=== PATIENT | female | born 1960 | race Caucasian/White ===

== ENCOUNTER 2020-03-25 08:13 | Outpatient (CLI) | payer SELFPAY ==
--- NOTE | 2020-03-25 08:21 | US_ITS ---
WS: [id number] BILATERAL DIGITAL DIAGNOSTIC MAMMOGRAM MAMMOGRAPHY WITH CAD CLINICAL INFORMATION: breast mass-- suspicious for malignancy COMPARISON: None. TECHNIQUE: Bilateral CC, MLO, and ML views. FINDINGS: Scattered fibroglandular densities bilaterally. Palpable marker upper inner left breast. This corresponds to an underlying dense mammographic mass me asuring 3.1 x 2.8 cm. This is well circumscribed with adjacent interstitial parenchymal changes exten ding towards the left nipple. Ultrasound is pending. Additional focal asymmetric density upper outer left breast measuring 7 mm. Ultrasound is pending. Right breast is unremarkable. ULTRASOUND BREAST LEFT TECHNIQUE: Ultrasound left breast focused area of concern. CLINICAL INFORMATION: breast mass-- suspicious for malignancy COMPARISON: None. FINDINGS: Ultrasound left breast 11-2 o'clock. Large cystic and solid complex lesion corresponding to the palpa ble abnormality 11:00 left breast. Internal and peripheral nodularity involving this lesion with incr eased vascularity. This lesion measures approximately 3.1 x 2.3 x 2.7 cm and recommend further evalua tion with biopsy and aspiration. Hypoechoic lobulated lesion at the 2:00 position likely corresponds to the mammographic abnormality l aterally. This measures 7.6 and 4.5 x 7.0 mm. Recommend further evaluation with ultrasound-guided bio psy. 2 additional hypoechoic lesions at the 1:00 and 2:00 position 5 cm from the nipple. These appear to r epresent intramammary lymph nodes. Left axilla evaluated. Several slightly prominent lymph nodes with preserved fatty hilum. No signific ant cortical thickening. The largest measures 1.4 x 0.5 x 1.3 cm and 1.3 x 0.5 x 0.7 cm. These are no nspecific but may be reactive. Ultrasound guided biopsy recommended of the complex cystic and solid upper inner quadrant LEFT breast lesion as well as the 3:00 small indeterminate hypoechoic lesion. US/US breast LT limited* [id number] IMPRESSION: BI-RADS: 4C-Suspicious: Moderate FOLLOW UP: US Guided Biopsy Recommended
--- NOTE | 2020-03-25 08:30 | MM_ITS ---
WS: [id number] BILATERAL DIGITAL DIAGNOSTIC MAMMOGRAM MAMMOGRAPHY WITH CAD CLINICAL INFORMATION: breast mass-- suspicious for malignancy COMPARISON: None. TECHNIQUE: Bilateral CC, MLO, and ML views. FINDINGS: Scattered fibroglandular densities bilaterally. Palpable marker upper inner left breast. This corresponds to an underlying dense mammographic mass me asuring 3.1 x 2.8 cm. This is well circumscribed with adjacent interstitial parenchymal changes exten ding towards the left nipple. Ultrasound is pending. Additional focal asymmetric density upper outer left breast measuring 7 mm. Ultrasound is pending. Right breast is unremarkable. ULTRASOUND BREAST LEFT TECHNIQUE: Ultrasound left breast focused area of concern. CLINICAL INFORMATION: breast mass-- suspicious for malignancy COMPARISON: None. FINDINGS: Ultrasound left breast 11-2 o'clock. Large cystic and solid complex lesion corresponding to the palpa ble abnormality 11:00 left breast. Internal and peripheral nodularity involving this lesion with incr eased vascularity. This lesion measures approximately 3.1 x 2.3 x 2.7 cm and recommend further evalua tion with biopsy and aspiration. Hypoechoic lobulated lesion at the 2:00 position likely corresponds to the mammographic abnormality l aterally. This measures 7.6 and 4.5 x 7.0 mm. Recommend further evaluation with ultrasound-guided bio psy. 2 additional hypoechoic lesions at the 1:00 and 2:00 position 5 cm from the nipple. These appear to r epresent intramammary lymph nodes. Left axilla evaluated. Several slightly prominent lymph nodes with preserved fatty hilum. No signific ant cortical thickening. The largest measures 1.4 x 0.5 x 1.3 cm and 1.3 x 0.5 x 0.7 cm. These are no nspecific but may be reactive. Ultrasound guided biopsy recommended of the complex cystic and solid upper inner quadrant LEFT breast lesion as well as the 3:00 small indeterminate hypoechoic lesion. MM/[place] [id number] IMPRESSION: BI-RADS: 4C-Suspicious: Moderate FOLLOW UP: US Guided Biopsy Recommended
== END 2020-03-25 08:14 | disposition home or self-care (01) ==
LOC: RADSHAW 08:15
PROVIDERS: Visit Provider Nurse Practitioner Women's Health
DX: N63.22 Unspecified lump in the left breast, upper inner quadrant (principal)
CPT/HCPCS: 76642; 77066

== ENCOUNTER 2020-04-02 11:56 | Outpatient (CLI) | payer SELFPAY ==
--- NOTE | 2020-04-02 13:00 | US_ITS ---
WS: [id number] ULTRASOUND-GUIDED LEFT BREAST BIOPSY CLINICAL INFORMATION: breast mass and abnormal mammogram COMPARISON: None. FINDINGS: The procedure including risks, benefits, and complications were discussed with the patient who agreed to proceed. Using sterile technique patient was prepped and draped in the usual sterile fashion. Aft er 1% lidocaine utilizing real-time ultrasound guidance a 16-gauge needle was advanced into the cysti c portion of the lesion at the 11:00 position. Approximately 10 cc of bloody fluid was aspirated and sent for diagnostic tests. Next, 5 14-gauge cores were obtained of the solid portion left breast lesi on at the 11 o'clock position. Subsequently a titanium clip was placed in the biopsy cavity. No immed iate complications. Next, 5 14-gauge samples were obtained of the left breast lesion at the 2:00 position. Titanium clip was placed in the biopsy cavity. PATHOLOGY DEMONSTRATES: A. Breast, left, 11 O' Clock 3 cm, ultrasound-guided biopsy: - METAPLASTIC CARCINOMA with giant cells, spindle cells, chondroid and osteoid differentiation. - See comment. B. Breast, left, 2 O' Clock 4 cm, ultrasound-guided biopsy: - INVASIVE DUCTAL CARCINOMA, poorly differentiated, [place] grade III. - Ductal carcinoma in situ with comedonecrosis. 2. The pathology demonstrates : a. Left breast 11:00 position, metaplastic carcinoma with giant cells, spindle cell, chondroid and os teoid differentiation. b. Left breast 2:00 position, invasive ductal carcinoma poorly differentiated. Also DCIS with comedon ecrosis. 3. Breast cancer prognostic profile pending US/[place] [id number] IMPRESSION: 1. Uncomplicated ultrasound-guided left breast biopsy. BI-RADS: 6-Known Biopsy-Proven Malignancy FOLLOW UP: Surgical Biopsy Recommended RECOMMEND BREAST SURGERY CONSULTATION.
[2020-04-11 14:44] LABS: Miscellaneous Test See Scanned Lab Rpt
== END 2020-04-02 11:57 | disposition home or self-care (01) ==
LOC: RAD 11:58
PROVIDERS: PCP Nurse Practitioner Women's Health; Visit Provider Nurse Practitioner Women's Health
DX: C50.212 Malignant neoplasm of upper-inner quadrant of left female breast (principal); C50.412 Malignant neoplasm of upper-outer quadrant of left female breast
CPT/HCPCS: 19083; 19084; 88112; 88173; 88184; 88185; 88188; 88305

== ENCOUNTER 2020-04-11 10:16 | Outpatient (CLI) | payer SELFPAY ==
[2020-04-11 11:40] LABS: Basophils # 0.1 10^3/uL (0.0-0.1); Basophils % 0.8 %; Eosinophils # 0.2 10^3/uL (0.0-0.8); Eosinophils % 2.2 %; Hematocrit 49.3 % (37.0-47.0); Hemoglobin 15.6 g/dL (11.5-15.3); Lymphocytes # 2.6 10^3/uL (0.8-4.8); Lymphocytes % 28.4 %; Mean Corpuscular HGB Conc 31.6 g/dL (30.0-36.0); Mean Corpuscular Hemoglobin 29.8 pg (28.0-34.0); Mean Corpuscular Volume 94.3 fL (81-99); Mean Platelet Volume 10.8 fL (7.4-10.4); Monocytes # 0.6 10^3/uL (0.2-0.9); Monocytes % 6.1 %; Neutrophils # 5.79 10^3/uL (1.8-7.7); Neutrophils % 62.3 %; Nucleated Red Blood Cells % 0 %; Platelet Count 269 10^3/cmm (130-400); Red Blood Count 5.23 10^6/uL (4.1-5.3); Red Cell Distribution Width 12.6 % (12.1-15.1); White Blood Count 9.3 10^3/uL (4.0-10.0)
[2020-04-11 12:07] LABS: Alanine Aminotransferase 35 U/L (0-33); Albumin Level 4.3 g/dL (3.5-5.2); Alkaline Phosphatase 150 IU/L (35-105); Aspartate Amino Transferase 29 U/L (0-32); Blood Urea Nitrogen 12 mg/dL (6-20); Calcium 9.4 mg/dL (8.5-10.5); Carbon Dioxide 26 mmol/L (22-29); Chloride 103 mmol/L (98-107); Globulin 3.4 g/dL (1.3-4.6); Glomerular Filtration Rate 85.9 mL/min (90-130); Glucose 98 mg/dL (65-115); Osmolality Calculated 282 mOsm/kg (285-295); Sodium 138 mmol/L (136-145); Total Bilirubin 0.3 mg/dL (0.15-1.2); Total Protein 7.7 g/dL (6.6-8.7)
[2020-04-11 12:10] LABS: Anion Gap 13.2 (5-19); Potassium 4.2 mmol/L (3.5-5.1)
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
== END 2020-04-11 10:17 | disposition home or self-care (01) ==
PROVIDERS: Visit Provider Internal Medicine Medical Oncology
DX: C50.812 Malignant neoplasm of overlapping sites of left female breast (principal); Z17.1 Estrogen receptor negative status [ER-]; F17.210 Nicotine dependence, cigarettes, uncomplicated
CPT/HCPCS: 36415; 80053; 85025; 99205

== ENCOUNTER 2020-04-23 12:33 | Outpatient (CLI) | payer MEDICAID, SELFPAY ==
--- NOTE | 2020-04-23 13:01 | MR_ITS ---
WS: [id number] MRI BRAIN WITH AND WITHOUT CONTRAST HISTORY: BREAST CANCER COMPARISON: CT head 04/06/2018 TECHNIQUE: Multiplanar imaging performed through the brain with Prohance 17 ml's IV. No acute infarcts are seen. Mancia-white matter differentiation is well preserved. Multifocal areas of increased T2 and FLAIR signal hyperintensities and periventricular white matter and subcortical distr ibution. No prior infarct. No susceptibility artifacts or prior lacunar infarcts. Ventricles and extra-axial spaces are normal. Clivus and pituitary gland are normal. Visualized posterior fossa and brainstem are also normal. Postcontrast images are negative for masses or vascular malformations. Dural venous sinuses are normal. Paranasal sinuses: Well aerated with no significant disease. Mastoid air cells: Normal. Calvarium and scalp: Normal. MR/MR head wo/w con [id number] IMPRESSION: 1. No acute infarct or metastatic disease. 2. Mild to moderate chronic microvascular ischemic changes. No acute abnormali ty.
== END 2020-04-23 12:34 | disposition home or self-care (01) ==
LOC: ONCMED 12:34
PROVIDERS: Visit Provider Internal Medicine Medical Oncology
DX: C50.812 Malignant neoplasm of overlapping sites of left female breast (principal); Z17.1 Estrogen receptor negative status [ER-]
CPT/HCPCS: 70553; A9579

== ENCOUNTER → 2020-04-25 15:45 | Outpatient (BNVA) | payer MEDICAID, SELFPAY | PROVIDERS: Family Provider Orthopaedic Surgery; Visit Provider Nurse Practitioner Women's Health | DX: C50.912 Malignant neoplasm of unspecified site of left female breast (principal) | CPT/HCPCS: 88175 ==

== ENCOUNTER 2020-05-05 07:55 | Outpatient (CLI) | payer MEDICAID, SELFPAY ==
--- NOTE | 2020-05-05 08:20 | NM_ITS ---
WS: [id number] NUCLEAR MEDICINE WHOLE BODY BONE SCAN HISTORY: BREAST CANCER COMPARISON: 05/05/2020 CT. TECHNIQUE: The patient was injected with 26.8 mCi of Technetium 99m HDP and serial whole-body scintig lori have been performed with anterior and posterior images. There is no significant evidence for metastatic disease to the osseous structures. There is a very mi nimal area of increased uptake involving the anterior most end of the seventh LEFT rib. Mild degenera tive changes at the ankle joints and knee joints. Normal uptake in the bones of the pelvis. Normal sk ull. NM/NM bone scan whole body* [id number] IMPRESSION: No definite evidence for metastatic bone disease.
--- NOTE | 2020-05-05 08:20 | CT_ITS ---
WS: [id number] CT CHEST, ABDOMEN AND PELVIS WITH CONTRAST. HISTORY: BREAST CANCER TECHNIQUE: Contiguous 5 mm axial imaging performed through the chest, abdomen and pelvis with IV cont rast, oral contrast has been provided. Coronal and sagittal reformats chest. Coronal and sagittal ref ormats through the abdomen and pelvis. All CT scans at [facility] use at least one of the se dose optimization techniques: automated exposure control; mA and/or kV adjustment per patient size (includes targeted exams where dose is matched to clinical indication); or iterative reconstruction. CONTRAST: Omnipaque 300; 95 mL IV. DLP: 1019.17 mGy.cm COMPARISON: 04/06/[address]: There are several new areas of groundglass attenuation and spiculated nodules in the lungs. Central RIGHT upper lobe groundglass attenuation measures 7 mm maximum diameter, image 14 of series 4 . Additional 9 mm groundglass attenuation RIGHT upper lobe, image 21 of series 4. 3 mm nodule along the superior minor fissure extending towards the RIGHT lower lobe, image 34 of series 4. 8mm spiculated nodule at the RIGHT lung base, image 40 of series 4. LEFT lower lobe groundglass attenuation measures 7 mm, image 30 of series 4. None of the above nodules were present on the prior examination from 2018. Small mediastinal and tamir r lymph nodes are stable since 2018. Largest lymph node measures 8 mm at the RIGHT hilum. Additional stable lymph nodes in the pericardiac fat. Mild atherosclerosis aorta. Normal size pulmonary artery. Subcentimeter RIGHT thyroid nodule is unchanged. Recently biopsied large heterogeneous LEFT breast mass measures 3.4 x 2.7 cm. No enlarged LEFT axilla ry lymph nodes are internal mammary chain lymph nodes. Abdomen CT: Moderate hepatomegaly and hepatic steatosis. No bile duct dilatation no metastatic diseas e. Normally distended gallbladder with cholelithiasis. Normal pancreas and spleen. Minimal hyperplasi a LEFT adrenal gland is stable. Normal RIGHT adrenal gland. Mild atherosclerosis aorta. Kidneys are e nhancing normally and normal size. No ascites or adenopathy. No GI tract obstruction. Sigmoid diverticulosis without acute diverticulitis. Small ventral abdominal wall hernia contains fat. Pelvic CT: Normally distended urinary bladder. No free fluid or adenopathy in the pelvis. Uterus and ovaries are atrophic as expected. Increase in lumbar lordosis. No osteoblastic or osteolytic bone disease. CT/CT chest abd pel w con* IMPRESSION: 1. Multi lobar spiculated nodules and groundglass attenuation as described abo ve. New since 2018. Early metastatic disease is not excluded. Consider follow-u p PET/CT imaging and [address] follow-up due to their small size. 2. Hepatic steatosis. No metastatic disease to the liver or adrenal glands. 3. Sigmoid diverticulosis without acute diverticulitis. 4. Cholelithiasis without acute cholecystitis.
[2020-05-05] MEDS: iohexol 300 mg/mL 50 mL Btl PO (08:27)
[2020-05-05] MEDS: iohexol 300 mg/mL 100 mL Btl IV (09:35)
--- NOTE | 2020-05-06 12:23 | ONC FU_ITS ---
Dr. Michelle Patient Follow-Up Note Patient: Tiara Gonzalez Unit #: [id number]: 1960 Dicatated By: Phillip Michelle M.D.Date of Visit:May 05, 2020 Onc Med Follow-up/Prog Note Chief Complaint: Breast cancer. History of Present Illness: This is a 59 year-old woman with multifocal left breast cancer, ER negative, KY negative, and HER-2 kika negative. She had presented to [facility] on 03/21/2020 with a lump in her left breast. Diagnostic mammogram on 03/25/2020 showed a dense well-circumscribed mass measuring 3.1 x 2.8 cm. Ultrasound showed a large cystic and solid complex lesion at the 11 to 2 o'clock position of the left breast measuring 3.1 x 2.3 x 2.7 cm. A hypoechoic lobulated lesion at 2:00 measured 7.6 x 4.5 x 7.0 mm. 2 additional hypoechoic lesions at the 1:00 and 2 o'clock position located 5 cm from the nipple appeared to represent intramammary lymph nodes. Several slightly prominent lymph nodes were noted in the left axilla measuring up to 1.4 cm in maximum diameter were noted to have preserved fatty hilum without significant cortical thickening, felt to most likely be reactive. She had underwent ultrasound directed core needle biopsy of the 11:00 mass and the 2:00 mass on 04/02/2020. 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 The breast prognostic profile on that lesion showed ER and KY both negative at <1%. The tumor was negative for overexpression of HER-2/kika, 1+ by IHC and amplification ratio by FISH at 1.0 with 1.9 HER-2 copies/cell. The Ki-67 was unfavorable at 18%. The lesion at 2:00 showed invasive ductal carcinoma, poorly differentiated, grade 3. 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 I had seen her initially on 04/11/2020. At that time she had multiple complains, significant enough that I was concerned about the possibility of metatstatic disease. Her baseline laboratory studies were unremarkable except for slightly elevated liver enzymes. Her brain MRI showed no evidence of metastatic disease. Staging CT scans of the chest, abdomen, and pelvis on 05/05/2020 showed hepatic steatosis but no metastatic disease in the abdomen or pelvis. The chest showed multilobar subcentimeter pulmonary nodules which were indeterminate but new compared to a prior study from 2018. Bone scan showed mild degenerative changes at the ankle joints and knee joints. There was no significant evidence for metastatic disease. She is seen for a follow-up visit. She has been feeling somewhat better to the extent that her headaches are not as bad and her nausea/appetite have improved with dexamethasone. She still complains that she wears out quickly. ECOG score is 1. She does not have fever, night sweats, or hot flashes. She has some shortness of breath with activity and she has nonproductive cough. She hurts a lot in her chest, that is mainly in the breast area. She does have pain in her knees and ankles. She has anxiety/depression, and she is not sleeping well. Medications: dimenhyDRINATE 1 Tablet (of 25 mg) Tablet, chewable Oral daily, diphenhydrAMINE HCl (Sleep) 1 Tablet (of 25 mg) Oral at bedtime Allergies: No Known Allergies. Review of Systems: Constitutional - She wears out quickly. Appetite is OK. Weight is up a few pounds. No fever, night sweats, or hot flashes. ECOG score is 1., ENMT - No sinus congestion/drainage. No mouth sores. No sore throat or difficulty swallowing, Hematologic/Lymphatic - She has some bruising, Respiratory - She has some shortness of breath with activity. She has nonproductive cough. No pleuritic pain or hemoptysis, Cardiovascular - No angina pain. No palpitations, Gastrointestinal - She still has some nausea. No heartburn or acid reflux. No diarrhea or constipation. No blood in the stool or black stools, Genitourinary (F) - No dysuria or hematuria. No urinary frequency. No urgency or incontinence, Musculoskeletal - Her chest hurts a lot. She also has pain in her knees and ankles and in her back, Integumentary - No skin rash, Neurologic - Her headaches are not as bad. She sometimes has dizziness. She sometimes has numbness/tingling. No other focal neurologic symptoms, Psychiatric - She has anxiety and depression. She does not sleep well. Vital Signs: Performed on May 05, 2020 15:04 Height - 62.00 in Weight - 137 lbs (HIGH) BSA - 1.63 sq.m BMI - 25.06 Temperature - 97.8 F (LOW) Pulse - 89 /min Respiration - 17 /min BP - 132/74 mm(hg) O2 Sat - 98 % Pain - 9 Physical Examination: Constitutional - She appears somewhat weak generally, Eyes - Sclerae nonicteric. Conjunctivae clear, ENMT - No lesions noted in the oral cavity, Hematologic/Lymphatic - No cervical, clavicular, or axillary adenopathy, Respiratory - Lungs sound clear, Cardiovascular - Heart rhythm is regular. There is no murmur, gallop, or rub noted, Abdomen - Moderately distended. Liver and spleen are not enlarged. There is no abdominal mass or ascites noted and there is no inguinal adenopathy, Extremities - No edema, Neurologic - No focal neurologic deficits noted. Lab/Imaging: Test performed on Apr 11, 2020 11:20 Sodium 138 mmol/L Potassium 4.2 mmol/L Chloride 103 mmol/L CO2 26 mmol/L Anion Gap 13.2 BUN 12 mg/dL Creatinine 0.7 mg/dL Cr Clearance (Est) 83.8100 mL/min eGFR 85.9 mL/min Glucose 98 mg/dL Calcium 9.4 mg/dL Protein, Total 7.7 g/dL Albumin 4.3 g/dL Globulin 3.4 g/dL Bilirubin, Total 0.3 mg/dL ALT (SGPT) 35 U/L AST (SGOT) 29 U/L Alkaline Phosphatase 150 IU/L WBC 9.3 10 3/uL RBC 5.23 10 6/uL HGB 15.6 g/dL HCT 49.3 % MCV 94.3 fL MCH 29.8 pg MCHC 31.6 g/dL RDW 12.6 % Platelet Count 269 10 3/cmm MPV 10.8 fL Neutrophils 5.79 10 3/uL Lymphocytes 2.6 10 3/uL Monocytes 0.6 10 3/uL Eosinophils 0.2 10 3/uL Basophils 0.1 10 3/uL Neutrophil % 62.3 % Lymphocyte % 28.4 % Monocyte % 6.1 % Eosinophil % 2.2 % Basophils % 0.8 % NRBC % 0 % Impression: 1. Patient with multifocal cancer of the left breast, including a metaplastic carcinoma with giant cells, spindle cells, chondroid and osteoid differentiation at the 11 o'clock position and a grade 3 invasive ductal carcinoma at the 2 o'clock position. The 11 o'clock lesion was ER and KY negative (<1%) and negative for overexpression of HER-2/kika (1+ by IHC and amplification ratio by FISH of 1.0 with 1.9 HER-2 copies/cell). The Ki-67 was unfavorable at 18%. 2. She underwent ultrasound directed core needle biopsy of the left breast on 04/02/2020. 3. She has nicotine dependence (cigarettes). At her initial visit on 04/11/2020 she had numerous complaints, significant enough that I was concerned about the possibility of metastatic disease. Her staging evaluation does show subcentimeter pulmonary nodules which are indeterminate, but new compared to previous study from 2018. There are no other findings which are suspicious for metastatic disease. She has had some symptomatic improvement with dexamethasone, though she continues to have some nausea and she is having significant pain. Plan: She will now be scheduled to see Dr. Tejada for mastectomy. I will see her again to discuss adjuvant therapy when final the pathology results are available. In the meantime, she is to stop the dexamethasone now. She will be given a prescription for Protonix 40 mg daily and she will be given a prescription for hydrocodone 5/APAP 325 to take as needed. She also will start trazodone 50 mg at bedtime. Signed By: Phillip Michelle M.D. <<Signature on File>>
== END 2020-05-05 07:56 | disposition home or self-care (01) ==
LOC: US 07:56 → RAD 08:10
PROVIDERS: PCP Nurse Practitioner Women's Health; Visit Provider Internal Medicine Medical Oncology
DX: C50.812 Malignant neoplasm of overlapping sites of left female breast (principal); Z17.1 Estrogen receptor negative status [ER-]; R91.8 Other nonspecific abnormal finding of lung field; M89.8X0 Other specified disorders of bone, multiple sites; N64.4 Mastodynia; R07.9 Chest pain, unspecified; K76.0 Fatty (change of) liver, not elsewhere classified; K57.30 Diverticulosis of large intestine without perforation or abscess without bleeding; K80.20 Calculus of gallbladder without cholecystitis without obstruction; F17.210 Nicotine dependence, cigarettes, uncomplicated; R11.0 Nausea; Z79.52 Long term (current) use of systemic steroids
CPT/HCPCS: 71260; 74177; 78306; 99214; A9561

== ENCOUNTER → 2020-05-16 15:19 | Outpatient (BNVA) | payer OTHER, SELFPAY | PROVIDERS: PCP Nurse Practitioner Women's Health; Visit Provider Surgery | DX: C50.912 Malignant neoplasm of unspecified site of left female breast (principal); Z20.828 Contact with and (suspected) exposure to other viral communicable diseases | CPT/HCPCS: 87635 ==

== ENCOUNTER 2020-05-20 14:59 | Observation (INO) | payer MEDICAID, SELFPAY ==
[2020-05-19 12:59] VITALS: BMI 25.2
[2020-05-20] VITALS (21 sets, daily range): BP systolic 127–186; BP diastolic 78–94; PULSE 72–101; RESP 13–24; TEMP 36–37.2; O2SAT 92–100
[2020-05-20] MEDS: sodium chloride 0.9% 1,000 ML 30 ML IV (07:35)
[2020-05-20] MEDS: heparin 5,000 unit/mL INJ 1 mL 2000 UNIT SUBCUT (07:46)
--- NOTE | 2020-05-20 08:38 | NM_ITS ---
WS: [id number] NUCLEAR MEDICINE SENTINEL LYMPH NODE IMAGING HISTORY: sentinel node biopsy, LEFT breast. COMPARISON: None available. TECHNIQUE: The patient was injected with 1.03 mCi of Technetium 99 ultra filtered sulfur colloid. Inj ection is intradermal in a periareolar location. Four aliquots are used. Uncomplicated injection LEFT breast. NM/NM sentinel node inject [id number] IMPRESSION: Uncomplicated LEFT breast sentinel node injection.
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
--- NOTE | 2020-05-20 13:10 | W.PM.OPSUD ---
Surgery/Procedure H&P Update DATE OF PROCEDURE: May 20, 2020 DATE H&P PERFORMED: 05/08/20 H&P UPDATE INFORMATION: I have reviewed H&P completed within last 30 days, I have examined patient prior to procedure and No changes to prior documentation PREOP DIAGNOSIS: Left breast cancer PRIMARY INDICATION FOR PROCEDURE: The same PLANNED PROCEDURE: Operation Date: 05/20/20 10:00 Proposed Procedures p Sentinal Lymph Node Biopsy [id number] C50.912(Left) - Colby Tejada MD s Total Mastectomy Radical(Left) - Colby Tejada MD
[2020-05-20] MEDS: isosulfan blue 10 mg/mL SDV 5mL SUBCUT (13:32)
--- NOTE | 2020-05-20 14:33 | SUR.OPER ---
Pt's family Santos updated on surgery progress and pt status via her cell phone.
[2020-05-20] MEDS: lidocaine 2% INJ 20 mL INJECTION (14:50)
--- NOTE | 2020-05-20 14:51 | P.OP_ITS ---
Operative Report Date of procedure: May 20, 2020 Pre-op Diagnosis: Left breast cancer Post-op diagnosis: other (Left breast cancer and sentinel lymph node biopsy x1) Procedure Done: Left total mastectomy and left axillary sentinel lymph node biopsy. Implants: 19 round Michael drain Specimens removed/disposition: Specimen #A sentinel lymph node biopsy #1 in vivo 983 and ex vivo 674. 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 Michelle medical oncologist. Decision was obtained to perform a total mastectomy and left axillary sentinel lymph node. Patient agreed to proceed accordingly. Procedure: In the nuclear medicine suite,Procedure was explained to the patient. Informed consent obtained. Time out was performed. The correct breast was marked. The skin at the adrenal skin interface was marked at the 12:00, 3:00, 6:00, 9:00 positions and prepped in a sterile manner. At the skin markings, the subcutaneous soft tissues were anesthetized with buffered 1% lidocaine. At each site, single aliquots of technetium 99m filtered sulfur colloid were administered into the subcutaneous soft tissues (total activity of 1.1 mCi). No apparent post procedure complication. Few hours later, the patient was taken to the operating room after marking the left breast and axilla by myself in the holding area, and general anesthesia was induced,Time-out was done verifying the patient's name/date of /planned procedure and destination after the procedure, all were in agreement.SCDs confirmed to be functioning, preoperative antibiotics administered per protocol, and beta katrina protocol was confirmed, appropriate positioning of the patient was done by me. patient was placed in supine position, with her left side being towards the edge of the table. Lymphazurin blue dye was injected at the periareolar region by myself, this was massaged gently for 5 minutes. Prep and drape was done for the chest including left breast and left arm and axilla, time-out was done verifying the patient's name medical record number and destination after the procedure, all were in agreement, IV antibiotics were given with induction. Started by far lateral and superior skin incision included in the mastectomy incision to reach for the sentinel lymph node biopsy of the axilla.And hand-held gamma probe was used to identify the location of the hottest spot in the axilla the probe was placed in contact with the node/stained blue,thelymph node was excised in its entirety. Ayaka counts as follows [place] lymph node #1 in vivo 983,ex vivo 674 then the lymph node at this point was passed to the circulating nurse for permanent pathology Irrigation and hemostasis using vascular clips were applied during the lymph node dissection Following that skin incision was extended made that encompassed the nipple area complex and the previous biopsy scar passed in a generally transverse/oblique direction across the breast Flaps were raised in the avascular plane between the subcutaneous tissue and breast tissue from the clavicle superiorly, the sternum medially, the anterior rectus sheath inferiorly, and anterior border of the latissimus dorsi muscle laterally. Hemostasis was achieved of the flaps. Next the breast tissue underlying pectoralis fascia were excised from the pectoralis major muscle, progressing from medially to laterally in the avascular plane. At the lateral border of the pectoralis major muscle, the breast tissue was swung laterally. Neurovascular structures were preserved. At this point mastectomy was achieved of the left breast sparing further axillary dissection. The mastectomy specimen was oriented short sutures superior and long sutures lateral and then passed to the circulating nurse for permanent pathology The wound was copiously irrigated and hemostasis was achieved. A rounded Michael drains 19 Sinhala were placed and brought out through the inferior flap,drain was stitched to the skin, wound was then closed using deep subdermal 2-0 Vicryl , followed by skin yousif, dry dressing, drain dressings, Telfa, fluffs on top and sports bra was applied. Counts of sponges, needles and instruments,needles were completed at the end of the procedure I was present for the whole entire procedure. Patient was then extubated and taken to the recovery room in stable condition
--- NOTE | 2020-05-20 15:19 | SUR.PHASEI ---
PT SLEEPS QUIETLY WITH ORAL AIRWAY IN PLACE, VSS LT BREAST DRESSING D/I WITH SUPPORT BRA IN PLACE LT ARM PINK WARM WITH STRONG REGULAR PULSE NOTED, PILLOW UNDER LT ARM FOR SUPPORT AND ELEVATION.
[2020-05-20] MEDS: fentaNYL 50 mcg/mL INJ 2mL IVP (15:32)
[2020-05-20] MEDS: morphine 4 mg/mL SDV 1 mL 2 MG IVP ×3 (15:38→20:59)
--- NOTE | 2020-05-20 15:44 | SUR.PHASEI ---
PT PAIN SLOWLY DECREASING PT DOZING OFF AND ON , SEE PAIN MEDS GIVEN, , LT BREAST DRESSING D/I PT TAKING OCC ICE CHIPS VSS. SATS 97% ON RA.
--- NOTE | 2020-05-20 15:54 | PM.PACU ---
PACU note Post-Anesthesia Exam: awake and vital signs stable Disposition: admitted
[2020-05-20] MEDS: HYDROcodone-acetaminophen 5-325 mg Tablet 1 TAB PO (16:21)
[2020-05-20] MEDS: famotidine 20 mg/2 mL INJ IVP (16:30)
[2020-05-20 16:33] LABS: Glucose Point of Care 148 mg/dL (70-110)
[2020-05-20] MEDS: sodium chloride 0.9% 1,000 ML 50 ML IV (23:41)
[2020-05-21] MEDS: ketorolac 30 mg/mL INJ 15 MG IVP (01:48)
[2020-05-21 02:00] VITALS: BP 151/81; PULSE 75; RESP 18; TEMP 36.7; O2SAT 96
[2020-05-21] MEDS: famotidine 20 mg/2 mL INJ IVP (03:46)
[2020-05-21 05:40] LABS: Hemoglobin 13.8 g/dL (11.5-15.3)
[2020-05-21 06:05] LABS: Anion Gap 14.6 (5-19); Blood Urea Nitrogen 9 mg/dL (6-20); Calcium 9.7 mg/dL (8.5-10.5); Carbon Dioxide 23 mmol/L (22-29); Chloride 98 mmol/L (98-107); Glomerular Filtration Rate 85.9 mL/min (90-130); Glucose 163 mg/dL (65-115); Osmolality Calculated 274 mOsm/kg (285-295); Potassium 4.6 mmol/L (3.5-5.1); Sodium 131 mmol/L (136-145)
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
[2020-05-21] MEDS: HYDROcodone-acetaminophen 5-325 mg Tablet 1 TAB PO (06:23)
[2020-05-21] MEDS: morphine 4 mg/mL SDV 1 mL 2 MG IVP (06:29)
[2020-05-21 07:46] VITALS: BP 145/79; PULSE 70; RESP 18; TEMP 36.9; O2SAT 95
[2020-05-21] MEDS: nicotine 14 mg Patch 1 PATCH TRANSDERMA (08:14)
[2020-05-21 11:17] VITALS: BP 155/79; PULSE 83; RESP 18; TEMP 36.7; O2SAT 94
--- NOTE | 2020-05-21 11:29 | ANE.PACU2 ---
Inpatient post-anesthesia follow up: Airway intact: Yes Vital signs: Temperature 98.1 F Pulse Rate 83 Respiratory Rate 18 Blood Pressure 155/79 Pulse Oximetry 94 Oxygen Delivery Me thod Room Air Oxygen Flow Rate 8 Fraction of Inspir ed Oxygen Hydration adequate: Yes Nausea and vomiting: No Pain level: 1 Mental status: Baseline Additional Comments: patient states she lost her earring perioperatively - will ask space and storage clerk involved in case
[2020-05-21 11:47] VITALS: BP 155/79; PULSE 83; RESP 18; TEMP 36.7; O2SAT 94
--- NOTE | 2020-05-21 12:11 | PC.RESP ---
SMOKING CESSATION INFORMATION SENT TO PATIENT.
== END 2020-05-21 11:48 | disposition home or self-care (01) ==
LOC: MEDSURG 15:00
PROVIDERS: Admitting Provider Surgery; Visit Provider Surgery
PROC: (CPT 19303; principal; 2020-05-20 10:45)
PROC: (CPT 19303; 2020-05-20 10:45)
DX: C50.912 Malignant neoplasm of unspecified site of left female breast (principal); Z80.3 Family history of malignant neoplasm of breast; F17.210 Nicotine dependence, cigarettes, uncomplicated
CPT/HCPCS: 19303; 38525; 12345; 36416; 38792; 80048; 82962; 85014; 85018; 88305; 88309; 96360; 96361; 96365; 96372; 96375; A9541; G0378; J0131; J1100; J1644; J1885; J2270; J2405; J2704; J2710; J3010; J3490; J7030; Q9968

== ENCOUNTER 2020-06-17 06:01 | Outpatient (CLI) | payer MEDICAID, SELFPAY ==
--- NOTE | 2020-06-18 07:17 | ONC FU_ITS ---
Dr. Michelle Patient Follow-Up Note Patient: Tiara Gonzalez Unit #: [id number]: 1960 Dicatated By: Phillip Michelle M.D.Date of Visit:Jun 17, 2020 Onc Med Follow-up/Prog Note Chief Complaint: Breast cancer. History of Present Illness: This is a 59 year-old woman with multifocal left breast cancer, stage IIIA (T2, pN1a, M0), ER negative, TN negative, and HER-2 kika negative. She had presented to [facility] on 03/21/2020 with a lump in her left breast. Diagnostic mammogram on 03/25/2020 showed a dense well-circumscribed mass measuring 3.1 x 2.8 cm. Ultrasound showed a large cystic and solid complex lesion at the 11 to 2 o'clock position of the left breast measuring 3.1 x 2.3 x 2.7 cm. A hypoechoic lobulated lesion at 2:00 measured 7.6 x 4.5 x 7.0 mm. 2 additional hypoechoic lesions at the 1:00 and 2 o'clock position located 5 cm from the nipple appeared to represent intramammary lymph nodes. Several slightly prominent lymph nodes were noted in the left axilla measuring up to 1.4 cm in maximum diameter were noted to have preserved fatty hilum without significant cortical thickening, felt to most likely be reactive. She had underwent ultrasound directed core needle biopsy of the 11:00 mass and the 2:00 mass on 04/02/2020. 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 The breast prognostic profile on that lesion showed ER and TN both negative at <1%. The tumor was negative for overexpression of HER-2/kika, 1+ by IHC and amplification ratio by FISH at 1.0 with 1.9 HER-2 copies/cell. The Ki-67 was unfavorable at 18%. The lesion at 2:00 showed invasive ductal carcinoma, poorly differentiated, grade 3. 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 I had seen her initially on 04/11/2020. At that time she had multiple complains, significant enough that I was concerned about the possibility of metatstatic disease. Her baseline laboratory studies were unremarkable except for slightly elevated liver enzymes. Her brain MRI showed no evidence of metastatic disease. Staging CT scans of the chest, abdomen, and pelvis on 05/05/2020 showed hepatic steatosis but no metastatic disease in the abdomen or pelvis. The chest showed multilobar subcentimeter pulmonary nodules which were indeterminate but new compared to a prior study from 2018. Bone scan showed mild degenerative changes at the ankle joints and knee joints. There was no significant evidence for metastatic disease. In the setting of multifocal disease with no evidence of metastatic involvement, she was advised to proceed with mastectomy. On 05/20/2020 she underwent left total mastectomy and left axillary sentinel lymph node biopsy. Pathology confirmed multifocal metaplastic carcinoma, grade 3, with giant cells, spindle cells, chondroid and osteoid differentiation. The largest focus of involvement measured 3.8 cm. The margins were free, with the closest being the deep margin at 9 mm. There was a component of ductal carcinoma in situ, solid and cribriform type with comedonecrosis, grade 3. The closest margin to DCIS was 7 mm. 2 intramammary lymph nodes were positive for metastatic involvement, 1 of which showed extracapsular extension. There was no involvement in 4 axillary sentinel lymph nodes. Pathologic staging was pT2, pN1a. She is seen for a follow-up visit. She is feeling much better generally, though she is still on limited activity following her surgery. ECOG score is 2. Her appetite is good and her weight is up 4 pounds. She has not had fever. She sometimes has hot flashes/sweating. She still sometimes has shortness of breath, but overall her breathing is better, as she has quit smoking. She still has some cough. She does not complain of chest pain. Her nausea is better. She currently has no GI or complaints. She does have pain in her knees and back. She does not complain of headache. She sometimes has dizziness. She occasionally has numbness or tingling. She is sleeping better with trazodone. Medications: dimenhyDRINATE 1 Tablet (of 25 mg) Tablet, chewable Oral daily, diphenhydrAMINE HCl (Sleep) 1 Tablet (of 25 mg) Oral at bedtime, HYDROcodone-Acetaminophen 1 Tablet (of 5-325 mg) Oral q 6 hours, Pantoprazole Sodium 1 Tablet (of 40 mg) Tablet, enteric coated Oral daily, traZODone HCl 1 Tablet (of 50 mg) Oral at bedtime Allergies: No Known Allergies. Review of Systems: Constitutional - She has felt pretty good following surgery. Her energy is good. She is still on some lifting restrictions. Her appetite is good and her weight is up a few pounds. No fevers. She has occasional hot flashes with sweating. ECOG score is 2, ENMT - No sinus congestion/drainage. No mouth sores. No sore throat or difficulty swallowing, Hematologic/Lymphatic - No abnormal bruising or bleeding, Respiratory - She has some shortness of breath, but her breathing is better. She has a mild cough. No pleuritic pain or hemoptysis. She quit smoking 2 months ago, Cardiovascular - No angina pain. No palpitations, Gastrointestinal - Her nausea and vomiting is improved. Her heartburn is adequately managed with pantoprazole. No diarrhea or constipation. No blood in the stool or black stools, Genitourinary (F) - No dysuria or hematuria. No urinary frequency. No urgency or incontinence, Musculoskeletal - She has some arthritis pain in her knees, Integumentary - Her mastectomy incision appears to be healing without complications, Neurologic - No headache or dizziness. No numbness or tingling. No other focal neurologic symptoms, Psychiatric - No anxiety or depression. She is sleeping better with trazodone. Vital Signs: Performed on Jun 17, 2020 08:10 Height - 62.00 in Weight - 135.6 lbs (LOW) BSA - 1.62 sq.m BMI - 24.80 Temperature - 97 F (LOW) Pulse - 66 /min Respiration - 17 /min BP - 147/73 mm(hg) (HIGH) O2 Sat - 96 % Pain - 6 Physical Examination: Constitutional - She looks pretty good generally, Eyes - Sclerae nonicteric. Conjunctivae clear, ENMT - No lesions noted in the oral cavity, Hematologic/Lymphatic - No cervical or clavicular adenopathy, Respiratory - Lungs sound clear with diminished air movement bilaterally, Cardiovascular - Heart rhythm is regular. There is no murmur, gallop, or rub noted, Breasts - The left mastectomy incision appears well-healed. There are no chest wall lesions noted. There is no axillary adenopathy, Abdomen - Soft. Liver and spleen are not enlarged. There is no abdominal mass or ascites noted and there is no inguinal adenopathy, Extremities - No edema, Neurologic - No focal neurologic deficits noted. Impression: 1. Patient with multifocal left breast cancer, stage IIIA (T2, pN1a, M0), ER negative, TN negative, and HER-2 kika negative. 2. She underwent ultrasound directed core needle biopsy of the left breast on 04/02/2020 and she underwent left mastectomy with axillary sentinel lymph node biopsy on 05/20/2020. There has been significant improvement in her overall clinical status since her initial visit. At this point she does appear to be showing good recovery from her mastectomy procedure. Plan: In the setting of locally advanced triple negative breast cancer, she is advised now to proceed with adjuvant chemotherapy with 4 cycles of Adriamycin/cyclophosphamide followed by weekly Taxol for 12 weeks. She will need to undergo placement of Port-A-Cath venous access device and she will need baseline echocardiogram. I did review anticipated side effects with the chemotherapy including the potential for nausea/vomiting, alopecia, weakness/fatigue, low blood counts, and peripheral neuropathy, among others. She will return to begin her first cycle treatment as soon as the Port-A-Cath is in place. Signed By: Phillip Michelle M.D. <<Signature on File>>
== END 2020-06-17 06:02 | disposition home or self-care (01) ==
LOC: ONCMED 06:03
PROVIDERS: Visit Provider Internal Medicine Medical Oncology
DX: C50.812 Malignant neoplasm of overlapping sites of left female breast (principal); Z17.1 Estrogen receptor negative status [ER-]; Z90.12 Acquired absence of left breast and nipple
CPT/HCPCS: 99214

== ENCOUNTER 2020-06-23 10:48 | Outpatient (CLI) | payer MEDICAID, SELFPAY ==
--- NOTE | 2020-06-23 11:00 | USCV_ITS ---
Tiara Gonzalez Age: 59 Gender: F : 1960 Exam Date: 06/23/2020 11:12 Ordering Phys: Phillip Michelle MD Technologist: Kelley Mina [place]am [place] [facility] [place]: PRE CHEMO BREAST CANCER BP: / HR: 80 Rhythm: Sinus Technical Quality: Fair MEASUREMENTS (Male / Female) Normal Values 2D ECHO LV Diastolic Diameter PLAX 3.9 cm 4.2 - 5.9 / 3.9 - 5.3 cm LV Systolic Diameter PLAX 2.0 cm IVS Diastolic Thickness 1.4 cm 0.6 - 1.0 / 0.6 - 0.9 cm IVS Systolic Thickness 1.7 cm LVPW Diastolic Thickness 0.8 cm 0.6 - 1.0 / 0.6 - 0.9 cm LVPW Systolic Thickness 1.8 cm LVOT Diameter 2.0 cm LV Ejection Fraction 2D Teich 80.3 % LV Ejection Fraction MOD 2C 74.0 % LV Ejection Fraction 2C AL 75.1 % LA Diameter 4.0 cm LA Width 2.0 cm LA Height 3.9 cm RA Width 2.8 cm RA Height 3.1 cm M-MODE LV Diastolic Diameter MM 5.4 cm 4.2 - 5.9 / 3.9 - 5.3 cm LV Systolic Diameter MM 3.2 cm LV Ejection Fraction MM Teich 70.4 % IVS Diastolic Thickness MM 0.7 cm 0.6 - 1.0 / 0.6 - 0.9 cm IVS Systolic Thickness MM 1.2 cm LVPW Diastolic Thickness MM 1.1 cm 0.6 - 1.0 / 0.6 - 0.9 cm LVPW Systolic Thickness MM 2.1 cm Aortic Annulus Diameter 2.7 cm LA Ao Ratio MM 1.5 MV E Point Septal Separation 1.3 cm DOPPLER AV Peak Velocity 120.0 cm/s LVOT Peak Velocity 117.0 cm/s AV Area Cont Eq vti 2.7 cm squared AV Area Cont Eq pk 3.2 cm squared MV Peak Velocity 147.0 cm/s MV Area PHT 2.9 cm squared Mitral E to A Ratio 0.8 MV E' Velocity 89.0 cm/s TR Peak Velocity 84.5 cm/s TR Peak Gradient 2.9 mmHg Right Atrial Pressure 3.0 mmHg Pulmonary Artery Systolic Pressu 5.9 mmHg PV Peak Velocity 100.3 cm/s RV Acceleration Time 0.1 s FINDINGS Left Ventricle Normal left ventricular size and systolic function, EF 67 %. No regional wall motion abnormalities. Grade I/IV diastolic dysfunction (abnormal relaxation filling pattern), normal to mildly elevated filling pressures. Right Ventricle Normal right ventricular size and systolic function. Right Atrium The right atrium is normal in size. Left Atrium The left atrium is normal in size. Mitral Valve No gross abnormalities noted Aortic Valve No gross abnormalities noted Tricuspid Valve No gross abnormalities noted Pulmonic Valve Pulmonic valve not well visualized. Pericardium Normal pericardium without effusion. Aorta Normal ascending aorta dimension. CONCLUSIONS Normal left ventricular size and systolic function, EF 67 %. No regional wall motion abnormalities. Grade I/IV diastolic dysfunction (abnormal relaxation filling pattern), normal to mildly elevated filling pressures. No significant valvular abnormalities noted Normal chamber sizes No significant pericardial effusion Technically difficult study because of the poor ultrasonic window. Dr Beckie Ventura MD FACC (Electronically Signed) Final Date: 23 June 2020 21:02 S
== END 2020-06-23 10:49 | disposition home or self-care (01) ==
LOC: RAD 10:52
PROVIDERS: Visit Provider Internal Medicine Medical Oncology
DX: C50.812 Malignant neoplasm of overlapping sites of left female breast (principal); Z79.899 Other long term (current) drug therapy
CPT/HCPCS: 93306

== ENCOUNTER → 2020-06-26 08:32 | Outpatient (BNVA) | payer OTHER, SELFPAY | PROVIDERS: Visit Provider Surgery | DX: Z11.59 Encounter for screening for other viral diseases (principal); C50.912 Malignant neoplasm of unspecified site of left female breast | CPT/HCPCS: 87635 ==

== ENCOUNTER 2020-07-01 06:03 | Day surgery (SDC) | payer MEDICAID, SELFPAY ==
[2020-06-30 16:48] VITALS: BMI 25.2
--- NOTE | 2020-07-01 | SCC_ITS ---
Procedure Done: Right internal jugular vein PowerPort placement under ultrasound and fluoroscopic guidance. All entire procedure was done by me under imaging guidance 13.3 seconds of fluoroscopic guidance, for a cumulative dose of 1.71 mGy, was provided to Dr. Tejada by the radiology department. C-arm images of the chest were saved for the patient's permanent record. [facility]
--- NOTE | 2020-07-01 06:07 | SC_ITS ---
WS: [id number] INTRAOPERATIVE TECHNIQUE: 2 Spot fluoroscopic images for intraoperative purposes. FLUOROSCOPY TIME: 13.3 seconds CLINICAL INFORMATION: Port-A-Cath placement COMPARISON: None. FINDINGS: Right Port-A-Cath with tip in the mid SVC. No pneumothorax. SC/C-arm FL for CVA [id number] IMPRESSION: Images obtained for intraoperative purposes.
[2020-07-01 06:11] VITALS: BP 158/81; PULSE 84; RESP 18; TEMP 36.8; O2SAT 94
--- NOTE | 2020-07-01 06:15 | W.PM.OPSUD ---
Surgery/Procedure H&P Update DATE OF PROCEDURE: July 01, 2020 DATE H&P PERFORMED: 05/08/20 H&P UPDATE INFORMATION: I have reviewed H&P completed within last 30 days, I have examined patient prior to procedure and No changes to prior documentation PREOP DIAGNOSIS: Breast cancer requiring Port-A-Cath PRIMARY INDICATION FOR PROCEDURE: The same PLANNED PROCEDURE: Operation Date: 07/01/20 07:00 Proposed Procedures p Portacath Placement [id number] C50.919(Not Applicable) - Colby Tejada MD
[2020-07-01] MEDS: sodium chloride 0.9% 1,000 ML 30 ML IV (06:42)
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
[2020-07-01] MEDS: lidocaine 2% INJ 20 mL (07:13)
[2020-07-01] MEDS: heparin, porcine 1,000 unit/mL INJ 10 mL 10000 UNIT (07:26)
--- NOTE | 2020-07-01 07:44 | P.OP_ITS ---
Operative Report Date of procedure: July 01, 2020 Pre-op Diagnosis: Breast cancer requiring Port-A-Cath Post-op diagnosis: same Procedure Done: Right internal jugular vein PowerPort placement under ultrasound and fluoroscopic guidance. Interpretation of imaging studies including ultrasound and fluoroscopy was done by me through the whole entire procedure Implants: PowerPort placement via right internal jugular vein Surgeon: Colby Tejada Disintegrator Operator: Surgical techiesha Mccarthy and surgical resident talisha Lew Anesthesia: MAC (Dr. Wing) Estimated blood loss (mL): 10 Condition: stable Disposition: same day Brief History: This is a pleasant 59 years old female patient diagnosed with breast cancer undergone uneventful left mastectomy and she comes today for Port-A-Cath placement to start her chemotherapy. Plan of care; After thorough history physical examination and reviewing the chart, I counseled the patient for Port-A-Cath placement, indications, risks including pneumothorax and injury of major vascular structures, benefits,indications and alternatives were all discussed with the patient, patient understands and is interested to proceed. Rationale was carefully and clearly discussed with the patient.Appropriate informed consent have been reviewed and signed. Procedure: U/S Guided IJ access Patient was identified in the holding area and taken to the operative room and placed in supine position IV propofol was given by the anesthesia provider ,both arms were tucked,Time-out was done verifying the patient's name/date of /planned procedure and destination after the procedure, all were in agreement. SCDs confirmed to be functioning, preoperative antibiotics administered per protocol, and beta katrina protocol was confirmed, appropriate positioning of the patient was done by me. Medications were reviewed to assess for anticoagulant usage. Risks and benefits and prevention of central line associated blood stream infection (CLABSI) were discussed with the patient/CPOA, and a consent was obtained. Monitors were in place and monitored throughout the procedure. All necessary supplies were abdirahman ilable prior to start. Hand hygiene was completed prior to starting. Maximum barrier technique was utilized including a sterile gown, sterile gloves with a hat and mask. Site was was prepped with [chlorhexidine] and a full body drape was placed. 5 mL of 2% lidocaine was injected into the skin with a 25 gauge needle. Prep& drape was done under the usual sterile technique, lidocaine 2% was injec jose g at the site of the stick, started right subclavian vein first without success for retrieving blood so I decided at this point to deviate my attention to the right internal jugular vein. . Resumed the procedure by sticking right Internal Juglar vein stick that retrieved venous blood was obtained from the first stick under ultrasound guidance and there was no evidence of intraluminal thrombosis, interpretation was done by me through the whole entire procedure, a guidewire was then threaded and under the guidance of fluoroscopy position was confirmed to be in the IVC and my interpretation, there was no PVC changes, at that point the guidewire was secured to the drapes with a hemostat and the needle was taken out. Attention was then deviated towards creation of a pocket for the port were lidocaine 2% was injected using an 15 blade knife skin incision was created at the right upper Chest ,dissection using the Bovie to create a pocket for the Port-A-Cath to be accommodated, hemostasis was secured, after the port being appropriately flushed it was inserted into the pocket and a tunneler was used to accommodate the catheter of the port cath to be delivered through the incision first created at the site of the stick, then I was able to retrieve the catheter at the index site of the stick. At that point under fluoroscopy an estimated length was measured for the catheter and was cut at the designed level, followed by that a dilator with the sheath introduced onto the guidewire the dilator and the wire were retrieved and the catheter of the port was introduced via the sheath where it was peeled off and the catheter maintained to be in the SVC that was confirmed with fluoroscopy, and the fluoroscopy interpretation was done by me throughout the entire procedure. Multiple flushes of the port was done by diluted heparin and I was able to retrieve without difficulty venous blood as well as appropriate flushing was achieved. The port was kept in its pocket, 3-0 Vicryl deep subdermal interrupted sutures, skin was then closed by 4-0 Monocryl as subcuticular closure. The stick site was closed by 3-0 Vicryl and surgical glue was used followed by dressing. Patient tolerated the procedure well was taken to the recovery area Count was correct at the end of the procedure I was present for the whole entire procedure
--- NOTE | 2020-07-01 07:51 | XR_ITS ---
WS: [id number] XR chest 1V portable [id number] REASON FOR EXAM: Status post right internal jugular vein PowerPort placement FINDINGS: Status post left mastectomy and axillary dissection. Chemotherapy infusion port over the right chest with right internal jugular vein catheter. Minimal areas of platelike atelectasis in the lower lungs no pneumothorax. Heart and mediastinum are within normal limits. XR/XR chest 1V portable [id number] IMPRESSION: Properly positioned chemotherapy infusion port and catheter as above.
[2020-07-01 08:00] VITALS: BP 179/91; PULSE 85; RESP 18; TEMP 36.5; O2SAT 98
--- NOTE | 2020-07-01 08:47 | ANE.PACU2 ---
Inpatient post-anesthesia follow up: Airway intact: Yes Vital signs: Temperature 97.7 F Pulse Rate 85 Respiratory Rate 18 Blood Pressure 179/91 Pulse Oximetry 98 Oxygen Delivery Me thod Room Air Oxygen Flow Rate Fraction of Inspir ed Oxygen Hydration adequate: Yes Nausea and vomiting: No Pain level: 1 Mental status: Baseline
== END 2020-07-01 08:40 | disposition home or self-care (01) ==
PROVIDERS: Visit Provider Surgery
PROC: (CPT 36561; principal; 2020-07-01 07:00)
DX: C50.919 Malignant neoplasm of unspecified site of unspecified female breast (principal); F17.210 Nicotine dependence, cigarettes, uncomplicated; Z80.3 Family history of malignant neoplasm of breast
CPT/HCPCS: 36561; 12345; 71045; 76000; 77001; C1788; J0690; J1644; J2250; J2704; J7030

== ENCOUNTER 2020-07-21 12:50 | Outpatient (RCR) | payer MEDICAID, SELFPAY ==
[2020-07-08 12:03] LABS: Basophils % 0.4 %; Eosinophils # 0.1 10^3/uL (0.0-0.8); Eosinophils % 1.3 %; Hematocrit 39.8 % (37.0-47.0); Hemoglobin 13.3 g/dL (11.5-15.3); Lymphocytes # 2.1 10^3/uL (0.8-4.8); Lymphocytes % 25.2 %; Mean Corpuscular HGB Conc 33.4 g/dL (30.0-36.0); Mean Corpuscular Hemoglobin 30.5 pg (28.0-34.0); Mean Corpuscular Volume 91.3 fL (81-99); Mean Platelet Volume 10.3 fL (7.4-10.4); Monocytes # 0.6 10^3/uL (0.2-0.9); Neutrophils % 65.7 %; Nucleated Red Blood Cells % 0 %; Platelet Count 259 10^3/cmm (130-400); Red Blood Count 4.36 10^6/uL (4.1-5.3); Red Cell Distribution Width 13.4 % (12.1-15.1); White Blood Count 8.4 10^3/uL (4.0-10.0)
[2020-07-08 12:22] LABS: Alanine Aminotransferase 32 U/L (0-33); Alkaline Phosphatase 158 IU/L (35-105); Anion Gap 14.6 (5-19); Aspartate Amino Transferase 28 U/L (0-32); Blood Urea Nitrogen 8 mg/dL (6-20); Calcium 9.5 mg/dL (8.5-10.5); Carbon Dioxide 26 mmol/L (22-29); Chloride 99 mmol/L (98-107); Globulin 2.9 g/dL (1.3-4.6); Glomerular Filtration Rate 126.7 mL/min (90-130); Glucose 270 mg/dL (65-115); Osmolality Calculated 290 mOsm/kg (285-295); Potassium 3.6 mmol/L (3.5-5.1); Sodium 136 mmol/L (136-145); Total Bilirubin 0.2 mg/dL (0.15-1.2); Total Protein 6.9 g/dL (6.6-8.7)
[2020-07-08] MEDS: sodium chloride 0.9% 250 ML 999 ML IV (14:25)
[2020-07-08] MEDS: pegfilgrastim 6 mg/0.6 mL Kit (onpro) SUBCUT (16:05)
[2020-07-14 13:46] LABS: Basophils % 1.6 %; Eosinophils # 0.1 10^3/uL (0.0-0.8); Eosinophils % 5.4 %; Hematocrit 36.7 % (37.0-47.0); Lymphocytes # 0.8 10^3/uL (0.8-4.8); Lymphocytes % 59.7 %; Mean Corpuscular HGB Conc 32.7 g/dL (30.0-36.0); Mean Corpuscular Hemoglobin 30.7 pg (28.0-34.0); Mean Corpuscular Volume 93.9 fL (81-99); Mean Platelet Volume 11.4 fL (7.4-10.4); Monocytes % 3.1 %; Neutrophils % 29.4 %; Nucleated Red Blood Cells % 0 %; Platelet Count 150 10^3/cmm (130-400); Red Blood Count 3.91 10^6/uL (4.1-5.3); Red Cell Distribution Width 13.2 % (12.1-15.1); White Blood Count 1.3 10^3/uL (4.0-10.0)
[2020-07-14 14:05] LABS: Alanine Aminotransferase 36 U/L (0-33); Albumin Level 3.9 g/dL (3.5-5.2); Alkaline Phosphatase 190 IU/L (35-105); Anion Gap 14.9 (5-19); Aspartate Amino Transferase 31 U/L (0-32); Blood Urea Nitrogen 8 mg/dL (6-20); Calcium 9.4 mg/dL (8.5-10.5); Carbon Dioxide 27 mmol/L (22-29); Chloride 97 mmol/L (98-107); Globulin 2.5 g/dL (1.3-4.6); Glomerular Filtration Rate 163.9 mL/min (90-130); Glucose 199 mg/dL (65-115); Osmolality Calculated 284 mOsm/kg (285-295); Potassium 3.9 mmol/L (3.5-5.1); Sodium 135 mmol/L (136-145); Total Bilirubin 0.4 mg/dL (0.15-1.2); Total Protein 6.4 g/dL (6.6-8.7)
[2020-07-14 14:06] LABS: Neutrophils # 0.38 10^3/uL (1.8-7.7)
--- NOTE | 2020-07-14 21:30 | ONC FU_ITS ---
[facility] Patient Note Patient: Tiara Gonzalez Unit #: [id number]: [id number] Dictated By: Emerson HarrisDate of Visit: Jul 08, 2020 Onc MED Follow-Up/Prog Note Chief Complaint: Breast cancer. History of Present Illness: Ms Gonzalez is a 59 year-old woman with multifocal left breast cancer, stage IIIA (T2, pN1a, M0), ER negative, WV negative, and HER-2 kika negative. She had presented to [facility] on 03/21/2020 with a lump in her left breast. Diagnostic mammogram on 03/25/2020 showed a dense well-circumscribed mass measuring 3.1 x 2.8 cm. Ultrasound showed a large cystic and solid complex lesion at the 11 to 2 o'clock position of the left breast measuring 3.1 x 2.3 x 2.7 cm. A hypoechoic lobulated lesion at 2:00 measured 7.6 x 4.5 x 7.0 mm. 2 additional hypoechoic lesions at the 1:00 and 2 o'clock position located 5 cm from the nipple appeared to represent intramammary lymph nodes. Several slightly prominent lymph nodes were noted in the left axilla measuring up to 1.4 cm in maximum diameter were noted to have preserved fatty hilum without significant cortical thickening, felt to most likely be reactive. She had underwent ultrasound directed core needle biopsy of the 11:00 mass and the 2:00 mass on 04/02/2020. 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 The breast prognostic profile on that lesion showed ER and WV both negative at <1%. The tumor was negative for overexpression of HER-2/kika, 1+ by IHC and amplification ratio by FISH at 1.0 with 1.9 HER-2 copies/cell. The Ki-67 was unfavorable at 18%. The lesion at 2:00 showed invasive ductal carcinoma, poorly differentiated, grade 3. 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 Dr Michelle had seen her initially on 04/11/2020. At that time she had multiple complains, significant enough that he was concerned about the possibility of metatstatic disease. Her baseline laboratory studies were unremarkable except for slightly elevated liver enzymes. Her brain MRI showed no evidence of metastatic disease. Staging CT scans of the chest, abdomen, and pelvis on 05/05/2020 showed hepatic steatosis but no metastatic disease in the abdomen or pelvis. The chest showed multilobar subcentimeter pulmonary nodules which were indeterminate but new compared to a prior study from 2018. Bone scan showed mild degenerative changes at the ankle joints and knee joints. There was no significant evidence for metastatic disease. In the setting of multifocal disease with no evidence of metastatic involvement, she was advised to proceed with mastectomy. On 05/20/2020 she underwent left total mastectomy and left axillary sentinel lymph node biopsy. Pathology confirmed multifocal metaplastic carcinoma, grade 3, with giant cells, spindle cells, chondroid and osteoid differentiation. The largest focus of involvement measured 3.8 cm. The margins were free, with the closest being the deep margin at 9 mm. There was a component of ductal carcinoma in situ, solid and cribriform type with comedonecrosis, grade 3. The closest margin to DCIS was 7 mm. 2 intramammary lymph nodes were positive for metastatic involvement, 1 of which showed extracapsular extension. There was no involvement in 4 axillary sentinel lymph nodes. Pathologic staging was pT2, pN1a. As she has locally advanced triple negative breast cancer she was advised to proceed with adjuvant chemotherapy with 4 cycles of Adriamycin Cytoxan followed by weekly Taxol for 12 weeks. She had baseline echocardiogram on 06/23/2020 which reported normal left ventricular size and systolic function with an EF of 67%. There were no regional wall motion abnormalities. There was grade I/IV diastolic dysfunction normal to mildly elevated filling pressures. She also had PowerPort placement by Dr. Tejada on July 01, 2020. Ms. Gonzalez is here today for her first cycle of Adriamycin Cytoxan. She states overall she feels that she is doing okay. She has had some pain with her Port-A-Cath insertion. She states that she is unable to take Tylenol 3 because it makes her sick at her stomach and Motrin also makes her sick in her stomach. She has had some good response to hydrocodone in the past. She denies any fever or chills. She denies any nausea or vomiting. She is had no headache or vision changes. She states her appetite comes and goes. She states she has not been doing much activity because her daughter that she is staying with does not want her to do much she wants her to rest mostly. She states her bowels and bladder are normal for her. She has no peripheral neuropathy. She states she is really nervous for the chemotherapy today as her blood pressure was 163/90. She has no new concerns today. Her ECOG is 2 mostly because my family will not let me do anything . Past Medical History: Ms. Cody medical history is unremarkable. Past Surgical History: Caesarean section Right ankle repair Right knee repair Right internal juglar PowerPort per Dr Tejada in 2019 Allergies: No Known Allergies. Medications: dimenhyDRINATE 1 Tablet (of 25 mg) Tablet, chewable Oral daily diphenhydrAMINE HCl (Sleep) 1 Tablet (of 25 mg) Oral at bedtime HYDROcodone-Acetaminophen 1 Tablet (of 5-325 mg) Oral q 6 hours Pantoprazole Sodium 1 Tablet (of 40 mg) Tablet, enteric coated Oral daily Prochlorperazine Maleate Tablet Oral PRN traZODone HCl 1 Tablet (of 50 mg) Oral at bedtime Family History: Ms. Gonzalez's mother is alive. Ms. Gonzalez's father at age 75: heart disease. Ms. Gonzalez has 1 sister who is alive: breast cancer. She has 1 maternal aunt who is : colon cancer. Father of heart disease at age 75. Mother is living at age 82. A 64-year-old sister has been treated for breast cancer. A maternal aunt of colon cancer. Social History: Ms. Gonzalez is and she is retired. She is a daily smoker who smokes 2.0 packs/day. She has no history of drinking. She has indicated exposure to the following products: cigarettes and recreational drug use. Ms. Gonzalez reports the following support systems: lives alone, lives in own house, supportive family/friends willing to assist with needs, and adequate transportation available for expected visits. Her diet consists of regular meals. She indicates her activity level as: regular exercise. She has a history of smoking 2 packs of cigarettes daily for 38 years. She currently does not drink alcohol. She has had occasional alcohol use in the past. She uses marijuana daily to help with her pain. Review Of Symptoms: Constitutional Denies fevers, chills, night sweats, excessive fatigue or weight loss. Allergic/Immunologic No reactions. Eyes Denies significant visual changes. No diplopia. No amaurosis. ENMT Denies changes in hearing, sore throat, mouth sores, difficulty or changes in swallowing ability, and/or sinus drainage. Hematologic/Lymphatic Denies easy bruising or bleeding. The patient denies any tender or palpable lymph nodes. Breasts no concerns. Respiratory Denies dyspnea on exertion, chest pain, cough or hemoptysis. Denies orthopnea. Cardiovascular Denies anginal chest pain, palpitations or orthopnea. Gastrointestinal Denies nausea, vomiting, diarrhea, GI bleeding, or constipation. Denies change in bowel habits and/or stool color, no heartburn or early satiety. Genitourinary (F) No hematuria, hesitancy, incontinence, vaginal bleeding, discharge or other problems with urination. Musculoskeletal Denies joint pain, swelling or redness. No decreased range of motion. Pain at port site. Integumentary Denies chronic rashes, inflammation, ulcerations or skin changes. Neurologic Denies headache, blurred vision, and no areas of focal weakness or numbness. Normal gait. No sensory problems. Psychiatric Denies insomnia, depression, karley or mood swings. Vital Signs: Performed on Jul 08, 2020 13:26 Height - 62.00 in Weight - 136.8 lbs (HIGH) BSA - 1.63 sq.m BMI - 25.02 Temperature - 97.8 F (LOW) Pulse - 84 /min Respiration - 18 /min BP - 163/90 mm(hg) (HIGH) O2 Sat - 98 % Pain - 7,2 - Ambulatory/capable of all self-care, unable to perform any work activities. Up and about more than 50% of waking hours. (ECOG) Physical Examination: Constitutional Alert, oriented, no acute distress. Skin pink, warm and dry. Head Normocephalic; atraumatic. Eyes Conjunctivae and sclerae are clear and without icterus. Pupils are reactive and equal. ENMT No oral exudates, ulcers, masses, thrush or mucositis. Oropharynx clear. Tongue normal. Neck Supple without masses or thyromegaly. No jugular venous distension. Hematologic/Lymphatic No petechiae or purpura. No tender or palpable lymph nodes in the cervical or supraclavicular areas. Respiratory Lungs are clear to auscultation without rhonchi or wheezing. Cardiovascular Regular rate and rhythm of heart without murmurs,clicks, gallops or rubs. Chest Chest is symmetric without chest wall deformities. Right chest wall port insertion site is healing well. Breasts Mastectomy site has healed well. Abdomen Non-tender, non-distended, no masses or ascites. Good bowel sounds noted in all quads. No guarding or rebound tenderness. No pulsatile masses. Back/Spine Non-tender to palpation. Extremities No visible deformities, no cyanosis, clubbing or edema. Musculoskeletal No tenderness or swelling, normal range of motion without obvious weakness. Integumentary No rashes or lesions. Neurologic No sensory or motor deficits, normal cerebellar function, normal gait. Psychiatric Alert and oriented times three. Coherent speech. Verbalizes understanding of our discussions today. Laboratory:Test performed on Jul 08, 2020 11:42 Sodium 136 mmol/L Potassium 3.6 mmol/L Chloride 99 mmol/L CO2 26 mmol/L Anion Gap 14.6 BUN 8 mg/dL Creatinine 0.5 mg/dL Cr Clearance (Est) 119.0900 mL/min eGFR 126.7 mL/min Glucose 270 mg/dL Osmolality - Calculated 290 mOsm/kg Calcium 9.5 mg/dL Protein, Total 6.9 g/dL Albumin 4.0 g/dL Globulin 2.9 g/dL Bilirubin, Total 0.2 mg/dL ALT (SGPT) 32 U/L AST (SGOT) 28 U/L Alkaline Phosphatase 158 IU/L WBC 8.4 10 3/uL RBC 4.36 10 6/uL HGB 13.3 g/dL HCT 39.8 % MCV 91.3 fL MCH 30.5 pg MCHC 33.4 g/dL RDW 13.4 % Platelet Count 259 10 3/cmm MPV 10.3 fL Neutrophils 5.50 10 3/uL Lymphocytes 2.1 10 3/uL Monocytes 0.6 10 3/uL Eosinophils 0.1 10 3/uL Basophils 0.0 10 3/uL Neutrophil % 65.7 % Lymphocyte % 25.2 % Monocyte % 7.0 % Eosinophil % 1.3 % Basophils % 0.4 % NRBC % 0 % Impression: 1. Patient with multifocal left breast cancer, stage IIIA (T2, pN1a, M0), ER negative, WV negative, and HER-2 kika negative. 2. She underwent ultrasound directed core needle biopsy of the left breast on 04/02/2020 and she underwent left mastectomy with axillary sentinel lymph node biopsy on 05/20/2020. There has been significant improvement in her overall clinical status since her initial visit. She has had good recovery from her mastectomy procedure. As she has locally advanced triple negative breast cancer she was advised to proceed with adjuvant chemotherapy with 4 cycles of Adriamycin Cytoxan followed by weekly Taxol for 12 weeks. She has had baseline cardiogram which was normal and has had PowerPort placement by Dr. Tejada on July 01, 2020. She is here today to begin her first cycle Adriamycin Cytoxan. Plan: 1. Proceed with cycle 1 day 1 Adriamycin Cytoxan at normal dosing. She will have growth factor support as well. Aggressive antiemetics due to high risk regimen. 3. Today's labs were reviewed in detail and discussed with Kai Carlos and a copy was given to her. WBC 8.4, hemoglobin 13.3, platelets 259,000 ANC is 5500 creatinine 0.5 random glucose was 270 she states that is not fasting and she had a good breakfast (indicating that she had had donuts/sweets).. LFTs are normal alk phos was 158. 4. We will send her in some EMLA cream to [facility] pharmacy for use of port access. 5. She was given a prescription for hydrocodone 12/22/2024 1 or 2 every 4-6 hours as needed pain. 6. She will have weekly CBC, CMP's and we will plan to see her back in 2 weeks for cycle 2-day 1 Adriamycin Cytoxan. 7. The patient was informed of chemotherapy plan and specific drugs were discussed. We also discussed how chemotherapy works and identified common side effects including alopecia; myelosuppression-including neutropenia, anemia, thrombocytopenia; peripheral neuropathy; fatigue; nausea; diarrhea; constipation; bleeding or bruising; skin changes; mouth sores; drug hypersensitivity/allergic reactions or anaphylaxis and extravasation. They have also been informed how to contact the clinic with side effects or symptoms, including but not limited to fever greater than 100.4???, chills, sore throat, bleeding or bruising that is not explained or mouth sores, cough, nasal discharge, diarrhea, constipation, nausea and/or vomiting not relieved with medications on hand at home, as well as any other concern or question they may have. Our hours are 8:00 a.m. to 4:30 p.m. on Tuesday through and 8-12:00 on Tuesday. However, someone is public relations director 24 hours per day and they have been advised to contact the [facility] at if it is after hours. We have also discussed potential long-term side effects of chemotherapy including secondary cancers, infertility, pulmonary complications, cardiac complications, and again peripheral neuropathy. We have discussed that they certainly need to let us know before taking any antioxidants or herbal or further dietary supplements, as we are unsure of how these agents react with chemotherapy and we request that they avoid these products for now. They were informed that it is okay to take multivitamins at normal doses. They verbally state that they understand to take all medications as directed by their healthcare provider unless otherwise indicated. They also verbalized understanding to leave the pressure dressing on the intravenous administration site for at least two hours after treatment. Instructions for oral care with baking soda and salt water rinses as well as a guide for use of [id number] medication were provided with the treatment plan. They have been given a written patient treatment plan, of which a copy is in the chart, as well as specific drug information. They have no questions and verbalized understanding and are willing to proceed with chemotherapy at this time. The majority of this visit was spent in face to face communication with this patient in regards to the plan of care, side effect identification and management. 8. I did speak with Ms. Gonzalez daughter Laura and encouraged her to allow her mother to do her normal activities. I answered questions regarding her treatment and her daughter verbalized understanding at this time. Addendum: Total [id number] time spent in review of plan of care, side effect indication and management and answering questions from Ms. Gonzalez and her daughter was greater than 45 minutes. Signed By: Emerson Harris-, [facility] Phillip Michelle MD <<Signature on File>>
--- NOTE | 2020-07-19 20:56 | ONC FU_ITS ---
[facility] Patient Note Patient: Tiara Gonzalez Unit #: [id number]: 1960 Dictated By: Emerson HarirsDate of Visit: Jul 15, 2020 Onc MED Follow-Up/Prog Note Chief Complaint: Breast cancer. History of Present Illness: Ms Gonzalez is a 59 year-old woman with multifocal left breast cancer, stage IIIA (T2, pN1a, M0), ER negative, WA negative, and HER-2 kika negative. She had presented to [facility] on 03/21/2020 with a lump in her left breast. Diagnostic mammogram on 03/25/2020 showed a dense well-circumscribed mass measuring 3.1 x 2.8 cm. Ultrasound showed a large cystic and solid complex lesion at the 11 to 2 o'clock position of the left breast measuring 3.1 x 2.3 x 2.7 cm. A hypoechoic lobulated lesion at 2:00 measured 7.6 x 4.5 x 7.0 mm. 2 additional hypoechoic lesions at the 1:00 and 2 o'clock position located 5 cm from the nipple appeared to represent intramammary lymph nodes. Several slightly prominent lymph nodes were noted in the left axilla measuring up to 1.4 cm in maximum diameter were noted to have preserved fatty hilum without significant cortical thickening, felt to most likely be reactive. She had underwent ultrasound directed core needle biopsy of the 11:00 mass and the 2:00 mass on 04/02/2020. 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 The breast prognostic profile on that lesion showed ER and WA both negative at <1%. The tumor was negative for overexpression of HER-2/kika, 1+ by IHC and amplification ratio by FISH at 1.0 with 1.9 HER-2 copies/cell. The Ki-67 was unfavorable at 18%. The lesion at 2:00 showed invasive ductal carcinoma, poorly differentiated, grade 3. 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 Dr Michelle had seen her initially on 04/11/2020. At that time she had multiple complains, significant enough that he was concerned about the possibility of metatstatic disease. Her baseline laboratory studies were unremarkable except for slightly elevated liver enzymes. Her brain MRI showed no evidence of metastatic disease. Staging CT scans of the chest, abdomen, and pelvis on 05/05/2020 showed hepatic steatosis but no metastatic disease in the abdomen or pelvis. The chest showed multilobar subcentimeter pulmonary nodules which were indeterminate but new compared to a prior study from 2018. Bone scan showed mild degenerative changes at the ankle joints and knee joints. There was no significant evidence for metastatic disease. In the setting of multifocal disease with no evidence of metastatic involvement, she was advised to proceed with mastectomy. On 05/20/2020 she underwent left total mastectomy and left axillary sentinel lymph node biopsy. Pathology confirmed multifocal metaplastic carcinoma, grade 3, with giant cells, spindle cells, chondroid and osteoid differentiation. The largest focus of involvement measured 3.8 cm. The margins were free, with the closest being the deep margin at 9 mm. There was a component of ductal carcinoma in situ, solid and cribriform type with comedonecrosis, grade 3. The closest margin to DCIS was 7 mm. 2 intramammary lymph nodes were positive for metastatic involvement, 1 of which showed extracapsular extension. There was no involvement in 4 axillary sentinel lymph nodes. Pathologic staging was pT2, pN1a. As she has locally advanced triple negative breast cancer she was advised to proceed with adjuvant chemotherapy with 4 cycles of Adriamycin Cytoxan followed by weekly Taxol for 12 weeks. She had baseline echocardiogram on 06/23/2020 which reported normal left ventricular size and systolic function with an EF of 67%. There were no regional wall motion abnormalities. There was grade I/IV diastolic dysfunction normal to mildly elevated filling pressures. She also had PowerPort placement by Dr. Tejada on July 01, 2020. Ms. Carlos azulgan her first cycle of Adriamycin Cytoxan on 07/08/2020. She is here today for day 8 follow-up. She is accompanied by her sister. WBC is noted to be 1.3 with an ANC of 380. We the nurses had called to talk to her family last night and did call in antibiotics for her. She was given the option to not come in because she is so neutropenic but apparently did not understand that. She states overall she thinks she is done okay she did have some nausea but did not take any nausea medicine because it was not that bad . She states she did have diarrhea 3 times and did take Imodium and then stopped it and she is had no recurrence. She is requesting a refill on her nausea meds she states that she has taken them occasionally to try to avoid the nausea. She did receive Neulasta on pro. She has had some back pain. She has been concerned with that I suspect that is related to the Neulasta. She also is having some Port-A-Cath insertion site discomfort. She denies any redness or swelling around the site. She denies any fever or chills. She has had no cough, no UTI symptoms. She is had no signs of infection. She has not yet picked up the antibiotic that was called in last night. But she states she will do so on her way home. She states she is eating good. Her energy is fair. Her ECOG is 1. Past Medical History: Ms. Gonzalez's medical history is unremarkable. Past Surgical History: Caesarean section Right ankle repair Right knee repair Right internal juglar PowerPort per Dr Tejada in 2019 Allergies: No Known Allergies. Medications: HYDROcodone-Acetaminophen 1 Tablet (of 5-325 mg) Oral q 6 hours Pantoprazole Sodium 1 Tablet (of 40 mg) Tablet, enteric coated Oral daily Prochlorperazine Maleate Tablet Oral PRN traZODone HCl 1 Tablet (of 50 mg) Oral at bedtime Family History: Ms. Gonzalez's mother is alive. Ms. Gonzalez's father at age 75: heart disease. Ms. Gonzalez has 1 sister who is alive: breast cancer. She has 1 maternal aunt who is : colon cancer. Father of heart disease at age 75. Mother is living at age 82. A 64-year-old sister has been treated for breast cancer. A maternal aunt of colon cancer. Social History: Ms. Gonzalez is and she is retired. She is a daily smoker who smokes 2.0 packs/day. She has no history of drinking. She has indicated exposure to the following products: cigarettes and recreational drug use. Ms. Gonzalez reports the following support systems: lives alone, lives in own house, supportive family/friends willing to assist with needs, and adequate transportation available for expected visits. Her diet consists of regular meals. She indicates her activity level as: regular exercise. She has a history of smoking 2 packs of cigarettes daily for 38 years. She currently does not drink alcohol. She has had occasional alcohol use in the past. She uses marijuana daily to help with her pain. Review Of Symptoms: Constitutional Denies fevers, chills, night sweats, excessive fatigue or weight loss. Allergic/Immunologic No reactions. Eyes Denies significant visual changes. No diplopia. No amaurosis. ENMT Denies changes in hearing, sore throat, mouth sores, difficulty or changes in swallowing ability, and/or sinus drainage. Hematologic/Lymphatic Denies easy bruising or bleeding. The patient denies any tender or palpable lymph nodes. Breasts no concerns. Respiratory Denies dyspnea on exertion, chest pain, cough or hemoptysis. Denies orthopnea. Cardiovascular Denies anginal chest pain, palpitations or orthopnea. Gastrointestinal Denies current nausea, vomiting, diarrhea, GI bleeding, or constipation. Denies change in bowel habits and/or stool color, no heartburn or early satiety. See above. Genitourinary (F) No hematuria, hesitancy, incontinence, vaginal bleeding, discharge or other problems with urination. Musculoskeletal Denies joint pain, swelling or redness. No decreased range of motion. Pain at port site. Back pain for the last 3-4 days. Integumentary Denies chronic rashes, inflammation, ulcerations or skin changes. Neurologic Denies headache, blurred vision, and no areas of focal weakness or numbness. Normal gait. No sensory problems. Psychiatric Denies insomnia, depression, karley or mood swings. Vital Signs: Performed on Jul 15, 2020 12:58 Height - 62.00 in Weight - 136.2 lbs (LOW) BSA - 1.62 sq.m BMI - 24.91 Temperature - 97.2 F (LOW) Pulse - 74 /min Respiration - 18 /min BP - 137/68 mm(hg) O2 Sat - 97 % Pain - 8,2 - Ambulatory/capable of all self-care, unable to perform any work activities. Up and about more than 50% of waking hours. (ECOG) Physical Examination: Constitutional Alert, oriented, no acute distress. Skin pink, warm and dry. Head Normocephalic; atraumatic. Eyes Conjunctivae and sclerae are clear and without icterus. Pupils are reactive and equal. ENMT No oral exudates, ulcers, masses, thrush or mucositis. Oropharynx clear. Tongue normal. Neck Supple without masses or thyromegaly. No jugular venous distension. Hematologic/Lymphatic No petechiae or purpura. No tender or palpable lymph nodes in the cervical or supraclavicular areas. Respiratory Lungs are clear to auscultation without rhonchi or wheezing. Cardiovascular Regular rate and rhythm of heart without murmurs,clicks, gallops or rubs. Chest Chest is symmetric without chest wall deformities. Right chest wall port insertion site is healing well. Abdomen Non-tender, non-distended, no masses or ascites. Good bowel sounds noted in all quads. No guarding or rebound tenderness. No pulsatile masses. Back/Spine Non-tender to palpation. Extremities No visible deformities, no cyanosis, clubbing or edema. Musculoskeletal No tenderness or swelling, normal range of motion without obvious weakness. Integumentary No rashes or lesions. Neurologic No sensory or motor deficits, normal cerebellar function, normal gait. Psychiatric Alert and oriented times three. Coherent speech. Verbalizes understanding of our discussions today. Laboratory:Test performed on Jul 08, 2020 11:42 Sodium 136 mmol/L Potassium 3.6 mmol/L Chloride 99 mmol/L CO2 26 mmol/L Anion Gap 14.6 BUN 8 mg/dL Creatinine 0.5 mg/dL Cr Clearance (Est) 119.0900 mL/min eGFR 126.7 mL/min Glucose 270 mg/dL Osmolality - Calculated 290 mOsm/kg Calcium 9.5 mg/dL Protein, Total 6.9 g/dL Albumin 4.0 g/dL Globulin 2.9 g/dL Bilirubin, Total 0.2 mg/dL ALT (SGPT) 32 U/L AST (SGOT) 28 U/L Alkaline Phosphatase 158 IU/L WBC 8.4 10 3/uL RBC 4.36 10 6/uL HGB 13.3 g/dL HCT 39.8 % MCV 91.3 fL MCH 30.5 pg MCHC 33.4 g/dL RDW 13.4 % Platelet Count 259 10 3/cmm MPV 10.3 fL Neutrophils 5.50 10 3/uL Lymphocytes 2.1 10 3/uL Monocytes 0.6 10 3/uL Eosinophils 0.1 10 3/uL Basophils 0.0 10 3/uL Neutrophil % 65.7 % Lymphocyte % 25.2 % Monocyte % 7.0 % Eosinophil % 1.3 % Basophils % 0.4 % NRBC % 0 % Impression: 1. Patient with multifocal left breast cancer, stage IIIA (T2, pN1a, M0), ER negative, WA negative, and HER-2 kika negative. 2. She underwent ultrasound directed core needle biopsy of the left breast on 04/02/2020 and she underwent left mastectomy with axillary sentinel lymph node biopsy on 05/20/2020. There has been significant improvement in her overall clinical status since her initial visit. She has had good recovery from her mastectomy procedure. As she has locally advanced triple negative breast cancer she was advised to proceed with adjuvant chemotherapy with 4 cycles of Adriamycin Cytoxan followed by weekly Taxol for 12 weeks. She has had baseline cardiogram which was normal and has had PowerPort placement by Dr. Tejada on July 01, 2020. She began her first cycle Adriamycin Cytoxan on 07/08/2020. Mrs. Gonzalez is here today for cycle 1 day 8 follow-up. She is neutropenic at 380 ANC. She is asymptomatic currently. She will be started on prophylactic antibiotic with Levaquin. She has had growth factor support with Neulasta. Plan: 1. Proceed with current plan of care. This is day 8 of cycle 1. 2. She is neutropenic as to be expected with Adriamycin Cytoxan regimen. Her ANC day 8 is 380, on day 1 it was 5500. She has had support with Neulasta on pro. 3. Levaquin 500 mg 1 daily for neutropenia was called to [facility] she will pick that up today. 4. She is requesting a refill on her hydrocodone 12/22/2024 due to bone and port pain. This was obtained per Dr Michelle's written script (covering for Dr Montague). We also discussed her using Claritin 10 mg a day to see if this would help with her bone pain as I suspect it is related to the Neulasta. 5. The labs from 07/14/2020 were reviewed in detail with Ms. Gonzalez and a copy was given to her. WBC 1.3, hemoglobin 12.0 platelets 150,000 ANC is 380 potassium 3.9 random glucose was 199 creatinine 0.4 alk phos is 190 suspected to be from the Neulasta. Her L of the her LFTs are normal. 6. We will also refill her nausea meds which include Compazine and Zofran. 7. We will plan to see her back in 1 week with CBC CMP the day before. She will be due for cycle 2 Adriamycin Cytoxan with Neulasta support. 8. Mrs. Gonzalez was instructed to contact us in the interim should questions or problems arise. Signed By: Emerson Harris-, AOCNP Jayna Montague MD <<Signature on File>>
[2020-07-21 15:41] LABS: Basophils # 0.1 10^3/uL (0.0-0.1); Basophils % 0.7 %; Eosinophils % 0.3 %; Hematocrit 37.9 % (37.0-47.0); Hemoglobin 12.3 g/dL (11.5-15.3); Lymphocytes # 1.5 10^3/uL (0.8-4.8); Lymphocytes % 14.8 %; Mean Corpuscular HGB Conc 32.5 g/dL (30.0-36.0); Mean Corpuscular Hemoglobin 30.4 pg (28.0-34.0); Mean Corpuscular Volume 93.8 fL (81-99); Mean Platelet Volume 9.9 fL (7.4-10.4); Monocytes # 0.7 10^3/uL (0.2-0.9); Monocytes % 6.7 %; Neutrophils # 7.12 10^3/uL (1.8-7.7); Nucleated Red Blood Cells % 0 %; Platelet Count 158 10^3/cmm (130-400); Red Blood Count 4.04 10^6/uL (4.1-5.3); Red Cell Distribution Width 13.2 % (12.1-15.1); White Blood Count 10.4 10^3/uL (4.0-10.0)
[2020-07-21 16:21] LABS: Alanine Aminotransferase 25 U/L (0-33); Albumin Level 3.9 g/dL (3.5-5.2); Alkaline Phosphatase 266 IU/L (35-105); Anion Gap 15.5 (5-19); Aspartate Amino Transferase 20 U/L (0-32); Blood Urea Nitrogen 7 mg/dL (6-20); Calcium 9.6 mg/dL (8.5-10.5); Carbon Dioxide 28 mmol/L (22-29); Chloride 98 mmol/L (98-107); Globulin 2.6 g/dL (1.3-4.6); Glomerular Filtration Rate 102.7 mL/min (90-130); Glucose 172 mg/dL (65-115); Osmolality Calculated 288 mOsm/kg (285-295); Potassium 3.5 mmol/L (3.5-5.1); Sodium 138 mmol/L (136-145); Total Bilirubin 0.2 mg/dL (0.15-1.2); Total Protein 6.5 g/dL (6.6-8.7)
[2020-07-21 16:39] LABS: Neutrophils % 77.5 %; Slide Review Slide Review Perform
== END 2020-07-21 23:59 | disposition home or self-care (01) ==
LOC: ONCMED 12:50
PROVIDERS: Visit Provider Nurse Practitioner
DX: Z51.12 Encounter for antineoplastic immunotherapy (principal); Z51.11 Encounter for antineoplastic chemotherapy; C50.812 Malignant neoplasm of overlapping sites of left female breast; Z17.1 Estrogen receptor negative status [ER-]; D70.1 Agranulocytosis secondary to cancer chemotherapy; T45.1X5A Adverse effect of antineoplastic and immunosuppressive drugs, initial encounter; Z79.899 Other long term (current) drug therapy
CPT/HCPCS: 80053; 85025; 96367; 96372; 96411; 96413; 99214; 99215; J1100; J1200; J1453; J2469; J2505; J7040; J7050; J9000; J9070

== ENCOUNTER 2020-07-29 13:30 | Outpatient (RCR) | payer MEDICAID, SELFPAY ==
[2020-07-22] MEDS: sodium chloride 0.9% 250 ML 999 ML IV (12:40)
[2020-07-22] MEDS: diphenhydrAMINE 50 mg/mL SDV 1mL 25 MG IV (12:48)
[2020-07-22] MEDS: palonosetron 0.25 mg/5 mL SDV IV (13:01)
[2020-07-22 13:03] LABS: Add Urine Microscopic? YES; Bilirubin Urine 1+ (Negative); Blood Urine Neg (Negative); Glucose Urine UA 1+ (Normal); Ketones Urine 1+ (Negative); Leukocyte Esterase Urine Negative (Negative); Nitrate Urine Negative (Negative); Protein Urine Trace (Negative); Urine Appearance Clear (CLEAR); Urine Color Yellow (Yellow); Urobilinogen Urine Norm (Negative); pH Urine 6.5 (5-7)
[2020-07-22 13:04] LABS: Bacteria Urine TRACE /hpf; Mucus Urine 2+ /hpf; RBC Urine 0-4 /hpf (0-2); Squamous Epithelial Cell Urine 0-4 /hpf (0-5); WBC Urine 0-4 /hpf (0-5)
[2020-07-22 13:05] LABS: Add Urine Culture? No
[2020-07-22] MEDS: pegfilgrastim 6 mg/0.6 mL Kit (onpro) SUBCUT (15:00)
[2020-07-29 14:58] LABS: Basophils % 4.7 %; Eosinophils % 2.3 %; Hematocrit 34.7 % (37.0-47.0); Hemoglobin 11.3 g/dL (11.5-15.3); Lymphocytes # 0.3 10^3/uL (0.8-4.8); Lymphocytes % 76.7 %; Mean Corpuscular HGB Conc 32.6 g/dL (30.0-36.0); Mean Corpuscular Hemoglobin 30.5 pg (28.0-34.0); Mean Corpuscular Volume 93.5 fL (81-99); Mean Platelet Volume 10.9 fL (7.4-10.4); Monocytes # 0.1 10^3/uL (0.2-0.9); Monocytes % 11.6 %; Neutrophils % 2.4 %; Nucleated Red Blood Cells % 0 %; Platelet Count 124 10^3/cmm (130-400); Red Blood Count 3.71 10^6/uL (4.1-5.3); Red Cell Distribution Width 13.3 % (12.1-15.1)
[2020-07-29 15:04] LABS: Neutrophils # 0.01 10^3/uL (1.8-7.7); White Blood Count 0.4 10^3/uL (4.0-10.0)
--- NOTE | 2020-07-29 15:45 | ONC FU_ITS ---
[facility] Patient Note Patient: Tiara Gonzalez Unit #: [id number]: 1960 Dictated By: Emerson HarrisDate of Visit: Jul 22, 2020 Onc MED Follow-Up/Prog Note Chief Complaint: Breast cancer. History of Present Illness: Ms Gonzalez is a 59 year-old woman with multifocal left breast cancer, stage IIIA (T2, pN1a, M0), ER negative, AL negative, and HER-2 kika negative. She had presented to [facility] on 03/21/2020 with a lump in her left breast. Diagnostic mammogram on 03/25/2020 showed a dense well-circumscribed mass measuring 3.1 x 2.8 cm. Ultrasound showed a large cystic and solid complex lesion at the 11 to 2 o'clock position of the left breast measuring 3.1 x 2.3 x 2.7 cm. A hypoechoic lobulated lesion at 2:00 measured 7.6 x 4.5 x 7.0 mm. 2 additional hypoechoic lesions at the 1:00 and 2 o'clock position located 5 cm from the nipple appeared to represent intramammary lymph nodes. Several slightly prominent lymph nodes were noted in the left axilla measuring up to 1.4 cm in maximum diameter were noted to have preserved fatty hilum without significant cortical thickening, felt to most likely be reactive. She had underwent ultrasound directed core needle biopsy of the 11:00 mass and the 2:00 mass on 04/02/2020. 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 The breast prognostic profile on that lesion showed ER and AL both negative at <1%. The tumor was negative for overexpression of HER-2/kika, 1+ by IHC and amplification ratio by FISH at 1.0 with 1.9 HER-2 copies/cell. The Ki-67 was unfavorable at 18%. The lesion at 2:00 showed invasive ductal carcinoma, poorly differentiated, grade 3. 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 Dr Michelle had seen her initially on 04/11/2020. At that time she had multiple complains, significant enough that he was concerned about the possibility of metatstatic disease. Her baseline laboratory studies were unremarkable except for slightly elevated liver enzymes. Her brain MRI showed no evidence of metastatic disease. Staging CT scans of the chest, abdomen, and pelvis on 05/05/2020 showed hepatic steatosis but no metastatic disease in the abdomen or pelvis. The chest showed multilobar subcentimeter pulmonary nodules which were indeterminate but new compared to a prior study from 2018. Bone scan showed mild degenerative changes at the ankle joints and knee joints. There was no significant evidence for metastatic disease. In the setting of multifocal disease with no evidence of metastatic involvement, she was advised to proceed with mastectomy. On 05/20/2020 she underwent left total mastectomy and left axillary sentinel lymph node biopsy. Pathology confirmed multifocal metaplastic carcinoma, grade 3, with giant cells, spindle cells, chondroid and osteoid differentiation. The largest focus of involvement measured 3.8 cm. The margins were free, with the closest being the deep margin at 9 mm. There was a component of ductal carcinoma in situ, solid and cribriform type with comedonecrosis, grade 3. The closest margin to DCIS was 7 mm. 2 intramammary lymph nodes were positive for metastatic involvement, 1 of which showed extracapsular extension. There was no involvement in 4 axillary sentinel lymph nodes. Pathologic staging was pT2, pN1a. As she has locally advanced triple negative breast cancer she was advised to proceed with adjuvant chemotherapy with 4 cycles of Adriamycin Cytoxan followed by weekly Taxol for 12 weeks. She had baseline echocardiogram on 06/23/2020 which reported normal left ventricular size and systolic function with an EF of 67%. There were no regional wall motion abnormalities. There was grade I/IV diastolic dysfunction normal to mildly elevated filling pressures. She also had PowerPort placement by Dr. Tejada on July 01, 2020. Ms. Carlos azulgan her first cycle of Adriamycin Cytoxan on 07/08/2020. She is here today for day 1 of cycle 1 follow-up. She is accompanied by her daughter. She did have chemotherapy-induced neutropenia with an ANC of 380 on day 8 of cycle 1. She had had Neulasta on pro prior to that and her counts have recovered now to an ANC of 7120. She states she is eating good. Her energy is fair. Denies any nausea or vomiting. She states that her diarrhea has subsided. She denies any peripheral neuropathy. She is starting to have some hair loss but does not have complete alopecia yet. She states her bowels now are normal for her. Denies any cough, shortness of breath orthopnea. She denies any chest pain or palpitations. She denies any lower extremity edema. She states overall she feels that she is doing pretty good. She does tire easily but recovers well with rest. Her ECOG is 1. Past Medical History: Ms. Cody medical history is unremarkable. Past Surgical History: Caesarean section Right ankle repair Right knee repair Right internal juglar PowerPort per Dr Tejada in 2019 Allergies: No Known Allergies. Medications: HYDROcodone-Acetaminophen 1 Tablet (of 5-325 mg) Oral q 6 hours Pantoprazole Sodium 1 Tablet (of 40 mg) Tablet, enteric coated Oral daily Prochlorperazine Maleate Tablet Oral PRN traZODone HCl 1 Tablet (of 50 mg) Oral at bedtime Family History: Ms. Gonzalez's mother is alive. Ms. Gonzalez's father at age 75: heart disease. Ms. Gonzalez has 1 sister who is alive: breast cancer. She has 1 maternal aunt who is : colon cancer. Father of heart disease at age 75. Mother is living at age 82. A 64-year-old sister has been treated for breast cancer. A maternal aunt of colon cancer. Social History: Ms. Gonzalez is and she is retired. She is a daily smoker who smokes 2.0 packs/day. She has no history of drinking. She has indicated exposure to the following products: cigarettes and recreational drug use. Ms. Gonzalez reports the following support systems: lives alone, lives in own house, supportive family/friends willing to assist with needs, and adequate transportation available for expected visits. Her diet consists of regular meals. She indicates her activity level as: regular exercise. She has a history of smoking 2 packs of cigarettes daily for 38 years. She currently does not drink alcohol. She has had occasional alcohol use in the past. She uses marijuana daily to help with her pain. Review Of Symptoms: Constitutional Denies fevers, chills, night sweats, excessive fatigue or weight loss. Mild fatigue but states she recovers well with rest. Allergic/Immunologic No reactions. Eyes Denies significant visual changes. No diplopia. No amaurosis. ENMT Denies changes in hearing, sore throat, mouth sores, difficulty or changes in swallowing ability, and/or sinus drainage. Hematologic/Lymphatic Denies easy bruising or bleeding. The patient denies any tender or palpable lymph nodes. Breasts no concerns. Respiratory Denies dyspnea on exertion, chest pain, cough or hemoptysis. Denies orthopnea. Cardiovascular Denies anginal chest pain, palpitations or orthopnea. Gastrointestinal Denies current nausea, vomiting, diarrhea, GI bleeding, or constipation. Denies change in bowel habits and/or stool color, no heartburn or early satiety. Genitourinary (F) No hematuria, hesitancy, incontinence, vaginal bleeding, discharge or other problems with urination. Musculoskeletal Denies joint pain, swelling or redness. No decreased range of motion. Integumentary Denies chronic rashes, inflammation, ulcerations or skin changes. Neurologic Denies headache, blurred vision, and no areas of focal weakness or numbness. Normal gait. No sensory problems. Psychiatric Denies insomnia, depression, karley or mood swings. Vital Signs: Performed on Jul 22, 2020 11:37 Height - 62.00 in Weight - 138.6 lbs (HIGH) BSA - 1.64 sq.m BMI - 25.35 Temperature - 98.8 F Pulse - 75 /min Respiration - 20 /min BP - 164/86 mm(hg) (HIGH) O2 Sat - 98 % Pain - 6,1 - No physically strenuous activity, but ambulatory and able to carry out light or sedentary work (e.g. office work, light house work). (ECOG) Physical Examination: Constitutional Alert, oriented, no acute distress. Skin pink, warm and dry. Head Normocephalic; atraumatic. Eyes Conjunctivae and sclerae are clear and without icterus. Pupils are reactive and equal. ENMT No oral exudates, ulcers, masses, thrush or mucositis. Oropharynx clear. Tongue normal. Neck Supple without masses or thyromegaly. No jugular venous distension. Hematologic/Lymphatic No petechiae or purpura. No tender or palpable lymph nodes in the cervical or supraclavicular areas. Respiratory Lungs are clear to auscultation without rhonchi or wheezing. Cardiovascular Regular rate and rhythm of heart without murmurs,clicks, gallops or rubs. Chest Chest is symmetric without chest wall deformities. Right chest wall port insertion site is healing well. Abdomen Non-tender, non-distended, no masses or ascites. Good bowel sounds noted in all quads. No guarding or rebound tenderness. No pulsatile masses. Back/Spine Non-tender to palpation. Extremities No visible deformities, no cyanosis, clubbing or edema. Musculoskeletal No tenderness or swelling, normal range of motion without obvious weakness. Integumentary No rashes or lesions. Neurologic No sensory or motor deficits, normal cerebellar function, normal gait. Psychiatric Alert and oriented times three. Coherent speech. Verbalizes understanding of our discussions today. Laboratory:Test performed on Jul 22, 2020 12:15 Ua Color Yellow Ua Appearance Clear Ua Glucose 1+ Ua Bilirubin 1+ Ua Ketones 1+ Ua Specific [place] 1.020 Ua Blood Neg Ua pH 6.5 Ua Protein Trace Ua Nitrites Negative Ua Leukocyte Esterase Negative Ua Micro: WBC 0-4 /hpf Ua Micro: RBC 0-4 /hpf Ua Micro: Squam Epith Cells 0-4 /hpf Ua Micro: Bacteria TRACE /hpf Ua Micro: Mucous 2+ /hpf Test performed on Jul 21, 2020 12:50 Sodium 138 mmol/L Potassium 3.5 mmol/L Chloride 98 mmol/L CO2 28 mmol/L Anion Gap 15.5 BUN 7 mg/dL Creatinine 0.6 mg/dL Cr Clearance (Est) 99.2400 mL/min eGFR 102.7 mL/min Glucose 172 mg/dL Osmolality - Calculated 288 mOsm/kg Calcium 9.6 mg/dL Protein, Total 6.5 g/dL Albumin 3.9 g/dL Globulin 2.6 g/dL Bilirubin, Total 0.2 mg/dL ALT (SGPT) 25 U/L AST (SGOT) 20 U/L Alkaline Phosphatase 266 IU/L WBC 10.4 10 3/uL RBC 4.04 10 6/uL HGB 12.3 g/dL HCT 37.9 % MCV 93.8 fL MCH 30.4 pg MCHC 32.5 g/dL RDW 13.2 % Platelet Count 158 10 3/cmm MPV 9.9 fL Neutrophils 7.12 10 3/uL Lymphocytes 1.5 10 3/uL Monocytes 0.7 10 3/uL Eosinophils 0.0 10 3/uL Basophils 0.1 10 3/uL Neutrophil % 77.5 % Lymphocyte % 14.8 % Monocyte % 6.7 % Eosinophil % 0.3 % Basophils % 0.7 % NRBC % 0 % CBC Slide Review Slide Review Perform REVASHLEIGHA AGREES WITH AUTOMATED Impression: 1. Patient with multifocal left breast cancer, stage IIIA (T2, pN1a, M0), ER negative, AL negative, and HER-2 kika negative. 2. She underwent ultrasound directed core needle biopsy of the left breast on 04/02/2020 and she underwent left mastectomy with axillary sentinel lymph node biopsy on 05/20/2020. There has been significant improvement in her overall clinical status since her initial visit. She has had good recovery from her mastectomy procedure. As she has locally advanced triple negative breast cancer she was advised to proceed with adjuvant chemotherapy with 4 cycles of Adriamycin Cytoxan followed by weekly Taxol for 12 weeks. She has had baseline cardiogram which was normal and has had PowerPort placement by Dr. Tejada on July 01, 2020. She began her first cycle Adriamycin Cytoxan on 07/08/2020. Mrs. Gonzalez is here today for cycle 2 day 1 follow-up. She was neutropenic at day 8 of cycle 1 with an 380 ANC. She was asymptomatic but was started on prophylactic antibiotic with Levaquin. She has had growth factor support with Neulasta. Mrs Gonzalez is here today for follow-up and due for cycle 2-day 1 Adriamycin Cytoxan. Her blood counts have recovered her white count today is 10.4 with an ANC of 7120. Plan: 1. Breast Cancer: Proceed with cycle 2 Adriamycin/Cytoxan @ same doses. A. Continue with growth factor Neulasta as she has had chemotherapy-induced neutropenia. She was reminded/encouraged to use Claritin as needed for bone pain if she has that related to the Neulasta. B. We will refill her Levaquin and Diflucan to have on hand in the event that she should become neutropenic with the cycle as well. C. The labs from 07/21/2020 were reviewed in detail with Ms. Gonzalez and a copy was given to her. WBC 10.4, hemoglobin 12.3, platelets 158,000, ANC is 7120. Potassium 3.5 creatinine 0.6 LFTs are normal alk phos is 266 presumably due to Neulasta weight is good at 138.6 was 136.2 last visit. 2. Followup plan: . We will plan to see her back in 2 weekx with CBC CMP the day before. She will be due for cycle 3 Adriamycin Cytoxan with Neulasta support. She will have interim CBC next week for chemotherapy monitoring. 3. UA does show trace bacteria and since she was so neutropenic after her her firsts treatment, she was instructed to start the Levaquin if she has any UTI infections. She will need to take the Diflucan also due top rodri to yeast infection. 4. Mrs. Gonzalez was instructed to contact us in the interim should questions or problems arise. Signed By: Emerson Harris-, [facility] Phillip Michelle MD <<Signature on File>>
[2020-07-29 16:01] LABS: Alanine Aminotransferase 24 U/L (0-33); Albumin Level 3.6 g/dL (3.5-5.2); Alkaline Phosphatase 255 IU/L (35-105); Aspartate Amino Transferase 27 U/L (0-32); Blood Urea Nitrogen 9 mg/dL (6-20); Calcium 9.9 mg/dL (8.5-10.5); Carbon Dioxide 24 mmol/L (22-29); Chloride 98 mmol/L (98-107); Globulin 3.2 g/dL (1.3-4.6); Glomerular Filtration Rate 163.9 mL/min (90-130); Glucose 174 mg/dL (65-115); Osmolality Calculated 283 mOsm/kg (285-295); Sodium 135 mmol/L (136-145); Total Bilirubin 0.6 mg/dL (0.15-1.2); Total Protein 6.8 g/dL (6.6-8.7)
[2020-07-29 16:03] LABS: Anion Gap 17.4 (5-19); Potassium 4.4 mmol/L (3.5-5.1)
== END 2020-07-30 19:00 | disposition home or self-care (01) ==
LOC: ONCMED 13:30
PROVIDERS: Visit Provider Nurse Practitioner
DX: C50.812 Malignant neoplasm of overlapping sites of left female breast (principal); D70.1 Agranulocytosis secondary to cancer chemotherapy; T45.1X5A Adverse effect of antineoplastic and immunosuppressive drugs, initial encounter; R82.71 Bacteriuria; R35.0 Frequency of micturition; R30.9 Painful micturition, unspecified; F17.210 Nicotine dependence, cigarettes, uncomplicated; Z17.1 Estrogen receptor negative status [ER-]; Z51.81 Encounter for therapeutic drug level monitoring; Z79.899 Other long term (current) drug therapy; Z90.12 Acquired absence of left breast and nipple
CPT/HCPCS: 80053; 81001; 85025; 96367; 96372; 96375; 96413; 96417; 99214; J1100; J1200; J1453; J2469; J2505; J7040; J7050; J9000; J9070

== ENCOUNTER 2020-07-30 19:50 | Inpatient (IN) | payer MEDICAID, SELFPAY ==
[2020-07-30 19:53] VITALS: BP 127/73; PULSE 120; RESP 16; TEMP 36.9; O2SAT 98; BMI 24.8
--- NOTE | 2020-07-30 19:56 | ECG_ITS ---
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 Measurements Intervals [place] Heart Rate: 114 P: 52 CT: 130 QRS: 45 QRSD: 86 T: 34 QT: 314 QTc: 434 Interpretive Statements SINUS TACHYCARDIA NONSPECIFIC T-WAVE ABNORMALITY ABNORMAL RHYTHM ECG No previous ECG available for comparison Electronically Signed On 07-31-2020 21:24:24 [employer] MACHINE OPERATOR by Katrina Juárez M.D. [id number]
--- NOTE | 2020-07-30 19:57 | XR_ITS ---
WS: [id number] XR chest 1V portable [id number] REASON FOR EXAM: Fever FINDINGS: The chest is relatively unchanged compared to 07/01/2020. There is been left mastectomy with left axillary node dissection. Chemotherapy infusion port over the right chest which appears accessed. The port catheter is through the right internal jugular vein wit h the tip is just below junction of the right internal jugular vein and right subclavian vein. The ti p of the catheter was 3 cm more inferiorly on the previous chest x-ray. No active pulmonary parenchymal or pleural disease is noted. Bony thorax is intact. XR/XR chest 1V portable [id number] IMPRESSION: No acute chest abnormality. Port catheter retraction as above.
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
--- NOTE | 2020-07-30 20:41 | CTR_ITS ---
PROCEDURE INFORMATION: Exam: CT Abdomen And Pelvis With Contrast Exam date and time: 07/30/2020 9:11 PM Age: 59 years old Clinical indication: Fever and nausea and vomiting; Prior surgery; Surgery type: , appy; Additional info: Abdominal pain TECHNIQUE: Imaging protocol: Computed tomography of the abdomen and pelvis with intravenous contrast. Radiation optimization: All CT scans at this facility use at least one of these dose optimization techniques: automated exposure control; mA and/or kV adjustment per patient size (includes targeted exams where dose is matched to clinical indication); or iterative reconstruction. Contrast material: OMNI 300; Contrast volume: 95 ml; Contrast route: INTRAVENOUS (IV); COMPARISON: CT chest abd pel w con* 05/05/2020 9:22 AM RADIATION DOSE METRICS: Total DLP (mGy-cm): 463.38 FINDINGS: Lungs: Limited assessment of the lung bases fails to reveal evidence for active cardiopulmonary process. Liver: Unremarkable. No mass. Gallbladder and bile ducts: Cholelithiasis. Dominant stone 13 mm gallstone. Second smaller stone measuring approximately 1 cm. No gallbladder wall thickening or pericholecystic fluid. No intra or extrahepatic biliary ectasia. Pancreas: Normal. No ductal dilation. Spleen: Normal. No splenomegaly. Adrenal glands: Normal. No mass. Kidneys and ureters: Normal. No hydronephrosis. Stomach and bowel: Examination reveals uncomplicated acute mid sigmoid diverticulitis. No visible diverticular abscess or extraluminal gas. Mild pericolonic fat inflammatory phlegmonous response. Nonobstructive bowel pattern. No visible significant adynamic or reactive ileus. Appendix: Status post appendectomy. Intraperitoneal space: No visible evidence of mesenteric lymphadenitis or active mesenteritis/panniculitis. No visible pneumoperitoneum. No visible ascites. Vasculature: The abdominal aorta is nonaneurysmal. Mild arterial sclerotic disease. Lymph nodes: No current visible evidence of active mesenteric or retroperitoneal lymphadenopathy. Urinary bladder: Unremarkable as visualized. Reproductive: Unremarkable as visualized. Bones/joints: No visible active or acute osseous pathology. Soft tissues: Unremarkable. Other findings: Obesity. CT/CT abdomen pelvis w con* [id number] IMPRESSION: 1. Examination reveals uncomplicated acute mid sigmoid diverticulitis. No visible diverticular abscess or extraluminal gas. Mild pericolonic fat inflammatory phlegmonous response. 2. Cholelithiasis. Radiation Dose CTDIVOL = (mGy): DLP = 463.38 (mGy-cm)
[2020-07-30 20:46] LABS: Basophils % 4.9 %; Hematocrit 29.6 % (37.0-47.0); Hemoglobin 9.8 g/dL (11.5-15.3); Lymphocytes # 0.3 10^3/uL (0.8-4.8); Lymphocytes % 50.8 %; Mean Corpuscular HGB Conc 33.1 g/dL (30.0-36.0); Mean Corpuscular Hemoglobin 30.9 pg (28.0-34.0); Mean Corpuscular Volume 93.4 fL (81-99); Mean Platelet Volume 10.6 fL (7.4-10.4); Monocytes # 0.2 10^3/uL (0.2-0.9); Monocytes % 26.2 %; Neutrophils % 18.1 %; Nucleated Red Blood Cells % 0 %; Platelet Count 128 10^3/cmm (130-400); Red Blood Count 3.17 10^6/uL (4.1-5.3); Red Cell Distribution Width 13.1 % (12.1-15.1)
[2020-07-30] MEDS: piperacillin-tazobactam 3.375 GM in sodium chloride 0.9% (plus) 50 ML IV (20:50)
[2020-07-30] MEDS: sodium chloride 0.9% 1,000 ML 999 ML IV (20:50)
[2020-07-30 20:51] VITALS: RESP 20
[2020-07-30] MEDS: morphine 4 mg/mL SDV 1 mL IVP (20:51)
[2020-07-30] MEDS: ondansetron 2 mg/ML SDV 2 mL 4 MG IVP (20:51)
[2020-07-30 21:13] VITALS: BP 109/62; PULSE 115; O2SAT 95
[2020-07-30 21:13] LABS: INR 0.93 (0.8-1.2)
[2020-07-30 21:19] LABS: Alanine Aminotransferase 21 U/L (0-33); Albumin Level 3.5 g/dL (3.5-5.2); Alkaline Phosphatase 244 IU/L (35-105); Anion Gap 13.8 (5-19); Aspartate Amino Transferase 21 U/L (0-32); Blood Urea Nitrogen 6 mg/dL (6-20); Calcium 9.2 mg/dL (8.5-10.5); Carbon Dioxide 26 mmol/L (22-29); Chloride 96 mmol/L (98-107); Globulin 2.8 g/dL (1.3-4.6); Glomerular Filtration Rate 126.7 mL/min (90-130); Glucose 215 mg/dL (65-115); Lipase 13 U/L (13-60); Magnesium 1.7 mg/dL (1.7-2.3); Osmolality Calculated 278 mOsm/kg (285-295); Potassium 3.8 mmol/L (3.5-5.1); Sodium 132 mmol/L (136-145); Total Bilirubin 0.2 mg/dL (0.15-1.2); Total Protein 6.3 g/dL (6.6-8.7)
[2020-07-30 21:22] LABS: Lactic Sepsis W/Reflex 2.7 mmol/L (0.5-2.2)
[2020-07-30 21:25] LABS: Neutrophils # 0.11 10^3/uL (1.8-7.7); White Blood Count 0.6 10^3/uL (4.0-10.0)
[2020-07-30 21:26] LABS: Slide Review Slide Review Perform
[2020-07-30] MEDS: iohexol 300 mg/mL 100 mL Btl IV (21:30)
[2020-07-30] MEDS: vancomycin 1,250 MG/250 ML PIGGYBACK 250 MG IV (21:44)
[2020-07-30 21:55] LABS: Bilirubin Urine Neg (Negative); Blood Urine Neg (Negative); Glucose Urine UA Trace (Normal); Ketones Urine Negative (Negative); Nitrate Urine Negative (Negative); Protein Urine Trace (Negative); Urine Appearance Hazy (CLEAR); Urine Color Yellow (Yellow); Urobilinogen Urine 4 mg/dL (Negative); pH Urine 5 (5-7)
[2020-07-30 21:56] LABS: Add Urine Culture? No; Bacteria Urine 1+ /hpf; Leukocyte Esterase Urine Negative (Negative); Mucus Urine 3+ /hpf; Squamous Epithelial Cell Urine 15-25 /hpf (0-5)
[2020-07-30 22:08] LABS: SARS Covid-2 Antigen Negative (Negative)
[2020-07-30 22:09] VITALS: BP 115/66; PULSE 100; O2SAT 96
[2020-07-30 22:11] LABS: Influenza A by IFA Negative (Negative); Influenza B by IFA Negative (Negative)
[2020-07-30 22:21] LABS: Reflex Lactate Order REFLEX LACTIC ORDERD
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
[2020-07-30 22:57] VITALS: BP 126/71; PULSE 89; O2SAT 97
[2020-07-31] VITALS (11 sets, daily range): BP systolic 113–146; BP diastolic 58–71; PULSE 76–108; RESP 16–20; TEMP 36.7–37.4; O2SAT 91–98
[2020-07-31] LABS: Lactic Acid level (Lactate) 1.9 mmol/L (0.5-2.2)
[2020-07-31] MEDS: sodium chloride 0.9% 1,000 ML 999 ML IV (00:03)
[2020-07-31] MEDS: enoxaparin 40 mg/0.4 mL Syringe SUBCUT (01:24)
[2020-07-31] MEDS: dextrose 5%-ns 0.2% + KCL 20 20 MEQ/1,000 ML BAG 75 MEQ IV ×2 (01:24→13:09)
[2020-07-31] MEDS: fluconazole premix 200 MG/100 ML PREMIX 50 MG IV (01:24)
[2020-07-31] MEDS: HYDROmorphone 1 mg/mL INJ 1 mL IVP ×4 (03:47→20:37)
[2020-07-31] MEDS: piperacillin-tazobactam 3.375 GM in sodium chloride 0.9% (plus) 50 ML IV ×3 (03:48→20:57)
[2020-07-31 05:28] LABS: Basophils % 2.1 %; Hematocrit 28.3 % (37.0-47.0); Hemoglobin 9.1 g/dL (11.5-15.3); Lymphocytes # 0.4 10^3/uL (0.8-4.8); Lymphocytes % 44.8 %; Mean Corpuscular HGB Conc 32.2 g/dL (30.0-36.0); Mean Corpuscular Hemoglobin 30.7 pg (28.0-34.0); Mean Corpuscular Volume 95.6 fL (81-99); Mean Platelet Volume 10.8 fL (7.4-10.4); Monocytes # 0.3 10^3/uL (0.2-0.9); Monocytes % 27.1 %; Neutrophils % 22.9 %; Nucleated Red Blood Cells % 0 %; Platelet Count 118 10^3/cmm (130-400); Red Blood Count 2.96 10^6/uL (4.1-5.3); Red Cell Distribution Width 13.4 % (12.1-15.1)
[2020-07-31 05:57] LABS: Blood Urea Nitrogen 4 mg/dL (6-20); Calcium 8.8 mg/dL (8.5-10.5); Carbon Dioxide 23 mmol/L (22-29); Chloride 102 mmol/L (98-107); Creatinine Clr Calc Pharmacy 132.4678; Glomerular Filtration Rate 163.9 mL/min (90-130); Glucose 153 mg/dL (65-115); Osmolality Calculated 280 mOsm/kg (285-295); Sodium 135 mmol/L (136-145)
[2020-07-31 06:18] LABS: Neutrophils # 0.22 10^3/uL (1.8-7.7); Slide Review Slide Review Perform
--- NOTE | 2020-07-31 13:31 | P.PN_ITS ---
Subjective Subjective: Interval history: 59 year old female who has multifocal left breast cancer stage IIIa currently on chemotherapy status post mastectomy Port-A-Cath placement, her last chemotherapy session was 8 days ago, she was sent to our ER by Dr. Michelle for chief complaint of fever. Patient was neutropenic and was put on Levaquin prophylactically, she also received Neulasta and was advised to take Diflucan in case she becomes symptomatic. Patient stating that her symptoms started 3 days ago with lower quadrant pain, associated with diarrhea and today she spiked temperature 100.[address] Michelle was notified who recommended her to go to the ER. Patient is also endorsing some difficulty with swallowing she has not started taking Diflucan. She is denying vomiting but endorsing nausea. She is denying dysuria excruciating abdominal pain, mouth sores. Laboratory workup on arrival showed a WBC of 0.6, hemoglobin 9.8, hematocrit 29.6 and a platelet count of 128. ANS of 110. sodium 132, potassium 3.8, chloride 96, bicarb 26, BUN 6 and creatinine 0.5. Lactic acid of 2.7. In fluenza a and B were negative. Rapid COVID antigen was negative as well. Imaging studies included a CT abdomen pelvis with contrast which revealed uncomplicated acute mid sigmoid diverticulitis. No visible abscess or extraluminal gas was noted. Mild felipe-colonic fat inflammatory phlegmonous resp onse. In addition was also noted to have cholelithiasis. Patient was started on IV Zosyn 3.375 g q.8 hours. In addition to this patient was also started on Diflucan 100 mg IV Q 24 hour. Since admission patient remained afebrile however noted night sweats. No nausea or vomiting. No diarrhea or constipation. Medications: Reviewed: Yes Vitals/I&O/Wt Last Vital Signs Temp 98.1 F 07/31/20 11:15 Pulse 87 07/31/20 11:15 Resp 18 07/31/20 11:15 BP 113/71 07/31/20 11:15 Pulse Ox 95 07/31/20 11:15 07/30/20 07/31/20 07/31/20 22:59 06:59 14:59 Intake Total 1050 / 1050 250 / 1300 931.25 / 931.25 Output Total 200 / 200 Balance 1050 / 1050 50 / 1100 931.25 / 931.25 Weight last 48 hrs Weight 61.689 kg Physical Exam Narrative: EXAM NARRATIVE: General : Alert, awake, No distres HEENT : Grossly unremarkable CVS : NSR CHEST : Non-labored respiration ABD : Non-distended Ext : no edema or rash Data : 07/31/20 04:23 07/31/20 04:23 Micro: Microbiology 07/30/20 20:20 Blood Culture - Preliminary Blood SPECIMEN COLLECTED 07/30/20 20:20 Blood Culture - Preliminary Blood SPECIMEN COLLECTED A&P Assessment and plan (1) Febrile neutropenia: Status: Acute (2) Odynophagia: Status: Acute (3) Diverticulitis: Status: Acute (4) Invasive ductal carcinoma of breast, stage 3: Status: Resolved Qualifiers: Laterality: left Qualified Code(s): C50.912 - Malignant neoplasm of unspecified site of left female breast Febrile Neutropenia / Acute sigmoid diverticulitis - Afebrile since admission - Was given neulasta prior to admit - ANC improving - 220 - Continue precautions - Repeat CBC in Am - CT abd/pelvis -> Diverticulitis/Cholelitiasis - Continue IV zosyn 3.375 g Q8hr - 07/30 - Blcx - NGTD - Pain improved - will try CLD today for dinner Odynophagia - Started on Diflucan 100 mg IV daily - Will perform bedside swallow - Continue PPI Metastatic L. Breast cancer - Stage IIIa - Last chemo 9 days prior - Following oncology outpatient DVT ppx - Lovenox 40 mg SQ daily Attestations Medical Necessity Statement*: Patient require further hospitalization for neutropenia, diverticulitis requiring IV antibiotics Time Spent in Patient Care: Greater than 35 minutes (>than 50% of time spent in counselling and/or direct pt care on unit) . Coding Level of Care Code Acute Sk[employer] for [facility] Fwd Diagnoses Febrile neutropenia D70.9; R50.81 Odynophagia R13.10 Diverticulitis K57.92 Invasive ductal carcinoma of breast, stage 3 C50.912 Laterality: left
[2020-07-31] MEDS: famotidine 20 mg/2 mL INJ IVP (16:02)
[2020-08-01] VITALS (8 sets, daily range): BP systolic 119–147; BP diastolic 62–83; PULSE 68–85; RESP 15–20; TEMP 36.4–37; O2SAT 93–96
[2020-08-01] MEDS: enoxaparin 40 mg/0.4 mL Syringe SUBCUT (01:13)
[2020-08-01] MEDS: fluconazole premix 100 MG in empty flexible container 1 EACH 50 MG IV (01:13)
[2020-08-01] MEDS: famotidine 20 mg/2 mL INJ IVP ×2 (04:19→14:00)
[2020-08-01] MEDS: HYDROmorphone 1 mg/mL INJ 1 mL IVP ×2 (04:29→10:16)
[2020-08-01] MEDS: piperacillin-tazobactam 3.375 GM in sodium chloride 0.9% (plus) 50 ML IV ×3 (04:57→19:25)
[2020-08-01 05:06] LABS: Basophils # 0.1 10^3/uL (0.0-0.1); Basophils % 2.1 %; Eosinophils % 0.4 %; Hematocrit 29.2 % (37.0-47.0); Hemoglobin 9.6 g/dL (11.5-15.3); Lymphocytes # 0.5 10^3/uL (0.8-4.8); Lymphocytes % 22.1 %; Mean Corpuscular HGB Conc 32.9 g/dL (30.0-36.0); Mean Corpuscular Hemoglobin 30.9 pg (28.0-34.0); Mean Corpuscular Volume 93.9 fL (81-99); Mean Platelet Volume 10.5 fL (7.4-10.4); Monocytes # 0.5 10^3/uL (0.2-0.9); Monocytes % 19.6 %; Neutrophils # 1.16 10^3/uL (1.8-7.7); Neutrophils % 48.3 %; Nucleated Red Blood Cells % 0 %; Platelet Count 151 10^3/cmm (130-400); Red Blood Count 3.11 10^6/uL (4.1-5.3); Red Cell Distribution Width 13.2 % (12.1-15.1); White Blood Count 2.4 10^3/uL (4.0-10.0)
[2020-08-01 05:32] LABS: Anion Gap 12.1 (5-19); Blood Urea Nitrogen 3 mg/dL (6-20); Calcium 9.5 mg/dL (8.5-10.5); Carbon Dioxide 27 mmol/L (22-29); Chloride 100 mmol/L (98-107); Glomerular Filtration Rate 126.7 mL/min (90-130); Glucose 130 mg/dL (65-115); Osmolality Calculated 278 mOsm/kg (285-295); Potassium 4.1 mmol/L (3.5-5.1); Sodium 135 mmol/L (136-145)
[2020-08-01 06:25] LABS: Slide Review Slide Review Perform
[2020-08-01] MEDS: HYDROcodone-acetaminophen 5-325 mg Tablet 1 TAB PO ×3 (14:41→23:26)
--- NOTE | 2020-08-01 16:45 | P.PN_ITS ---
Subjective Subjective: Interval history: 59 year old female who has multifocal left breast cancer stage IIIa currently on chemotherapy status post mastectomy Port-A-Cath placement, her last chemotherapy session was 8 days ago, she was sent to our ER by Dr. Michelle for chief complaint of fever. Patient was neutropenic and was put on Levaquin prophylactically, she also received Neulasta and was advised to take Diflucan in case she becomes symptomatic. Patient stating that her symptoms started 3 days ago with lower quadrant pain, associated with diarrhea and today she spiked temperature 100.[address] Michelle was notified who recommended her to go to the ER. Patient is also endorsing some difficulty with swallowing she has not started taking Diflucan. She is denying vomiting but endorsing nausea. She is denying dysuria excruciating abdominal pain, mouth sores. Laboratory workup on arrival showed a WBC of 0.6, hemoglobin 9.8, hematocrit 29.6 and a platelet count of 128. ANS of 110. sodium 132, potassium 3.8, chloride 96, bicarb 26, BUN 6 and creatinine 0.5. Lactic acid of 2.7. In fluenza a and B were negative. Rapid COVID antigen was negative as well. Imaging studies included a CT abdomen pelvis with contrast which revealed uncomplicated acute mid sigmoid diverticulitis. No visible abscess or extraluminal gas was noted. Mild felipe-colonic fat inflammatory phlegmonous resp onse. In addition was also noted to have cholelithiasis. Patient was started on IV Zosyn 3.375 g q.8 hours. In addition to this patient was also started on Diflucan 100 mg IV Q 24 hour. Since admission patient remained afebrile however noted night sweats. No nausea or vomiting. No diarrhea or constipation. Subjective: 08/01 Patient continued to improved, tolerated oral intake. no longer complaining of pain full swallowing. No fever or chills. No nausea or vomting. Medications: Reviewed: Yes Vitals/I&O/Wt Last Vital Signs Temp 97.8 F 08/01/20 15:10 Pulse 71 08/01/20 15:10 Resp 16 08/01/20 15:10 BP 147/62 08/01/20 15:10 Pulse Ox 96 08/01/20 15:10 08/01/20 08/01/20 08/01/20 06:59 14:59 22:59 Intake Total 50 / 1391.25 530 / 530 410 / 940 Balance 50 / 1291.25 530 / 530 410 / 940 Weight last 48 hrs Weight 61.689 kg Physical Exam Narrative: EXAM NARRATIVE: General : Alert, awake, No distres HEENT : Grossly unremarkable CVS : NSR CHEST : Non-labored respiration ABD : Non-distended Ext : no edema or rash Data : 08/01/20 04:47 08/01/20 04:47 Micro: Microbiology 07/30/20 21:07 Urine Culture - Preliminary Urine,Clean Catch 07/30/20 20:20 Blood Culture - Preliminary Blood NEGATIVE TO DATE 07/30/20 20:20 Blood Culture - Preliminary Blood NEGATIVE TO DATE A&P Assessment and plan (1) Febrile neutropenia: Status: Acute (2) Odynophagia: Status: Acute (3) Diverticulitis: Status: Acute (4) Invasive ductal carcinoma of breast, stage 3: Status: Resolved Qualifiers: Laterality: left Qualified Code(s): C50.912 - Malignant neoplasm of unspecified site of left female breast Febrile Neutropenia / Acute sigmoid diverticulitis - Afebrile since admission - Was given neulasta prior to admit - ANC improving - 220 - resolved. - Continue precautions - Repeat CBC in Am - CT abd/pelvis -> Diverticulitis/Cholelitiasis - Continue IV zosyn 3.375 g Q8hr - Will transition to augmentin at discharge. - 07/30 - Blcx - NGTD - Advance diet to Full liquid - D/C dilaudid - PO pain control Odynophagia -Resolved - D/c diflucan Metastatic L. Breast cancer - Stage IIIa - Last chemo 9 days prior - Following oncology outpatient DVT ppx - Lovenox 40 mg SQ daily Additional A&P Information Anticipate d/c in Am if remains afebrile and continues to improve. Attestations Medical Necessity Statement*: Will require further hospitaliztion for IV abx, pain control and advancing diet. Time Spent in Patient Care: Greater than 35 minutes (>than 50% of time spent in counselling and/or direct pt care on unit) . 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
[2020-08-02] VITALS: BP 124/73; PULSE 71; RESP 16; TEMP 36.9; O2SAT 95
[2020-08-02] MEDS: enoxaparin 40 mg/0.4 mL Syringe SUBCUT (00:20)
[2020-08-02] MEDS: dextrose 5%-ns 0.2% + KCL 20 20 MEQ/1,000 ML BAG 75 MEQ IV (00:26)
[2020-08-02 03:40] VITALS: BP 126/75; PULSE 70; RESP 18; TEMP 36.6; O2SAT 96
[2020-08-02 03:50] LABS: Basophils # 0.1 10^3/uL (0.0-0.1); Basophils % 1.3 %; Eosinophils % 0.3 %; Hematocrit 27.8 % (37.0-47.0); Hemoglobin 8.9 g/dL (11.5-15.3); Lymphocytes # 0.5 10^3/uL (0.8-4.8); Lymphocytes % 13.7 %; Mean Corpuscular Hemoglobin 30.7 pg (28.0-34.0); Mean Corpuscular Volume 95.9 fL (81-99); Mean Platelet Volume 10.2 fL (7.4-10.4); Monocytes # 0.7 10^3/uL (0.2-0.9); Monocytes % 17.3 %; Neutrophils # 2.34 10^3/uL (1.8-7.7); Neutrophils % 59.3 %; Nucleated Red Blood Cells % 0 %; Platelet Count 147 10^3/cmm (130-400); Red Cell Distribution Width 13.2 % (12.1-15.1); White Blood Count 3.9 10^3/uL (4.0-10.0)
[2020-08-02] MEDS: HYDROcodone-acetaminophen 5-325 mg Tablet 1 TAB PO ×3 (03:56→12:26)
[2020-08-02] MEDS: piperacillin-tazobactam 3.375 GM in sodium chloride 0.9% (plus) 50 ML IV ×2 (03:57→12:26)
[2020-08-02 04:09] LABS: Anion Gap 14.8 (5-19); Blood Urea Nitrogen 3 mg/dL (6-20); Calcium 9.2 mg/dL (8.5-10.5); Carbon Dioxide 27 mmol/L (22-29); Chloride 100 mmol/L (98-107); Glomerular Filtration Rate 126.7 mL/min (90-130); Glucose 196 mg/dL (65-115); Osmolality Calculated 288 mOsm/kg (285-295); Potassium 3.8 mmol/L (3.5-5.1); Sodium 138 mmol/L (136-145)
[2020-08-02 07:29] VITALS: BP 143/73; PULSE 73; RESP 16; TEMP 36.5; O2SAT 97
[2020-08-02] MEDS: pantoprazole DR 40 mg Tablet PO (08:16)
[2020-08-02 11:04] VITALS: BP 160/80; PULSE 71; RESP 16; TEMP 36.4; O2SAT 97
--- NOTE | 2020-08-02 14:23 | PM.DCS ---
Discharge Providers Date of Admission: 07/30/20 22:46 Date of Discharge: August 02, 2020 Attending Provider at Admission: Anthony Ryan MD Attending Provider at Discharge: Agustina Dietz Diagnoses at Discharge Discharge Diagnosis (1) Febrile neutropenia: Status: Acute (2) Odynophagia: Status: Acute (3) Diverticulitis: Status: Acute (4) Invasive ductal carcinoma of breast, stage 3: Status: Resolved Qualifiers: Laterality: left Qualified Code(s): C50.912 - Malignant neoplasm of unspecified site of left female breast Reason for Visit Reason for Visit: sent over/fever Hospital Course Hospital Course 59 year old female who has multifocal left breast cancer stage IIIa currently on chemotherapy status post mastectomy Port-A-Cath placement, her last chemotherapy session was 8 days ago, she was sent to our ER by Dr. Michelle for chief complaint of fever. Patient was neutropenic and was put on Levaquin prophylactically, she also received Neulasta and was advised to take Diflucan in case she becomes symptomatic. Patient stating that her symptoms started 3 days ago with lower quadrant pain, associated with diarrhea and today she spiked temperature 100.[address] Michelle was notified who recommended her to go to the ER. Patient is also endorsing some difficulty with swallowing she has not started taking Diflucan. She is denying vomiting but endorsing nausea. She is denying dysuria excruciating abdominal pain, mouth sores. Laboratory workup on arrival showed a WBC of 0.6, hemoglobin 9.8, hematocrit 29.6 and a platelet count of 128. ANS of 110. sodium 132, potassium 3.8, chloride 96, bicarb 26, BUN 6 and creatinine 0.5. Lactic acid of 2.7. Influenza a and B were negative. Rapid COVID antigen was negative as well. Imaging studies included a CT abdomen pelvis with contrast which revealed uncomplicated acute mid sigmoid diverticulitis. No visible abscess or extraluminal gas was noted. Mild felipe-colonic fat inflammatory phlegmonous response. In addition was also noted to have cholelithiasis. Patient was started on IV Zosyn 3.375 g q.8 hours. In addition to this patient was also started on Diflucan 100 mg IV Q 24 hour. Patient was started on Diflucan due to painful swallowing. This had resolved. No evidence of oral thrush. Diflucan was discontinued. Since admission patient remained afebrile however noted night sweats. No nausea or vomiting. No diarrhea or constipation. Neutropenia had resolved. Her diet was advanced to full liquid diet. Patient was very concerned with advancing further to solids. Discussed with her regarding the need for increasing diet prior to discharge however was adamant on going home. Stated she would remain on clear liquid diet /full liquid diet and advance low-fiber diet the next few days. Her antibiotics were changed to oral Augmentin to complete a total 14 day course. Discussed case with patient's daughter and consult her on the need to return to hospital if any worsening abdominal pain, nausea, vomiting or recurrence of fever. Both family and patient verbalized understanding. Physical Exam Narrative: EXAM NARRATIVE: General : Alert, awake, No distres HEENT : Grossly unremarkable CVS : NSR CHEST : Non-labored respiration ABD : Non-distended Ext : no edema or rash Discharge Data Data Completed and Pending: Completed Studies During Hospitalization Category Date Time Status CT abdomen pelvis w con* [id number] Stat Cat Scan 07/30/20 20:41 Completed XR chest 1V essie ble [id number] Stat Exams 07/30/20 19:57 Completed Pending at discharge Category Date Time Status Basic Metabolic P abel AM LABS Lab 08/03/20 04:00 Ordered Blood Culture Sta t Lab 07/30/20 20:20 Results Complete Blood Co unt w/Auto AM LABS Lab 08/03/20 04:00 Ordered Labs from last 24 hours 08/02/20 08/02/20 03:34 03:34 WBC 3.9 L RBC 2.90 L Hgb 8.9 L Hct 27.8 L MCV 95.9 MCH 30.7 MCHC 32.0 RDW 13.2 Plt Count 147 MPV 10.2 Neut % (Auto) 59.3 Lymph % (Auto) 13.7 [place] % (Auto) 17.3 Eos % (Auto) 0.3 Baso % (Auto) 1.3 Neut # (Auto) 2.34 Lymph # (Auto) 0.5 L [place] # (Auto) 0.7 Eos # (Auto) 0.0 Baso # (Auto) 0.1 Nucleated RBC % (a uto) 0 Nucleated RBCs # 0.0 Sodium 138 Potassium 3.8 Chloride 100 Carbon Dioxide 27 Anion Gap 14.8 BUN 3 L Creatinine 0.5 GFR Calculation 126.7 Glucose 196 H Calculated Osmolal ity 288 Calcium 9.2 Vitals: Last Vital Signs Temp 97.5 F L 08/02/20 11:04 Pulse 71 08/02/20 11:04 Resp 16 08/02/20 11:04 BP 160/80 08/02/20 11:04 Pulse Ox 97 08/02/20 11:04 Discharge Plan Discharge Patient Disposition: Home Condition: Stable Prescriptions: New pantoprazole 40 mg Tablet,Delayed Release (Dr/Ec) 40 mg PO DAILY Qty: 30 RF: 0 Augmentin 875-125 mg tablet 1 tab PO BID Qty: 20 RF: 0 Continued hydrocodone-acetaminophen 10-325 mg tablet 1 tab PO Q6H PRN (Reason: Pain) RF: 0 trazodone 100 mg tablet 50 mg PO PRN PRN (Reason: Sleep) RF: 0 loratadine 10 mg tablet 10 mg PO DAILY RF: 0 Discharge Orders: Discharge Order (Routine); Ordered 08/02/20 Ordered By: Agustina Dietz Referrals: Phillip Michelle MD [Hospitalist] - 1-3 days (Please call on Tuesday to confirm follow up appointment ) Discharge Diet: Advance as tolerated and Full LIquid Discharge Activity: Resume usual activity Patient Instructions: Amoxicillin/Clavulanate Potassium (By mouth), Pantoprazole (By mouth), Neutropenia (GEN) Activity Restrictions/Additional Instructions: Increase diet to low-fiber over next two days. If increasing abdominal pain or recurrence of fever please return to Hospital. 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
[2020-08-02 14:54] VITALS: BP 159/74; PULSE 72; RESP 17; TEMP 36.3; O2SAT 96
--- NOTE | 2020-08-02 15:50 | PC.NURSE ---
DC instructions given to patient.Voiced full understanding. Port deaccessed by Saul Zuniga RN. Patient to main entrance via wheelchair with zero difficulty.
[2020-08-02 17:59] VITALS: BP 159/74; PULSE 72; RESP 17; TEMP 36.3; O2SAT 96
== END 2020-08-02 15:50 | disposition home or self-care (01) | DRG 872 ==
LOC: ER 22:54 → MEDSURG 23:33
PROVIDERS: Admitting Provider Internal Medicine; Emergency Provider Emergency Medicine; Visit Provider Hospitalist
DX: A41.9 Sepsis, unspecified organism (principal); K57.92 Diverticulitis of intestine, part unspecified, without perforation or abscess without bleeding; C78.00 Secondary malignant neoplasm of unspecified lung; D70.1 Agranulocytosis secondary to cancer chemotherapy; C50.912 Malignant neoplasm of unspecified site of left female breast; R50.81 Fever presenting with conditions classified elsewhere; Z90.13 Acquired absence of bilateral breasts and nipples; Z79.899 Other long term (current) drug therapy; R13.10 Dysphagia, unspecified; F17.210 Nicotine dependence, cigarettes, uncomplicated; F12.20 Cannabis dependence, uncomplicated; T45.1X5A Adverse effect of antineoplastic and immunosuppressive drugs, initial encounter; Y92.531 Health care provider office as the place of occurrence of the external cause
CPT/HCPCS: 12345; 36415; 71045; 74177; 80048; 80053; 81001; 83605; 83690; 83735; 85025; 85610; 87040; 87086; 87426; 87804; 93005; 96372; 96375; 99283; 99291; J1170; J1450; J1650; J2270; J2405; J2543; J3370; J3490; J7030; Q9967

== ENCOUNTER 2020-08-20 05:31 | Outpatient (RCR) | payer MEDICAID, SELFPAY ==
[2020-08-04 15:33] LABS: Hematocrit 35.5 % (37.0-47.0); Hemoglobin 11.1 g/dL (11.5-15.3); Mean Corpuscular HGB Conc 31.3 g/dL (30.0-36.0); Mean Corpuscular Hemoglobin 30.5 pg (28.0-34.0); Mean Corpuscular Volume 97.5 fL (81-99); Mean Platelet Volume 9.9 fL (7.4-10.4); Platelet Count 235 10^3/cmm (130-400); Red Blood Count 3.64 10^6/uL (4.1-5.3); Red Cell Distribution Width 13.9 % (12.1-15.1); White Blood Count 9.8 10^3/uL (4.0-10.0)
[2020-08-04 16:20] LABS: Alanine Aminotransferase 21 U/L (0-33); Alkaline Phosphatase 245 IU/L (35-105); Anion Gap 16.3 (5-19); Aspartate Amino Transferase 23 U/L (0-32); Blood Urea Nitrogen 4 mg/dL (6-20); Calcium 9.4 mg/dL (8.5-10.5); Carbon Dioxide 26 mmol/L (22-29); Chloride 98 mmol/L (98-107); Glomerular Filtration Rate 126.7 mL/min (90-130); Glucose 169 mg/dL (65-115); Osmolality Calculated 285 mOsm/kg (285-295); Potassium 3.3 mmol/L (3.5-5.1); Sodium 137 mmol/L (136-145); Total Bilirubin 0.2 mg/dL (0.15-1.2)
[2020-08-04 16:43] LABS: Slide Review Slide Review Perform; Total Cells Counted 100 (0-100)
[2020-08-04 16:46] LABS: Absolute Segmented Neutrophil 7.4 10/cmm (1.6-7.1); Eosinophils 0 %; Lymphocytes 14 %; Monocytes Absolute 0.3 10^3/cmm (0.1-0.6); Segmented Neutrophils 76 %
[2020-08-04 16:47] LABS: Absolute Neutrophil 7.4 10^3/cmm (1.4-6.5); Anisocytosis Trace; Platelet Estimate Normal (Normal); Polychromasia Trace
[2020-08-05] MEDS: alteplase 1 mg/mL SDV 2 mL 2 MG INTRACATH (10:19)
[2020-08-05 10:25] LABS: Magnesium 2.1 mg/dL (1.7-2.3)
[2020-08-05] MEDS: sodium chloride 0.9% 250 ML 999 ML IV (10:47)
[2020-08-05] MEDS: diphenhydrAMINE 50 mg/mL SDV 1mL 25 MG IV (10:47)
[2020-08-05] MEDS: palonosetron 0.25 mg/5 mL SDV IV (11:15)
[2020-08-05] MEDS: pegfilgrastim 6 mg/0.6 mL Kit (onpro) SUBCUT (13:00)
--- NOTE | 2020-08-10 15:21 | ONC FU_ITS ---
[facility] Patient Note Patient: Tiara Gonzalez Unit #: [id number]: 1960 Dictated By: Emerson HarrisDate of Visit: Aug 05, 2020 Onc MED Follow-Up/Prog Note Chief Complaint: Breast cancer. History of Present Illness: Ms Gonzalez is a 59 year-old woman with multifocal left breast cancer, stage IIIA (T2, pN1a, M0), ER negative, IN negative, and HER-2 kika negative. She had presented to [facility] on 03/21/2020 with a lump in her left breast. Diagnostic mammogram on 03/25/2020 showed a dense well-circumscribed mass measuring 3.1 x 2.8 cm. Ultrasound showed a large cystic and solid complex lesion at the 11 to 2 o'clock position of the left breast measuring 3.1 x 2.3 x 2.7 cm. A hypoechoic lobulated lesion at 2:00 measured 7.6 x 4.5 x 7.0 mm. 2 additional hypoechoic lesions at the 1:00 and 2 o'clock position located 5 cm from the nipple appeared to represent intramammary lymph nodes. Several slightly prominent lymph nodes were noted in the left axilla measuring up to 1.4 cm in maximum diameter were noted to have preserved fatty hilum without significant cortical thickening, felt to most likely be reactive. She had underwent ultrasound directed core needle biopsy of the 11:00 mass and the 2:00 mass on 04/02/2020. 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 The breast prognostic profile on that lesion showed ER and IN both negative at <1%. The tumor was negative for overexpression of HER-2/kika, 1+ by IHC and amplification ratio by FISH at 1.0 with 1.9 HER-2 copies/cell. The Ki-67 was unfavorable at 18%. The lesion at 2:00 showed invasive ductal carcinoma, poorly differentiated, grade 3. 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 Dr Michelle had seen her initially on 04/11/2020. At that time she had multiple complains, significant enough that he was concerned about the possibility of metatstatic disease. Her baseline laboratory studies were unremarkable except for slightly elevated liver enzymes. Her brain MRI showed no evidence of metastatic disease. Staging CT scans of the chest, abdomen, and pelvis on 05/05/2020 showed hepatic steatosis but no metastatic disease in the abdomen or pelvis. The chest showed multilobar subcentimeter pulmonary nodules which were indeterminate but new compared to a prior study from 2018. Bone scan showed mild degenerative changes at the ankle joints and knee joints. There was no significant evidence for metastatic disease. In the setting of multifocal disease with no evidence of metastatic involvement, she was advised to proceed with mastectomy. On 05/20/2020 she underwent left total mastectomy and left axillary sentinel lymph node biopsy. Pathology confirmed multifocal metaplastic carcinoma, grade 3, with giant cells, spindle cells, chondroid and osteoid differentiation. The largest focus of involvement measured 3.8 cm. The margins were free, with the closest being the deep margin at 9 mm. There was a component of ductal carcinoma in situ, solid and cribriform type with comedonecrosis, grade 3. The closest margin to DCIS was 7 mm. 2 intramammary lymph nodes were positive for metastatic involvement, 1 of which showed extracapsular extension. There was no involvement in 4 axillary sentinel lymph nodes. Pathologic staging was pT2, pN1a. As she has locally advanced triple negative breast cancer she was advised to proceed with adjuvant chemotherapy with 4 cycles of Adriamycin Cytoxan followed by weekly Taxol for 12 weeks. She had baseline echocardiogram on 06/23/2020 which reported normal left ventricular size and systolic function with an EF of 67%. There were no regional wall motion abnormalities. There was grade I/IV diastolic dysfunction normal to mildly elevated filling pressures. She also had PowerPort placement by Dr. Tejada on July 01, 2020. Ms. Carlos azulgan her first cycle of Adriamycin Cytoxan on 07/08/2020. She is here today for day 1 of cycle 3. She was admitted to [facility] on 07/30/2020 with complaints of febrile neutropenia, odynophagia and diverticulitis. She was discharged on 08/02/2020. She presented to the emergency room for complaints of fever she had previously been on Levaquin prophylactically and it had received Neulasta but her fever did spike to 100.4 and she was advised to go to the emergency room. She also has some difficulty swallowing at that time but had not started Diflucan as she had been encouraged to do so if she had any problems swallowing or with yeast. Her ANC upon arrival was 110. Rapid Covid antigen was negative. She had uncomplicated acute mild sigmoid diverticulitis by CT of the abdomen pelvis with contrast. She was given IV Zosyn and started on Diflucan 100 mg IV for painful swallowing. She was discharged with antibiotics on Augmentin for a total of 14-day course. She and her daughter states that she feels much better overall. She states she was advised by the hospitalist that she needs colonoscopy and has been referred to Dr. Ocasio to have this done after the first of the year. She denies any recurrent fever. She states overall she is feeling better. She did develop some mouth irritation/sores after her last treatment but those have resolved currently. She did have some diarrhea after her last treatment and did take some Imodium but was not sure it helped a whole lot. [facility] She denies any new concerns today. She denies any pain. She states she is eating better. Her energy is some better although it still limited. She denies any nausea or vomiting. She has had no neuropathy, hearing changes or any further difficulty swallowing. Her ECOG is 2. Past Medical History: Ms. Gonzalez's medical history is unremarkable. Past Surgical History: Caesarean section Right ankle repair Right knee repair Right internal juglar PowerPort per Dr Tejada in 2019 Allergies: No Known Allergies. Medications: Amoxicillin-Pot Clavulanate 1 Tablet (of 875-125 mg) Oral b.i.d. HYDROcodone-Acetaminophen 1 Tablet (of 5-325 mg) Oral q 6 hours Pantoprazole Sodium 1 Tablet (of 40 mg) Tablet, enteric coated Oral daily Pantoprazole Sodium 1 Tablet (of 40 mg) Tablet, enteric coated Oral daily Prochlorperazine Maleate Tablet Oral PRN traZODone HCl 1 Tablet (of 50 mg) Oral at bedtime Family History: Ms. Gonzalez's mother is alive. Ms. Gonzalez's father at age 75: heart disease. Ms. Gonzalez has 1 sister who is alive: breast cancer. She has 1 maternal aunt who is : colon cancer. Father of heart disease at age 75. Mother is living at age 82. A 64-year-old sister has been treated for breast cancer. A maternal aunt of colon cancer. Social History: Ms. Gonzalez is and she is retired. She is a daily smoker who smokes 2.0 packs/day. She has no history of drinking. She has indicated exposure to the following products: cigarettes and recreational drug use. Ms. Gonzalez reports the following support systems: lives alone, lives in own house, supportive family/friends willing to assist with needs, and adequate transportation available for expected visits. Her diet consists of regular meals. She indicates her activity level as: regular exercise. She has a history of smoking 2 packs of cigarettes daily for 38 years. She currently does not drink alcohol. She has had occasional alcohol use in the past. She uses marijuana daily to help with her pain. Review Of Symptoms: Constitutional Denies fevers, chills, night sweats, excessive fatigue or weight loss. Mild fatigue but states she recovers well with rest. Allergic/Immunologic No reactions. Eyes Denies significant visual changes. No diplopia. No amaurosis. ENMT Denies changes in hearing, sore throat, mouth sores, difficulty or changes in swallowing ability, and/or sinus drainage. Hematologic/Lymphatic Denies easy bruising or bleeding. The patient denies any tender or palpable lymph nodes. Breasts no concerns. Respiratory Denies dyspnea on exertion, chest pain, cough or hemoptysis. Denies orthopnea. Cardiovascular Denies anginal chest pain, palpitations or orthopnea. Gastrointestinal Denies current nausea, vomiting, diarrhea, GI bleeding, or constipation. Denies change in bowel habits and/or stool color, no heartburn or early satiety. Genitourinary (F) No hematuria, hesitancy, incontinence, vaginal bleeding, discharge or other problems with urination. Musculoskeletal Denies joint pain, swelling or redness. No decreased range of motion. Integumentary Denies chronic rashes, inflammation, ulcerations or skin changes. Neurologic Denies headache, blurred vision, and no areas of focal weakness or numbness. Normal gait. No sensory problems. Psychiatric Denies insomnia, depression, karlye or mood swings. Vital Signs: Performed on Aug 05, 2020 09:01 Height - 62.00 in Weight - 135.8 lbs (LOW) BSA - 1.62 sq.m BMI - 24.84 Temperature - 97.9 F (LOW) Pulse - 82 /min Respiration - 20 /min BP - 129/72 mm(hg) O2 Sat - 99 % Pain - 6,1 - No physically strenuous activity, but ambulatory and able to carry out light or sedentary work (e.g. office work, light house work). (ECOG) Physical Examination: Constitutional Alert, oriented, no acute distress. Skin pink, warm and dry. Head Normocephalic; atraumatic. Eyes Conjunctivae and sclerae are clear and without icterus. Pupils are reactive and equal. ENMT No oral exudates. Healed ulcers noted on lower lip area, but no masses, thrush or mucositis. Oropharynx clear. Tongue normal. Neck Supple without masses or thyromegaly. No jugular venous distension. Hematologic/Lymphatic No petechiae or purpura. No tender or palpable lymph nodes in the cervical or supraclavicular areas. Respiratory Lungs are clear to auscultation without rhonchi or wheezing. Cardiovascular Regular rate and rhythm of heart without murmurs,clicks, gallops or rubs. Chest Chest is symmetric without chest wall deformities. Right chest wall port insertion site is healing well. Abdomen Non-tender, non-distended, no masses or ascites. Good bowel sounds noted in all quads. No guarding or rebound tenderness. No pulsatile masses. Back/Spine Non-tender to palpation. Extremities No visible deformities, no cyanosis, clubbing or edema. Musculoskeletal No tenderness or swelling, normal range of motion without obvious weakness. Integumentary No rashes or lesions. Neurologic No sensory or motor deficits, normal cerebellar function, normal gait. Psychiatric Alert and oriented times three. Coherent speech. Verbalizes understanding of our discussions today. Laboratory:Test performed on Aug 04, 2020 13:55 Magnesium 2.1 mg/dL Sodium 137 mmol/L Potassium 3.3 mmol/L Chloride 98 mmol/L CO2 26 mmol/L Anion Gap 16.3 BUN 4 mg/dL Creatinine 0.5 mg/dL Cr Clearance (Est) 119.0900 mL/min eGFR 126.7 mL/min Glucose 169 mg/dL Osmolality - Calculated 285 mOsm/kg Calcium 9.4 mg/dL Protein, Total 7.0 g/dL Albumin 4.0 g/dL Globulin 3.0 g/dL Bilirubin, Total 0.2 mg/dL ALT (SGPT) 21 U/L AST (SGOT) 23 U/L Alkaline Phosphatase 245 IU/L WBC 9.8 10 3/uL Manual Segs % 76 % Manual Bands % 0.0 % RBC 3.64 10 6/uL HGB 11.1 g/dL Manual Lymphs % 14 % Atypical Lymphs % 3.0 % HCT 35.5 % MCV 97.5 fL Total Cells Counted 100 Manual Monos % 3.0 % MCH 30.5 pg Manual Eos % 0 % MCHC 31.3 g/dL Manual Basos % 0.0 % RDW 13.9 % Metamyelocytes % 4.0 % Platelet Count 235 10 3/cmm MPV 9.9 fL CBC Slide Review Slide Review Perform Polychromasia Trace Anisocytosis Trace Platelet Estimate Normal Manual Segs Abs 7.4 10/cmm Manual Bands Abs 0.0 10 3/cmm Manual Neutrophils Abs 7.4 10 3/cmm Manual Monocytes Abs 0.3 10 3/cmm Manual Eosinophils Abs 0.0 10 3/cmm Manual Basophils Abs 0.0 10 3/cmm Test performed on Jul 22, 2020 12:15 Ua Color Yellow Ua Appearance Clear Ua Glucose 1+ Ua Bilirubin 1+ Ua Ketones 1+ Ua Specific Anderson 1.020 Ua Blood Neg Ua pH 6.5 Ua Protein Trace Ua Nitrites Negative Ua Leukocyte Esterase Negative Ua Micro: WBC 0-4 /hpf Ua Micro: RBC 0-4 /hpf Ua Micro: Squam Epith Cells 0-4 /hpf Ua Micro: Bacteria TRACE /hpf Ua Micro: Mucous 2+ /hpf Test performed on Jul 21, 2020 12:50 Neutrophils 7.12 10 3/uL Lymphocytes 1.5 10 3/uL Monocytes 0.7 10 3/uL Eosinophils 0.0 10 3/uL Basophils 0.1 10 3/uL Neutrophil % 77.5 % Lymphocyte % 14.8 % Monocyte % 6.7 % Eosinophil % 0.3 % Basophils % 0.7 % NRBC % 0 % Impression: 1. Patient with multifocal left breast cancer, stage IIIA (T2, pN1a, M0), ER negative, IN negative, and HER-2 kika negative. 2. She underwent ultrasound directed core needle biopsy of the left breast on 04/02/2020 and she underwent left mastectomy with axillary sentinel lymph node biopsy on 05/20/2020. There has been significant improvement in her overall clinical status since her initial visit. She has had good recovery from her mastectomy procedure. As she has locally advanced triple negative breast cancer she was advised to proceed with adjuvant chemotherapy with 4 cycles of Adriamycin Cytoxan followed by weekly Taxol for 12 weeks. She has had baseline cardiogram which was normal and has had PowerPort placement by Dr. Tejada on July 01, 2020. She began her first cycle Adriamycin Cytoxan on 07/08/2020. Mrs. Gonzalez is here today for cycle 2 day 1 follow-up. She was neutropenic at day 8 of cycle 1 with an 380 ANC. She was asymptomatic but was started on prophylactic antibiotic with Levaquin. She has had growth factor support with Neulasta. Mrs Gonzalez is here today for follow-up and due for cycle 3-day 1 Adriamycin Cytoxan. She was admitted to [facility] on 07/30/2020 and discharged on 08/02/2020 for febrile neutropenia. She presented with a fever of 100.4 and an ANC of 110. She was given IV antibiotics and Diflucan. She also had diverticulitis which was improved at the time of discharge. Her neutropenia did improve and she was discharged on Augmentin-she has recovered. She continues with Adriamycin and Cytoxan with Neulasta Onpro support. Plan: 1. Breast Cancer: We will proceed with cycle 3-day 1 Adriamycin Cytoxan. A. Continue with growth factor Neulasta as she has had chemotherapy-induced neutropenia. She was reminded/encouraged to use Claritin as needed for bone pain if she has that related to the Neulasta. B. I have requested that she have hydration and repeat antiemetics on Tuesday or sooner if needed. C. The labs from 08/04/2020 were reviewed in detail with Ms. Gonzalez and a copy was given to her. WBC 9.8, hemoglobin 11.1, platelets 235,000 ANC is 7400. Potassium 3.3 creatinine 0.5 LFTs are normal alk phos 245 which is slightly improved but presumably due to Neulasta on pro injection. I did request a magnesium be added to the blood in the lab for assessment of her hypokalemia. 2. Followup plan: . We will plan to see her back in 2 weeks with CBC CMP the day before. She will be due for cycle 4 Adriamycin Cytoxan with Neulasta support. She will have interim CBC next week for chemotherapy monitoring. 3. 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 I would like for her to have this on hand in the event that her mouth sores returned with this cycle. 4. Mrs. Gonzalez was instructed to contact us in the interim should questions or problems arise. Signed By: Emerson Harris-. AOCNP Phillip Michelle MD <<Signature on File>>
[2020-08-12 13:58] LABS: Basophils % 4.7 %; Eosinophils % 1.2 %; Hematocrit 31.3 % (37.0-47.0); Hemoglobin 9.9 g/dL (11.5-15.3); Lymphocytes # 0.2 10^3/uL (0.8-4.8); Lymphocytes % 20.9 %; Mean Corpuscular HGB Conc 31.6 g/dL (30.0-36.0); Mean Corpuscular Hemoglobin 30.7 pg (28.0-34.0); Mean Corpuscular Volume 97.2 fL (81-99); Mean Platelet Volume 10.4 fL (7.4-10.4); Monocytes # 0.2 10^3/uL (0.2-0.9); Monocytes % 20.9 %; Neutrophils % 45.3 %; Nucleated Red Blood Cells % 0 %; Platelet Count 245 10^3/cmm (130-400); Red Blood Count 3.22 10^6/uL (4.1-5.3); Red Cell Distribution Width 14.3 % (12.1-15.1)
[2020-08-12 14:11] LABS: Alanine Aminotransferase 24 U/L (0-33); Albumin Level 3.9 g/dL (3.5-5.2); Alkaline Phosphatase 274 IU/L (35-105); Anion Gap 15.2 (5-19); Aspartate Amino Transferase 37 U/L (0-32); Blood Urea Nitrogen 10 mg/dL (6-20); Calcium 9.8 mg/dL (8.5-10.5); Carbon Dioxide 25 mmol/L (22-29); Chloride 99 mmol/L (98-107); Globulin 2.6 g/dL (1.3-4.6); Glomerular Filtration Rate 126.7 mL/min (90-130); Glucose 122 mg/dL (65-115); Magnesium 1.9 mg/dL (1.7-2.3); Osmolality Calculated 280 mOsm/kg (285-295); Potassium 4.2 mmol/L (3.5-5.1); Sodium 135 mmol/L (136-145); Total Bilirubin 0.4 mg/dL (0.15-1.2); Total Protein 6.5 g/dL (6.6-8.7)
[2020-08-12 14:46] LABS: Neutrophils # 0.39 10^3/uL (1.8-7.7); White Blood Count 0.9 10^3/uL (4.0-10.0)
[2020-08-19 12:56] LABS: Hematocrit 30.4 % (37.0-47.0); Hemoglobin 9.8 g/dL (11.5-15.3); Mean Corpuscular HGB Conc 32.2 g/dL (30.0-36.0); Mean Corpuscular Hemoglobin 31.8 pg (28.0-34.0); Mean Corpuscular Volume 98.7 fL (81-99); Mean Platelet Volume 10.2 fL (7.4-10.4); Platelet Count 152 10^3/cmm (130-400); Red Blood Count 3.08 10^6/uL (4.1-5.3); Red Cell Distribution Width 17.4 % (12.1-15.1); White Blood Count 8.8 10^3/uL (4.0-10.0)
[2020-08-19 13:26] LABS: Alanine Aminotransferase 18 U/L (0-33); Albumin Level 3.2 g/dL (3.5-5.2); Alkaline Phosphatase 235 IU/L (35-105); Anion Gap 14.6 (5-19); Aspartate Amino Transferase 26 U/L (0-32); Blood Urea Nitrogen 6 mg/dL (6-20); Calcium 9.2 mg/dL (8.5-10.5); Carbon Dioxide 25 mmol/L (22-29); Chloride 100 mmol/L (98-107); Globulin 2.6 g/dL (1.3-4.6); Glomerular Filtration Rate 163.9 mL/min (90-130); Glucose 178 mg/dL (65-115); Osmolality Calculated 284 mOsm/kg (285-295); Potassium 3.6 mmol/L (3.5-5.1); Sodium 136 mmol/L (136-145); Total Bilirubin 0.2 mg/dL (0.15-1.2); Total Protein 5.8 g/dL (6.6-8.7)
[2020-08-19 14:12] LABS: Slide Review Slide Review Perform
[2020-08-19 14:16] LABS: Absolute Segmented Neutrophil 6.2 10/cmm (1.6-7.1); Band Neutrophils Absolute 0.4 10^3/cmm (0.0-1.2); Lymphocytes 13 %; Monocytes Absolute 0.5 10^3/cmm (0.1-0.6); Segmented Neutrophils 71 %; Total Cells Counted 100 (0-100)
[2020-08-19 14:17] LABS: Absolute Neutrophil 6.7 10^3/cmm (1.4-6.5); Anisocytosis 1+; Platelet Estimate Normal (Normal)
[2020-08-19 14:18] LABS: Tear Drop Cells 1+
[2020-08-19 14:19] LABS: Poikilocytosis 1+
[2020-08-19 14:20] LABS: Eosinophils 0 %
[2020-08-20] MEDS: diphenhydrAMINE 50 mg/mL SDV 1mL 25 MG IV (09:50)
[2020-08-20] MEDS: sodium chloride 0.9% 250 ML 75 ML IV (09:50)
--- NOTE | 2020-08-20 10:20 | ONC FU_ITS ---
[facility] Patient Note Patient: Tiara Gonzalez Unit #: [id number]: 1960 Dictated By: Emerson HarrisDate of Visit: Aug 20, 2020 Onc MED Follow-Up/Prog Note Chief Complaint: Breast cancer. History of Present Illness: Ms Gonzalez is a 59 year-old woman with multifocal left breast cancer, stage IIIA (T2, pN1a, M0), ER negative, AK negative, and HER-2 kika negative. She had presented to [facility] on 03/21/2020 with a lump in her left breast. Diagnostic mammogram on 03/25/2020 showed a dense well-circumscribed mass measuring 3.1 x 2.8 cm. Ultrasound showed a large cystic and solid complex lesion at the 11 to 2 o'clock position of the left breast measuring 3.1 x 2.3 x 2.7 cm. A hypoechoic lobulated lesion at 2:00 measured 7.6 x 4.5 x 7.0 mm. 2 additional hypoechoic lesions at the 1:00 and 2 o'clock position located 5 cm from the nipple appeared to represent intramammary lymph nodes. Several slightly prominent lymph nodes were noted in the left axilla measuring up to 1.4 cm in maximum diameter were noted to have preserved fatty hilum without significant cortical thickening, felt to most likely be reactive. She had underwent ultrasound directed core needle biopsy of the 11:00 mass and the 2:00 mass on 04/02/2020. 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 The breast prognostic profile on that lesion showed ER and AK both negative at <1%. The tumor was negative for overexpression of HER-2/kika, 1+ by IHC and amplification ratio by FISH at 1.0 with 1.9 HER-2 copies/cell. The Ki-67 was unfavorable at 18%. The lesion at 2:00 showed invasive ductal carcinoma, poorly differentiated, grade 3. 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 Dr Michelle had seen her initially on 04/11/2020. At that time she had multiple complains, significant enough that he was concerned about the possibility of metatstatic disease. Her baseline laboratory studies were unremarkable except for slightly elevated liver enzymes. Her brain MRI showed no evidence of metastatic disease. Staging CT scans of the chest, abdomen, and pelvis on 05/05/2020 showed hepatic steatosis but no metastatic disease in the abdomen or pelvis. The chest showed multilobar subcentimeter pulmonary nodules which were indeterminate but new compared to a prior study from 2018. Bone scan showed mild degenerative changes at the ankle joints and knee joints. There was no significant evidence for metastatic disease. In the setting of multifocal disease with no evidence of metastatic involvement, she was advised to proceed with mastectomy. On 05/20/2020 she underwent left total mastectomy and left axillary sentinel lymph node biopsy. Pathology confirmed multifocal metaplastic carcinoma, grade 3, with giant cells, spindle cells, chondroid and osteoid differentiation. The largest focus of involvement measured 3.8 cm. The margins were free, with the closest being the deep margin at 9 mm. There was a component of ductal carcinoma in situ, solid and cribriform type with comedonecrosis, grade 3. The closest margin to DCIS was 7 mm. 2 intramammary lymph nodes were positive for metastatic involvement, 1 of which showed extracapsular extension. There was no involvement in 4 axillary sentinel lymph nodes. Pathologic staging was pT2, pN1a. As she has locally advanced triple negative breast cancer she was advised to proceed with adjuvant chemotherapy with 4 cycles of Adriamycin Cytoxan followed by weekly Taxol for 12 weeks. She had baseline echocardiogram on 06/23/2020 which reported normal left ventricular size and systolic function with an EF of 67%. There were no regional wall motion abnormalities. There was grade I/IV diastolic dysfunction normal to mildly elevated filling pressures. She also had PowerPort placement by Dr. Tejada on July 01, 2020. Ms. Gonzalez began her first cycle of Adriamycin Cytoxan on 07/08/2020. She was admitted to [facility] on 07/30/2020 with complaints of febrile neutropenia, odynophagia and diverticulitis. She was discharged on 08/02/2020. She presented to the emergency room for complaints of fever she had previously been on Levaquin prophylactically and it had received Neulasta but her fever did spike to 100.4 and she was advised to go to the emergency room. She also has some difficulty swallowing at that time but had not started Diflucan as she had been encouraged to do so if she had any problems swallowing or with yeast. Her ANC upon arrival was 110. Rapid Covid antigen was negative. She had uncomplicated acute mild sigmoid diverticulitis by CT of the abdomen pelvis with contrast. She was given IV Zosyn and started on Diflucan 100 mg IV for painful swallowing. She was discharged with antibiotics on Augmentin for a total of 14-day course. She states she was advised by the hospitalist that she needs colonoscopy and has been referred to Dr. Tejada to have this done after the first of the year. Ms. Gonzalez was able to resume her therapy on August 05, 2020. She has been able to stay on her 2 weeks schedule. She continues to be supported with Neulasta on pro. She does have neutropenia on day 8 but has been afebrile thus far. She presents today for cycle 4 Adriamycin Cytoxan. She states overall she feels pretty good. She did have some fatigue and nausea after last treatment but states it is nothing that she has not had before and it was not bad . She did take her antiemetics and this seems to resolve the nausea. She did not require any IV hydration or antiemetics. She states her appetite is good. She denies any recent fever or chills. She has had mouth sores but states that the medicine take care of that . She denies any new concerns today. She states she had some diarrhea and constipation after last treatment but that all has resolved now. She denies any new pain. She does have some discomfort with the Neulasta but that is controlled with Claritin. She denies any neuropathy symptoms. Her ECOG is 1. Past Medical History: Ms. Gonzalez's medical history is unremarkable. Past Surgical History: Caesarean section Right ankle repair Right knee repair Right internal juglar PowerPort per Dr Tejada in 2019 Allergies: No Known Allergies. Medications: Famvir 1 Tablet (of 500 mg) Oral t.i.d. for 7 days HYDROcodone-Acetaminophen 1 Tablet (of 5-325 mg) Oral q 6 hours Pantoprazole Sodium 1 Tablet (of 40 mg) Tablet, enteric coated Oral daily Prochlorperazine Maleate Tablet Oral PRN traZODone HCl 1 Tablet (of 50 mg) Oral at bedtime Family History: Ms. Gonzalez's mother is alive. Ms. Gonzalez's father at age 75: heart disease. Ms. Gonzalez has 1 sister who is alive: breast cancer. She has 1 maternal aunt who is : colon cancer. Father of heart disease at age 75. Mother is living at age 82. A 64-year-old sister has been treated for breast cancer. A maternal aunt of colon cancer. Social History: Ms. Gonzalez is and she is retired. Ms. Gonzalez no longer smokes but had smoked 2.0 packs/day. She has no history of drinking. She has indicated exposure to the following products: cigarettes and recreational drug use. Ms. Gonzalez reports the following support systems: lives alone, lives in own house, supportive family/friends willing to assist with needs, and adequate transportation available for expected visits. Her diet consists of regular meals. She indicates her activity level as: regular exercise. Review Of Symptoms: Constitutional Denies fevers, chills, night sweats, excessive fatigue or weight loss. Fatigue and sleeps alot. Allergic/Immunologic No reactions. Eyes Denies significant visual changes. No diplopia. No amaurosis. ENMT Denies changes in hearing, sore throat, mouth sores, difficulty or changes in swallowing ability, and/or sinus drainage. Hematologic/Lymphatic Denies easy bruising or bleeding. The patient denies any tender or palpable lymph nodes. Breasts no concerns. Respiratory Denies dyspnea on exertion, chest pain, cough or hemoptysis. Denies orthopnea. Cardiovascular Denies anginal chest pain, palpitations or orthopnea. Gastrointestinal Denies current nausea, vomiting, diarrhea, GI bleeding, or constipation. Denies change in bowel habits and/or stool color, no heartburn or early satiety. Had constipation for 1-2 days post treatment but resolved now. Genitourinary (F) No hematuria, hesitancy, incontinence, vaginal bleeding, discharge or other problems with urination. Musculoskeletal Denies joint pain, swelling or redness. No decreased range of motion. Integumentary Denies chronic rashes, inflammation, ulcerations or skin changes. Neurologic Denies headache, blurred vision, and no areas of focal weakness or numbness. Normal gait. No sensory problems. Psychiatric Denies insomnia, depression, karley or mood swings. Vital Signs: Performed on Aug 20, 2020 09:07 Height - 62.00 in Weight - 130.8 lbs (LOW) BSA - 1.60 sq.m BMI - 23.92 Temperature - 97.9 F (LOW) Pulse - 70 /min Respiration - 17 /min BP - 128/62 mm(hg) O2 Sat - 98 % Pain - 7,1 - No physically strenuous activity, but ambulatory and able to carry out light or sedentary work (e.g. office work, light house work). (ECOG) Physical Examination: Constitutional Alert, oriented, no acute distress. Skin pink, warm and dry. Alopecia. Head Normocephalic; atraumatic. Eyes Conjunctivae and sclerae are clear and without icterus. Pupils are reactive and equal. ENMT No oral exudates. Healed ulcers noted on lower lip area, but no masses, thrush or mucositis. Oropharynx clear. Tongue normal. Neck Supple without masses or thyromegaly. No jugular venous distension. Hematologic/Lymphatic No petechiae or purpura. No tender or palpable lymph nodes in the cervical or supraclavicular areas. Respiratory Lungs are clear to auscultation without rhonchi or wheezing. Cardiovascular Regular rate and rhythm of heart without murmurs,clicks, gallops or rubs. Chest Chest is symmetric without chest wall deformities. Right chest wall port insertion site is healing well. Abdomen Non-tender, non-distended, no masses or ascites. Good bowel sounds noted in all quads. No guarding or rebound tenderness. No pulsatile masses. Back/Spine Non-tender to palpation. Extremities No visible deformities, no cyanosis, clubbing or edema. Musculoskeletal No tenderness or swelling, normal range of motion without obvious weakness. Integumentary No rashes or lesions. Neurologic No sensory or motor deficits, normal cerebellar function, normal gait. Psychiatric Alert and oriented times three. Coherent speech. Verbalizes understanding of our discussions today. Laboratory:Test performed on Aug 19, 2020 10:45 Sodium 136 mmol/L Potassium 3.6 mmol/L Chloride 100 mmol/L CO2 25 mmol/L Anion Gap 14.6 BUN 6 mg/dL Creatinine 0.4 mg/dL Cr Clearance (Est) 148.8600 mL/min eGFR 163.9 mL/min Glucose 178 mg/dL Osmolality - Calculated 284 mOsm/kg Calcium 9.2 mg/dL Protein, Total 5.8 g/dL Albumin 3.2 g/dL Globulin 2.6 g/dL Bilirubin, Total 0.2 mg/dL ALT (SGPT) 18 U/L AST (SGOT) 26 U/L Alkaline Phosphatase 235 IU/L WBC 8.8 10 3/uL Manual Segs % 71 % Manual Bands % 5.0 % RBC 3.08 10 6/uL HGB 9.8 g/dL Manual Lymphs % 13 % Atypical Lymphs % 1.0 % HCT 30.4 % MCV 98.7 fL Total Cells Counted 100 Manual Monos % 6.0 % MCH 31.8 pg Manual Eos % 0 % MCHC 32.2 g/dL Manual Basos % 0.0 % RDW 17.4 % Metamyelocytes % 4.0 % Platelet Count 152 10 3/cmm MPV 10.2 fL CBC Slide Review Slide Review Perform Anisocytosis 1+ Poikilocytosis 1+ Tear Drop Cells 1+ Platelet Estimate Normal Manual Segs Abs 6.2 10/cmm Manual Bands Abs 0.4 10 3/cmm Manual Neutrophils Abs 6.7 10 3/cmm Manual Monocytes Abs 0.5 10 3/cmm Manual Eosinophils Abs 0.0 10 3/cmm Manual Basophils Abs 0.0 10 3/cmm Impression: 1. Patient with multifocal left breast cancer, stage IIIA (T2, pN1a, M0), ER negative, AK negative, and HER-2 kika negative. 2. She underwent ultrasound directed core needle biopsy of the left breast on 04/02/2020 and she underwent left mastectomy with axillary sentinel lymph node biopsy on 05/20/2020. There has been significant improvement in her overall clinical status since her initial visit. She has had good recovery from her mastectomy procedure. As she has locally advanced triple negative breast cancer she was advised to proceed with adjuvant chemotherapy with 4 cycles of Adriamycin Cytoxan followed by weekly Taxol for 12 weeks. She has had baseline cardiogram which was normal and has had PowerPort placement by Dr. Tejada on July 01, 2020. She began her first cycle Adriamycin Cytoxan on 07/08/2020. Mrs. Gonzalez is here today for cycle 2 day 1 follow-up. She was neutropenic at day 8 of cycle 1 with an 380 ANC. She was asymptomatic but was started on prophylactic antibiotic with Levaquin. She has had growth factor support with Neulasta. Mrs Gonzalez is here today for follow-up and due for cycle 3-day 1 Adriamycin Cytoxan. She was admitted to [facility] on 07/30/2020 and discharged on 08/02/2020 for febrile neutropenia. She presented with a fever of 100.4 and an ANC of 110. She was given IV antibiotics and Diflucan. She also had diverticulitis which was improved at the time of discharge. Her neutropenia did improve and she was discharged on Augmentin-she has recovered. She continues with Adriamycin and Cytoxan with Neulasta Onpro support. Plan: 1. Breast Cancer: We will proceed with cycle 4-day 1 Adriamycin Cytoxan. A. Continue with growth factor Neulasta as she has had chemotherapy-induced neutropenia. She was reminded/encouraged to use Claritin as needed for bone pain related to the Neulasta. B. Supportive care as needed for nausea/dehydration. C. The labs from 08/19/2020 were reviewed in detail with Ms. Gonzalez and a copy was given to her. WBC 8.8, hemoglobin 9.8, platelets 152,000 ANC was 6700. Creatinine 0.4 potassium 3.6 LFTs are normal alk phos is 235 presumably due to Neulasta on pro. 2. Followup plan: . We will plan to see her back in 2 weeks with CBC CMP the day before. She will be due for cycle 09/02 weekly paclitaxel. She will have interim CBC next week for chemotherapy monitoring. 3. She will be reminded to take her premed steroids prior to the paclitaxel. We discussed potential side effects today to include anaphylaxis, infusion reactions, nausea vomiting, low blood counts, fatigue, rash amongst many others. I did inform her that if she does forget to take her premed steroids that her treatment will be delayed. 4. Mrs. Gonzalez was instructed to contact us in the interim should questions or problems arise. Signed By: Emerson Harris-GEOVANNA, AOCNP Phillip Michelle MD <<Signature on File>>
[2020-08-20] MEDS: palonosetron 0.25 mg/5 mL SDV IV (10:24)
[2020-08-20] MEDS: pegfilgrastim 6 mg/0.6 mL Kit (onpro) SUBCUT (12:00)
== END 2020-08-21 23:59 | disposition home or self-care (01) ==
LOC: ONCMED 05:31
PROVIDERS: Visit Provider Nurse Practitioner
DX: Z51.11 Encounter for antineoplastic chemotherapy (principal); C50.812 Malignant neoplasm of overlapping sites of left female breast; D80.1 Nonfamilial hypogammaglobulinemia; T45.1X5A Adverse effect of antineoplastic and immunosuppressive drugs, initial encounter; E87.6 Hypokalemia; Z51.81 Encounter for therapeutic drug level monitoring; Z79.899 Other long term (current) drug therapy; Z17.1 Estrogen receptor negative status [ER-]; Z90.12 Acquired absence of left breast and nipple; Z87.891 Personal history of nicotine dependence
CPT/HCPCS: 36415; 36593; 80053; 83735; 85007; 85025; 96367; 96372; 96375; 96411; 96413; 99214; J1100; J1200; J1453; J2469; J2505; J2997; J7040; J7050; J9000; J9070

== ENCOUNTER 2020-08-22 20:47 | Inpatient (IN) | payer MEDICAID, SELFPAY ==
[2020-08-22 20:59] VITALS: BP 117/69; PULSE 100; RESP 18; TEMP 36.8; O2SAT 97; BMI 23.8
--- NOTE | 2020-08-22 21:23 | CTR_ITS ---
PROCEDURE INFORMATION: Exam: CT Abdomen And Pelvis With Contrast Exam date and time: 08/22/2020 9:54 PM Age: 59 years old Clinical indication: Nausea; Abdominal pain; Localized; Lower; Additional info: Abd pain TECHNIQUE: Imaging protocol: Computed tomography of the abdomen and pelvis with intravenous contrast. Radiation optimization: All CT scans at this facility use at least one of these dose optimization techniques: automated exposure control; mA and/or kV adjustment per patient size (includes targeted exams where dose is matched to clinical indication); or iterative reconstruction. Contrast material: OMNI 300; Contrast volume: 95 ml; Contrast route: INTRAVENOUS (IV); COMPARISON: CT abdomen pelvis w con* [id number] 07/30/2020 9:19 PM RADIATION DOSE METRICS: Total DLP (mGy-cm): 452.46 FINDINGS: Lungs: There is subsegmental atelectasis in the lung bases. Diaphragm: There is mild asymmetric elevation of the left hemidiaphragm. Liver: The liver is normal. Gallbladder and bile ducts: Cholelithiasis is present. There is no sign of cholecystitis. There is no intrahepatic or extrahepatic bile duct dilation. Pancreas: The pancreas is unremarkable. Spleen: The spleen is unremarkable. Adrenal glands: There is hypertrophy of the left adrenal gland. The right adrenal gland is unremarkable. Kidneys and ureters: The kidneys are unremarkable. No hydronephrosis or stones. No ureteral dilation. Stomach and bowel: There is minimal residual fat stranding adjacent to the sigmoid diverticula consistent with resolving diverticulitis identified on the prior CT of 07/30/2020. There is moderate sigmoid diverticulosis without acute diverticulitis. The stomach is unremarkable. The small bowel is nondilated. Appendix: The appendix is not definitively identified, although there are no secondary signs of appendicitis. Intraperitoneal space: There is no free air or significant intraperitoneal free fluid. Vasculature: There is moderate aortic atherosclerotic disease. The portal, splenic and superior mesenteric veins are patent. Lymph nodes: There is no lymphadenopathy in the retroperitoneum, mesentery, pelvis or inguinal regions. Urinary bladder: The urinary bladder is unremarkable. Reproductive: The uterus is unremarkable. There is no adnexal mass or large cyst. Bones/joints: Bones are unremarkable. Soft tissues: The abdominal wall is intact. CT/CT abdomen pelvis w con* [id number] IMPRESSION: 1. No acute findings. 2. Decreased fat stranding adjacent to the sigmoid colon consistent with resolving diverticulitis. Radiation Dose CTDIVOL = (mGy): DLP = 452.46 (mGy-cm)
[2020-08-22 21:29] VITALS: BP 117/62; PULSE 97; RESP 18; O2SAT 95
[2020-08-22 22:18] VITALS: BP 120/65; RESP 16; O2SAT 97
[2020-08-22] MEDS: ondansetron 2 mg/ML SDV 2 mL 4 MG IVP (22:22)
[2020-08-22 22:24] VITALS: RESP 16; O2SAT 97
[2020-08-22] MEDS: morphine 4 mg/mL SDV 1 mL IVP (22:24)
[2020-08-22] MEDS: sodium chloride 0.9% 1,000 ML 999 ML IV (22:27)
[2020-08-22] MEDS: iohexol 300 mg/mL 100 mL Btl IV (22:33)
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
[2020-08-22 22:51] LABS: Lactate (Lactic Acid level) 1.7 mmol/L (0.5-2.2)
[2020-08-22 22:56] LABS: Bilirubin Urine Neg (Negative); Blood Urine Neg (Negative); Glucose Urine UA Norm (Normal); Ketones Urine Negative (Negative); Leukocyte Esterase Urine Trace (Negative); Nitrate Urine Negative (Negative); Protein Urine Neg (Negative); Urine Appearance Clear (CLEAR); Urine Color Yellow (Yellow); Urobilinogen Urine Norm (Negative); pH Urine 7 (5-7)
[2020-08-22 22:57] LABS: Add Urine Microscopic? YES
[2020-08-22 23:02] VITALS: BP 134/53; PULSE 87; RESP 16; O2SAT 95
[2020-08-22 23:02] LABS: Alanine Aminotransferase 14 U/L (0-33); Albumin Level 3.3 g/dL (3.5-5.2); Alkaline Phosphatase 215 IU/L (35-105); Aspartate Amino Transferase 23 U/L (0-32); Blood Urea Nitrogen 11 mg/dL (6-20); C Reactive Protein 7.4 mg/L (0.0-4.9); Calcium 9.5 mg/dL (8.5-10.5); Carbon Dioxide 24 mmol/L (22-29); Chloride 99 mmol/L (98-107); Globulin 2.8 g/dL (1.3-4.6); Glomerular Filtration Rate 163.9 mL/min (90-130); Glucose 137 mg/dL (65-115); Lipase 14 U/L (13-60); Osmolality Calculated 282 mOsm/kg (285-295); Sodium 135 mmol/L (136-145); Total Bilirubin 0.3 mg/dL (0.15-1.2); Total Protein 6.1 g/dL (6.6-8.7)
[2020-08-22 23:07] LABS: Add Urine Culture? No; Bacteria Urine TRACE /hpf; RBC Urine 0-4 /hpf (0-2); Squamous Epithelial Cell Urine 0-4 /hpf (0-5)
[2020-08-22 23:18] LABS: Anion Gap 15.8 (5-19); Creatinine Clr Calc Pharmacy 129.8327; Potassium 3.8 mmol/L (3.5-5.1)
[2020-08-22 23:36] LABS: Hematocrit 29.4 % (37.0-47.0); Hemoglobin 9.4 g/dL (11.5-15.3); Lymphocytes # 0.6 10^3/uL (0.8-4.8); Lymphocytes % 0.7 %; Mean Corpuscular Hemoglobin 32.8 pg (28.0-34.0); Mean Corpuscular Volume 102.4 fL (81-99); Mean Platelet Volume 9.6 fL (7.4-10.4); Monocytes # 0.5 10^3/uL (0.2-0.9); Monocytes % 0.6 %; Neutrophils # 71.68 10^3/uL (1.8-7.7); Neutrophils % 87.6 %; Nucleated Red Blood Cells % 0 %; Platelet Count 183 10^3/cmm (130-400); Red Blood Count 2.87 10^6/uL (4.1-5.3); Red Cell Distribution Width 18.8 % (12.1-15.1)
[2020-08-23] VITALS (17 sets, daily range): BP systolic 106–140; BP diastolic 59–75; PULSE 60–97; RESP 16–20; TEMP 36.6–36.7; O2SAT 92–99
[2020-08-23 00:12] LABS: White Blood Count 81.8 10^3/uL (4.0-10.0)
[2020-08-23 00:13] LABS: Slide Review Slide Review Perform
[2020-08-23] MEDS: metroNIDAZOLE 500 MG Tablet PO (00:16)
[2020-08-23] MEDS: ciprofloxacin 500 mg Tablet PO (00:17)
[2020-08-23] MEDS: morphine 4 mg/mL SDV 1 mL IVP (00:20)
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
--- NOTE | 2020-08-23 01:29 | XRR_ITS ---
PROCEDURE INFORMATION: Exam: XR Chest, 1 View Exam date and time: 08/23/2020 1:32 AM Age: 59 years old Clinical indication: Cough and shortness of breath; Prior surgery; Surgery type: Port. Left breast. ; Patient HX: Cough and SOB. Wbc of 80k+; Additional info: Leukocytosis TECHNIQUE: Imaging protocol: XR of the chest Views: 1 view. COMPARISON: CR XR chest 1V portable [id number] 07/30/2020 8:19 PM FINDINGS: Tubes, catheters and devices: Right chest port line tip is in the central aspect of the internal jugular vein near the confluence with the subclavian vein. Lungs: Minimal opacity in the left mid to lower lung. Pleural space: Unremarkable. No pleural effusion. No pneumothorax. Heart/Mediastinum: Cardiomediastinal contours are unremarkable. Bones/joints: Bones are unremarkable. XR/XR chest 1V portable [id number] IMPRESSION: Nonspecific opacity in the left mid to lower lung. Possible atelectasis. Infection not excluded.
[2020-08-23 02:37] LABS: SARS Covid-2 Antigen Negative (Negative)
[2020-08-23 03:05] LABS: Creatine Phosphokinase 32 U/L (26-192); Uric Acid 5.2 mg/dL (2.4-5.7)
[2020-08-23] MEDS: vancomycin 1,000 MG in sodium chloride 0.9% 250 ML 250 MG IV ×3 (03:11→19:21)
[2020-08-23] MEDS: D5-NS 0.45% + KCL 20 mEq 20 MEQ/1,000 ML BAG 75 MEQ IV ×2 (03:17→19:24)
[2020-08-23 03:24] LABS: Lactate Dehydrogenase 373 U/L (135-214)
[2020-08-23] MEDS: ondansetron 2 mg/ML SDV 2 mL 4 MG IVP (04:17)
[2020-08-23] MEDS: HYDROmorphone 1 mg/mL INJ 1 mL IVP ×5 (04:18→22:00)
[2020-08-23] MEDS: piperacillin-tazobactam 3.375 GM in sodium chloride 0.9% (plus) 50 ML IV ×3 (04:32→21:50)
[2020-08-23 04:41] LABS: Hematocrit 29.4 % (37.0-47.0); Hemoglobin 9.5 g/dL (11.5-15.3); Lymphocytes % 1.2 %; Mean Corpuscular HGB Conc 32.3 g/dL (30.0-36.0); Mean Corpuscular Hemoglobin 33.2 pg (28.0-34.0); Mean Corpuscular Volume 102.8 fL (81-99); Mean Platelet Volume 9.3 fL (7.4-10.4); Monocytes # 0.5 10^3/uL (0.2-0.9); Monocytes % 0.6 %; Neutrophils # 71.37 10^3/uL (1.8-7.7); Neutrophils % 86.9 %; Nucleated Red Blood Cells % 0 %; Platelet Count 162 10^3/cmm (130-400); Red Blood Count 2.86 10^6/uL (4.1-5.3); Red Cell Distribution Width 18.7 % (12.1-15.1)
[2020-08-23 05:11] LABS: Anion Gap 13.5 (5-19); Blood Urea Nitrogen 8 mg/dL (6-20); Carbon Dioxide 24 mmol/L (22-29); Chloride 100 mmol/L (98-107); Creatinine Clr Calc Pharmacy 129.8327; Glomerular Filtration Rate 163.9 mL/min (90-130); Glucose 108 mg/dL (65-115); Osmolality Calculated 277 mOsm/kg (285-295); Potassium 3.5 mmol/L (3.5-5.1); Sodium 134 mmol/L (136-145)
[2020-08-23 05:29] LABS: Slide Review Slide Review Perform; White Blood Count 82.3 10^3/uL (4.0-10.0)
--- NOTE | 2020-08-23 06:35 | PC.NURSE ---
patient back in bed and on monitoring after using the bedside commode.
[2020-08-23] MEDS: levoFLOXacin 750 mg Tablet PO (08:39)
[2020-08-23] MEDS: pantoprazole DR 40 mg Tablet PO (08:40)
[2020-08-23 10:46] LABS: D Dimer 0.78 ug/mIFEU (0-0.59)
--- NOTE | 2020-08-23 16:37 | PM.PN ---
Subjective Subjective: Interval history: Overnight labs and H&P reviewed. Patient currently comfortable. Currently off oxygen saturating 94% on room air Medications: Reviewed: Yes Vitals/I&O/Wt Last Vital Signs Temp 98.2 F 08/22/20 20:59 Pulse 96 08/23/20 13:14 Resp 20 H 08/23/20 13:14 BP 121/61 08/23/20 13:14 Pulse Ox 95 08/23/20 13:14 08/23/20 08/23/20 08/23/20 06:59 14:59 22:59 Intake Total 1300 / 1300 610 / 610 Balance 1300 / 1300 610 / 610 Weight last 48 hrs Weight 58.967 kg Physical Exam Narrative: EXAM NARRATIVE: GEN: Awake, alert and oriented, no acute distress CVS: S1S2 N RS: CTA B/L Abd: Soft, nt/nd , bs+ DATA CLERK: no focal neuro deficits Extremities pulses without any gross signs of this Data : 08/23/20 04:25 08/23/20 04:25 Micro: Microbiology 08/22/20 22:50 Legionella Urinary Antigen - Final Urine,Clean Catch Bacterial Antigens - Final 08/23/20 02:38 Blood Culture - Preliminary Blood SPECIMEN COLLECTED 08/23/20 02:32 Blood Culture - Preliminary Blood SPECIMEN COLLECTED A&P Assessment and plan (1) Neutrophilic leukocytosis: Status: Acute (2) Diverticulitis: Status: Acute (3) Sepsis: Status: Acute Additional A&P Information Sepsis Source is unidentified however she had recent diverticulitis episode current CT abdomen is showing improvement in fat stranding around the sigmoid colon, Chest x-ray is showing nonspecific stranding in left lung . Covid PCR Continue empiric antibiotic treatment with piperacillin tazobactam Hypoxic respiratory failure This is improved today, patient currently saturating 94% on room air She is endorsing fever 101 at home with productive cough I am starting broad-spectrum antibiotic Rule out Covid 19 Neutrophilic leukocytosis No signs of hyperviscosity, does not have typical blast crisis CBC no anemia or thrombocytopenia noticed No urgent need of leukapheresis she recent received Neulasta as well Will monitor for now foot is atypical increase in neutrophils with Neulasta Full liquid diet DVT prophylaxis: Start heparin for DVT prophylaxis Full code Attestations Medical Necessity Statement*: Ongoing need for IV antibiotics Coding Level of Care Code Acute 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
[2020-08-23] MEDS: heparin 5,000 unit/mL INJ 1 mL 5000 UNIT SUBCUT (17:28)
[2020-08-23 18:53] LABS: Vancomycin Trough 14.4 ug/mL (10-15)
[2020-08-24] VITALS (8 sets, daily range): BP systolic 115–133; BP diastolic 68–77; PULSE 82–95; RESP 18–20; TEMP 36.5–37; O2SAT 91–97
[2020-08-24] MEDS: vancomycin 1,000 MG in sodium chloride 0.9% 250 ML 250 MG IV ×2 (02:33→10:18)
[2020-08-24] MEDS: HYDROmorphone 1 mg/mL INJ 1 mL IVP ×2 (02:48→09:09)
--- NOTE | 2020-08-24 03:52 | PC.NURSE ---
PATIENT O2 SATS AT 91% ON ROOM AIR. 2 LITERS NASAL CANNULA APPLIED TO PATIENT.
[2020-08-24] MEDS: heparin 5,000 unit/mL INJ 1 mL 5000 UNIT SUBCUT (05:11)
[2020-08-24] MEDS: piperacillin-tazobactam 3.375 GM in sodium chloride 0.9% (plus) 50 ML IV (05:11)
[2020-08-24 05:25] LABS: Basophils # 0.1 10^3/uL (0.0-0.1); Basophils % 0.1 %; Hematocrit 24.5 % (37.0-47.0); Hemoglobin 7.9 g/dL (11.5-15.3); Lymphocytes # 0.4 10^3/uL (0.8-4.8); Lymphocytes % 0.8 %; Mean Corpuscular HGB Conc 32.2 g/dL (30.0-36.0); Mean Corpuscular Hemoglobin 32.8 pg (28.0-34.0); Mean Corpuscular Volume 101.7 fL (81-99); Mean Platelet Volume 9.7 fL (7.4-10.4); Monocytes # 0.1 10^3/uL (0.2-0.9); Monocytes % 0.2 %; Neutrophils # 39.68 10^3/uL (1.8-7.7); Neutrophils % 79.5 %; Nucleated Red Blood Cells % 0 %; Platelet Count 145 10^3/cmm (130-400); Red Blood Count 2.41 10^6/uL (4.1-5.3); Red Cell Distribution Width 18.3 % (12.1-15.1)
[2020-08-24 05:51] LABS: Alanine Aminotransferase 10 U/L (0-33); Albumin Level 3.1 g/dL (3.5-5.2); Alkaline Phosphatase 252 IU/L (35-105); Anion Gap 11.9 (5-19); Aspartate Amino Transferase 25 U/L (0-32); Blood Urea Nitrogen 6 mg/dL (6-20); Calcium 8.8 mg/dL (8.5-10.5); Carbon Dioxide 26 mmol/L (22-29); Chloride 102 mmol/L (98-107); Creatinine Clr Calc Pharmacy 129.8327; Globulin 1.9 g/dL (1.3-4.6); Glomerular Filtration Rate 163.9 mL/min (90-130); Glucose 128 mg/dL (65-115); Osmolality Calculated 281 mOsm/kg (285-295); Potassium 3.9 mmol/L (3.5-5.1); Sodium 136 mmol/L (136-145); Total Bilirubin 0.4 mg/dL (0.15-1.2)
[2020-08-24 06:18] LABS: Slide Review Slide Review Perform
[2020-08-24] MEDS: levoFLOXacin 750 mg Tablet PO (09:09)
[2020-08-24] MEDS: pantoprazole DR 40 mg Tablet PO (09:09)
[2020-08-24] MEDS: D5-NS 0.45% + KCL 20 mEq 20 MEQ/1,000 ML BAG 75 MEQ IV (10:17)
[2020-08-24] MEDS: ondansetron 2 mg/ML SDV 2 mL 4 MG IVP (10:24)
--- NOTE | 2020-08-24 11:08 | P.DS_ITS ---
Discharge Providers Date of Admission: 08/23/20 02:08 Date of Discharge: August 24, 2020 Attending Provider at Admission: Anthony Ryan MD Attending Provider at Discharge: Patsy Whatley MD Diagnoses at Discharge Discharge Diagnosis (1) Neutrophilic leukocytosis: Status: Acute (2) Diverticulitis: Status: Acute (3) Sepsis: Status: Acute Reason for Visit Reason for Visit: abd pain/cancer pt Hospital Course Hospital Course 59 year old female who has history of multifocal left breast cancer stage IIIa ER negative AR negative HER-2 negative, locally advanced cancer status post mastectomy, currently getting chemotherapy, she received Neulasta for chemotherapy-induced neutropenia recently as well 08/20, in the past she developed diverticulitis after induction therapy which was treated successfully, she has received her fourth cycle of chemo Cytoxan/Adriamycin and due to start Taxol presented with chief complaint of nausea and weakness.Diagnostics in the ER revealed severe leukocytosis, she was started ciprofloxacin and Flagyl, Abdominal CT scan is showing improvement in diverticulitis. CXR raised comcern for possible developing pneumonia. She remained afberile suring course of admission, saturating well on RA and did not qualify for home 02, empirically treated with zosyn, transitioined to po augmentin and levaquin on discharge for the next [address] Ryan discussed the case with Dr. Montague, though leukocytosis noted at 80K, there were no signs of hyperviscosity. WBC trended down to 50 on day of discharge, degree of leukocytosis likely contributed by neulasta. She has a follow up appointmrnt with Deshawn ji in one week. She feels well on day of discharge and is anxious to return home. Physical Exam Narrative: EXAM NARRATIVE: GEN: Awake, alert and oriented, no acute distress CVS: S1S2 N RS: CTA B/L Abd: Soft, nt/nd , bs+ SECURITY SYSTEMS INTEGRATOR: no focal neuro deficits Discharge Data Data Completed and Pending: Completed Studies During Hospitalization Category Date Time Status CT abdomen pelvis w con* [id number] Urge nt Cat Scan 08/22/20 21:23 Completed XR chest 1V essie ble [id number] Stat Exams 08/23/20 01:29 Completed Pending at discharge Category Date Time Status Blood Culture Sta t Lab 08/23/20 02:38 Results Sputum Culture an d Gram Stain Routi ne Lab 08/23/20 02:09 Uncollected Labs from last 24 hours 08/24/20 08/24/20 08/23/20 04:59 04:59 18:15 WBC 50.0 H* RBC 2.41 L Hgb 7.9 L Hct 24.5 L MCV 101.7 H MCH 32.8 MCHC 32.2 RDW 18.3 H Plt Count 145 MPV 9.7 Neut % (Auto) 79.5 Lymph % (Auto) 0.8 Blanco % (Auto) 0.2 Eos % (Auto) 0.0 Baso % (Auto) 0.1 Neut # (Auto) 39.68 H Lymph # (Auto) 0.4 L Blanco # (Auto) 0.1 L Eos # (Auto) 0.0 Baso # (Auto) 0.1 Nucleated RBC % (a uto) 0 Nucleated RBCs # 0.0 Sodium 136 Potassium 3.9 Chloride 102 Carbon Dioxide 26 Anion Gap 11.9 BUN 6 Creatinine 0.4 L GFR Calculation 163.9 H Glucose 128 H Calculated Osmolal ity 281 L Calcium 8.8 Total Bilirubin 0.4 AST 25 ALT 10 Alkaline Phosphata se 252 H Total Protein 5.0 L Albumin 3.1 L Globulin 1.9 Vancomycin Trough 14.4 Vitals: Last Vital Signs Temp 97.7 F 08/24/20 08:00 Pulse 82 08/24/20 08:00 Resp 18 08/24/20 09:09 BP 115/72 08/24/20 08:00 Pulse Ox 97 08/24/20 09:09 Discharge Plan Discharge Patient Disposition: Home Condition: Stable Prescriptions: New Augmentin 875-125 mg tablet 1 tab PO BID 5 Days Qty: 10 RF: 0 levofloxacin 750 mg tablet 750 mg PO DAILY 5 Days RF: 0 Continued hydrocodone-acetaminophen 10-325 mg tablet 1 tab PO QID PRN (Reason: Pain) RF: 0 trazodone 100 mg tablet 100 mg PO DAILY@20 RF: 0 loratadine 10 mg tablet 10 mg PO DAILY@12 RF: 0 pantoprazole 40 mg Tablet,Delayed Release (Dr/Ec) 40 mg PO DAILY Qty: 30 RF: 0 Zofran 4 mg Tablet 4 - 8 mg PO QID PRN (Reason: Nausea) RF: 0 diphenoxylate-atropine 2.5-0.025 mg tablet 1 tab PO QID PRN (Reason: Diarrhea) RF: 0 prochlorperazine maleate 10 mg Tablet 10 mg PO Q4H PRN (Reason: Nausea) RF: 0 Tylenol Extra Strength 500 mg Tablet 500 mg PO PRN RF: 0 famciclovir 500 mg tablet 500 mg PO TID PRN (Reason: MOUTH SORES) RF: 0 ibuprofen 200 mg Tablet 400 mg PO PRN RF: 0 gabapentin 100 mg Capsule 100 mg PO TID@10,13,20 RF: 0 lorazepam 1 mg Tablet 1 mg PO TID PRN (Reason: Nausea) RF: 0 Discharge Orders: Discharge Order (Routine); Ordered 08/24/20 Ordered By: Patsy Whatley Referrals: Phillip Ji MD [Hospitalist] - (Please call Tuesday to schedule a follow up appointment.) Discharge Diet: Advance as tolerated and Usual diet Discharge Activity: Resume usual activity Patient Instructions: Diverticulitis, Amoxicillin/Clavulanate Potassium (By mouth), Levofloxacin (By mouth), Sepsis (GEN) Discharge Attestations Time Spent in Discharge Care*: greater than 30 min Specific Discharge Activities: educating patient, documenting/other paperwork and evaluating patient/reviewing data Status at Discharge: Cognitive status at discharge: cognitively intact , Behavioral status at discharge: cooperative , Quality Metrics Clinical Quality Measures During this hospital stay, did patient experience: None Coding Level of Care Code Acute 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
== END 2020-08-24 13:58 | disposition home or self-care (01) | DRG 871 ==
LOC: ER 08-23 00:47 → ER IP 08-23 08:04 → MEDSURG 08-23 15:39
PROVIDERS: Emergency Medicine; Admitting Provider Internal Medicine; Emergency Provider Student in an Organized Health Care Education/Training Program; Visit Provider Student in an Organized Health Care Education/Training Program
DX: A41.9 Sepsis, unspecified organism (principal); J96.91 Respiratory failure, unspecified with hypoxia; K57.92 Diverticulitis of intestine, part unspecified, without perforation or abscess without bleeding; C50.912 Malignant neoplasm of unspecified site of left female breast; Z17.1 Estrogen receptor negative status [ER-]; Z90.12 Acquired absence of left breast and nipple; Z79.899 Other long term (current) drug therapy; Z79.891 Long term (current) use of opiate analgesic
CPT/HCPCS: 12345; 36415; 71045; 74177; 80048; 80053; 80202; 81001; 82550; 83605; 83615; 83690; 84550; 85025; 85378; 86140; 86403; 87040; 87426; 87449; 96372; 99284; J1170; J1642; J1644; J2270; J2405; J2543; J3370; J7030; J7050; Q9967

== ENCOUNTER 2020-09-03 05:25 | Outpatient (RCR) | payer MEDICAID, SELFPAY ==
[2020-08-27 14:12] LABS: Basophils % 3.7 %; Eosinophils % 1.2 %; Hematocrit 26.6 % (37.0-47.0); Hemoglobin 8.2 g/dL (11.5-15.3); Lymphocytes # 0.3 10^3/uL (0.8-4.8); Lymphocytes % 33.3 %; Mean Corpuscular HGB Conc 30.8 g/dL (30.0-36.0); Mean Corpuscular Hemoglobin 31.4 pg (28.0-34.0); Mean Corpuscular Volume 101.9 fL (81-99); Monocytes # 0.1 10^3/uL (0.2-0.9); Monocytes % 17.3 %; Nucleated Red Blood Cells % 0 %; Platelet Count 92 10^3/cmm (130-400); Red Blood Count 2.61 10^6/uL (4.1-5.3); Red Cell Distribution Width 17.6 % (12.1-15.1)
[2020-08-27 15:19] LABS: Neutrophils # 0.34 10^3/uL (1.8-7.7); White Blood Count 0.8 10^3/uL (4.0-10.0)
[2020-08-27 15:20] LABS: Slide Review Slide Review Perform
[2020-09-01 17:28] LABS: Basophils # 0.1 10^3/uL (0.0-0.1); Eosinophils % 0.3 %; Hematocrit 26.5 % (37.0-47.0); Hemoglobin 8.3 g/dL (11.5-15.3); Lymphocytes # 0.5 10^3/uL (0.8-4.8); Lymphocytes % 8.7 %; Mean Corpuscular HGB Conc 31.3 g/dL (30.0-36.0); Mean Corpuscular Hemoglobin 32.4 pg (28.0-34.0); Mean Corpuscular Volume 103.5 fL (81-99); Mean Platelet Volume 10.6 fL (7.4-10.4); Monocytes # 0.5 10^3/uL (0.2-0.9); Monocytes % 8.9 %; Neutrophils # 4.43 10^3/uL (1.8-7.7); Neutrophils % 76.9 %; Nucleated Red Blood Cells % 0.3 %; Platelet Count 148 10^3/cmm (130-400); Red Blood Count 2.56 10^6/uL (4.1-5.3); Red Cell Distribution Width 20.9 % (12.1-15.1); White Blood Count 5.8 10^3/uL (4.0-10.0)
[2020-09-01 17:32] LABS: Alanine Aminotransferase 17 U/L (0-33); Albumin Level 3.6 g/dL (3.5-5.2); Alkaline Phosphatase 203 IU/L (35-105); Anion Gap 11.2 (5-19); Aspartate Amino Transferase 28 U/L (0-32); Blood Urea Nitrogen 7 mg/dL (6-20); Carbon Dioxide 28 mmol/L (22-29); Chloride 99 mmol/L (98-107); Globulin 2.3 g/dL (1.3-4.6); Glomerular Filtration Rate 163.9 mL/min (90-130); Glucose 127 mg/dL (65-115); Osmolality Calculated 280 mOsm/kg (285-295); Potassium 3.2 mmol/L (3.5-5.1); Sodium 135 mmol/L (136-145); Total Bilirubin 0.4 mg/dL (0.15-1.2); Total Protein 5.9 g/dL (6.6-8.7)
[2020-09-02] MEDS: alteplase 1 mg/mL SDV 2 mL 2 MG IV (13:20)
[2020-09-02 15:27] LABS: Iron 84 ug/dL (37-145); Percent Saturation 31.5 % (20-50); Total Iron Binding Capacity 266 mcg/dl; Unsaturated Iron Binding 182 ug/dL (112-347)
[2020-09-03 02:14] LABS: Vitamin B12 > 2000 pg/mL (232-1245)
[2020-09-03] MEDS: sodium chloride 0.9% 250 ML 999 ML IV (08:35)
[2020-09-03] MEDS: acetaminophen 325 mg Tablet 650 MG PO (08:35)
[2020-09-03] MEDS: diphenhydrAMINE 25 mg Capsule PO (08:35)
[2020-09-03 08:55] VITALS: BP 99/64; PULSE 69; RESP 18; TEMP 36.2; O2SAT 96
[2020-09-03 09:10] VITALS: BP 105/67; PULSE 68; RESP 18; TEMP 36.2
[2020-09-03 09:25] VITALS: BP 107/56; PULSE 68; RESP 18; TEMP 36.2; O2SAT 96
[2020-09-03 14:54] LABS: Erythropoietin 88.7 mIU/mL (2.6-18.5)
--- NOTE | 2020-09-06 13:05 | ONC FU_ITS ---
Dr. Michelle Patient Follow-Up Note Patient: Tiara Gonzalez Unit #: [id number]: 1960 Dicatated By: Phillip Michelle M.D.Date of Visit:Sep 02, 2020 Onc Med Follow-up/Prog Note Chief Complaint: Breast cancer. History of Present Illness: This is a 59 year-old woman with multifocal left breast cancer, stage IIIA (T2, pN1a, M0), ER negative, MT negative, and HER-2 kika negative. She had presented to [facility] on 03/21/2020 with a lump in her left breast. Diagnostic mammogram on 03/25/2020 showed a dense well-circumscribed mass measuring 3.1 x 2.8 cm. Ultrasound showed a large cystic and solid complex lesion at the 11 to 2 o'clock position of the left breast measuring 3.1 x 2.3 x 2.7 cm. A hypoechoic lobulated lesion at 2:00 measured 7.6 x 4.5 x 7.0 mm. 2 additional hypoechoic lesions at the 1:00 and 2 o'clock position located 5 cm from the nipple appeared to represent intramammary lymph nodes. Several slightly prominent lymph nodes were noted in the left axilla measuring up to 1.4 cm in maximum diameter were noted to have preserved fatty hilum without significant cortical thickening, felt to most likely be reactive. She had underwent ultrasound directed core needle biopsy of the 11:00 mass and the 2:00 mass on 04/02/2020. 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 The breast prognostic profile on that lesion showed ER and MT both negative at <1%. The tumor was negative for overexpression of HER-2/kika, 1+ by IHC and amplification ratio by FISH at 1.0 with 1.9 HER-2 copies/cell. The Ki-67 was unfavorable at 18%. The lesion at 2:00 showed invasive ductal carcinoma, poorly differentiated, grade 3. 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 I had seen her initially on 04/11/2020. At that time she had multiple complains, significant enough that I was concerned about the possibility of metatstatic disease. Her baseline laboratory studies were unremarkable except for slightly elevated liver enzymes. Her brain MRI showed no evidence of metastatic disease. Staging CT scans of the chest, abdomen, and pelvis on 05/05/2020 showed hepatic steatosis but no metastatic disease in the abdomen or pelvis. The chest showed multilobar subcentimeter pulmonary nodules which were indeterminate but new compared to a prior study from 2018. Bone scan showed mild degenerative changes at the ankle joints and knee joints. There was no significant evidence for metastatic disease. In the setting of multifocal disease with no evidence of metastatic involvement, she was advised to proceed with mastectomy. On 05/20/2020 she underwent left total mastectomy and left axillary sentinel lymph node biopsy. Pathology confirmed multifocal metaplastic carcinoma, grade 3, with giant cells, spindle cells, chondroid and osteoid differentiation. The largest focus of involvement measured 3.8 cm. The margins were free, with the closest being the deep margin at 9 mm. There was a component of ductal carcinoma in situ, solid and cribriform type with comedonecrosis, grade 3. The closest margin to DCIS was 7 mm. 2 intramammary lymph nodes were positive for metastatic involvement, 1 of which showed extracapsular extension. There was no involvement in 4 axillary sentinel lymph nodes. Pathologic staging was pT2, pN1a. She had staging evaluation with CT chest, abdomen, and pelvis along with nuclear medicine bone scan on 05/05/2020. The bone scan was negative. The chest CT showed several new areas of groundglass attenuation and spiculated nodules involving both lung gallagher, early metastatic disease not excluded. There was evidence of hepatic steatosis, but there were no other findings which were suspicious for metastatic involvement. With those findings, she was recommended to undergo adjuvant chemotherapy with dose dense Adriamycin/cyclophosphamide followed by weekly paclitaxel. She began cycle 1 of Adriamycin/cyclophosphamide on 07/08/2020. She was able to tolerated with acceptable toxicity, and she continued with cycle 2 on 07/22/2020. With cycle 3 on 08/05/2020 she did receive a dose reduction due to neutropenia. She continued with cycle 4 on 08/20/2020. She is seen for a follow-up visit. She has been feeling tired and exhausted. She is doing only a very little bit of light work. Her ECOG score is 2. Appetite is poor. She complains that nothing tastes good. She has not had fever. She sometimes has sweating. She complains that her nose runs. She has had no mouth sores. She has some shortness of breath and she also has some cough. She does not complain of chest pain. She has been nauseated a few times. She was having constipation, but that is better now. She has no complaints. She has having pain in her back and hip bones. She does not complain of headache. She sometimes has dizziness and she also sometimes has numbness in her hands. Medications: Famvir 1 Tablet (of 500 mg) Oral t.i.d. for 7 days, HYDROcodone-Acetaminophen 1 Tablet (of 5-325 mg) Oral q 6 hours, Pantoprazole Sodium 1 Tablet (of 40 mg) Tablet, enteric coated Oral daily, Prochlorperazine Maleate Tablet Oral PRN, traZODone HCl 1 Tablet (of 50 mg) Oral at bedtime Allergies: No Known Allergies. Vital Signs: Performed on Sep 02, 2020 12:18 Height - 62.00 in Weight - 129.4 lbs (LOW) BSA - 1.59 sq.m BMI - 23.67 Temperature - 97.0 F (LOW) Pulse - 77 /min Respiration - 18 /min BP - 131/64 mm(hg) O2 Sat - 97 % Pain - 8 Physical Examination: Constitutional - She appears generally weak, Eyes - Sclerae nonicteric. Conjunctivae clear, ENMT - No lesions noted in the oral cavity, Hematologic/Lymphatic - No cervical, clavicular, or axillary adenopathy, Respiratory - Lungs sound clear with diminished air movement bilaterally, Cardiovascular - Heart rhythm is regular. There is no murmur, gallop, or rub noted, Abdomen - Mildly distended but soft. Liver and spleen are not enlarged. There is no abdominal mass or ascites noted and there is no inguinal adenopathy, Extremities - No edema, Neurologic - No focal neurologic deficits noted. Lab/Imaging: CBC shows hemoglobin 8.3 g, white blood cell count 5800, and platelet count 148,000. The red cell indices are slightly macrocytic. Comprehensive metabolic profile is unremarkable except for decreased potassium at 3.2 mmol/L and elevated alkaline phosphatase of 203/105 IU/L. Historic Problem List: 1. Multifocal left breast cancer, stage IIIA (T2, pN1a, M0), ER negative, MT negative, and HER-2 kika negative. 2. She underwent ultrasound directed core needle biopsy of the left breast on 04/02/2020 and she underwent left mastectomy with axillary sentinel lymph node biopsy on 05/20/2020. Problems Addressed with this Encounter and Plan: 1. Multifocal left breast cancer, stage IIIA (T2, pN1a, M0), ER negative, MT negative, and HER-[address] kika negative[address] scans showed small pulmonary nodules which were indeterminate, but early metastatic disease was not excluded. Bone scan was negative for metastatic disease. With those findings, she underwent left mastectomy with axillary sentinel lymph node biopsy on 05/20/2020. She was recommended to undergo adjuvant chemotherapy with dose dense Adriamycin/cyclophosphamide followed by weekly paclitaxel. She began cycle 1 of Adriamycin/cyclophosphamide on 07/08/2020. She has now completed 4 cycles. She did require dose reduction beginning with cycle 3, but she was able to complete all 4 cycles on schedule. Over the past 4 weeks she has had a significant decline in her performance status and she has become significantly anemic. As such, I am going to delay starting the paclitaxel portion of her chemotherapy. 2. She has become significantly anemic over the past 4 weeks, somewhat more so than I would expect just from the chemotherapy. As she is symptomatic with the anemia, she will be transfused 2 units PRBC. She also will have additional laboratory evaluation to include serum iron studies, B12 level, and an erythropoietin level. 3. She has developed significant bone pain, which may be treatment related, but it also could be a manifestation of disease progression. As such, she will be scheduled for restaging CT scans and bone scan. She will be given a prescription for immediate release oxycodone 15 mg to take as needed. Signed By: Phillip Michelle M.D. <<Signature on File>>
== END 2020-09-10 03:00 | disposition home or self-care (01) ==
LOC: ONCMED 05:25
PROVIDERS: Internal Medicine Medical Oncology; Nurse Practitioner; Visit Provider Internal Medicine Hematology & Oncology
DX: C50.812 Malignant neoplasm of overlapping sites of left female breast (principal); Z17.1 Estrogen receptor negative status [ER-]; D64.81 Anemia due to antineoplastic chemotherapy; T45.1X5A Adverse effect of antineoplastic and immunosuppressive drugs, initial encounter; R91.8 Other nonspecific abnormal finding of lung field; M89.8X9 Other specified disorders of bone, unspecified site; Z90.12 Acquired absence of left breast and nipple; Z79.891 Long term (current) use of opiate analgesic
CPT/HCPCS: 36430; 36591; 36593; 80053; 82607; 82668; 83540; 83550; 85025; 86850; 86900; 86920; 96374; 99215; J1940; J2997; J7050; P9016

== ENCOUNTER 2020-09-10 08:39 | Outpatient (CLI) | payer MEDICAID, SELFPAY ==
--- NOTE | 2020-09-10 08:44 | NM_ITS ---
WS: [id number] NUCLEAR MEDICINE WHOLE BODY BONE SCAN HISTORY: BREAST CANCER/BONE PAIN COMPARISON: 05/05/2020 TECHNIQUE: The patient was injected with 26.0 mCi of Technetium 99m HDP and serial whole-body scintig lori have been performed with anterior and posterior images. Mild degenerative changes at the AC joints, knee joints and ankle joints. No focal intense uptake in the ribs or the spine. Normal soft tissue uptake. Normal uptake within the kidneys. Mildly prominent RIGHT renal pelvis is probably an extrarenal pelvis. No hydronephrosis. Very mild heterogeneity of up take within the ribs posteriorly greatest on the RIGHT is similar to the prior study. This is minimal increased uptake and not likely due to metastatic disease. Healed rib fractures are noted on the [facility] CT performed 09/10/2020. NM/NM bone scan whole body* [id number] IMPRESSION: 1. No evidence for metastatic disease. 2. Normal soft tissue uptake.
--- NOTE | 2020-09-10 08:44 | CT_ITS ---
WS: [id number] CT CHEST WITH INTRAVENOUS CONTRAST HISTORY: BREAST CANCER/PULMONARY NODULES TECHNIQUE: Contiguous 5 mm axial imaging performed on the thorax. Coronal and sagittal reformats are submitted. All CT scans at [facility] use at least one of these dose optimization techniq ues: automated exposure control; mA and/or kV adjustment per patient size (includes targeted exams wh ere dose is matched to clinical indication); or iterative reconstruction. CONTRAST: Omnipaque 300; 95 mL IV. DLP: 386.16 mGy.cm COMPARISON: 05/05/2020, 04/06/2018 Lungs and central airway: Spiculated subcentimeter nodules described on the prior examination are no longer present. There is a tiny micronodule in the anterior RIGHT upper lobe which is very nonspecifi c. No enlarging or new nodules. Focal scar atelectasis in the lingula. Hyperinflated lungs from emphy sema. Pleura: Normal. No pleural effusion. Heart and pericardium: Mild LEFT atrial enlargement. No pericardial effusion. There is a small lymph node which appears benign in the anterior pericardiac fat. Mediastinum and tamir: Stable 8 mm RIGHT hilar nodule. Additional paratracheal nodules are stable. No new or enlarging nodules. Vessels: Mild atherosclerosis aorta. Normal size pulmonary artery. Chest wall and lower neck: RIGHT Port-A-Cath is present with tip in the distal SVC. Previously descri bed mass within the LEFT breast is been removed. Status post LEFT mastectomy. Evidence for LEFT axill wilfredo gisel dissection. No recurrent mass or adenopathy. Upper abdomen: Cholelithiasis but no evidence for acute cholecystitis. The visualized liver is normal . There is mild heterogeneity within the spleen but this may be due to early arterial enhancement pha se. Very mild thickening of the LEFT adrenal gland limbs is stable. Osseous structures: Moderate increase in thoracic kyphosis. No osteoblastic or osteolytic disease chyna ntified. Healed rib fractures in the posterior inferior RIGHT thorax. CT/CT chest w con* [id number] IMPRESSION: 1. Interval resolution of the previously described subcentimeter spiculated pu lmonary nodules. 2. Chronic emphysema. 3. No new or increasing lymph nodes. Mediastinal and hilar lymph nodes are les s than a centimeter. 4. Mild LEFT atrial enlargement. 5. Cholelithiasis. 6. Interval LEFT mastectomy and LEFT axillary gisel dissection.
[2020-09-10] MEDS: iohexol 300 mg/mL 100 mL Btl IV (09:37)
== END 2020-09-10 08:40 | disposition home or self-care (01) ==
LOC: RAD 08:40
PROVIDERS: Visit Provider Internal Medicine Medical Oncology
DX: C50.812 Malignant neoplasm of overlapping sites of left female breast (principal); R91.8 Other nonspecific abnormal finding of lung field; K80.20 Calculus of gallbladder without cholecystitis without obstruction; J43.9 Emphysema, unspecified
CPT/HCPCS: 71260; 78306; A9561

== ENCOUNTER 2020-09-16 13:20 | Outpatient (RCR) | payer MEDICAID, SELFPAY ==
[2020-09-16 14:57] LABS: Basophils # 0.1 10^3/uL (0.0-0.1); Basophils % 1.3 %; Eosinophils # 0.1 10^3/uL (0.0-0.8); Eosinophils % 3.4 %; Hematocrit 40.3 % (37.0-47.0); Hemoglobin 12.9 g/dL (11.5-15.3); Lymphocytes # 1.2 10^3/uL (0.8-4.8); Lymphocytes % 30.2 %; Mean Corpuscular Volume 96.9 fL (81-99); Mean Platelet Volume 9.9 fL (7.4-10.4); Monocytes # 0.6 10^3/uL (0.2-0.9); Monocytes % 14.3 %; Neutrophils # 1.94 10^3/uL (1.8-7.7); Neutrophils % 50.5 %; Nucleated Red Blood Cells % 0 %; Platelet Count 175 10^3/cmm (130-400); Red Blood Count 4.16 10^6/uL (4.1-5.3); White Blood Count 3.8 10^3/uL (4.0-10.0)
[2020-09-16 15:17] LABS: Alanine Aminotransferase 21 U/L (0-33); Albumin Level 4.1 g/dL (3.5-5.2); Alkaline Phosphatase 214 IU/L (35-105); Aspartate Amino Transferase 39 U/L (0-32); Blood Urea Nitrogen 5 mg/dL (6-20); Calcium 9.6 mg/dL (8.5-10.5); Carbon Dioxide 29 mmol/L (22-29); Chloride 96 mmol/L (98-107); Globulin 2.6 g/dL (1.3-4.6); Glomerular Filtration Rate 126.7 mL/min (90-130); Glucose 114 mg/dL (65-115); Osmolality Calculated 274 mOsm/kg (285-295); Sodium 133 mmol/L (136-145); Total Bilirubin 0.5 mg/dL (0.15-1.2); Total Protein 6.7 g/dL (6.6-8.7)
[2020-09-16 15:22] LABS: Anion Gap 11.7 (5-19); Potassium 3.7 mmol/L (3.5-5.1)
== END 2020-09-21 23:59 | disposition home or self-care (01) ==
LOC: ONCMED 13:20
PROVIDERS: Internal Medicine Hematology & Oncology; Visit Provider Internal Medicine Medical Oncology
DX: C50.812 Malignant neoplasm of overlapping sites of left female breast (principal); Z17.1 Estrogen receptor negative status [ER-]
CPT/HCPCS: 80053; 85025

== ENCOUNTER 2020-10-14 05:25 | Outpatient (RCR) | payer MEDICAID, SELFPAY ==
[2020-09-23] MEDS: alteplase 1 mg/mL SDV 2 mL 2 MG IV ×2 (10:45→11:56)
[2020-09-23 11:45] LABS: Hematocrit 41.7 % (37.0-47.0); Hemoglobin 13.6 g/dL (11.5-15.3); Lymphocytes # 0.3 10^3/uL (0.8-4.8); Lymphocytes % 13.4 %; Mean Corpuscular HGB Conc 32.6 g/dL (30.0-36.0); Mean Corpuscular Hemoglobin 31.5 pg (28.0-34.0); Mean Corpuscular Volume 96.5 fL (81-99); Monocytes % 1.6 %; Neutrophils # 2.09 10^3/uL (1.8-7.7); Nucleated Red Blood Cells % 0 %; Platelet Count 176 10^3/cmm (130-400); Red Blood Count 4.32 10^6/uL (4.1-5.3); Red Cell Distribution Width 18.3 % (12.1-15.1); White Blood Count 2.5 10^3/uL (4.0-10.0)
[2020-09-23 12:13] LABS: Alanine Aminotransferase 35 U/L (0-33); Albumin Level 4.3 g/dL (3.5-5.2); Alkaline Phosphatase 232 IU/L (35-105); Anion Gap 14.2 (5-19); Aspartate Amino Transferase 43 U/L (0-32); Blood Urea Nitrogen 9 mg/dL (6-20); Calcium 10.4 mg/dL (8.5-10.5); Carbon Dioxide 27 mmol/L (22-29); Chloride 96 mmol/L (98-107); Globulin 3.1 g/dL (1.3-4.6); Glomerular Filtration Rate 163.9 mL/min (90-130); Glucose 183 mg/dL (65-115); Osmolality Calculated 279 mOsm/kg (285-295); Potassium 4.2 mmol/L (3.5-5.1); Sodium 133 mmol/L (136-145); Total Bilirubin 0.6 mg/dL (0.15-1.2); Total Protein 7.4 g/dL (6.6-8.7)
--- NOTE | 2020-09-23 13:05 | IR_ITS ---
WS: [id number] IR CVA device evaluation with fluoroscopy. HISTORY: Unable to draw blood from Port-A-Cath. Fluoroscopy time: 0.3 minutes. Under sterile conditions Port-A-Cath is accessed by the patient's nurse. Approximately 6 cc of Omnipa que 300 are injected slowly under real-time observation. There is good opacification of the catheter. There is no filling defect. Contrast flows away from the tip of the catheter. IR/[place] [id number] IMPRESSION: Normal contrast injection of the Port-A-Cath. No obstruction or thrombus.
[2020-09-23] MEDS: sodium chloride 0.9% 250 ML 75 ML IV (13:11)
[2020-09-23] MEDS: iohexol 300 mg/mL 50 mL Btl IV (13:20)
[2020-09-23] MEDS: famotidine 20 mg/2 mL INJ IVP (13:38)
[2020-09-23] MEDS: ondansetron 2 mg/ML SDV 2 mL 8 MG IV (13:39)
[2020-09-23] MEDS: acetaminophen 325 mg Tablet 650 MG PO (13:40)
[2020-09-23] MEDS: diphenhydrAMINE 50 mg/mL SDV 1mL 25 MG IV (13:41)
[2020-09-23] MEDS: fosaprepitant 150 MG in sodium chloride 0.9% 150 ML 300 MG IV (13:55)
--- NOTE | 2020-09-29 15:24 | ONC FU_ITS ---
[facility] Patient Note Patient: Tiara Gonzalez Unit #: [id number]: 1960 Dictated By: Emerson HarrisDate of Visit: Sep 23, 2020 Onc MED Follow-Up/Prog Note Chief Complaint: Breast cancer. History of Present Illness: Ms Gonzalez is a 59 year-old woman with multifocal left breast cancer, stage IIIA (T2, pN1a, M0), ER negative, AK negative, and HER-2 kika negative. She had presented to [facility] on 03/21/2020 with a lump in her left breast. Diagnostic mammogram on 03/25/2020 showed a dense well-circumscribed mass measuring 3.1 x 2.8 cm. Ultrasound showed a large cystic and solid complex lesion at the 11 to 2 o'clock position of the left breast measuring 3.1 x 2.3 x 2.7 cm. A hypoechoic lobulated lesion at 2:00 measured 7.6 x 4.5 x 7.0 mm. 2 additional hypoechoic lesions at the 1:00 and 2 o'clock position located 5 cm from the nipple appeared to represent intramammary lymph nodes. Several slightly prominent lymph nodes were noted in the left axilla measuring up to 1.4 cm in maximum diameter were noted to have preserved fatty hilum without significant cortical thickening, felt to most likely be reactive. She had underwent ultrasound directed core needle biopsy of the 11:00 mass and the 2:00 mass on 04/02/2020. 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 The breast prognostic profile on that lesion showed ER and AK both negative at <1%. The tumor was negative for overexpression of HER-2/kika, 1+ by IHC and amplification ratio by FISH at 1.0 with 1.9 HER-2 copies/cell. The Ki-67 was unfavorable at 18%. The lesion at 2:00 showed invasive ductal carcinoma, poorly differentiated, grade 3. 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 Dr Michelle had seen her initially on 04/11/2020. At that time she had multiple complains, significant enough that I was concerned about the possibility of metatstatic disease. Her baseline laboratory studies were unremarkable except for slightly elevated liver enzymes. Her brain MRI showed no evidence of metastatic disease. Staging CT scans of the chest, abdomen, and pelvis on 05/05/2020 showed hepatic steatosis but no metastatic disease in the abdomen or pelvis. The chest showed multilobar subcentimeter pulmonary nodules which were indeterminate but new compared to a prior study from 2018. Bone scan showed mild degenerative changes at the ankle joints and knee joints. There was no significant evidence for metastatic disease. In the setting of multifocal disease with no evidence of metastatic involvement, she was advised to proceed with mastectomy. On 05/20/2020 she underwent left total mastectomy and left axillary sentinel lymph node biopsy. Pathology confirmed multifocal metaplastic carcinoma, grade 3, with giant cells, spindle cells, chondroid and osteoid differentiation. The largest focus of involvement measured 3.8 cm. The margins were free, with the closest being the deep margin at 9 mm. There was a component of ductal carcinoma in situ, solid and cribriform type with comedonecrosis, grade 3. The closest margin to DCIS was 7 mm. 2 intramammary lymph nodes were positive for metastatic involvement, 1 of which showed extracapsular extension. There was no involvement in 4 axillary sentinel lymph nodes. Pathologic staging was pT2, pN1a. She had staging evaluation with CT chest, abdomen, and pelvis along with nuclear medicine bone scan on 05/05/2020. The bone scan was negative. The chest CT showed several new areas of groundglass attenuation and spiculated nodules involving both lung gallagher, early metastatic disease not excluded. There was evidence of hepatic steatosis, but there were no other findings which were suspicious for metastatic involvement. With those findings, she was recommended to undergo adjuvant chemotherapy with dose dense Adriamycin/cyclophosphamide followed by weekly paclitaxel. She began cycle 1 of Adriamycin/cyclophosphamide on 07/08/2020. She was able to tolerated with acceptable toxicity, and she continued with cycle 2 on 07/22/2020. With cycle 3 on 08/05/2020 she did receive a dose reduction due to neutropenia. She continued with cycle 4 on 08/20/2020. Ms. Gonzalez is here today for follow-up. She is due for cycle 5 cyclophosphamide doxorubicin. Her last treatment is on 08/20/2020. She did have growth factor support but did have neutropenia on day 8 with an ANC of 340. She has slowly recovered but did require transfusion services on September 03, 2020 due to hemoglobin of 8.3 which time she was very symptomatic. Her hemoglobin has now corrected and is 13.6 today. She states overall she is feeling some better. She states that the oxycodone pain medication was not lasting long enough. Her daughter had actually called in prior to the visit concerned about her mother's history of drug abuse in the past. A prior authorization for Nucynta has been requested on September 19, 2020 and we are waiting for word on that. Mrs. Gonzalez denies any nausea or vomiting. She denies any headaches or vision changes. She states overall she feels pretty good her energy is fair. She has had no diarrhea or constipation. She denies any urinary symptoms. She has had complete alopecia but denies any problems concerning this. Her ECOG is 2. Past Medical History: Ms. Gonzalez's medical history is unremarkable. Past Surgical History: Caesarean section Right ankle repair Right knee repair Right internal juglar PowerPort per Dr Tejada in 2019 Allergies: No Known Allergies. Medications: Famvir 1 Tablet (of 500 mg) Oral t.i.d. for 7 days oxyCODONE HCl 1 Tablet (of 15 mg) Oral t.i.d. Pantoprazole Sodium 1 Tablet (of 40 mg) Tablet, enteric coated Oral daily Prochlorperazine Maleate Tablet Oral PRN traZODone HCl 1 Tablet (of 50 mg) Oral at bedtime Family History: Ms. Gonzalez's mother is alive. Ms. Gonzalez's father at age 75: heart disease. Ms. Gonzalez has 1 sister who is alive: breast cancer. She has 1 maternal aunt who is : colon cancer. Father of heart disease at age 75. Mother is living at age 82. A 64-year-old sister has been treated for breast cancer. A maternal aunt of colon cancer. Social History: Ms. Gonzalez is and she is retired. Ms. Gonzalez no longer smokes but had smoked 2.0 packs/day. She has no history of drinking. She has indicated exposure to the following products: cigarettes and recreational drug use. Ms. Gonzalez reports the following support systems: lives alone, lives in own house, supportive family/friends willing to assist with needs, and adequate transportation available for expected visits. Her diet consists of regular meals. She indicates her activity level as: regular exercise. Review Of Symptoms: Constitutional Denies fevers, chills, night sweats, excessive fatigue or weight loss. Fatigue and sleeps alot. Allergic/Immunologic No reactions. Eyes Denies significant visual changes. No diplopia. No amaurosis. ENMT Denies changes in hearing, sore throat, mouth sores, difficulty or changes in swallowing ability, and/or sinus drainage. Hematologic/Lymphatic Denies easy bruising or bleeding. The patient denies any tender or palpable lymph nodes. Breasts no concerns. Respiratory Denies dyspnea on exertion, chest pain, cough or hemoptysis. Denies orthopnea. Cardiovascular Denies anginal chest pain, palpitations or orthopnea. Gastrointestinal Denies current nausea, vomiting, diarrhea, GI bleeding, or constipation. Denies change in bowel habits and/or stool color, no heartburn or early satiety. Genitourinary (F) No hematuria, hesitancy, incontinence, vaginal bleeding, discharge or other problems with urination. Musculoskeletal Denies joint pain, swelling or redness. No decreased range of motion. Integumentary Denies chronic rashes, inflammation, ulcerations or skin changes. Neurologic Denies headache, blurred vision, and no areas of focal weakness or numbness. Normal gait. No sensory problems. Psychiatric Denies insomnia, depression, karley or mood swings. Vital Signs: Performed on Sep 23, 2020 12:21 Height - 62.00 in Weight - 124.2 lbs (LOW) BSA - 1.56 sq.m BMI - 22.72 Temperature - 97.9 F (LOW) Pulse - 74 /min Respiration - 18 /min BP - 152/81 mm(hg) (HIGH) O2 Sat - 96 % Pain - 0,2 - Ambulatory/capable of all self-care, unable to perform any work activities. Up and about more than 50% of waking hours. (ECOG) Physical Examination: Constitutional Alert, oriented, no acute distress. Skin pink, warm and dry. Alopecia. Head Normocephalic; atraumatic. Eyes Conjunctivae and sclerae are clear and without icterus. Pupils are reactive and equal. Neck Supple without masses or thyromegaly. No jugular venous distension. Hematologic/Lymphatic No petechiae or purpura. No tender or palpable lymph nodes in the cervical or supraclavicular areas. Respiratory Lungs are clear to auscultation without rhonchi or wheezing. Cardiovascular Regular rate and rhythm of heart without murmurs,clicks, gallops or rubs. Chest Chest is symmetric without chest wall deformities. Right chest wall port insertion site is unremarkable. Abdomen Non-tender, non-distended, no masses or ascites. Good bowel sounds noted in all quads. No guarding or rebound tenderness. No pulsatile masses. Back/Spine Non-tender to palpation. Extremities No visible deformities, no cyanosis, clubbing or edema. Musculoskeletal No tenderness or swelling, normal range of motion without obvious weakness. Integumentary No rashes or lesions. Neurologic No sensory or motor deficits, normal cerebellar function, normal gait. Psychiatric Alert and oriented times three. Coherent speech. Verbalizes understanding of our discussions today. Laboratory:Test performed on Sep 23, 2020 11:07 Sodium 133 mmol/L Potassium 4.2 mmol/L Chloride 96 mmol/L CO2 27 mmol/L Anion Gap 14.2 BUN 9 mg/dL Creatinine 0.4 mg/dL Cr Clearance (Est) 143.5900 mL/min eGFR 163.9 mL/min Glucose 183 mg/dL Osmolality - Calculated 279 mOsm/kg Calcium 10.4 mg/dL Protein, Total 7.4 g/dL Albumin 4.3 g/dL Globulin 3.1 g/dL Bilirubin, Total 0.6 mg/dL ALT (SGPT) 35 U/L AST (SGOT) 43 U/L Alkaline Phosphatase 232 IU/L WBC 2.5 10 3/uL RBC 4.32 10 6/uL HGB 13.6 g/dL HCT 41.7 % MCV 96.5 fL MCH 31.5 pg MCHC 32.6 g/dL RDW 18.3 % Platelet Count 176 10 3/cmm MPV 10.0 fL Neutrophils 2.09 10 3/uL Lymphocytes 0.3 10 3/uL Monocytes 0.0 10 3/uL Eosinophils 0.0 10 3/uL Basophils 0.0 10 3/uL Neutrophil % 85.0 % Lymphocyte % 13.4 % Monocyte % 1.6 % Eosinophil % 0.0 % Basophils % 0.0 % NRBC % 0 % Test performed on Sep 02, 2020 14:45 Anti-D Positive Blood Type AP Antibody Screen (Gel) NEGATIVE Test performed on Sep 02, 2020 14:35 ABO & Rh Type # 2 AP Test performed on Sep 02, 2020 13:50 Iron 84 mcg/dL Vitamin B12 > 2000 pg/mL Iron Binding Capacity (TIBC) 266 mcg/dl % Iron Saturation 31.5 % UIBC 182 mcg/dL Erythropoietin 88.7 mIU/mL Test performed on Aug 19, 2020 10:45 Manual Segs % 71 % Manual Bands % 5.0 % Manual Lymphs % 13 % Atypical Lymphs % 1.0 % Total Cells Counted 100 Manual Monos % 6.0 % Manual Eos % 0 % Manual Basos % 0.0 % Metamyelocytes % 4.0 % CBC Slide Review Slide Review Perform Anisocytosis 1+ Poikilocytosis 1+ Tear Drop Cells 1+ Platelet Estimate Normal Manual Segs Abs 6.2 10/cmm Manual Bands Abs 0.4 10 3/cmm Manual Neutrophils Abs 6.7 10 3/cmm Manual Monocytes Abs 0.5 10 3/cmm Manual Eosinophils Abs 0.0 10 3/cmm Manual Basophils Abs 0.0 10 3/cmm Test performed on Aug 04, 2020 13:55 Magnesium 2.1 mg/dL Polychromasia Trace Test performed on Jul 22, 2020 12:15 Ua Color Yellow Ua Appearance Clear Ua Glucose 1+ Ua Bilirubin 1+ Ua Ketones 1+ Ua Specific [place] 1.020 Ua Blood Neg Ua pH 6.5 Ua Protein Trace Ua Nitrites Negative Ua Leukocyte Esterase Negative Ua Micro: WBC 0-4 /hpf Ua Micro: RBC 0-4 /hpf Ua Micro: Squam Epith Cells 0-4 /hpf Ua Micro: Bacteria TRACE /hpf Ua Micro: Mucous 2+ /hpf Impression: 1. Multifocal left breast cancer, stage IIIA (T2, pN1a, M0), ER negative, AK negative, and HER-2 kika negative. 2. She underwent ultrasound directed core needle biopsy of the left breast on 04/02/2020 and she underwent left mastectomy with axillary sentinel lymph node biopsy on 05/20/2020. Plan: PROBLEMS ADDRESSED TODAY 1. Multifocal left breast cancer, stage IIIA (T2, pN1a, M0), ER negative, AK negative, and HER-[address] kika negative[address] scans showed small pulmonary nodules which were indeterminate, but early metastatic disease was not excluded. Bone scan was negative for metastatic disease. With those findings, she underwent left mastectomy with axillary sentinel lymph node biopsy on 05/20/2020. She was recommended to undergo adjuvant chemotherapy with dose dense Adriamycin/cyclophosphamide followed by weekly paclitaxel. She began cycle 1 of Adriamycin/cyclophosphamide on 07/08/2020. She has now completed 4 cycles. She did require dose reduction beginning with cycle 3, but she was able to complete all 4 cycles on schedule. She has had a significant decline in her performance status and she has become significantly anemic. The first cycle of paclitaxel has been delayed. Her anemia has recovered and her performance status seems to have improved as well. A. Proceed with cycle 12 pacilitaxel. B. She has become significantly anemic over the past 4 weeks to the point that she was symptomatic and she was treated wtih transfused 2 units PRBC On September 03, 2019. C. Today's labs reviewed in detail discussed with Ms. Gonzalez and a copy was given to her. WBC 2.5, hemoglobin 13.6, platelets 176,000 ANC is 2090. Creatinine 0.6. 3. She has developed significant bone pain, which may be treatment related, but it also could be a manifestation of disease progression. A. She will be scheduled for restaging CT scans and bone scan (these studies have not been obtained yet, but are scheduled for the next week or so). B. She will be given a prescription for immediate release oxycodone 15 mg to take as needed. Signed By: Emerson Harris_, [facility] Phillip Whelan <<Signature on File>>
[2020-09-30 10:01] LABS: Basophils % 0.6 %; Eosinophils # 0.2 10^3/uL (0.0-0.8); Eosinophils % 4.9 %; Hematocrit 43.1 % (37.0-47.0); Hemoglobin 14.4 g/dL (11.5-15.3); Lymphocytes # 0.6 10^3/uL (0.8-4.8); Lymphocytes % 17.6 %; Mean Corpuscular HGB Conc 33.4 g/dL (30.0-36.0); Mean Corpuscular Hemoglobin 32.1 pg (28.0-34.0); Mean Corpuscular Volume 96.2 fL (81-99); Mean Platelet Volume 10.2 fL (7.4-10.4); Monocytes # 0.2 10^3/uL (0.2-0.9); Monocytes % 6.1 %; Neutrophils # 2.45 10^3/uL (1.8-7.7); Neutrophils % 70.5 %; Nucleated Red Blood Cells % 0 %; Platelet Count 147 10^3/cmm (130-400); Red Blood Count 4.48 10^6/uL (4.1-5.3); Red Cell Distribution Width 17.2 % (12.1-15.1); White Blood Count 3.5 10^3/uL (4.0-10.0)
[2020-09-30 10:04] LABS: Alanine Aminotransferase 43 U/L (0-33); Albumin Level 4.2 g/dL (3.5-5.2); Alkaline Phosphatase 195 IU/L (35-105); Anion Gap 12.4 (5-19); Aspartate Amino Transferase 41 U/L (0-32); Blood Urea Nitrogen 6 mg/dL (6-20); Calcium 9.9 mg/dL (8.5-10.5); Carbon Dioxide 28 mmol/L (22-29); Chloride 98 mmol/L (98-107); Globulin 2.9 g/dL (1.3-4.6); Glomerular Filtration Rate 163.9 mL/min (90-130); Glucose 101 mg/dL (65-115); Osmolality Calculated 278 mOsm/kg (285-295); Potassium 3.4 mmol/L (3.5-5.1); Sodium 135 mmol/L (136-145); Total Bilirubin 0.4 mg/dL (0.15-1.2); Total Protein 7.1 g/dL (6.6-8.7)
--- NOTE | 2020-10-01 07:41 | ONC FU_ITS ---
Dr. Michelle Patient Follow-Up Note Patient: Tiara Gonzalez Unit #: [id number]: [id number] Dicatated By: Phillip Michelle M.D.Date of Visit:Sep 30, 2020 Onc Med Follow-up/Prog Note Chief Complaint: Breast cancer. History of Present Illness: This is a 59 year-old woman with multifocal left breast cancer, stage IIIA (T2, pN1a, M0), ER negative, TX negative, and HER-2 kika negative. She had presented to [facility] on 03/21/2020 with a lump in her left breast. Diagnostic mammogram on 03/25/2020 showed a dense well-circumscribed mass measuring 3.1 x 2.8 cm. Ultrasound showed a large cystic and solid complex lesion at the 11 to 2 o'clock position of the left breast measuring 3.1 x 2.3 x 2.7 cm. A hypoechoic lobulated lesion at 2:00 measured 7.6 x 4.5 x 7.0 mm. 2 additional hypoechoic lesions at the 1:00 and 2 o'clock position located 5 cm from the nipple appeared to represent intramammary lymph nodes. Several slightly prominent lymph nodes were noted in the left axilla measuring up to 1.4 cm in maximum diameter were noted to have preserved fatty hilum without significant cortical thickening, felt to most likely be reactive. She had underwent ultrasound directed core needle biopsy of the 11:00 mass and the 2:00 mass on 04/02/2020. 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 The breast prognostic profile on that lesion showed ER and TX both negative at <1%. The tumor was negative for overexpression of HER-2/kika, 1+ by IHC and amplification ratio by FISH at 1.0 with 1.9 HER-2 copies/cell. The Ki-67 was unfavorable at 18%. The lesion at 2:00 showed invasive ductal carcinoma, poorly differentiated, grade 3. 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 I had seen her initially on 04/11/2020. At that time she had multiple complains, significant enough that I was concerned about the possibility of metatstatic disease. Her baseline laboratory studies were unremarkable except for slightly elevated liver enzymes. Her brain MRI showed no evidence of metastatic disease. Staging CT scans of the chest, abdomen, and pelvis on 05/05/2020 showed hepatic steatosis but no metastatic disease in the abdomen or pelvis. The chest showed multilobar subcentimeter pulmonary nodules which were indeterminate but new compared to a prior study from 2018. Bone scan showed mild degenerative changes at the ankle joints and knee joints. There was no significant evidence for metastatic disease. In the setting of multifocal disease with no evidence of metastatic involvement, she was advised to proceed with mastectomy. On 05/20/2020 she underwent left total mastectomy and left axillary sentinel lymph node biopsy. Pathology confirmed multifocal metaplastic carcinoma, grade 3, with giant cells, spindle cells, chondroid and osteoid differentiation. The largest focus of involvement measured 3.8 cm. The margins were free, with the closest being the deep margin at 9 mm. There was a component of ductal carcinoma in situ, solid and cribriform type with comedonecrosis, grade 3. The closest margin to DCIS was 7 mm. 2 intramammary lymph nodes were positive for metastatic involvement, 1 of which showed extracapsular extension. There was no involvement in 4 axillary sentinel lymph nodes. Pathologic staging was pT2, pN1a. She had staging evaluation with CT chest, abdomen, and pelvis along with nuclear medicine bone scan on 05/05/2020. The bone scan was negative. The chest CT showed several new areas of groundglass attenuation and spiculated nodules involving both lung gallagher, early metastatic disease not excluded. There was evidence of hepatic steatosis, but there were no other findings which were suspicious for metastatic involvement. With those findings, she was recommended to undergo adjuvant chemotherapy with dose dense Adriamycin/cyclophosphamide followed by weekly paclitaxel. She began cycle 1 of Adriamycin/cyclophosphamide on 07/08/2020. She was able to tolerated with acceptable toxicity, and she continued with cycle 2 on 07/22/2020. With cycle 3 on 08/05/2020 she did receive a dose reduction due to neutropenia. She continued with cycle 4 on 08/20/2020. I had seen her for a follow-up visit on 09/02/2020. At that point she had experienced a significant decline in her performance status. She had moderately severe anemia with hemoglobin decreased to 8.3 g. She also is having significant bone pain. As she was symptomatic with the anemia, I did opt to transfuse PRBC and I delayed the taxane portion of her chemotherapy. She had restaging with chest CT and bone scan. Neither study showed any evidence of metastatic disease. She then proceeded to cycle 1 of weekly paclitaxel on 09/23/2020. She is seen now for a follow-up visit. As of last week she was still having significant pain, management of which has been problematic, she does have a prior history of substance abuse. I had attempted to change her pain medication to Nucynta at 50 mg 4 times daily, which was not managing her pain adequately. However, with the dosage increase to 100 mg 4 times daily her pain is much better now. She still has fatigue, but she is able to do some light work. ECOG score is 1. Her appetite is not very good and she has lost weight. She does not have fever, night sweats, or hot flashes. She has not had mouth sores and she has no shortness of breath or cough. She has had some pleuritic pain on the right side of her back and she continues to have some chronic pain in her back and in her knees and ankles. She also does report having some nausea. Bowel and bladder function remain adequate. She does not have headache and she does not have numbness/paresthesia or other focal neurologic symptoms. Medications: Famvir 1 Tablet (of 500 mg) Oral t.i.d. for 7 days, oxyCODONE HCl 1 Tablet (of 15 mg) Oral t.i.d., Pantoprazole Sodium 1 Tablet (of 40 mg) Tablet, enteric coated Oral daily, Prochlorperazine Maleate Tablet Oral PRN, traZODone HCl 1 Tablet (of 50 mg) Oral at bedtime Allergies: No Known Allergies. Vital Signs: Performed on Sep 30, 2020 11:40 Height - 62.00 in Weight - 120.4 lbs (LOW) BSA - 1.54 sq.m BMI - 22.02 Temperature - 98.4 F Pulse - 77 /min Respiration - 16 /min BP - 150/71 mm(hg) (HIGH) O2 Sat - 96 % Pain - 0 Physical Examination: Constitutional - She appears somewhat weak generally, Eyes - Sclerae nonicteric. Conjunctivae clear, ENMT - No lesions noted in the oral cavity, Hematologic/Lymphatic - No cervical, clavicular, or axillary adenopathy, Respiratory - Lungs sound clear with diminished air movement bilaterally, Cardiovascular - Heart rhythm is regular. There is no murmur, gallop, or rub noted, Abdomen - Soft. Liver and spleen are not enlarged. There is no abdominal mass or ascites noted and there is no inguinal adenopathy, Extremities - No edema, Neurologic - No focal neurologic deficits noted. Lab/Imaging: Test performed on Sep 30, 2020 09:25 Sodium 135 mmol/L Potassium 3.4 mmol/L Chloride 98 mmol/L CO2 28 mmol/L Anion Gap 12.4 BUN 6 mg/dL Creatinine 0.4 mg/dL Cr Clearance (Est) 143.5900 mL/min eGFR 163.9 mL/min Glucose 101 mg/dL Osmolality - Calculated 278 mOsm/kg Calcium 9.9 mg/dL Protein, Total 7.1 g/dL Albumin 4.2 g/dL Globulin 2.9 g/dL Bilirubin, Total 0.4 mg/dL ALT (SGPT) 43 U/L AST (SGOT) 41 U/L Alkaline Phosphatase 195 IU/L WBC 3.5 10 3/uL RBC 4.48 10 6/uL HGB 14.4 g/dL HCT 43.1 % MCV 96.2 fL MCH 32.1 pg MCHC 33.4 g/dL RDW 17.2 % Platelet Count 147 10 3/cmm MPV 10.2 fL Neutrophils 2.45 10 3/uL Lymphocytes 0.6 10 3/uL Monocytes 0.2 10 3/uL Eosinophils 0.2 10 3/uL Basophils 0.0 10 3/uL Neutrophil % 70.5 % Lymphocyte % 17.6 % Monocyte % 6.1 % Eosinophil % 4.9 % Basophils % 0.6 % NRBC % 0 % Problem List: 1. Multifocal left breast cancer, stage IIIA (T2, pN1a, M0), ER negative, TX negative, and HER-2 kika negative. 2. She underwent ultrasound directed core needle biopsy of the left breast on 04/02/2020 and she underwent left mastectomy with axillary sentinel lymph node biopsy on 05/20/2020. Problems Addressed with this Encounter and Plan: 1. Multifocal left breast cancer, stage IIIA (T2, pN1a, M0), ER negative, TX negative, and HER-2 kika negative[address] scans showed small pulmonary nodules which were indeterminate, but early metastatic disease was not excluded. Bone scan was negative for metastatic disease. With those findings, she underwent left mastectomy with axillary sentinel lymph node biopsy on 05/20/2020. She was recommended to undergo adjuvant chemotherapy with dose dense Adriamycin/cyclophosphamide followed by weekly paclitaxel. She completed 4 cycles of Adriamycin/cyclophosphamide from 07/08/2020 through 08/20/2020. As of her follow-up visit on 09/02/2020 she had a significant decline in performance status and she had moderately severe anemia with hemoglobin decreased to 8.3 g. She was transfused PRBC and a taxane portion of her chemotherapy was delayed. There was no evidence of recurrent or metastatic disease on restaging with chest CT and bone scan. She then proceeded with cycle 1 of weekly paclitaxel on 09/23/2020. She has tolerated it well, and she will continue now with her week 2 paclitaxel. The dosage remains the same. She returns in 1 week. 2. She has significant chronic musculoskeletal pain, management of which has been problematic. At the present time her pain is being well controlled with Nucynta 100 mg 4 times daily. Signed By: Phillip Michelle M.D. <<Signature on File>>
[2020-10-03] MEDS: sodium chloride 0.9% 250 ML 75 ML IV (08:37)
[2020-10-03] MEDS: acetaminophen 325 mg Tablet 650 MG PO (08:49)
[2020-10-03] MEDS: fosaprepitant 150 MG in sodium chloride 0.9% 150 ML 300 MG IV (08:53)
[2020-10-03] MEDS: famotidine 20 mg/2 mL INJ IVP (09:14)
[2020-10-03] MEDS: ondansetron 2 mg/ML SDV 2 mL 8 MG IV (09:16)
[2020-10-03] MEDS: diphenhydrAMINE 50 mg/mL SDV 1mL 25 MG IV (09:18)
[2020-10-14 09:23] LABS: Hematocrit 39.6 % (37.0-47.0); Lymphocytes # 0.2 10^3/uL (0.8-4.8); Lymphocytes % 6.3 %; Mean Corpuscular HGB Conc 32.8 g/dL (30.0-36.0); Mean Corpuscular Hemoglobin 31.9 pg (28.0-34.0); Mean Corpuscular Volume 97.1 fL (81-99); Mean Platelet Volume 9.5 fL (7.4-10.4); Monocytes % 0.7 %; Neutrophils # 2.79 10^3/uL (1.8-7.7); Neutrophils % 92.7 %; Nucleated Red Blood Cells % 0 %; Platelet Count 207 10^3/cmm (130-400); Red Blood Count 4.08 10^6/uL (4.1-5.3); Red Cell Distribution Width 15.2 % (12.1-15.1)
[2020-10-14 10:29] LABS: Alanine Aminotransferase 29 U/L (0-33); Albumin Level 3.8 g/dL (3.5-5.2); Alkaline Phosphatase 265 IU/L (35-105); Anion Gap 17.4 (5-19); Aspartate Amino Transferase 26 U/L (0-32); Blood Urea Nitrogen 6 mg/dL (6-20); Calcium 9.6 mg/dL (8.5-10.5); Carbon Dioxide 24 mmol/L (22-29); Chloride 99 mmol/L (98-107); Globulin 2.9 g/dL (1.3-4.6); Glomerular Filtration Rate 126.7 mL/min (90-130); Glucose 275 mg/dL (65-115); Osmolality Calculated 291 mOsm/kg (285-295); Potassium 3.4 mmol/L (3.5-5.1); Sodium 137 mmol/L (136-145); Total Bilirubin 0.4 mg/dL (0.15-1.2); Total Protein 6.7 g/dL (6.6-8.7)
--- NOTE | 2020-10-14 12:36 | ONC FU_ITS ---
[facility] Patient Note Patient: Tiara Gonzalez Unit #: [id number]: 1960 Dictated By: Emerson HarrisDate of Visit: Oct 14, 2020 Onc MED Follow-Up/Prog Note Chief Complaint: Breast cancer. History of Present Illness: is a 59 year-old woman with multifocal left breast cancer, stage IIIA (T2, pN1a, M0), ER negative, MT negative, and HER-2 kika negative. She had presented to [facility] on 03/21/2020 with a lump in her left breast. Diagnostic mammogram on 03/25/2020 showed a dense well-circumscribed mass measuring 3.1 x 2.8 cm. Ultrasound showed a large cystic and solid complex lesion at the 11 to 2 o'clock position of the left breast measuring 3.1 x 2.3 x 2.7 cm. A hypoechoic lobulated lesion at 2:00 measured 7.6 x 4.5 x 7.0 mm. 2 additional hypoechoic lesions at the 1:00 and 2 o'clock position located 5 cm from the nipple appeared to represent intramammary lymph nodes. Several slightly prominent lymph nodes were noted in the left axilla measuring up to 1.4 cm in maximum diameter were noted to have preserved fatty hilum without significant cortical thickening, felt to most likely be reactive. She had underwent ultrasound directed core needle biopsy of the 11:00 mass and the 2:00 mass on 04/02/2020. 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 The breast prognostic profile on that lesion showed ER and MT both negative at <1%. The tumor was negative for overexpression of HER-2/kika, 1+ by IHC and amplification ratio by FISH at 1.0 with 1.9 HER-2 copies/cell. The Ki-67 was unfavorable at 18%. The lesion at 2:00 showed invasive ductal carcinoma, poorly differentiated, grade 3. 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 Dr Michelle had seen her initially on 04/11/2020. At that time she had multiple complains, significant enough that he was concerned about the possibility of metatstatic disease. Her baseline laboratory studies were unremarkable except for slightly elevated liver enzymes. Her brain MRI showed no evidence of metastatic disease. Staging CT scans of the chest, abdomen, and pelvis on 05/05/2020 showed hepatic steatosis but no metastatic disease in the abdomen or pelvis. The chest showed multilobar subcentimeter pulmonary nodules which were indeterminate but new compared to a prior study from 2018. Bone scan showed mild degenerative changes at the ankle joints and knee joints. There was no significant evidence for metastatic disease. In the setting of multifocal disease with no evidence of metastatic involvement, she was advised to proceed with mastectomy. On 05/20/2020 she underwent left total mastectomy and left axillary sentinel lymph node biopsy. Pathology confirmed multifocal metaplastic carcinoma, grade 3, with giant cells, spindle cells, chondroid and osteoid differentiation. The largest focus of involvement measured 3.8 cm. The margins were free, with the closest being the deep margin at 9 mm. There was a component of ductal carcinoma in situ, solid and cribriform type with comedonecrosis, grade 3. The closest margin to DCIS was 7 mm. 2 intramammary lymph nodes were positive for metastatic involvement, 1 of which showed extracapsular extension. There was no involvement in 4 axillary sentinel lymph nodes. Pathologic staging was pT2, pN1a. She had staging evaluation with CT chest, abdomen, and pelvis along with nuclear medicine bone scan on 05/05/2020. The bone scan was negative. The chest CT showed several new areas of groundglass attenuation and spiculated nodules involving both lung gallagher, early metastatic disease not excluded. There was evidence of hepatic steatosis, but there were no other findings which were suspicious for metastatic involvement. With those findings, she was recommended to undergo adjuvant chemotherapy with dose dense Adriamycin/cyclophosphamide followed by weekly paclitaxel. She began cycle 1 of Adriamycin/cyclophosphamide on 07/08/2020. She was able to tolerated with acceptable toxicity, and she continued with cycle 2 on 07/22/2020. With cycle 3 on 08/05/2020 she did receive a dose reduction due to neutropenia. She continued with cycle 4 on 08/20/2020. Dr Michelle had seen her for a follow-up visit on 09/02/2020. At that point she had experienced a significant decline in her performance status. She had moderately severe anemia with hemoglobin decreased to 8.3 g. She also is having significant bone pain. As she was symptomatic with the anemia, it was opted to transfuse PRBC and delayed the taxane portion of her chemotherapy. She had restaging with chest CT and bone scan. Neither study showed any evidence of metastatic disease. She then proceeded to cycle 1 of weekly paclitaxel on 09/23/2020 and cycle 2 on 10/03/2020.Ms. Gonzalez is here today for follow-up. She presents with her daughter. She states overall she is doing well. She denies any fever or chills. She denies mouth or sore throat or difficulty swallowing. She denies any known Covid exposure or pending test or symptoms. She denies any shortness of breath or cough. She has had no orthopnea. She denies chest pain or palpitations. She denies diarrhea or nausea. She states she has not had constipation her bowels are normal for her. She denies any neuropathy symptoms. She does have some bruising on her arms and sores on her hands and fingers . She has fissures on her fingers on top of her hands. She states they are on her big toes as well. She states she has been using cornhusker lotion on them and they are better but they are not completely healed. They have not been draining or showing any signs of infection. She states they are tender at times but I bother me too bad . She request to proceed with chemotherapy. We discussed at length the concerns of the fissures in her hands and that she has open skin wounds and is high risk for infection given the chemotherapy although she is not neutropenic today. Dr. Michelle did assess her hands as well and has instructed her to delay her chemotherapy for 2 weeks. Her ECOG is 1. Past Medical History: Ms. Gonzalez's medical history is unremarkable. Past Surgical History: Caesarean section Right ankle repair Right knee repair Right internal juglar [employer]Port per Dr Tejada in 2019 Allergies: No Known Allergies. Medications: Gabapentin 1 Capsule (of 100 mg) Oral t.i.d. Nucynta 1 Tablet (of 100 mg) Oral four times a day PRN Prochlorperazine Maleate 1 - 2 Tablet (of 10 mg) Oral daily PRN traZODone HCl 1 Tablet (of 50 mg) Oral at bedtime Zofran 1 - 2 Tablet (of 4 mg) Oral four times a day PRN Family History: Ms. Gonzalez's mother is alive. Ms. Gonzalez's father at age 75: heart disease. Ms. Gonzalez has 1 sister who is alive: breast cancer. She has 1 maternal aunt who is : colon cancer. Father of heart disease at age 75. Mother is living at age 82. A 64-year-old sister has been treated for breast cancer. A maternal aunt of colon cancer. Social History: Ms. Gonzalez is and she is retired. Ms. Gonzalez no longer smokes but had smoked 2.0 packs/day. She has no history of drinking. She has indicated exposure to the following products: cigarettes and recreational drug use. Ms. Gonzalez reports the following support systems: lives alone, lives in own house, supportive family/friends willing to assist with needs, and adequate transportation available for expected visits. Her diet consists of regular meals. She indicates her activity level as: regular exercise. Review Of Symptoms: Constitutional Denies fevers, chills, night sweats, excessive fatigue or weight loss. Fatigue but stable. Pain is controlled well with Nuycnta. Allergic/Immunologic No reactions. Eyes Denies significant visual changes. No diplopia. No amaurosis. ENMT Denies changes in hearing, sore throat, mouth sores, difficulty or changes in swallowing ability, and/or sinus drainage. Hematologic/Lymphatic Denies easy bruising or bleeding. The patient denies any tender or palpable lymph nodes. Breasts no concerns. Respiratory Denies dyspnea on exertion, chest pain, cough or hemoptysis. Denies orthopnea. Cardiovascular Denies anginal chest pain, palpitations or orthopnea. Gastrointestinal Denies current nausea, vomiting, diarrhea, GI bleeding, or constipation. Denies change in bowel habits and/or stool color, no heartburn or early satiety. Genitourinary (F) No hematuria, hesitancy, incontinence, vaginal bleeding, discharge or other problems with urination. Musculoskeletal Denies joint pain, swelling or redness. No decreased range of motion. Integumentary bruising on arms and skin breaks on hands/fingers and big toes. Worse since last chemo. Neurologic Denies headache, blurred vision, and no areas of focal weakness or numbness. Normal gait. No sensory problems. Psychiatric Denies insomnia, depression, karley or mood swings. Vital Signs: Performed on Oct 14, 2020 10:11 Height - 62.00 in Weight - 122.4 lbs (HIGH) BSA - 1.55 sq.m BMI - 22.39 Temperature - 98.4 F Pulse - 93 /min Respiration - 18 /min BP - 168/77 mm(hg) (HIGH) O2 Sat - 95 % (LOW) Pain - 8,1 - No physically strenuous activity, but ambulatory and able to carry out light or sedentary work (e.g. office work, light house work). (ECOG) Physical Examination: Constitutional Alert, oriented, no acute distress. Skin pink, warm and dry. Alopecia. Head Normocephalic; atraumatic. Eyes Conjunctivae and sclerae are clear and without icterus. Pupils are reactive and equal. Chest Chest is symmetric without chest wall deformities. Right chest wall port insertion site is unremarkable. Abdomen Non-tender, non-distended, no masses or ascites. Back/Spine Non-tender to palpation. Extremities No visible deformities, no cyanosis, clubbing or edema. Bruising on arms and noted to have fissures in her thumbs, index fingers and top of her fingers. She states there are a few healing spots /fissures on her BIG toes. Musculoskeletal No tenderness or swelling, normal range of motion without obvious weakness. Integumentary No rashes or lesions. Neurologic No sensory or motor deficits, normal cerebellar function, normal gait. Psychiatric Alert and oriented times three. Coherent speech. Verbalizes understanding of our discussions today. Laboratory:Test performed on Oct 14, 2020 09:01 Sodium 137 mmol/L Potassium 3.4 mmol/L Chloride 99 mmol/L CO2 24 mmol/L Anion Gap 17.4 BUN 6 mg/dL Creatinine 0.5 mg/dL Cr Clearance (Est) 114.8700 mL/min eGFR 126.7 mL/min Glucose 275 mg/dL Osmolality - Calculated 291 mOsm/kg Calcium 9.6 mg/dL Protein, Total 6.7 g/dL Albumin 3.8 g/dL Globulin 2.9 g/dL Bilirubin, Total 0.4 mg/dL ALT (SGPT) 29 U/L AST (SGOT) 26 U/L Alkaline Phosphatase 265 IU/L WBC 3.0 10 3/uL RBC 4.08 10 6/uL HGB 13.0 g/dL HCT 39.6 % MCV 97.1 fL MCH 31.9 pg MCHC 32.8 g/dL RDW 15.2 % Platelet Count 207 10 3/cmm MPV 9.5 fL Neutrophils 2.79 10 3/uL Lymphocytes 0.2 10 3/uL Monocytes 0.0 10 3/uL Eosinophils 0.0 10 3/uL Basophils 0.0 10 3/uL Neutrophil % 92.7 % Lymphocyte % 6.3 % Monocyte % 0.7 % Eosinophil % 0.0 % Basophils % 0.0 % NRBC % 0 % Test performed on Sep 02, 2020 14:45 Anti-D Positive Blood Type AP Antibody Screen (Gel) NEGATIVE Test performed on Sep 02, 2020 14:35 ABO & Rh Type # 2 AP Test performed on Sep 02, 2020 13:50 Iron 84 mcg/dL Vitamin B12 > 2000 pg/mL Iron Binding Capacity (TIBC) 266 mcg/dl % Iron Saturation 31.5 % UIBC 182 mcg/dL Erythropoietin 88.7 mIU/mL Test performed on Aug 19, 2020 10:45 Manual Segs % 71 % Manual Bands % 5.0 % Manual Lymphs % 13 % Atypical Lymphs % 1.0 % Total Cells Counted 100 Manual Monos % 6.0 % Manual Eos % 0 % Manual Basos % 0.0 % Metamyelocytes % 4.0 % CBC Slide Review Slide Review Perform Anisocytosis 1+ Poikilocytosis 1+ Tear Drop Cells 1+ Platelet Estimate Normal Manual Segs Abs 6.2 10/cmm Manual Bands Abs 0.4 10 3/cmm Manual Neutrophils Abs 6.7 10 3/cmm Manual Monocytes Abs 0.5 10 3/cmm Manual Eosinophils Abs 0.0 10 3/cmm Manual Basophils Abs 0.0 10 3/cmm Impression: 1. Multifocal left breast cancer, stage IIIA (T2, pN1a, M0), ER negative, MT negative, and HER-2 kika negative. 2. She underwent ultrasound directed core needle biopsy of the left breast on 04/02/2020 and she underwent left mastectomy with axillary sentinel lymph node biopsy on 05/20/2020. Plan: 1. Multifocal left breast cancer, stage IIIA (T2, pN1a, M0), ER negative, MT negative, and HER-[address] kika [address] scans showed small pulmonary nodules which were indeterminate, but early metastatic disease was not excluded. Bone scan was negative for metastatic disease. With those findings, she underwent left mastectomy with axillary sentinel lymph node biopsy on 05/20/2020. She was recommended to undergo adjuvant chemotherapy with dose dense Adriamycin/cyclophosphamide followed by weekly paclitaxel. She completed 4 cycles of Adriamycin/cyclophosphamide from 07/08/2020 through 08/20/2020. As of her follow-up visit on 09/02/2020 she had a significant decline in performance status and she had moderately severe anemia with hemoglobin decreased to 8.3 g. She was transfused PRBC and the taxane portion of her chemotherapy was delayed. There was no evidence of recurrent or metastatic disease on restaging with chest CT and bone scan. She then proceeded with cycle 1 of weekly paclitaxel on 09/23/2020. She tolerated it well, and completed her week 2 paclitaxel on 10/03/2020. She was unable to do week 3 last week due to inclement weather. She will be delayed with cycle 3 for an additional two weeks due to significant fissures on her fingers and toes. She states she has been using [employer] lotion and she thinks they are getting better. Her fingers have not shown any sign of infection. Labs from today were reviewed in detail and discussed with Ms. Gonzalez and her daughter. A copy was given to them. WBC 3.0, hemoglobin 13.0, platelets 207,000 ANC is 2790. Potassium stable at 3.4 creatinine 0.5 LFTs are normal alk phos is 265. 2. She has significant chronic musculoskeletal pain, management of which has been problematic. At the present time her pain is being well controlled with Nucynta 100 mg 4 times daily. She will continue this regimen as it is working well at this time. 3. Skin fissures-chemo induced A. Continue with corn huskers lotion at least twice daily B. May try triple antiboitic ointment once or twice daily to affected areas. C. May try Vitamin E oil to fingers/hands and toes. D. Utilize gloves if doing cleaning or washing dishes. 4. Followup Plan A. Plan to return in 2 weeks with CBC CMP on prior to her visit on Tuesday the in-home labs if possible. B. Ms. Gonzalez was instructed to contact us in interim should questions or problems arise. C. She was given refill on her dexamethasone premedication steroid which she did take this morning. Signed By: Emerson Harris-, [facility] Phillip Michelle MD <<Signature on File>>
== END 2020-10-19 23:59 | disposition home or self-care (01) ==
LOC: ONCMED 05:25
PROVIDERS: Internal Medicine Medical Oncology; Visit Provider Nurse Practitioner
DX: C50.812 Malignant neoplasm of overlapping sites of left female breast (principal); Z17.1 Estrogen receptor negative status [ER-]; D70.1 Agranulocytosis secondary to cancer chemotherapy; T45.1X5A Adverse effect of antineoplastic and immunosuppressive drugs, initial encounter; G89.29 Other chronic pain; M79.18 Myalgia, other site; Z79.899 Other long term (current) drug therapy
CPT/HCPCS: 36415; 36593; 36598; 80053; 85025; 96367; 96375; 96376; 96413; 96523; 99214; 99215; J1100; J1200; J1453; J2405; J2997; J3490; J7050; J9267; Q9967

== ENCOUNTER → 2020-11-06 11:31 | Outpatient (BNVA) | payer MEDICAID, SELFPAY | PROVIDERS: Visit Provider Emergency Medicine | DX: Z20.822 Contact with and (suspected) exposure to COVID-19 (principal) | CPT/HCPCS: 87635 ==

== ENCOUNTER 2020-11-18 05:34 | Outpatient (RCR) | payer MEDICAID, SELFPAY ==
[2020-10-30 10:58] LABS: Basophils % 0.3 %; Hematocrit 40.8 % (37.0-47.0); Hemoglobin 13.5 g/dL (11.5-15.3); Lymphocytes # 0.4 10^3/uL (0.8-4.8); Lymphocytes % 10.5 %; Mean Corpuscular HGB Conc 33.1 g/dL (30.0-36.0); Mean Corpuscular Hemoglobin 32.3 pg (28.0-34.0); Mean Corpuscular Volume 97.6 fL (81-99); Mean Platelet Volume 9.7 fL (7.4-10.4); Monocytes # 0.1 10^3/uL (0.2-0.9); Monocytes % 1.4 %; Neutrophils # 3.16 10^3/uL (1.8-7.7); Neutrophils % 87.5 %; Nucleated Red Blood Cells % 0 %; Platelet Count 180 10^3/cmm (130-400); Red Blood Count 4.18 10^6/uL (4.1-5.3); Red Cell Distribution Width 14.1 % (12.1-15.1); White Blood Count 3.6 10^3/uL (4.0-10.0)
[2020-10-30 11:23] LABS: Alanine Aminotransferase 21 U/L (0-33); Albumin Level 3.9 g/dL (3.5-5.2); Alkaline Phosphatase 226 IU/L (35-105); Anion Gap 13.7 (5-19); Aspartate Amino Transferase 25 U/L (0-32); Blood Urea Nitrogen 6 mg/dL (6-20); Calcium 9.7 mg/dL (8.5-10.5); Carbon Dioxide 27 mmol/L (22-29); Chloride 97 mmol/L (98-107); Glomerular Filtration Rate 126.7 mL/min (90-130); Glucose 260 mg/dL (65-115); Osmolality Calculated 285 mOsm/kg (285-295); Potassium 3.7 mmol/L (3.5-5.1); Sodium 134 mmol/L (136-145); Total Bilirubin 0.4 mg/dL (0.15-1.2); Total Protein 6.9 g/dL (6.6-8.7)
[2020-10-30] MEDS: acetaminophen 325 mg Tablet 650 MG PO (12:23)
[2020-10-30] MEDS: sodium chloride 0.9% 250 ML 75 ML IV (12:24)
[2020-10-30] MEDS: ondansetron 2 mg/ML SDV 2 mL 8 MG IV (12:24)
[2020-10-30] MEDS: famotidine 20 mg/2 mL INJ IVP (12:26)
[2020-10-30] MEDS: diphenhydrAMINE 50 mg/mL SDV 1mL 25 MG IVP (12:28)
[2020-10-30] MEDS: fosaprepitant 150 MG in sodium chloride 0.9% 150 ML 300 MG IV (12:50)
--- NOTE | 2020-10-30 19:34 | ONC FU_ITS ---
Dr. Michelle Patient Follow-Up Note Patient: Tiara Gonzalez Unit #: [id number]: 1960 Dicatated By: Phillip Michelle M.D.Date of Visit:Oct 30, 2020 Onc Med Follow-up/Prog Note Chief Complaint: Breast cancer. History of Present Illness: This is a 59 year-old woman with multifocal left breast cancer, stage IIIA (T2, pN1a, M0), ER negative, MS negative, and HER-2 kika negative. She had presented to [facility] on 03/21/2020 with a lump in her left breast. Diagnostic mammogram on 03/25/2020 showed a dense well-circumscribed mass measuring 3.1 x 2.8 cm. Ultrasound showed a large cystic and solid complex lesion at the 11 to 2 o'clock position of the left breast measuring 3.1 x 2.3 x 2.7 cm. A hypoechoic lobulated lesion at 2:00 measured 7.6 x 4.5 x 7.0 mm. 2 additional hypoechoic lesions at the 1:00 and 2 o'clock position located 5 cm from the nipple appeared to represent intramammary lymph nodes. Several slightly prominent lymph nodes were noted in the left axilla measuring up to 1.4 cm in maximum diameter were noted to have preserved fatty hilum without significant cortical thickening, felt to most likely be reactive. She had underwent ultrasound directed core needle biopsy of the 11:00 mass and the 2:00 mass on 04/02/2020. 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 The breast prognostic profile on that lesion showed ER and MS both negative at <1%. The tumor was negative for overexpression of HER-2/kika, 1+ by IHC and amplification ratio by FISH at 1.0 with 1.9 HER-2 copies/cell. The Ki-67 was unfavorable at 18%. The lesion at 2:00 showed invasive ductal carcinoma, poorly differentiated, grade 3. 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 I had seen her initially on 04/11/2020. At that time she had multiple complains, significant enough that I was concerned about the possibility of metatstatic disease. Her baseline laboratory studies were unremarkable except for slightly elevated liver enzymes. Her brain MRI showed no evidence of metastatic disease. Staging CT scans of the chest, abdomen, and pelvis on 05/05/2020 showed hepatic steatosis but no metastatic disease in the abdomen or pelvis. The chest showed multilobar subcentimeter pulmonary nodules which were indeterminate but new compared to a prior study from 2018. Bone scan showed mild degenerative changes at the ankle joints and knee joints. There was no significant evidence for metastatic disease. In the setting of multifocal disease with no evidence of metastatic involvement, she was advised to proceed with mastectomy. On 05/20/2020 she underwent left total mastectomy and left axillary sentinel lymph node biopsy. Pathology confirmed multifocal metaplastic carcinoma, grade 3, with giant cells, spindle cells, chondroid and osteoid differentiation. The largest focus of involvement measured 3.8 cm. The margins were free, with the closest being the deep margin at 9 mm. There was a component of ductal carcinoma in situ, solid and cribriform type with comedonecrosis, grade 3. The closest margin to DCIS was 7 mm. 2 intramammary lymph nodes were positive for metastatic involvement, 1 of which showed extracapsular extension. There was no involvement in 4 axillary sentinel lymph nodes. Pathologic staging was pT2, pN1a. She had staging evaluation with CT chest, abdomen, and pelvis along with nuclear medicine bone scan on 05/05/2020. The bone scan was negative. The chest CT showed several new areas of groundglass attenuation and spiculated nodules involving both lung gallagher, early metastatic disease not excluded. There was evidence of hepatic steatosis, but there were no other findings which were suspicious for metastatic involvement. With those findings, she was recommended to undergo adjuvant chemotherapy with dose dense Adriamycin/cyclophosphamide followed by weekly paclitaxel. She began cycle 1 of Adriamycin/cyclophosphamide on 07/08/2020. She was able to tolerated with acceptable toxicity, and she continued with cycle 2 on 07/22/2020. With cycle 3 on 08/05/2020 she did receive a dose reduction due to neutropenia. She continued with cycle 4 on 08/20/2020. I had seen her for a follow-up visit on 09/02/2020. At that point she had experienced a significant decline in her performance status. She had moderately severe anemia with hemoglobin decreased to 8.3 g. She also is having significant bone pain. As she was symptomatic with the anemia, I did opt to transfuse PRBC and I delayed the taxane portion of her chemotherapy. She had restaging with chest CT and bone scan. Neither study showed any evidence of metastatic disease. She then proceeded to cycle 1 of weekly paclitaxel on 09/23/2020. She tolerated the treatment well, and she proceed with week 2 paclitaxel on 10/03/2020. Her further treatment was then put on hold due to significant skin toxicity, including fissuring in both hands/fingers. She is seen now for a follow-up visit. She is feeling pretty good. Her fingers are much better now. She says her energy is low, but she is able to do light work. Her ECOG score is 1. She has good appetite. She does not have fever, night sweats, or hot flashes. She sometimes has sinus drainage. She has no shortness of breath, cough, or chest pain. She has had some nausea, but very mild. She has no other GI or complaints. Her pain is adequately managed with her medication. She has very occasional headache. She sometimes has dizziness. She does not have numbness/paresthesia or other neuropathy symptoms. Medications: Gabapentin 1 Capsule (of 100 mg) Oral t.i.d., Nucynta 1 Tablet (of 100 mg) Oral four times a day PRN, Prochlorperazine Maleate 1 - 2 Tablet (of 10 mg) Oral daily PRN, traZODone HCl 1 Tablet (of 50 mg) Oral at bedtime, Zofran 1 - 2 Tablet (of 4 mg) Oral four times a day PRN Allergies: No Known Allergies. Vital Signs: Performed on Oct 30, 2020 14:25 Height - 62.00 in Temperature - 96.7 F (LOW) Pulse - 73 /min Respiration - 18 /min BP - 149/81 mm(hg) (HIGH) O2 Sat - 94 % (LOW) Performed on Oct 30, 2020 11:42 Height - 62.00 in Weight - 121.8 lbs (LOW) BSA - 1.55 sq.m BMI - 22.28 Temperature - 97.5 F (LOW) Pulse - 70 /min Respiration - 18 /min BP - 136/77 mm(hg) O2 Sat - 97 % Pain - 0 Fatigue - 5 Physical Examination: Constitutional - She looks pretty good generally, Eyes - Sclerae nonicteric. Conjunctivae clear, ENMT - No lesions noted in the oral cavity, Hematologic/Lymphatic - No cervical, clavicular, or axillary adenopathy, Respiratory - Lungs sound clear with diminished air movement bilaterally, Cardiovascular - Heart rhythm is regular. There is no murmur, gallop, or rub noted, Abdomen - Mildly distended but soft. Liver and spleen are not enlarged. There is no abdominal mass or ascites noted and there is no inguinal adenopathy, Extremities - No edema, Integumentary - The fissuring in her fingers has completely resolved now, Neurologic - No focal neurologic deficits noted. Lab/Imaging: Test performed on Oct 30, 2020 10:40 Sodium 134 mmol/L Potassium 3.7 mmol/L Chloride 97 mmol/L CO2 27 mmol/L Anion Gap 13.7 BUN 6 mg/dL Creatinine 0.5 mg/dL Cr Clearance (Est) 114.8700 mL/min eGFR 126.7 mL/min Glucose 260 mg/dL Osmolality - Calculated 285 mOsm/kg Calcium 9.7 mg/dL Protein, Total 6.9 g/dL Albumin 3.9 g/dL Globulin 3.0 g/dL Bilirubin, Total 0.4 mg/dL ALT (SGPT) 21 U/L AST (SGOT) 25 U/L Alkaline Phosphatase 226 IU/L WBC 3.6 10 3/uL RBC 4.18 10 6/uL HGB 13.5 g/dL HCT 40.8 % MCV 97.6 fL MCH 32.3 pg MCHC 33.1 g/dL RDW 14.1 % Platelet Count 180 10 3/cmm MPV 9.7 fL Neutrophils 3.16 10 3/uL Lymphocytes 0.4 10 3/uL Monocytes 0.1 10 3/uL Eosinophils 0.0 10 3/uL Basophils 0.0 10 3/uL Neutrophil % 87.5 % Lymphocyte % 10.5 % Monocyte % 1.4 % Eosinophil % 0.0 % Basophils % 0.3 % NRBC % 0 % Problem List: 1. Multifocal left breast cancer, stage IIIA (T2, pN1a, M0), ER negative, MS negative, and HER-2 kika negative. 2. She underwent ultrasound directed core needle biopsy of the left breast on 04/02/2020 and she underwent left mastectomy with axillary sentinel lymph node biopsy on 05/20/2020. Problems Addressed with this Encounter and Plan: 1. Multifocal left breast cancer, stage IIIA (T2, pN1a, M0), ER negative, MS negative, and HER-2 kika negative[address] scans showed small pulmonary nodules which were indeterminate, but early metastatic disease was not excluded. Bone scan was negative for metastatic disease. With those findings, she underwent left mastectomy with axillary sentinel lymph node biopsy on 05/20/2020. She was recommended to undergo adjuvant chemotherapy with dose dense Adriamycin/cyclophosphamide followed by weekly paclitaxel. She completed 4 cycles of Adriamycin/cyclophosphamide from 07/08/2020 through 08/20/2020. As of her follow-up visit on 09/02/2020 she had a significant decline in performance status and she had moderately severe anemia with hemoglobin decreased to 8.3 g. She was transfused PRBC and a taxane portion of her chemotherapy was delayed. There was no evidence of recurrent or metastatic disease on restaging with chest CT and bone scan. She then proceeded with cycle 1 of weekly paclitaxel on 09/23/2020. She tolerated it well, and she then continued with week 2 paclitaxel on 10/03/2020. Her further treatment was put on hold due to significant skin toxicity, mainly fissuring in the fingers. That has improved now. She has otherwise been stable clinically. As such, she will proceed with her week 3 paclitaxel. It will be administered with a 20% dose reduction. She returns in 1 week. 2. She has significant chronic musculoskeletal pain, management of which has been problematic. At the present time her pain is being well controlled with Nucynta 100 mg 4 times daily. Signed By: Phillip Michelle M.D. <<Signature on File>>
[2020-11-11 10:15] LABS: Hematocrit 39.7 % (37.0-47.0); Hemoglobin 13.3 g/dL (11.5-15.3); Lymphocytes # 0.2 10^3/uL (0.8-4.8); Lymphocytes % 7.2 %; Mean Corpuscular HGB Conc 33.5 g/dL (30.0-36.0); Mean Corpuscular Hemoglobin 32.1 pg (28.0-34.0); Mean Corpuscular Volume 95.9 fL (81-99); Mean Platelet Volume 9.9 fL (7.4-10.4); Monocytes % 0.8 %; Neutrophils # 2.42 10^3/uL (1.8-7.7); Neutrophils % 91.6 %; Nucleated Red Blood Cells % 0 %; Platelet Count 195 10^3/cmm (130-400); Red Blood Count 4.14 10^6/uL (4.1-5.3); Red Cell Distribution Width 13.5 % (12.1-15.1); White Blood Count 2.6 10^3/uL (4.0-10.0)
[2020-11-11 11:20] LABS: Alanine Aminotransferase 26 U/L (0-33); Albumin Level 3.8 g/dL (3.5-5.2); Alkaline Phosphatase 226 IU/L (35-105); Aspartate Amino Transferase 23 U/L (0-32); Blood Urea Nitrogen 7 mg/dL (6-20); Calcium 9.6 mg/dL (8.5-10.5); Carbon Dioxide 24 mmol/L (22-29); Chloride 96 mmol/L (98-107); Glomerular Filtration Rate 126.7 mL/min (90-130); Glucose 333 mg/dL (65-115); Osmolality Calculated 283 mOsm/kg (285-295); Sodium 131 mmol/L (136-145); Total Bilirubin 0.3 mg/dL (0.15-1.2); Total Protein 6.8 g/dL (6.6-8.7)
[2020-11-11] MEDS: sodium chloride 0.9% 250 ML 75 ML IV (12:00)
[2020-11-11] MEDS: acetaminophen 325 mg Tablet 650 MG PO (12:00)
[2020-11-11] MEDS: palonosetron 0.25 mg/5 mL SDV IV (12:03)
[2020-11-11] MEDS: famotidine 20 mg/2 mL INJ IVP (12:04)
[2020-11-11] MEDS: diphenhydrAMINE 50 mg/mL SDV 1mL 25 MG IV (12:05)
[2020-11-11] MEDS: fosaprepitant 150 MG in sodium chloride 0.9% 150 ML 300 MG IV (12:22)
[2020-11-18 12:20] LABS: Basophils % 0.2 %; Hematocrit 38.6 % (37.0-47.0); Hemoglobin 12.9 g/dL (11.5-15.3); Lymphocytes # 0.4 10^3/uL (0.8-4.8); Mean Corpuscular HGB Conc 33.4 g/dL (30.0-36.0); Mean Corpuscular Hemoglobin 32.3 pg (28.0-34.0); Mean Corpuscular Volume 96.5 fL (81-99); Mean Platelet Volume 10.2 fL (7.4-10.4); Monocytes # 0.1 10^3/uL (0.2-0.9); Monocytes % 1.5 %; Neutrophils # 4.93 10^3/uL (1.8-7.7); Neutrophils % 90.7 %; Nucleated Red Blood Cells % 0 %; Platelet Count 232 10^3/cmm (130-400); Red Cell Distribution Width 13.4 % (12.1-15.1); White Blood Count 5.4 10^3/uL (4.0-10.0)
[2020-11-18 12:42] LABS: Alanine Aminotransferase 20 U/L (0-33); Albumin Level 3.9 g/dL (3.5-5.2); Alkaline Phosphatase 183 IU/L (35-105); Anion Gap 16.1 (5-19); Aspartate Amino Transferase 16 U/L (0-32); Blood Urea Nitrogen 12 mg/dL (6-20); Calcium 9.9 mg/dL (8.5-10.5); Carbon Dioxide 27 mmol/L (22-29); Chloride 93 mmol/L (98-107); Globulin 2.8 g/dL (1.3-4.6); Glomerular Filtration Rate 163.9 mL/min (90-130); Glucose 232 mg/dL (65-115); Osmolality Calculated 281 mOsm/kg (285-295); Potassium 4.1 mmol/L (3.5-5.1); Sodium 132 mmol/L (136-145); Total Bilirubin 0.4 mg/dL (0.15-1.2); Total Protein 6.7 g/dL (6.6-8.7)
[2020-11-18] MEDS: acetaminophen 325 mg Tablet 650 MG PO (13:25)
[2020-11-18] MEDS: famotidine 20 mg/2 mL INJ IVP (13:26)
[2020-11-18] MEDS: ondansetron 2 mg/ML SDV 2 mL 8 MG IVP (13:30)
[2020-11-18] MEDS: sodium chloride 0.9% 250 ML 75 ML IV (13:30)
[2020-11-18] MEDS: diphenhydrAMINE 50 mg/mL SDV 1mL 25 MG IVP (13:35)
--- NOTE | 2020-11-19 07:22 | ONC FU_ITS ---
Dr. Michelle Patient Follow-Up Note Patient: Tiara Gonzalez Unit #: [id number]: 1960 Dicatated By: Phillip Michelle M.D.Date of Visit:Nov 18, 2020 Onc Med Follow-up/Prog Note Chief Complaint: Breast cancer. History of Present Illness: This is a 59 year-old woman with multifocal left breast cancer, stage IIIA (T2, pN1a, M0), ER negative, UT negative, and HER-2 kika negative. She had presented to [facility] on 03/21/2020 with a lump in her left breast. Diagnostic mammogram on 03/25/2020 showed a dense well-circumscribed mass measuring 3.1 x 2.8 cm. Ultrasound showed a large cystic and solid complex lesion at the 11 to 2 o'clock position of the left breast measuring 3.1 x 2.3 x 2.7 cm. A hypoechoic lobulated lesion at 2:00 measured 7.6 x 4.5 x 7.0 mm. 2 additional hypoechoic lesions at the 1:00 and 2 o'clock position located 5 cm from the nipple appeared to represent intramammary lymph nodes. Several slightly prominent lymph nodes were noted in the left axilla measuring up to 1.4 cm in maximum diameter were noted to have preserved fatty hilum without significant cortical thickening, felt to most likely be reactive. She had underwent ultrasound directed core needle biopsy of the 11:00 mass and the 2:00 mass on 04/02/2020. 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 The breast prognostic profile on that lesion showed ER and UT both negative at <1%. The tumor was negative for overexpression of HER-2/kika, 1+ by IHC and amplification ratio by FISH at 1.0 with 1.9 HER-2 copies/cell. The Ki-67 was unfavorable at 18%. The lesion at 2:00 showed invasive ductal carcinoma, poorly differentiated, grade 3. 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 I had seen her initially on 04/11/2020. At that time she had multiple complains, significant enough that I was concerned about the possibility of metatstatic disease. Her baseline laboratory studies were unremarkable except for slightly elevated liver enzymes. Her brain MRI showed no evidence of metastatic disease. Staging CT scans of the chest, abdomen, and pelvis on 05/05/2020 showed hepatic steatosis but no metastatic disease in the abdomen or pelvis. The chest showed multilobar subcentimeter pulmonary nodules which were indeterminate but new compared to a prior study from 2018. Bone scan showed mild degenerative changes at the ankle joints and knee joints. There was no significant evidence for metastatic disease. In the setting of multifocal disease with no evidence of metastatic involvement, she was advised to proceed with mastectomy. On 05/20/2020 she underwent left total mastectomy and left axillary sentinel lymph node biopsy. Pathology confirmed multifocal metaplastic carcinoma, grade 3, with giant cells, spindle cells, chondroid and osteoid differentiation. The largest focus of involvement measured 3.8 cm. The margins were free, with the closest being the deep margin at 9 mm. There was a component of ductal carcinoma in situ, solid and cribriform type with comedonecrosis, grade 3. The closest margin to DCIS was 7 mm. 2 intramammary lymph nodes were positive for metastatic involvement, 1 of which showed extracapsular extension. There was no involvement in 4 axillary sentinel lymph nodes. Pathologic staging was pT2, pN1a. She had staging evaluation with CT chest, abdomen, and pelvis along with nuclear medicine bone scan on 05/05/2020. The bone scan was negative. The chest CT showed several new areas of groundglass attenuation and spiculated nodules involving both lung gallagher, early metastatic disease not excluded. There was evidence of hepatic steatosis, but there were no other findings which were suspicious for metastatic involvement. With those findings, she was recommended to undergo adjuvant chemotherapy with dose dense Adriamycin/cyclophosphamide followed by weekly paclitaxel. She began cycle 1 of Adriamycin/cyclophosphamide on 07/08/2020. She was able to tolerated with acceptable toxicity, and she continued with cycle 2 on 07/22/2020. With cycle 3 on 08/05/2020 she did receive a dose reduction due to neutropenia. She continued with cycle 4 on 08/20/2020. I had seen her for a follow-up visit on 09/02/2020. At that point she had experienced a significant decline in her performance status. She had moderately severe anemia with hemoglobin decreased to 8.3 g. She also is having significant bone pain. As she was symptomatic with the anemia, I did opt to transfuse PRBC and I delayed the taxane portion of her chemotherapy. She had restaging with chest CT and bone scan. Neither study showed any evidence of metastatic disease. She then proceeded to cycle 1 of weekly paclitaxel on 09/23/2020. She initially tolerated it well, but her treatment had to be put on hold after her 2nd weekly infusion due to development of significant skin changes in both hands. After a 4-week delay she was able to continue with her week 3 treatment. It was administered with a dose reduction. She tolerated it with acceptable toxicity and she continued with week for paclitaxel on 11/11/2020. She is seen now for a scheduled visit. She has been feeling pretty good generally, though she says her energy is getting lower and she does have fairly limited activity. ECOG score is 2. Her appetite is not too good. She has lost some weight. She had a low-grade fever on 1 occasion. She does not have night sweats or hot flashes. Her breathing has been okay. She does not complain of cough and she has not been having chest pain. She has not recently had any nausea. Bowel and bladder function remain adequate. She has chronic pain, but it is adequately managed with her medication. She has just occasional headache. She does not complain of dizziness. She has no numbness/paresthesia or other neuropathy symptoms. Medications: Gabapentin 1 Capsule (of 100 mg) Oral t.i.d., Nucynta 1 Tablet (of 100 mg) Oral four times a day PRN, Prochlorperazine Maleate 1 - 2 Tablet (of 10 mg) Oral daily PRN, traZODone HCl 1 Tablet (of 50 mg) Oral at bedtime, Zofran 1 - 2 Tablet (of 4 mg) Oral four times a day PRN Allergies: No Known Allergies. Vital Signs: Performed on Nov 18, 2020 12:27 Height - 62.00 in Weight - 115.4 lbs (LOW) BSA - 1.51 sq.m BMI - 21.11 Temperature - 97.0 F (LOW) Pulse - 91 /min Respiration - 18 /min BP - 119/69 mm(hg) O2 Sat - 96 % Pain - 0 Fatigue - 9 Physical Examination: Constitutional - She looks pretty good generally, Eyes - Sclerae nonicteric. Conjunctivae clear, ENMT - No lesions noted in the oral cavity, Hematologic/Lymphatic - No cervical, clavicular, or axillary adenopathy, Respiratory - Lungs show diminished air movement with mild rhonchi on inspiration and expiration bilaterally, Cardiovascular - Heart rhythm is regular. There is no murmur, gallop, or rub noted, Abdomen - Soft. Liver and spleen are not enlarged. There is no abdominal mass or ascites noted and there is no inguinal adenopathy, Extremities - No edema, Integumentary - There has been no recurrence of the fissuring in her fingers. There are no new skin changes, Neurologic - No focal neurologic deficits noted. Lab/Imaging: Test performed on Nov 18, 2020 11:20 Sodium 132 mmol/L Potassium 4.1 mmol/L Chloride 93 mmol/L CO2 27 mmol/L Anion Gap 16.1 BUN 12 mg/dL Creatinine 0.4 mg/dL Cr Clearance (Est) 126.6800 mL/min eGFR 163.9 mL/min Glucose 232 mg/dL Osmolality - Calculated 281 mOsm/kg Calcium 9.9 mg/dL Protein, Total 6.7 g/dL Albumin 3.9 g/dL Globulin 2.8 g/dL Bilirubin, Total 0.4 mg/dL ALT (SGPT) 20 U/L AST (SGOT) 16 U/L Alkaline Phosphatase 183 IU/L WBC 5.4 10 3/uL RBC 4.00 10 6/uL HGB 12.9 g/dL HCT 38.6 % MCV 96.5 fL MCH 32.3 pg MCHC 33.4 g/dL RDW 13.4 % Platelet Count 232 10 3/cmm MPV 10.2 fL Neutrophils 4.93 10 3/uL Lymphocytes 0.4 10 3/uL Monocytes 0.1 10 3/uL Eosinophils 0.0 10 3/uL Basophils 0.0 10 3/uL Neutrophil % 90.7 % Lymphocyte % 7.0 % Monocyte % 1.5 % Eosinophil % 0.0 % Basophils % 0.2 % NRBC % 0 % Problem List: 1. Multifocal left breast cancer, stage IIIA (T2, pN1a, M0), ER negative, UT negative, and HER-2 kika negative. She underwent ultrasound directed core needle biopsy of the left breast on 04/02/2020 and she underwent left mastectomy with axillary sentinel lymph node biopsy on 05/20/2020. 2. She has chronic musculoskeletal pain. Problems Addressed with this Encounter and Plan: 1. Multifocal left breast cancer, stage IIIA (T2, pN1a, M0), ER negative, UT negative, and HER-2 kika negative. [address] scans showed small pulmonary nodules which were indeterminate, but early metastatic disease was not excluded. Bone scan was negative for metastatic disease. With those findings, she underwent left mastectomy with axillary sentinel lymph node biopsy on 05/20/2020. She was recommended to undergo adjuvant chemotherapy with dose dense Adriamycin/cyclophosphamide followed by weekly paclitaxel. She completed 4 cycles of Adriamycin/cyclophosphamide from 07/08/2020 through 08/20/2020. As of her follow-up visit on 09/02/2020 she had a significant decline in performance status and she had moderately severe anemia with hemoglobin decreased to 8.3 g. She was transfused PRBC and a taxane portion of her chemotherapy was delayed. There was no evidence of recurrent or metastatic disease on restaging with chest CT and bone scan. She then proceeded with cycle 1 of weekly paclitaxel on 09/23/2020. She tolerated it well, and she continued with week 2 paclitaxel on 10/03/2020. Her further treatment was put on hold due to significant skin toxicity, mainly fissuring in the fingers. She required a 4-week delay, but she was able to continue with her week 3 treatment on 10/30/2020. It was administered with a dose reduction, and she tolerated well. Week 4 was delayed until 11/11/2020. At this point she is showing some decline in her activity tolerance, but she otherwise appears stable clinically. Overall, she has tolerating treatment with acceptable toxicity. She will proceed now with her week 5 paclitaxel. The dosage remains the same. She returns in 1 week. 2. She has significant chronic musculoskeletal pain, management of which has been problematic. It remains adequately controlled with Nucynta 100 mg 4 times daily. Signed By: Phillip Michelle M.D. <<Signature on File>>
--- NOTE | 2020-11-19 20:25 | ONC FU_ITS ---
[facility] Patient Note Patient: Tiara Gonzalez Unit #: [id number]: 1960 Dictated By: Emerson HarrisDate of Visit: Nov 11, 2020 Onc MED Follow-Up/Prog Note Chief Complaint: Breast cancer. History of Present Illness: Ms Gonzalez is a 59 year-old woman with multifocal left breast cancer, stage IIIA (T2, pN1a, M0), ER negative, SC negative, and HER-2 kika negative. She had presented to [facility] on 03/21/2020 with a lump in her left breast. Diagnostic mammogram on 03/25/2020 showed a dense well-circumscribed mass measuring 3.1 x 2.8 cm. Ultrasound showed a large cystic and solid complex lesion at the 11 to 2 o'clock position of the left breast measuring 3.1 x 2.3 x 2.7 cm. A hypoechoic lobulated lesion at 2:00 measured 7.6 x 4.5 x 7.0 mm. 2 additional hypoechoic lesions at the 1:00 and 2 o'clock position located 5 cm from the nipple appeared to represent intramammary lymph nodes. Several slightly prominent lymph nodes were noted in the left axilla measuring up to 1.4 cm in maximum diameter were noted to have preserved fatty hilum without significant cortical thickening, felt to most likely be reactive. She had underwent ultrasound directed core needle biopsy of the 11:00 mass and the 2:00 mass on 04/02/2020. 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 The breast prognostic profile on that lesion showed ER and SC both negative at <1%. The tumor was negative for overexpression of HER-2/kika, 1+ by IHC and amplification ratio by FISH at 1.0 with 1.9 HER-2 copies/cell. The Ki-67 was unfavorable at 18%. The lesion at 2:00 showed invasive ductal carcinoma, poorly differentiated, grade 3. 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 Dr Michelle had seen her initially on 04/11/2020. At that time she had multiple complains, significant enough that I was concerned about the possibility of metatstatic disease. Her baseline laboratory studies were unremarkable except for slightly elevated liver enzymes. Her brain MRI showed no evidence of metastatic disease. Staging CT scans of the chest, abdomen, and pelvis on 05/05/2020 showed hepatic steatosis but no metastatic disease in the abdomen or pelvis. The chest showed multilobar subcentimeter pulmonary nodules which were indeterminate but new compared to a prior study from 2018. Bone scan showed mild degenerative changes at the ankle joints and knee joints. There was no significant evidence for metastatic disease. In the setting of multifocal disease with no evidence of metastatic involvement, she was advised to proceed with mastectomy. On 05/20/2020 she underwent left total mastectomy and left axillary sentinel lymph node biopsy. Pathology confirmed multifocal metaplastic carcinoma, grade 3, with giant cells, spindle cells, chondroid and osteoid differentiation. The largest focus of involvement measured 3.8 cm. The margins were free, with the closest being the deep margin at 9 mm. There was a component of ductal carcinoma in situ, solid and cribriform type with comedonecrosis, grade 3. The closest margin to DCIS was 7 mm. 2 intramammary lymph nodes were positive for metastatic involvement, 1 of which showed extracapsular extension. There was no involvement in 4 axillary sentinel lymph nodes. Pathologic staging was pT2, pN1a. She had staging evaluation with CT chest, abdomen, and pelvis along with nuclear medicine bone scan on 05/05/2020. The bone scan was negative. The chest CT showed several new areas of groundglass attenuation and spiculated nodules involving both lung gallagher, early metastatic disease not excluded. There was evidence of hepatic steatosis, but there were no other findings which were suspicious for metastatic involvement. With those findings, she was recommended to undergo adjuvant chemotherapy with dose dense Adriamycin/cyclophosphamide followed by weekly paclitaxel. She began cycle 1 of Adriamycin/cyclophosphamide on 07/08/2020. She was able to tolerated with acceptable toxicity, and she continued with cycle 2 on 07/22/2020. With cycle 3 on 08/05/2020 she did receive a dose reduction due to neutropenia. She continued with cycle 4 on 08/20/2020. Dr Michelle had seen her for a follow-up visit on 09/02/2020. At that point she had experienced a significant decline in her performance status. She had moderately severe anemia with hemoglobin decreased to 8.3 g. She also is having significant bone pain. As she was symptomatic with the anemia, it was opted to transfuse PRBC and delay the taxane portion of her chemotherapy. She had restaging with chest CT and bone scan. Neither study showed any evidence of metastatic disease. She then proceeded to cycle 1 of weekly paclitaxel on 09/23/2020. She tolerated the treatment well, and she proceed with week 2 paclitaxel on 10/03/2020. Her further treatment was then put on hold due to significant skin toxicity, including fissuring in both hands/fingers. She did recover and was able to resume chemotherapy at reduced dosing on October 30, 2020. She is tolerating it well thus far. Mrs. Gonzalez is here today for follow-up. She states that overall she is doing pretty good. She states that about the fourth day after chemo she starts feeling, yucky just tired washed out kind of queasy but not bad nausea. She states she does does not feel like doing much for a couple days after that. She states prior to that she feels really good. She denies any nausea. She has had no vomiting. She denies any diarrhea or constipation. She denies fever or chills. She denies any skin changes. She states she has not had any mouth sores. She states she is eating good and her energy is fair when she gets passes first few days that are kind of bad . She denies any new concerns today. Her ECOG is 2. Past Medical History: Ms. Gonzalez's medical history is unremarkable. Past Surgical History: Caesarean section Right ankle repair Right knee repair Right internal juglar [employer] per Dr Tejada in 2019 Allergies: No Known Allergies. Medications: Gabapentin 1 Capsule (of 100 mg) Oral t.i.d. Nucynta 1 Tablet (of 100 mg) Oral four times a day PRN Prochlorperazine Maleate 1 - 2 Tablet (of 10 mg) Oral daily PRN traZODone HCl 1 Tablet (of 50 mg) Oral at bedtime Zofran 1 - 2 Tablet (of 4 mg) Oral four times a day PRN Family History: Ms. Gonzalez's mother is alive. Ms. Gonzalez's father at age 75: heart disease. Ms. Gonzalez has 1 sister who is alive: breast cancer. She has 1 maternal aunt who is : colon cancer. Father of heart disease at age 75. Mother is living at age 82. A 64-year-old sister has been treated for breast cancer. A maternal aunt of colon cancer. Social History: Ms. Gonzalez is and she is retired. Ms. Gonzalez no longer smokes but had smoked 2.0 packs/day. She has no history of drinking. She has indicated exposure to the following products: cigarettes and recreational drug use. Ms. Gonzalez reports the following support systems: lives alone, lives in own house, supportive family/friends willing to assist with needs, and adequate transportation available for expected visits. Her diet consists of regular meals. She indicates her activity level as: regular exercise. Review Of Symptoms: Constitutional Denies fevers, chills, night sweats, excessive fatigue or weight loss. Fatigue but stable. Pain is controlled well with Nuycnta. Allergic/Immunologic No reactions. Eyes Denies significant visual changes. No diplopia. No amaurosis. ENMT Denies changes in hearing, sore throat, mouth sores, difficulty or changes in swallowing ability, and/or sinus drainage. Hematologic/Lymphatic Denies easy bruising or bleeding. The patient denies any tender or palpable lymph nodes. Breasts no concerns. Respiratory Denies dyspnea on exertion, chest pain, cough or hemoptysis. Denies orthopnea. Cardiovascular Denies anginal chest pain, palpitations or orthopnea. Gastrointestinal Denies current nausea, vomiting, diarrhea, GI bleeding, or constipation. Denies change in bowel habits and/or stool color, no heartburn or early satiety. See above Genitourinary (F) No hematuria, hesitancy, incontinence, vaginal bleeding, discharge or other problems with urination. Musculoskeletal Denies joint pain, swelling or redness. No decreased range of motion. Integumentary Denies chronic rashes, inflammation, ulcerations or skin changes. Neurologic Denies headache, blurred vision, and no areas of focal weakness or numbness. Normal gait. No sensory problems. Psychiatric Denies insomnia, depression, karley or mood swings. Vital Signs: Performed on Nov 11, 2020 11:25 Height - 62.00 in Weight - 119 lbs (LOW) BSA - 1.53 sq.m BMI - 21.77 Temperature - 97.0 F (LOW) Pulse - 81 /min Respiration - 18 /min BP - 147/74 mm(hg) (HIGH) O2 Sat - 97 % Pain - 0,2 - Ambulatory/capable of all self-care, unable to perform any work activities. Up and about more than 50% of waking hours. (ECOG) Physical Examination: Constitutional Alert, oriented, no acute distress. Skin pink, warm and dry. Alopecia. Head Normocephalic; atraumatic. Eyes Conjunctivae and sclerae are clear and without icterus. Pupils are reactive and equal. ENMT No oral exudates. Healed ulcers noted on lower lip area, but no masses, thrush or mucositis. Oropharynx clear. Tongue normal. Neck Supple without masses or thyromegaly. No jugular venous distension. Hematologic/Lymphatic No petechiae or purpura. No tender or palpable lymph nodes in the cervical or supraclavicular areas. Respiratory Lungs are clear to auscultation without rhonchi or wheezing. Cardiovascular Regular rate and rhythm of heart without murmurs,clicks, gallops or rubs. Chest Chest is symmetric without chest wall deformities. Right chest wall port insertion site is unremarkable. Abdomen Non-tender, non-distended, no masses or ascites. Back/Spine Non-tender to palpation. Extremities The skin fissures have healed well. She has a small area left on her thumbs but that is healing well. She is keeping it moisturized. Musculoskeletal No tenderness or swelling, normal range of motion without obvious weakness. Integumentary No rashes or lesions. Neurologic No sensory or motor deficits, normal cerebellar function, normal gait. Psychiatric Alert and oriented times three. Coherent speech. Verbalizes understanding of our discussions today. Laboratory:Test performed on Nov 18, 2020 11:20 Sodium 132 mmol/L Potassium 4.1 mmol/L Chloride 93 mmol/L CO2 27 mmol/L Anion Gap 16.1 BUN 12 mg/dL Creatinine 0.4 mg/dL Cr Clearance (Est) 126.6800 mL/min eGFR 163.9 mL/min Glucose 232 mg/dL Osmolality - Calculated 281 mOsm/kg Calcium 9.9 mg/dL Protein, Total 6.7 g/dL Albumin 3.9 g/dL Globulin 2.8 g/dL Bilirubin, Total 0.4 mg/dL ALT (SGPT) 20 U/L AST (SGOT) 16 U/L Alkaline Phosphatase 183 IU/L WBC 5.4 10 3/uL RBC 4.00 10 6/uL HGB 12.9 g/dL HCT 38.6 % MCV 96.5 fL MCH 32.3 pg MCHC 33.4 g/dL RDW 13.4 % Platelet Count 232 10 3/cmm MPV 10.2 fL Neutrophils 4.93 10 3/uL Lymphocytes 0.4 10 3/uL Monocytes 0.1 10 3/uL Eosinophils 0.0 10 3/uL Basophils 0.0 10 3/uL Neutrophil % 90.7 % Lymphocyte % 7.0 % Monocyte % 1.5 % Eosinophil % 0.0 % Basophils % 0.2 % NRBC % 0 % Test performed on Sep 02, 2020 14:45 Anti-D Positive Blood Type AP Antibody Screen (Gel) NEGATIVE Test performed on Sep 02, 2020 14:35 ABO & Rh Type # 2 AP Test performed on Sep 02, 2020 13:50 Iron 84 mcg/dL Vitamin B12 > 2000 pg/mL Iron Binding Capacity (TIBC) 266 mcg/dl % Iron Saturation 31.5 % UIBC 182 mcg/dL Erythropoietin 88.7 mIU/mL Test performed on Aug 19, 2020 10:45 Manual Segs % 71 % Manual Bands % 5.0 % Manual Lymphs % 13 % Atypical Lymphs % 1.0 % Total Cells Counted 100 Manual Monos % 6.0 % Manual Eos % 0 % Manual Basos % 0.0 % Metamyelocytes % 4.0 % CBC Slide Review Slide Review Perform Anisocytosis 1+ Poikilocytosis 1+ Tear Drop Cells 1+ Platelet Estimate Normal Manual Segs Abs 6.2 10/cmm Manual Bands Abs 0.4 10 3/cmm Manual Neutrophils Abs 6.7 10 3/cmm Manual Monocytes Abs 0.5 10 3/cmm Manual Eosinophils Abs 0.0 10 3/cmm Manual Basophils Abs 0.0 10 3/cmm Test performed on Aug 04, 2020 13:55 Magnesium 2.1 mg/dL Polychromasia Trace Test performed on Jul 22, 2020 12:15 Ua Color Yellow Ua Appearance Clear Ua Glucose 1+ Ua Bilirubin 1+ Ua Ketones 1+ Ua Specific [place] 1.020 Ua Blood Neg Ua pH 6.5 Ua Protein Trace Ua Nitrites Negative Ua Leukocyte Esterase Negative Ua Micro: WBC 0-4 /hpf Ua Micro: RBC 0-4 /hpf Ua Micro: Squam Epith Cells 0-4 /hpf Ua Micro: Bacteria TRACE /hpf Ua Micro: Mucous 2+ /hpf Impression: 1. Multifocal left breast cancer, stage IIIA (T2, pN1a, M0), ER negative, SC negative, and HER-2 kika negative. 2. She underwent ultrasound directed core needle biopsy of the left breast on 04/02/2020 and she underwent left mastectomy with axillary sentinel lymph node biopsy on 05/20/2020. Plan: 1. Multifocal left breast cancer, stage IIIA (T2, pN1a, M0), ER negative, SC negative, and HER-[address] kika negative[address] scans showed small pulmonary nodules which were indeterminate, but early metastatic disease was not excluded. Bone scan was negative for metastatic disease. With those findings, she underwent left mastectomy with axillary sentinel lymph node biopsy on 05/20/2020. She was recommended to undergo adjuvant chemotherapy with dose dense Adriamycin/cyclophosphamide followed by weekly paclitaxel. She completed 4 cycles of Adriamycin/cyclophosphamide from 07/08/2020 through 08/20/2020. As of her follow-up visit on 09/02/2020 she had a significant decline in performance status and she had moderately severe anemia with hemoglobin decreased to 8.3 g. She was transfused PRBC and the taxane portion of her chemotherapy was delayed. There was no evidence of recurrent or metastatic disease on restaging with chest CT and bone scan. She then proceeded with cycle 1 of weekly paclitaxel on 09/23/2020. She tolerated it well, and completed her week 2 paclitaxel on 10/03/2020. She was unable to do week 3 due to inclement weather. She was delayed with cycle 3 for an additional two weeks due to significant fissures on her fingers and toes. That did resolve. She was able to resume cycle 3 on October 30, 2020 at reduced doses. A. Proceed with cycle 4 paclitaxel???steroid compliance confirmed. She will continue at the reduced dosing. B. I will have her switch from Zofran premed to Aloxi to see if this may help the day 3 and 4 slight nausea feeling that she is having. C. We will also have her try steroid taper and have her take 2 tablets on Tuesday 1 on and one on Tuesday to see if this will help the dry achiness/nausea/yuck feeling she is having starting day 4. D. Today's labs were reviewed with Mrs. Gonzalez and a copy was given to her. WBC 2.6, hemoglobin 13.3, platelets 195,000 ANC is 2420. Potassium 4.0 creatinine 0.5 LFTs are normal. Alk phos is chronically elevated and is 226 today which is stable. 2. She has significant chronic musculoskeletal pain, management of which has been problematic. At the present time her pain is being well controlled with Nucynta 100 mg 4 times daily. She will continue this regimen as it is working well at this time. 3. Skin fissures-chemo induced-currently resolved but advised to continue with supportive care. A. Continue with corn huskers lotion at least twice daily B. May try triple antiboitic ointment once or twice daily to affected areas if fissures attempt to recur. C. May try Vitamin E oil to fingers/hands and toes. D. Utilize gloves if doing cleaning or washing dishes. 4. Followup Plan A. Plan to return in 1 week for week 5/12 Taxol with CBC CMP. B. Ms. Gonzalez was instructed to contact us in interim should questions or problems arise. Signed By: Emerson Harris-, [facility] Phillip Michelle MD <<Signature on File>>
== END 2020-11-19 23:59 | disposition home or self-care (01) ==
LOC: ONCMED 05:34
PROVIDERS: Nurse Practitioner; Visit Provider Internal Medicine Medical Oncology
DX: Z51.11 Encounter for antineoplastic chemotherapy (principal); C50.812 Malignant neoplasm of overlapping sites of left female breast; R23.4 Changes in skin texture; T45.1X5D Adverse effect of antineoplastic and immunosuppressive drugs, subsequent encounter; G89.29 Other chronic pain; M79.10 Myalgia, unspecified site; Z17.1 Estrogen receptor negative status [ER-]; Z79.899 Other long term (current) drug therapy; Z90.12 Acquired absence of left breast and nipple; Z87.891 Personal history of nicotine dependence; Z79.52 Long term (current) use of systemic steroids
CPT/HCPCS: 36415; 80053; 85025; 96367; 96372; 96375; 96413; 99214; J1100; J1200; J1453; J1815; J2405; J2469; J3490; J7050; J9267

== ENCOUNTER 2020-12-16 05:31 | Outpatient (RCR) | payer MEDICAID, SELFPAY ==
[2020-11-25 10:11] LABS: Basophils % 0.4 %; Hematocrit 38.8 % (37.0-47.0); Lymphocytes # 0.3 10^3/uL (0.8-4.8); Lymphocytes % 11.6 %; Mean Corpuscular HGB Conc 33.5 g/dL (30.0-36.0); Mean Corpuscular Hemoglobin 31.8 pg (28.0-34.0); Mean Corpuscular Volume 94.9 fL (81-99); Mean Platelet Volume 9.6 fL (7.4-10.4); Monocytes # 0.1 10^3/uL (0.2-0.9); Monocytes % 3.2 %; Neutrophils # 2.38 10^3/uL (1.8-7.7); Neutrophils % 83.7 %; Nucleated Red Blood Cells % 0 %; Platelet Count 261 10^3/cmm (130-400); Red Blood Count 4.09 10^6/uL (4.1-5.3); White Blood Count 2.8 10^3/uL (4.0-10.0)
[2020-11-25 10:39] LABS: Alanine Aminotransferase 22 U/L (0-33); Alkaline Phosphatase 185 IU/L (35-105); Anion Gap 13.7 (5-19); Aspartate Amino Transferase 16 U/L (0-32); Blood Urea Nitrogen 7 mg/dL (6-20); Calcium 9.4 mg/dL (8.5-10.5); Carbon Dioxide 27 mmol/L (22-29); Chloride 98 mmol/L (98-107); Globulin 2.6 g/dL (1.3-4.6); Glomerular Filtration Rate 163.4 mL/min (90-130); Glucose 217 mg/dL (65-115); Osmolality Calculated 285 mOsm/kg (285-295); Potassium 3.7 mmol/L (3.5-5.1); Sodium 135 mmol/L (136-145); Total Bilirubin 0.4 mg/dL (0.15-1.2); Total Protein 6.6 g/dL (6.6-8.7)
[2020-11-25] MEDS: sodium chloride 0.9% 250 ML 75 ML IV (12:30)
[2020-11-25] MEDS: acetaminophen 325 mg Tablet 650 MG PO (12:35)
[2020-11-25] MEDS: famotidine 20 mg/2 mL INJ IVP (12:36)
[2020-11-25] MEDS: diphenhydrAMINE 50 mg/mL SDV 1mL 25 MG IVP (12:38)
[2020-11-25] MEDS: ondansetron 2 mg/ML SDV 2 mL 8 MG IVP (12:42)
[2020-11-25 17:23] LABS: Thyroid Stimulating Hormone 0.28 uIU/mL (0.27-4.20)
[2020-12-02 09:24] LABS: Hematocrit 34.1 % (37.0-47.0); Hemoglobin 11.6 g/dL (11.5-15.3); Lymphocytes # 0.3 10^3/uL (0.8-4.8); Lymphocytes % 7.8 %; Mean Corpuscular Hemoglobin 32.1 pg (28.0-34.0); Mean Corpuscular Volume 94.5 fL (81-99); Mean Platelet Volume 9.8 fL (7.4-10.4); Monocytes # 0.1 10^3/uL (0.2-0.9); Monocytes % 2.4 %; Neutrophils # 3.63 10^3/uL (1.8-7.7); Neutrophils % 88.8 %; Nucleated Red Blood Cells % 0 %; Platelet Count 227 10^3/cmm (130-400); Red Blood Count 3.61 10^6/uL (4.1-5.3); Red Cell Distribution Width 14.6 % (12.1-15.1); White Blood Count 4.1 10^3/uL (4.0-10.0)
[2020-12-02 09:40] LABS: Alanine Aminotransferase 22 U/L (0-33); Albumin Level 3.6 g/dL (3.5-5.2); Alkaline Phosphatase 162 IU/L (35-105); Anion Gap 15.3 (5-19); Aspartate Amino Transferase 18 U/L (0-32); Blood Urea Nitrogen 8 mg/dL (6-20); Carbon Dioxide 26 mmol/L (22-29); Chloride 95 mmol/L (98-107); Globulin 2.7 g/dL (1.3-4.6); Glomerular Filtration Rate 163.4 mL/min (90-130); Glucose 251 mg/dL (65-115); Osmolality Calculated 283 mOsm/kg (285-295); Potassium 3.3 mmol/L (3.5-5.1); Sodium 133 mmol/L (136-145); Total Bilirubin 0.7 mg/dL (0.15-1.2); Total Protein 6.3 g/dL (6.6-8.7)
[2020-12-02] MEDS: acetaminophen 325 mg Tablet 650 MG PO (11:15)
[2020-12-02] MEDS: sodium chloride 0.9% 250 ML IV (11:15)
[2020-12-02] MEDS: famotidine 20 mg/2 mL INJ IVP (11:15)
[2020-12-02] MEDS: ondansetron 2 mg/ML SDV 2 mL 8 MG IVP (11:17)
[2020-12-02 11:28] LABS: Add Urine Microscopic? YES; Bilirubin Urine Neg (Negative); Blood Urine 3+ (Negative); Glucose Urine UA 2+ (Normal); Ketones Urine Negative (Negative); Leukocyte Esterase Urine 2+ (Negative); Nitrate Urine Negative (Negative); Protein Urine 1+ (Negative); Squamous Epithelial Cell Urine 0-4 /hpf (0-5); Urine Appearance Cloudy (CLEAR); Urine Color Yellow (Yellow); Urobilinogen Urine Norm (Negative); WBC Urine 55-80 /hpf (0-5); pH Urine 5 (5-7)
[2020-12-02 11:29] LABS: Add Urine Culture? Yes; Bacteria Urine 1+ /hpf; Mucus Urine TRACE /hpf
[2020-12-02] MEDS: sodium chloride 0.9% (100 ml) 100 ML (11:40)
[2020-12-02] MEDS: diphenhydrAMINE 50 mg/mL SDV 1mL 25 MG IVP (11:40)
--- NOTE | 2020-12-06 11:26 | ONC FU_ITS ---
[facility] Patient Note Patient: Tiara Gonzalez Unit #: [id number]: 1960 Dictated By: Emerson HarrisDate of Visit: Nov 25, 2020 Onc MED Follow-Up/Prog Note Chief Complaint: Breast cancer. History of Present Illness: Ms Gonzalez is a 60 year-old woman with multifocal left breast cancer, stage IIIA (T2, pN1a, M0), ER negative, MN negative, and HER-2 kika negative. She had presented to [facility] on 03/21/2020 with a lump in her left breast. Diagnostic mammogram on 03/25/2020 showed a dense well-circumscribed mass measuring 3.1 x 2.8 cm. Ultrasound showed a large cystic and solid complex lesion at the 11 to 2 o'clock position of the left breast measuring 3.1 x 2.3 x 2.7 cm. A hypoechoic lobulated lesion at 2:00 measured 7.6 x 4.5 x 7.0 mm. 2 additional hypoechoic lesions at the 1:00 and 2 o'clock position located 5 cm from the nipple appeared to represent intramammary lymph nodes. Several slightly prominent lymph nodes were noted in the left axilla measuring up to 1.4 cm in maximum diameter were noted to have preserved fatty hilum without significant cortical thickening, felt to most likely be reactive. She had underwent ultrasound directed core needle biopsy of the 11:00 mass and the 2:00 mass on 04/02/2020. 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 The breast prognostic profile on that lesion showed ER and MN both negative at <1%. The tumor was negative for overexpression of HER-2/kika, 1+ by IHC and amplification ratio by FISH at 1.0 with 1.9 HER-2 copies/cell. The Ki-67 was unfavorable at 18%. The lesion at 2:00 showed invasive ductal carcinoma, poorly differentiated, grade 3. 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 Dr Michelle had seen her initially on 04/11/2020. At that time she had multiple complains, significant enough that he was concerned about the possibility of metatstatic disease. Her baseline laboratory studies were unremarkable except for slightly elevated liver enzymes. Her brain MRI showed no evidence of metastatic disease. Staging CT scans of the chest, abdomen, and pelvis on 05/05/2020 showed hepatic steatosis but no metastatic disease in the abdomen or pelvis. The chest showed multilobar subcentimeter pulmonary nodules which were indeterminate but new compared to a prior study from 2018. Bone scan showed mild degenerative changes at the ankle joints and knee joints. There was no significant evidence for metastatic disease. In the setting of multifocal disease with no evidence of metastatic involvement, she was advised to proceed with mastectomy. On 05/20/2020 she underwent left total mastectomy and left axillary sentinel lymph node biopsy. Pathology confirmed multifocal metaplastic carcinoma, grade 3, with giant cells, spindle cells, chondroid and osteoid differentiation. The largest focus of involvement measured 3.8 cm. The margins were free, with the closest being the deep margin at 9 mm. There was a component of ductal carcinoma in situ, solid and cribriform type with comedonecrosis, grade 3. The closest margin to DCIS was 7 mm. 2 intramammary lymph nodes were positive for metastatic involvement, 1 of which showed extracapsular extension. There was no involvement in 4 axillary sentinel lymph nodes. Pathologic staging was pT2, pN1a. She had staging evaluation with CT chest, abdomen, and pelvis along with nuclear medicine bone scan on 05/05/2020. The bone scan was negative. The chest CT showed several new areas of groundglass attenuation and spiculated nodules involving both lung gallagher, early metastatic disease not excluded. There was evidence of hepatic steatosis, but there were no other findings which were suspicious for metastatic involvement. With those findings, she was recommended to undergo adjuvant chemotherapy with dose dense Adriamycin/cyclophosphamide followed by weekly paclitaxel. She began cycle 1 of Adriamycin/cyclophosphamide on 07/08/2020. She was able to tolerated with acceptable toxicity, and she continued with cycle 2 on 07/22/2020. With cycle 3 on 08/05/2020 she did receive a dose reduction due to neutropenia. She continued with cycle 4 on 08/20/2020. Dr Michelle had seen her for a follow-up visit on 09/02/2020. At that point she had experienced a significant decline in her performance status. She had moderately severe anemia with hemoglobin decreased to 8.3 g. She also is having significant bone pain. As she was symptomatic with the anemia, it was optd to transfuse PRBC and delay the taxane portion of her chemotherapy. She had restaging with chest CT and bone scan. Neither study showed any evidence of metastatic disease. She then proceeded to cycle 1 of weekly paclitaxel on 09/23/2020. She initially tolerated it well, but her treatment had to be put on hold after her 2nd weekly infusion due to development of significant skin changes in both hands. After a 4-week delay she was able to continue with her week 3 treatment. It was administered with a dose reduction. She tolerated it with acceptable toxicity and she continued with week 5 paclitaxel on 11/18/2020. Ms. Gonzalez is here today for follow-up. She is due for cycle 6 of paclitaxel. She states she is doing well overall. She states she only had 2 days of diarrhea and that actually occurred on Tuesday and Tuesday just prior to her visit today. She states she did take Imodium. She is had no further issues. She denies any diarrhea today. She states she did have some chills but that is not uncommon for her. She denies any actual fever. She denies mouth sores, sore throat or difficulty swallowing. She is had no recurrence of the skin fissures on her hands and the ones on her thumb are essentially healed at this point. She states that she has good energy but she does tire easily. She recovers well with rest. She denies any trouble sleeping. She states she does feels cold all the time. She denies any appetite changes. She denies any neuropathy symptoms. She states that she will have the diarrhea for those 2 days which was this last Tuesday and Tuesday. She denies any constipation. She has had no urinary changes. She denies any hematuria. She denies any pain at present. She states her chronic pain is stable. Although her performance status is improving her ECOG remains at 2. Past Medical History: Ms. Gonzalez's medical history is unremarkable. Past Surgical History: Caesarean section Right ankle repair Right knee repair Right internal juglar PowerPort per Dr Tejada in 2019 Allergies: No Known Allergies. Medications: Gabapentin 1 Capsule (of 100 mg) Oral t.i.d. Nucynta 1 Tablet (of 100 mg) Oral four times a day PRN Prochlorperazine Maleate 1 - 2 Tablet (of 10 mg) Oral daily PRN traZODone HCl 1 Tablet (of 50 mg) Oral at bedtime Zofran 1 - 2 Tablet (of 4 mg) Oral four times a day PRN Family History: Ms. Gonzalez's mother is alive. Ms. Gonzalez's father at age 75: heart disease. Ms. Gonzalez has 1 sister who is alive: breast cancer. She has 1 maternal aunt who is : colon cancer. Father of heart disease at age 75. Mother is living at age 82. A 64-year-old sister has been treated for breast cancer. A maternal aunt of colon cancer. Social History: Ms. Gonzalez is and she is retired. Ms. Gonzalez no longer smokes but had smoked 2.0 packs/day. She has no history of drinking. She has indicated exposure to the following products: cigarettes and recreational drug use. Ms. Gonzalez reports the following support systems: lives alone, lives in own house, supportive family/friends willing to assist with needs, and adequate transportation available for expected visits. Her diet consists of regular meals. She indicates her activity level as: regular exercise. Review Of Symptoms: Vital Signs: Performed on Nov 25, 2020 14:40 Height - 62.00 in Temperature - 97.2 F (LOW) Pulse - 71 /min Respiration - 16 /min BP - 135/73 mm(hg) O2 Sat - 99 % Performed on Nov 25, 2020 11:27 Height - 62.00 in Weight - 114.4 lbs (LOW) BSA - 1.51 sq.m BMI - 20.92 Temperature - 97.0 F (LOW) Pulse - 92 /min Respiration - 18 /min BP - 118/68 mm(hg) O2 Sat - 96 % Pain - 8,2 - Ambulatory/capable of all self-care, unable to perform any work activities. Up and about more than 50% of waking hours. (ECOG) Physical Examination: Constitutional Alert, oriented, no acute distress. Skin pink, warm and dry. Alopecia. Head Normocephalic; atraumatic. Eyes Conjunctivae and sclerae are clear and without icterus. Pupils are reactive and equal. ENMT No oral exudates. Healed ulcers noted on lower lip area, but no masses, thrush or mucositis. Oropharynx clear. Tongue normal. Neck Supple without masses or thyromegaly. No jugular venous distension. Hematologic/Lymphatic No petechiae or purpura. No tender or palpable lymph nodes in the cervical or supraclavicular areas. Respiratory Lungs are clear to auscultation without rhonchi or wheezing. Cardiovascular Regular rate and rhythm of heart without murmurs,clicks, gallops or rubs. Chest Chest is symmetric without chest wall deformities. Right chest wall port insertion site is unremarkable. Abdomen Non-tender, non-distended, no masses or ascites. Back/Spine Non-tender to palpation. Extremities The skin fissures have healed well. She has a small area left on her thumbs but that is healing well and is almost resolved completely. She is keeping it moisturized. Musculoskeletal No tenderness or swelling, normal range of motion without obvious weakness. Integumentary No rashes or lesions. Neurologic No sensory or motor deficits, normal cerebellar function, normal gait. Psychiatric Alert and oriented times three. Coherent speech. Verbalizes understanding of our discussions today. Laboratory:HCT 34.1 % MCV 94.5 fL MCH 32.1 pg MCHC 34.0 g/dL RDW 14.6 % Platelet Count 227 10 3/cmm MPV 9.8 fL Neutrophils 3.63 10 3/uL Lymphocytes 0.3 10 3/uL Monocytes 0.1 10 3/uL Eosinophils 0.0 10 3/uL Basophils 0.0 10 3/uL Neutrophil % 88.8 % Lymphocyte % 7.8 % Monocyte % 2.4 % Eosinophil % 0.0 % Basophils % 0.0 % NRBC % 0 % Test performed on Nov 25, 2020 09:50 TSH 0.28 uIU/mL Test performed on Sep 02, 2020 14:45 Anti-D Positive Blood Type AP Antibody Screen (Gel) NEGATIVE Impression: 1. Multifocal left breast cancer, stage IIIA (T2, pN1a, M0), ER negative, MN negative, and HER-2 kika negative. 2. She underwent ultrasound directed core needle biopsy of the left breast on 04/02/2020 and she underwent left mastectomy with axillary sentinel lymph node biopsy on 05/20/2020. Plan: 1. Multifocal left breast cancer, stage IIIA (T2, pN1a, M0), ER negative, MN negative, and HER-[address] kika [address] scans showed small pulmonary nodules which were indeterminate, but early metastatic disease was not excluded. Bone scan was negative for metastatic disease. With those findings, she underwent left mastectomy with axillary sentinel lymph node biopsy on 05/20/2020. She was recommended to undergo adjuvant chemotherapy with dose dense Adriamycin/cyclophosphamide followed by weekly paclitaxel. She completed 4 cycles of Adriamycin/cyclophosphamide from 07/08/2020 through 08/20/2020. As of her follow-up visit on 09/02/2020 she had a significant decline in performance status and she had moderately severe anemia with hemoglobin decreased to 8.3 g. She was transfused PRBC and the taxane portion of her chemotherapy was delayed. There was no evidence of recurrent or metastatic disease on restaging with chest CT and bone scan. She then proceeded with cycle 1 of weekly paclitaxel on 09/23/2020. She tolerated it well, and completed her week 2 paclitaxel on 10/03/2020. She was unable to do week 3 due to inclement weather. She was delayed with cycle 3 for an additional two weeks due to significant fissures on her fingers and toes. That did resolve. She was able to resume cycle 3 on October 30, 2020 at reduced doses. A. Proceed with cycle 5 paclitaxel???steroid compliance confirmed. She will continue at the reduced dosing. B. I did switch from Zofran premed to Aloxi to see if this may help the day 3 and 4 slight nausea feeling as reported on previous visit. This has helped. We will continue the Aloxi for now. C. She may try steroid taper and have her take 2 tablets on Tuesday 1 on and one on Tuesday to see if this will help the dry achiness/nausea/yuck feeling she is having starting day 4. D. Today's labs were reviewed with Mrs. Gonzalez and a copy was given to her. WBC 2.8, hemoglobin 13.0, platelets 261,000 ANC is 2380. Potassium 3.7 creatinine 0.4, LFTs are normal. Alk phos is chronically elevated and is 185 today which is down a lttle from her last test. 2. She has significant chronic musculoskeletal pain, management of which has been problematic. a. At the present time her pain is being well controlled with Nucynta 100 mg 4 times daily. She will continue this regimen as it is working well at this time. 3. Skin fissures-chemo induced-currently resolved but advised to continue with supportive care. A. Continue with corn huskers lotion at least twice daily B. May try triple antiboitic ointment once or twice daily to affected areas if fissures attempt to recur. C. May try Vitamin E oil to fingers/hands and toes. D. Utilize gloves if doing cleaning or washing dishes. E. I did request a TSH to be added to blood in lab for evaluation of her persistent concerns of being cold/cold-intolerance. 4. Followup Plan A. Plan to return in 1 week for week 6/12 Taxol with CBC CMP. B. Ms. Gonzalez was instructed to contact us in interim should questions or problems arise. Signed By: Emerson Harris <<Signature on File>>
--- NOTE | 2020-12-08 22:30 | ONC FU_ITS ---
[facility] Patient Note Patient: Tiara Gonzalez Unit #: [id number]: 1960 Dictated By: Emerson HarrisDate of Visit: Dec 02, 2020 Onc MED Follow-Up/Prog Note Chief Complaint: Breast cancer. History of Present Illness: Ms Gonzalez is a 60 year-old woman with multifocal left breast cancer, stage IIIA (T2, pN1a, M0), ER negative, AL negative, and HER-2 kika negative. She had presented to [facility] on 03/21/2020 with a lump in her left breast. Diagnostic mammogram on 03/25/2020 showed a dense well-circumscribed mass measuring 3.1 x 2.8 cm. Ultrasound showed a large cystic and solid complex lesion at the 11 to 2 o'clock position of the left breast measuring 3.1 x 2.3 x 2.7 cm. A hypoechoic lobulated lesion at 2:00 measured 7.6 x 4.5 x 7.0 mm. 2 additional hypoechoic lesions at the 1:00 and 2 o'clock position located 5 cm from the nipple appeared to represent intramammary lymph nodes. Several slightly prominent lymph nodes were noted in the left axilla measuring up to 1.4 cm in maximum diameter were noted to have preserved fatty hilum without significant cortical thickening, felt to most likely be reactive. She had underwent ultrasound directed core needle biopsy of the 11:00 mass and the 2:00 mass on 04/02/2020. 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 The breast prognostic profile on that lesion showed ER and AL both negative at <1%. The tumor was negative for overexpression of HER-2/kika, 1+ by IHC and amplification ratio by FISH at 1.0 with 1.9 HER-2 copies/cell. The Ki-67 was unfavorable at 18%. The lesion at 2:00 showed invasive ductal carcinoma, poorly differentiated, grade 3. 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 Dr Michelle had seen her initially on 04/11/2020. At that time she had multiple complains, significant enough that Dr Michelle was concerned about the possibility of metatstatic disease. Her baseline laboratory studies were unremarkable except for slightly elevated liver enzymes. Her brain MRI showed no evidence of metastatic disease. Staging CT scans of the chest, abdomen, and pelvis on 05/05/2020 showed hepatic steatosis but no metastatic disease in the abdomen or pelvis. The chest showed multilobar subcentimeter pulmonary nodules which were indeterminate but new compared to a prior study from 2018. Bone scan showed mild degenerative changes at the ankle joints and knee joints. There was no significant evidence for metastatic disease. In the setting of multifocal disease with no evidence of metastatic involvement, she was advised to proceed with mastectomy. On 05/20/2020 she underwent left total mastectomy and left axillary sentinel lymph node biopsy. Pathology confirmed multifocal metaplastic carcinoma, grade 3, with giant cells, spindle cells, chondroid and osteoid differentiation. The largest focus of involvement measured 3.8 cm. The margins were free, with the closest being the deep margin at 9 mm. There was a component of ductal carcinoma in situ, solid and cribriform type with comedonecrosis, grade 3. The closest margin to DCIS was 7 mm. 2 intramammary lymph nodes were positive for metastatic involvement, 1 of which showed extracapsular extension. There was no involvement in 4 axillary sentinel lymph nodes. Pathologic staging was pT2, pN1a. She had staging evaluation with CT chest, abdomen, and pelvis along with nuclear medicine bone scan on 05/05/2020. The bone scan was negative. The chest CT showed several new areas of groundglass attenuation and spiculated nodules involving both lung gallagher, early metastatic disease not excluded. There was evidence of hepatic steatosis, but there were no other findings which were suspicious for metastatic involvement. With those findings, she was recommended to undergo adjuvant chemotherapy with dose dense Adriamycin/cyclophosphamide followed by weekly paclitaxel. She began cycle 1 of Adriamycin/cyclophosphamide on 07/08/2020. She was able to tolerated with acceptable toxicity, and she continued with cycle 2 on 07/22/2020. With cycle 3 on 08/05/2020 she did receive a dose reduction due to neutropenia. She continued with cycle 4 on 08/20/2020. Dr Michelle had seen her for a follow-up visit on 09/02/2020. At that point she had experienced a significant decline in her performance status. She had moderately severe anemia with hemoglobin decreased to 8.3 g. She also is having significant bone pain. As she was symptomatic with the anemia, it was opted to transfuse PRBC and delay the taxane portion of her chemotherapy. She had restaging with chest CT and bone scan. Neither study showed any evidence of metastatic disease. She then proceeded to cycle 1 of weekly paclitaxel on 09/23/2020. She initially tolerated it well, but her treatment had to be put on hold after her 2nd weekly infusion due to development of significant skin changes in both hands. After a 4-week delay she was able to continue with her week 3 treatment. It was administered with a dose reduction. She tolerated it with acceptable toxicity and she continued with week four paclitaxel on 11/11/2020. Ms. Gonzalez is here today for follow-up. She is due for week 7 paclitaxel. Overall she is tolerating it well. She states that she has had no fever or chills. She denies any shortness of breath orthopnea. She is had no trouble swallowing. She denies any cough or hemoptysis. She denies any nausea or vomiting. She has had no hematochezia. She denies any new pain. She states she is having some bladder frequency and feels that at this may have a urinary tract infection . She denies any abnormal discharge or urine color. She states it does have a slight odor. She states the symptoms have been going on for the last 3 to 5 days. She states she has tried drinking some cranberry juice and that just really has not seemed to help. She denies any neuropathy symptoms. She denies any mouth sores. She states overall she thinks she is doing better and feels better in general. Her ECOG is 2. Past Medical History: Ms. Gonzalez's medical history is unremarkable. Past Surgical History: Caesarean section Right ankle repair Right knee repair Right internal juglar PowerPort per Dr Tejada in 2019 Allergies: No Known Allergies. Medications: Gabapentin 1 Capsule (of 100 mg) Oral t.i.d. Nucynta 1 Tablet (of 100 mg) Oral four times a day PRN Prochlorperazine Maleate 1 - 2 Tablet (of 10 mg) Oral daily PRN traZODone HCl 1 Tablet (of 50 mg) Oral at bedtime Zofran 1 - 2 Tablet (of 4 mg) Oral four times a day PRN Family History: Ms. Krishnas mother is alive. Ms. Gonzalez's father at age 75: heart disease. Ms. Gonzalez has 1 sister who is alive: breast cancer. She has 1 maternal aunt who is : colon cancer. Father of heart disease at age 75. Mother is living at age 82. A 64-year-old sister has been treated for breast cancer. A maternal aunt of colon cancer. Social History: Ms. Gonzalez is and she is retired. Ms. Gonzalez no longer smokes but had smoked 2.0 packs/day. She has no history of drinking. She has indicated exposure to the following products: cigarettes and recreational drug use. Ms. Gonzalez reports the following support systems: lives alone, lives in own house, supportive family/friends willing to assist with needs, and adequate transportation available for expected visits. Her diet consists of regular meals. She indicates her activity level as: regular exercise. Review Of Symptoms: Vital Signs: Performed on Dec 02, 2020 09:46 Height - 62.00 in Weight - 112.0 lbs (LOW) BSA - 1.49 sq.m BMI - 20.49 Temperature - 97.0 F (LOW) Pulse - 92 /min Respiration - 18 /min BP - 115/71 mm(hg) O2 Sat - 98 % Pain - 7,2 - Ambulatory/capable of all self-care, unable to perform any work activities. Up and about more than 50% of waking hours. (ECOG) Physical Examination: Constitutional Alert, oriented, no acute distress. Skin pink, warm and dry. Alopecia. Head Normocephalic; atraumatic. Eyes Conjunctivae and sclerae are clear and without icterus. Pupils are reactive and equal. ENMT No oral exudates. Healed ulcers noted on lower lip area, but no masses, thrush or mucositis. Oropharynx clear. Tongue normal. Hematologic/Lymphatic No petechiae or purpura. No tender or palpable lymph nodes in the cervical or supraclavicular areas. Respiratory Lungs are clear to auscultation without rhonchi or wheezing. Cardiovascular Regular rate and rhythm of heart without murmurs,clicks, gallops or rubs. Chest Chest is symmetric without chest wall deformities. Right chest wall port insertion site is unremarkable. Abdomen Non-tender, non-distended, no masses or ascites. Back/Spine Non-tender to palpation. Extremities The skin fissures have healed well. Musculoskeletal No tenderness or swelling, normal range of motion without obvious weakness. Integumentary No rashes or lesions. Neurologic No sensory or motor deficits, normal cerebellar function, slow, normal for her gait. Psychiatric Alert and oriented times three. Coherent speech. Verbalizes understanding of our discussions today. Laboratory:Test performed on Dec 02, 2020 10:00 Ua Color Yellow Ua Appearance Cloudy Ua Glucose 2+ Ua Bilirubin Neg Ua Ketones Negative Ua Specific [place] 1.020 Ua Blood 3+ Ua pH 5 Ua Protein 1+ Ua Nitrites Negative Ua Leukocyte Esterase 2+ Ua Micro: WBC 55-80 /hpf Ua Micro: RBC 5-10 /hpf Ua Micro: Squam Epith Cells 0-4 /hpf Ua Micro: Bacteria 1+ /hpf Ua Micro: Mucous TRACE /hpf Test performed on Dec 02, 2020 08:55 Sodium 133 mmol/L Potassium 3.3 mmol/L Chloride 95 mmol/L CO2 26 mmol/L Anion Gap 15.3 BUN 8 mg/dL Creatinine 0.4 mg/dL Cr Clearance (Est) 125.1400 mL/min eGFR 163.4 mL/min Glucose 251 mg/dL Osmolality - Calculated 283 mOsm/kg Calcium 9.0 mg/dL Protein, Total 6.3 g/dL Albumin 3.6 g/dL Globulin 2.7 g/dL Bilirubin, Total 0.7 mg/dL ALT (SGPT) 22 U/L AST (SGOT) 18 U/L Alkaline Phosphatase 162 IU/L WBC 4.1 10 3/uL RBC 3.61 10 6/uL HGB 11.6 g/dL HCT 34.1 % MCV 94.5 fL MCH 32.1 pg MCHC 34.0 g/dL RDW 14.6 % Platelet Count 227 10 3/cmm MPV 9.8 fL Neutrophils 3.63 10 3/uL Lymphocytes 0.3 10 3/uL Monocytes 0.1 10 3/uL Eosinophils 0.0 10 3/uL Basophils 0.0 10 3/uL Neutrophil % 88.8 % Lymphocyte % 7.8 % Monocyte % 2.4 % Eosinophil % 0.0 % Basophils % 0.0 % NRBC % 0 % Test performed on Nov 25, 2020 09:50 TSH 0.28 uIU/mL Test performed on Sep 02, 2020 14:45 Anti-D Positive Blood Type AP Antibody Screen (Gel) NEGATIVE Test performed on Sep 02, 2020 14:35 ABO & Rh Type # 2 AP Test performed on Sep 02, 2020 13:50 Iron 84 mcg/dL Vitamin B12 > 2000 pg/mL Iron Binding Capacity (TIBC) 266 mcg/dl % Iron Saturation 31.5 % UIBC 182 mcg/dL Erythropoietin 88.7 mIU/mL Test performed on Aug 19, 2020 10:45 Manual Segs % 71 % Manual Bands % 5.0 % Manual Lymphs % 13 % Atypical Lymphs % 1.0 % Total Cells Counted 100 Manual Monos % 6.0 % Manual Eos % 0 % Manual Basos % 0.0 % Metamyelocytes % 4.0 % CBC Slide Review Slide Review Perform Anisocytosis 1+ Poikilocytosis 1+ Tear Drop Cells 1+ Platelet Estimate Normal Manual Segs Abs 6.2 10/cmm Manual Bands Abs 0.4 10 3/cmm Manual Neutrophils Abs 6.7 10 3/cmm Manual Monocytes Abs 0.5 10 3/cmm Manual Eosinophils Abs 0.0 10 3/cmm Manual Basophils Abs 0.0 10 3/cmm Test performed on Aug 04, 2020 13:55 Magnesium 2.1 mg/dL Polychromasia Trace Impression: 1. Multifocal left breast cancer, stage IIIA (T2, pN1a, M0), ER negative, AL negative, and HER-2 kika negative. 2. She underwent ultrasound directed core needle biopsy of the left breast on 04/02/2020 and she underwent left mastectomy with axillary sentinel lymph node biopsy on 05/20/2020. Plan: 1. Multifocal left breast cancer, stage IIIA (T2, pN1a, M0), ER negative, AL negative, and HER-[address] kika [address] scans showed small pulmonary nodules which were indeterminate, but early metastatic disease was not excluded. Bone scan was negative for metastatic disease. With those findings, she underwent left mastectomy with axillary sentinel lymph node biopsy on 05/20/2020. She was recommended to undergo adjuvant chemotherapy with dose dense Adriamycin/cyclophosphamide followed by weekly paclitaxel. She completed 4 cycles of Adriamycin/cyclophosphamide from 07/08/2020 through 08/20/2020. As of her follow-up visit on 09/02/2020 she had a significant decline in performance status and she had moderately severe anemia with hemoglobin decreased to 8.3 g. She was transfused PRBC and the taxane portion of her chemotherapy was delayed. There was no evidence of recurrent or metastatic disease on restaging with chest CT and bone scan. She then proceeded with cycle 1 of weekly paclitaxel on 09/23/2020. She tolerated it well, and completed her week 2 paclitaxel on 10/03/2020. She was unable to do week 3 due to inclement weather. She was delayed with cycle 3 for an additional two weeks due to significant fissures on her fingers and toes. That did resolve. She was able to resume cycle 3 on October 30, 2020 at reduced doses. A. Proceed with cycle 7 paclitaxel???steroid compliance confirmed. She will continue at the reduced dosing. B. I did switch from Zofran premed to Aloxi to see if this may help the day 3 and 4 slight nausea feeling as reported on previous visit. This has helped. We will continue the Aloxi for now. C. She may try steroid taper and have her take 2 tablets on Tuesday 1 on and one on Tuesday to see if this will help the dry achiness/nausea/yuck feeling she is having starting day 4. D. Today's labs were reviewed with Mrs. Gonzalez and a copy was given to her. WBC 4.1, hemoglobin 11.6, platelets 227,000, ANC is 3630. Potassium 3.3 random glucose 251. Creatinine 0.4 and LFTs are normal. Her alk phos is improved at 162. Her weight is 112 today. Her TSH was normal at 0.28. 2. She has significant chronic musculoskeletal pain, management of which has been problematic. a. At the present time her pain is being well controlled with Nucynta 100 mg 4 times daily. She will continue this regimen as it is working well at this time. 3. Skin fissures-chemo induced-currently resolved but advised to continue with supportive care. A. Continue with corn huskers lotion at least twice daily B. May try triple antiboitic ointment once or twice daily to affected areas if fissures attempt to recur. C. May try Vitamin E oil to fingers/hands and toes. D. Utilize gloves if doing cleaning or washing dishes. 4. Urinary frequency A. I did request a UA today for evaluation of her urinary frequency and abnormal odor. We will call her with results of that once available. 5. Followup Plan A. Plan to return in 1 week for week 04/02 Taxol with CBC CMP. B. Ms. Gonzalez was instructed to contact us in interim should questions or problems arise. Signed By: Emerson Harris-, [facility] Phillip Michelle MD <<Signature on File>>
[2020-12-09 09:04] LABS: Basophils % 0.3 %; Hematocrit 33.8 % (37.0-47.0); Hemoglobin 11.5 g/dL (11.5-15.3); Lymphocytes # 0.4 10^3/uL (0.8-4.8); Lymphocytes % 11.8 %; Mean Corpuscular Hemoglobin 31.3 pg (28.0-34.0); Mean Corpuscular Volume 92.1 fL (81-99); Mean Platelet Volume 9.3 fL (7.4-10.4); Monocytes # 0.2 10^3/uL (0.2-0.9); Neutrophils # 2.77 10^3/uL (1.8-7.7); Neutrophils % 81.4 %; Nucleated Red Blood Cells % 0 %; Platelet Count 324 10^3/cmm (130-400); Red Blood Count 3.67 10^6/uL (4.1-5.3); White Blood Count 3.4 10^3/uL (4.0-10.0)
[2020-12-09 09:26] LABS: Alanine Aminotransferase 22 U/L (0-33); Albumin Level 3.6 g/dL (3.5-5.2); Alkaline Phosphatase 155 IU/L (35-105); Anion Gap 16.1 (5-19); Aspartate Amino Transferase 16 U/L (0-32); Blood Urea Nitrogen 5 mg/dL (6-20); Carbon Dioxide 25 mmol/L (22-29); Chloride 93 mmol/L (98-107); Globulin 2.5 g/dL (1.3-4.6); Glomerular Filtration Rate 126.3 mL/min (90-130); Glucose 265 mg/dL (65-115); Osmolality Calculated 279 mOsm/kg (285-295); Potassium 3.1 mmol/L (3.5-5.1); Sodium 131 mmol/L (136-145); Total Bilirubin 0.3 mg/dL (0.15-1.2); Total Protein 6.1 g/dL (6.6-8.7)
[2020-12-09] MEDS: famotidine 20 mg/2 mL INJ IVP (11:33)
[2020-12-09] MEDS: sodium chloride 0.9% 250 ML 75 ML IV (11:33)
[2020-12-09] MEDS: ondansetron 2 mg/ML SDV 2 mL 8 MG IVP (11:35)
[2020-12-09] MEDS: diphenhydrAMINE 50 mg/mL SDV 1mL 25 MG IVP (11:37)
[2020-12-09] MEDS: acetaminophen 325 mg Tablet 650 MG PO (11:40)
--- NOTE | 2020-12-16 00:12 | ONC FU_ITS ---
[facility] Patient Note Patient: Tiara Gonzalez Unit #: [id number]: 1960 Dictated By: Emerson HarrisDate of Visit: Dec 09, 2020 Onc MED Follow-Up/Prog Note Chief Complaint: Breast cancer. History of Present Illness: Ms Gonzalez is a 60 year-old woman with multifocal left breast cancer, stage IIIA (T2, pN1a, M0), ER negative, NH negative, and HER-2 kika negative. She had presented to [facility] on 03/21/2020 with a lump in her left breast. Diagnostic mammogram on 03/25/2020 showed a dense well-circumscribed mass measuring 3.1 x 2.8 cm. Ultrasound showed a large cystic and solid complex lesion at the 11 to 2 o'clock position of the left breast measuring 3.1 x 2.3 x 2.7 cm. A hypoechoic lobulated lesion at 2:00 measured 7.6 x 4.5 x 7.0 mm. 2 additional hypoechoic lesions at the 1:00 and 2 o'clock position located 5 cm from the nipple appeared to represent intramammary lymph nodes. Several slightly prominent lymph nodes were noted in the left axilla measuring up to 1.4 cm in maximum diameter were noted to have preserved fatty hilum without significant cortical thickening, felt to most likely be reactive. She had underwent ultrasound directed core needle biopsy of the 11:00 mass and the 2:00 mass on 04/02/2020. 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 The breast prognostic profile on that lesion showed ER and NH both negative at <1%. The tumor was negative for overexpression of HER-2/kika, 1+ by IHC and amplification ratio by FISH at 1.0 with 1.9 HER-2 copies/cell. The Ki-67 was unfavorable at 18%. The lesion at 2:00 showed invasive ductal carcinoma, poorly differentiated, grade 3. 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 Dr Michelle had seen her initially on 04/11/2020. At that time she had multiple complains, significant enough that Dr Michelle was concerned about the possibility of metatstatic disease. Her baseline laboratory studies were unremarkable except for slightly elevated liver enzymes. Her brain MRI showed no evidence of metastatic disease. Staging CT scans of the chest, abdomen, and pelvis on 05/05/2020 showed hepatic steatosis but no metastatic disease in the abdomen or pelvis. The chest showed multilobar subcentimeter pulmonary nodules which were indeterminate but new compared to a prior study from 2018. Bone scan showed mild degenerative changes at the ankle joints and knee joints. There was no significant evidence for metastatic disease. In the setting of multifocal disease with no evidence of metastatic involvement, she was advised to proceed with mastectomy. On 05/20/2020 she underwent left total mastectomy and left axillary sentinel lymph node biopsy. Pathology confirmed multifocal metaplastic carcinoma, grade 3, with giant cells, spindle cells, chondroid and osteoid differentiation. The largest focus of involvement measured 3.8 cm. The margins were free, with the closest being the deep margin at 9 mm. There was a component of ductal carcinoma in situ, solid and cribriform type with comedonecrosis, grade 3. The closest margin to DCIS was 7 mm. 2 intramammary lymph nodes were positive for metastatic involvement, 1 of which showed extracapsular extension. There was no involvement in 4 axillary sentinel lymph nodes. Pathologic staging was pT2, pN1a. She had staging evaluation with CT chest, abdomen, and pelvis along with nuclear medicine bone scan on 05/05/2020. The bone scan was negative. The chest CT showed several new areas of groundglass attenuation and spiculated nodules involving both lung gallagher, early metastatic disease not excluded. There was evidence of hepatic steatosis, but there were no other findings which were suspicious for metastatic involvement. With those findings, she was recommended to undergo adjuvant chemotherapy with dose dense Adriamycin/cyclophosphamide followed by weekly paclitaxel. She began cycle 1 of Adriamycin/cyclophosphamide on 07/08/2020. She was able to tolerated with acceptable toxicity, and she continued with cycle 2 on 07/22/2020. With cycle 3 on 08/05/2020 she did receive a dose reduction due to neutropenia. She continued with cycle 4 on 08/20/2020. Dr Michelle had seen her for a follow-up visit on 09/02/2020. At that point she had experienced a significant decline in her performance status. She had moderately severe anemia with hemoglobin decreased to 8.3 g. She also is having significant bone pain. As she was symptomatic with the anemia, it was opted to transfuse PRBC and delay the taxane portion of her chemotherapy. She had restaging with chest CT and bone scan. Neither study showed any evidence of metastatic disease. She then proceeded to cycle 1 of weekly paclitaxel on 09/23/2020. She initially tolerated it well, but her treatment had to be put on hold after her 2nd weekly infusion due to development of significant skin changes in both hands. After a 4-week delay she was able to continue with her week 3 treatment. It was administered with a dose reduction. She tolerated it with acceptable toxicity and she continued with week four paclitaxel on 11/11/2020. Ms. Gonzalez is here today for follow-up. She is due for week 8/12 paclitaxel. She has no new concerns today. She states she feels good overall. She states she is eating well. She denies any fever or chills. She states that her energy is still low but she has been playing with her grandkids and is getting better. She states that her breathing is about the same. She states she thinks it is better. She denies any cough. She denies any hemoptysis. She denies any nausea or vomiting. She states she has had no diarrhea or constipation. States she has more constipation than anything but it has been controlled. She denies any peripheral neuropathy symptoms. She denies mouth sores, sore throat or difficulty swallowing. She states overall she feels she is doing well. She continues to have alopecia but states she is feels that there is some hair growth recurring. She again denies any new concerns today. Her ECOG is 2. Past Medical History: Ms. Gonzalez's medical history is unremarkable. Past Surgical History: Caesarean section Right ankle repair Right knee repair Right internal juglar [employer]Port per Dr Tejada in 2019 Allergies: No Known Allergies. Medications: Gabapentin 1 Capsule (of 100 mg) Oral t.i.d. Nucynta 1 Tablet (of 100 mg) Oral four times a day PRN Prochlorperazine Maleate 1 - 2 Tablet (of 10 mg) Oral daily PRN traZODone HCl 1 Tablet (of 50 mg) Oral at bedtime Zofran 1 - 2 Tablet (of 4 mg) Oral four times a day PRN Family History: Ms. Krishnas mother is alive. Ms. Gonzalez's father at age 75: heart disease. Ms. Gonzalez has 1 sister who is alive: breast cancer. She has 1 maternal aunt who is : colon cancer. Father of heart disease at age 75. Mother is living at age 82. A 64-year-old sister has been treated for breast cancer. A maternal aunt of colon cancer. Social History: Ms. Gonzalez is and she is retired. Ms. Gonzalez no longer smokes but had smoked 2.0 packs/day. She has no history of drinking. She has indicated exposure to the following products: cigarettes and recreational drug use. Ms. Gonzalez reports the following support systems: lives alone, lives in own house, supportive family/friends willing to assist with needs, and adequate transportation available for expected visits. Her diet consists of regular meals. She indicates her activity level as: regular exercise. Review Of Symptoms: see above Vital Signs: Performed on Dec 09, 2020 10:53 Height - 62.00 in Weight - 109.6 lbs (LOW) BSA - 1.48 sq.m BMI - 20.05 Temperature - 96.8 F (LOW) Pulse - 90 /min Respiration - 18 /min BP - 127/72 mm(hg) O2 Sat - 96 % Pain - 0 Fatigue - 6,2 - Ambulatory/capable of all self-care, unable to perform any work activities. Up and about more than 50% of waking hours. (ECOG) Physical Examination: Constitutional Alert, oriented, no acute distress. Skin pink, warm and dry. Alopecia. Head Normocephalic; atraumatic. Eyes Conjunctivae and sclerae are clear and without icterus. Pupils are reactive and equal. Neck Supple without masses or thyromegaly. No jugular venous distension. Hematologic/Lymphatic No petechiae or purpura. No tender or palpable lymph nodes in the cervical or supraclavicular areas. Respiratory Lungs are clear to auscultation without rhonchi or wheezing. Cardiovascular Regular rate and rhythm of heart without murmurs,clicks, gallops or rubs. Chest Chest is symmetric without chest wall deformities. Right chest wall port insertion site is unremarkable. Abdomen Non-tender, non-distended, no masses or ascites. Back/Spine Non-tender to palpation. Extremities The skin fissures have healed well. Musculoskeletal No tenderness or swelling, normal range of motion without obvious weakness. Integumentary No rashes or lesions. Neurologic No sensory or motor deficits, normal cerebellar function, slow, normal for her gait. Psychiatric Alert and oriented times three. Coherent speech. Verbalizes understanding of our discussions today. Laboratory:Test performed on Dec 09, 2020 08:45 Sodium 131 mmol/L Potassium 3.1 mmol/L Chloride 93 mmol/L CO2 25 mmol/L Anion Gap 16.1 BUN 5 mg/dL Creatinine 0.5 mg/dL Cr Clearance (Est) 100.1100 mL/min eGFR 126.3 mL/min Glucose 265 mg/dL Osmolality - Calculated 279 mOsm/kg Calcium 9.0 mg/dL Protein, Total 6.1 g/dL Albumin 3.6 g/dL Globulin 2.5 g/dL Bilirubin, Total 0.3 mg/dL ALT (SGPT) 22 U/L AST (SGOT) 16 U/L Alkaline Phosphatase 155 IU/L WBC 3.4 10 3/uL RBC 3.67 10 6/uL HGB 11.5 g/dL HCT 33.8 % MCV 92.1 fL MCH 31.3 pg MCHC 34.0 g/dL RDW 15.0 % Platelet Count 324 10 3/cmm MPV 9.3 fL Neutrophils 2.77 10 3/uL Lymphocytes 0.4 10 3/uL Monocytes 0.2 10 3/uL Eosinophils 0.0 10 3/uL Basophils 0.0 10 3/uL Neutrophil % 81.4 % Lymphocyte % 11.8 % Monocyte % 5.0 % Eosinophil % 0.0 % Basophils % 0.3 % NRBC % 0 % Test performed on Dec 02, 2020 10:00 Ua Color Yellow Ua Appearance Cloudy Ua Glucose 2+ Ua Bilirubin Neg Ua Ketones Negative Ua Specific Ira 1.020 Ua Blood 3+ Ua pH 5 Ua Protein 1+ Ua Nitrites Negative Ua Leukocyte Esterase 2+ Ua Micro: WBC 55-80 /hpf Ua Micro: RBC 5-10 /hpf Ua Micro: Squam Epith Cells 0-4 /hpf Ua Micro: Bacteria 1+ /hpf Ua Micro: Mucous TRACE /hpf Impression: 1. Multifocal left breast cancer, stage IIIA (T2, pN1a, M0), ER negative, NH negative, and HER-2 kika negative. 2. She underwent ultrasound directed core needle biopsy of the left breast on 04/02/2020 and she underwent left mastectomy with axillary sentinel lymph node biopsy on 05/20/2020. Plan: 1. Multifocal left breast cancer, stage IIIA (T2, pN1a, M0), ER negative, NH negative, and HER-[address]ika [address] scans showed small pulmonary nodules which were indeterminate, but early metastatic disease was not excluded. Bone scan was negative for metastatic disease. With those findings, she underwent left mastectomy with axillary sentinel lymph node biopsy on 05/20/2020. She was recommended to undergo adjuvant chemotherapy with dose dense Adriamycin/cyclophosphamide followed by weekly paclitaxel. She completed 4 cycles of Adriamycin/cyclophosphamide from 07/08/2020 through 08/20/2020. As of her follow-up visit on 09/02/2020 she had a significant decline in performance status and she had moderately severe anemia with hemoglobin decreased to 8.3 g. She was transfused PRBC and the taxane portion of her chemotherapy was delayed. There was no evidence of recurrent or metastatic disease on restaging with chest CT and bone scan. She then proceeded with cycle 1 of weekly paclitaxel on 09/23/2020. She tolerated it well, and completed her week 2 paclitaxel on 10/03/2020. She was unable to do week 3 due to inclement weather. She was delayed with cycle 3 for an additional two weeks due to significant fissures on her fingers and toes. That did resolve. She was able to resume cycle 3 on October 30, 2020 at reduced doses. A. Proceed with week812 paclitaxel???steroid compliance confirmed. She will continue at the reduced dosing. B. I did switch from Zofran premed to Aloxi to see if this may help the day 3 and 4 slight nausea feeling as reported on previous visit. This has helped. We will continue the Aloxi for now. C. Premed steroid compliance confirmed. D. Today's labs were reviewed with Mrs. Gonzalez and a copy was given to her. WBC 3.4, hemoglobin 11.5, platelets 3 24,000 ANC is 2770. Potassium 3.1. She states she has not taking potassium but will start. She does have some at home. Random glucose 265. Creatinine 0.5 LFTs are normal alk phos is improved at 155. 2. She has significant chronic musculoskeletal pain, management of which has been problematic. a. At the present time her pain is being well controlled with Nucynta 100 mg 4 times daily. She will continue this regimen as it is working well at this time. 3. Skin fissures-chemo induced-currently resolved but advised to continue with supportive care. A. Continue with corn huskers lotion at least twice daily B. May try triple antiboitic ointment once or twice daily to affected areas if fissures attempt to recur. C. May try Vitamin E oil to fingers/hands and toes. D. Utilize gloves if doing cleaning or washing dishes. 4. Urinary frequency A. She did have a UA on 12/02/2020 which reported 3+ blood 1+ protein 2+ leukoesterase and 1+ bacteria. B. She was given a prescription prescription today for Bactrim DS 1 twice daily as her UTI symptoms had not been treated. 5. Followup Plan A. Plan to return in 1 week for week 05/03 Taxol with CBC CMP. She was reminded to take her premed steroids. B. Ms. Gonzalez was instructed to contact us in interim should questions or problems arise. Signed By: Emerson aHrris-, [facility] Phillip Michelle MD <<Signature on File>>
[2020-12-16 09:37] LABS: Basophils % 0.3 %; Hematocrit 31.4 % (37.0-47.0); Hemoglobin 10.3 g/dL (11.5-15.3); Lymphocytes # 0.5 10^3/uL (0.8-4.8); Mean Corpuscular HGB Conc 32.8 g/dL (30.0-36.0); Mean Corpuscular Hemoglobin 31.2 pg (28.0-34.0); Mean Corpuscular Volume 95.2 fL (81-99); Mean Platelet Volume 9.2 fL (7.4-10.4); Monocytes # 0.1 10^3/uL (0.2-0.9); Monocytes % 2.5 %; Neutrophils # 2.96 10^3/uL (1.8-7.7); Neutrophils % 81.3 %; Nucleated Red Blood Cells % 0 %; Platelet Count 264 10^3/cmm (130-400); White Blood Count 3.6 10^3/uL (4.0-10.0)
[2020-12-16 10:07] LABS: Alanine Aminotransferase 18 U/L (0-33); Albumin Level 3.7 g/dL (3.5-5.2); Alkaline Phosphatase 190 IU/L (35-105); Anion Gap 15.4 (5-19); Aspartate Amino Transferase 19 U/L (0-32); Blood Urea Nitrogen 6 mg/dL (6-20); Carbon Dioxide 24 mmol/L (22-29); Chloride 96 mmol/L (98-107); Globulin 2.2 g/dL (1.3-4.6); Glomerular Filtration Rate 126.3 mL/min (90-130); Glucose 283 mg/dL (65-115); Osmolality Calculated 280 mOsm/kg (285-295); Potassium 4.4 mmol/L (3.5-5.1); Sodium 131 mmol/L (136-145); Total Bilirubin 0.5 mg/dL (0.15-1.2); Total Protein 5.9 g/dL (6.6-8.7)
[2020-12-16] MEDS: sodium chloride 0.9% 250 ML 75 ML IV (11:15)
[2020-12-16] MEDS: famotidine 20 mg/2 mL INJ IVP (11:15)
[2020-12-16] MEDS: ondansetron 2 mg/ML SDV 2 mL 8 MG IVP (11:17)
[2020-12-16] MEDS: diphenhydrAMINE 50 mg/mL SDV 1mL 25 MG IVP (11:20)
[2020-12-16] MEDS: acetaminophen 325 mg Tablet 650 MG PO (11:20)
--- NOTE | 2020-12-22 00:40 | ONC FU_ITS ---
[facility] Patient Note Patient: Tiara Gonzalez Unit #: [id number]: 1960 Dictated By: Emerson HarrisDate of Visit: Dec 16, 2020 Onc MED Follow-Up/Prog Note Chief Complaint: Breast cancer. History of Present Illness: Ms Gonzalez is a 60 year-old woman with multifocal left breast cancer, stage IIIA (T2, pN1a, M0), ER negative, MT negative, and HER-2 kika negative. She had presented to [facility] on 03/21/2020 with a lump in her left breast. Diagnostic mammogram on 03/25/2020 showed a dense well-circumscribed mass measuring 3.1 x 2.8 cm. Ultrasound showed a large cystic and solid complex lesion at the 11 to 2 o'clock position of the left breast measuring 3.1 x 2.3 x 2.7 cm. A hypoechoic lobulated lesion at 2:00 measured 7.6 x 4.5 x 7.0 mm. 2 additional hypoechoic lesions at the 1:00 and 2 o'clock position located 5 cm from the nipple appeared to represent intramammary lymph nodes. Several slightly prominent lymph nodes were noted in the left axilla measuring up to 1.4 cm in maximum diameter were noted to have preserved fatty hilum without significant cortical thickening, felt to most likely be reactive. She had underwent ultrasound directed core needle biopsy of the 11:00 mass and the 2:00 mass on 04/02/2020. 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 The breast prognostic profile on that lesion showed ER and MT both negative at <1%. The tumor was negative for overexpression of HER-2/kika, 1+ by IHC and amplification ratio by FISH at 1.0 with 1.9 HER-2 copies/cell. The Ki-67 was unfavorable at 18%. The lesion at 2:00 showed invasive ductal carcinoma, poorly differentiated, grade 3. 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 Dr Michelle had seen her initially on 04/11/2020. At that time she had multiple complains, significant enough that Dr Michelle was concerned about the possibility of metatstatic disease. Her baseline laboratory studies were unremarkable except for slightly elevated liver enzymes. Her brain MRI showed no evidence of metastatic disease. Staging CT scans of the chest, abdomen, and pelvis on 05/05/2020 showed hepatic steatosis but no metastatic disease in the abdomen or pelvis. The chest showed multilobar subcentimeter pulmonary nodules which were indeterminate but new compared to a prior study from 2018. Bone scan showed mild degenerative changes at the ankle joints and knee joints. There was no significant evidence for metastatic disease. In the setting of multifocal disease with no evidence of metastatic involvement, she was advised to proceed with mastectomy. On 05/20/2020 she underwent left total mastectomy and left axillary sentinel lymph node biopsy. Pathology confirmed multifocal metaplastic carcinoma, grade 3, with giant cells, spindle cells, chondroid and osteoid differentiation. The largest focus of involvement measured 3.8 cm. The margins were free, with the closest being the deep margin at 9 mm. There was a component of ductal carcinoma in situ, solid and cribriform type with comedonecrosis, grade 3. The closest margin to DCIS was 7 mm. 2 intramammary lymph nodes were positive for metastatic involvement, 1 of which showed extracapsular extension. There was no involvement in 4 axillary sentinel lymph nodes. Pathologic staging was pT2, pN1a. She had staging evaluation with CT chest, abdomen, and pelvis along with nuclear medicine bone scan on 05/05/2020. The bone scan was negative. The chest CT showed several new areas of groundglass attenuation and spiculated nodules involving both lung gallagher, early metastatic disease not excluded. There was evidence of hepatic steatosis, but there were no other findings which were suspicious for metastatic involvement. With those findings, she was recommended to undergo adjuvant chemotherapy with dose dense Adriamycin/cyclophosphamide followed by weekly paclitaxel. She began cycle 1 of Adriamycin/cyclophosphamide on 07/08/2020. She was able to tolerated with acceptable toxicity, and she continued with cycle 2 on 07/22/2020. With cycle 3 on 08/05/2020 she did receive a dose reduction due to neutropenia. She continued with cycle 4 on 08/20/2020. Dr Michelle had seen her for a follow-up visit on 09/02/2020. At that point she had experienced a significant decline in her performance status. She had moderately severe anemia with hemoglobin decreased to 8.3 g. She also is having significant bone pain. As she was symptomatic with the anemia, it was opted to transfuse PRBC and delay the taxane portion of her chemotherapy. She had restaging with chest CT and bone scan. Neither study showed any evidence of metastatic disease. She then proceeded to cycle 1 of weekly paclitaxel on 09/23/2020. She initially tolerated it well, but her treatment had to be put on hold after her 2nd weekly infusion due to development of significant skin changes in both hands. After a 4-week delay she was able to continue with her week 3 treatment. It was administered with a dose reduction. She tolerated it with acceptable toxicity and she continued with week four paclitaxel on 11/11/2020. Ms. Gonzalez is here today for follow-up. She is due for week /12 paclitaxel. She has no new concerns today. She states she feels good overall. She states she is eating well. She denies any fever or chills. She states that her energy is still low but she has been playing with her grandkids and is getting stronger. She states that her breathing is continuing to improve. She denies any cough. She denies any hemoptysis. She denies any nausea or vomiting. She states she has had no diarrhea or constipation. She states she has more constipation than anything but it has been controlled. She denies any peripheral neuropathy symptoms. She denies mouth sores, sore throat or difficulty swallowing. She states overall she feels she is doing well. She continues to have alopecia but states she is feels that there is some hair growth recurring. She did have a documented UTI on her visit last week. Her UTI symptoms are much better. She states that she had one mouth sore and did take her my medicine and the sore is gone and she feels better overall. Her ECOG is 2. Past Medical History: Ms. Gonzalez's medical history is unremarkable. Past Surgical History: Caesarean section Right ankle repair Right knee repair Right internal juglar [employer] per Dr Tejada in 2019 Allergies: No Known Allergies. Medications: Gabapentin 1 Capsule (of 100 mg) Oral t.i.d. Nucynta 1 Tablet (of 100 mg) Oral four times a day PRN Prochlorperazine Maleate 1 - 2 Tablet (of 10 mg) Oral daily PRN traZODone HCl 1 Tablet (of 50 mg) Oral at bedtime Zofran 1 - 2 Tablet (of 4 mg) Oral four times a day PRN Family History: Ms. Gonzalez's mother is alive. Ms. Gonzalez's father at age 75: heart disease. Ms. Gonzalez has 1 sister who is alive: breast cancer. She has 1 maternal aunt who is : colon cancer. Father of heart disease at age 75. Mother is living at age 82. A 64-year-old sister has been treated for breast cancer. A maternal aunt of colon cancer. Social History: Ms. Gonzalez is and she is retired. Ms. Gonzalez no longer smokes but had smoked 2.0 packs/day. She has no history of drinking. She has indicated exposure to the following products: cigarettes and recreational drug use. Ms. Gonzalez reports the following support systems: lives alone, lives in own house, supportive family/friends willing to assist with needs, and adequate transportation available for expected visits. Her diet consists of regular meals. She indicates her activity level as: regular exercise. Review Of Symptoms: see above Vital Signs: Performed on Dec 16, 2020 10:31 Height - 62.00 in Weight - 110.8 lbs (HIGH) BSA - 1.49 sq.m BMI - 20.27 Temperature - 96.5 F (LOW) Pulse - 94 /min Respiration - 18 /min BP - 126/76 mm(hg) O2 Sat - 96 % Pain - 0 Fatigue - 6,1 - No physically strenuous activity, but ambulatory and able to carry out light or sedentary work (e.g. office work, light house work). (ECOG) Physical Examination: Constitutional Alert, oriented, no acute distress. Skin pink, warm and dry. Alopecia. Head Normocephalic; atraumatic. Eyes Conjunctivae and sclerae are clear and without icterus. Pupils are reactive and equal. Respiratory Lungs are clear to auscultation without rhonchi or wheezing. Cardiovascular Regular rate and rhythm of heart without murmurs,clicks, gallops or rubs. Chest Chest is symmetric without chest wall deformities. Right chest wall port insertion site is unremarkable. Abdomen Non-tender, non-distended, no masses or ascites. Back/Spine Non-tender to palpation. Extremities The skin fissures have healed well. Musculoskeletal No tenderness or swelling, normal range of motion without obvious weakness. Integumentary No rashes or lesions. Neurologic No sensory or motor deficits, normal cerebellar function, slow, normal for her gait. Psychiatric Alert and oriented times three. Coherent speech. Verbalizes understanding of our discussions today. Laboratory:Test performed on Dec 16, 2020 09:18 Sodium 131 mmol/L Potassium 4.4 mmol/L Chloride 96 mmol/L CO2 24 mmol/L Anion Gap 15.4 BUN 6 mg/dL Creatinine 0.5 mg/dL Cr Clearance (Est) 100.1100 mL/min eGFR 126.3 mL/min Glucose 283 mg/dL Osmolality - Calculated 280 mOsm/kg Calcium 9.0 mg/dL Protein, Total 5.9 g/dL Albumin 3.7 g/dL Globulin 2.2 g/dL Bilirubin, Total 0.5 mg/dL ALT (SGPT) 18 U/L AST (SGOT) 19 U/L Alkaline Phosphatase 190 IU/L WBC 3.6 10 3/uL RBC 3.30 10 6/uL HGB 10.3 g/dL HCT 31.4 % MCV 95.2 fL MCH 31.2 pg MCHC 32.8 g/dL RDW 16.0 % Platelet Count 264 10 3/cmm MPV 9.2 fL Neutrophils 2.96 10 3/uL Lymphocytes 0.5 10 3/uL Monocytes 0.1 10 3/uL Eosinophils 0.0 10 3/uL Basophils 0.0 10 3/uL Neutrophil % 81.3 % Lymphocyte % 14.0 % Monocyte % 2.5 % Eosinophil % 0.0 % Basophils % 0.3 % NRBC % 0 % Test performed on Dec 02, 2020 10:00 Ua Color Yellow Ua Appearance Cloudy Ua Glucose 2+ Ua Bilirubin Neg Ua Ketones Negative Ua Specific [place] 1.020 Ua Blood 3+ Ua pH 5 Ua Protein 1+ Ua Nitrites Negative Ua Leukocyte Esterase 2+ Ua Micro: WBC 55-80 /hpf Ua Micro: RBC 5-10 /hpf Ua Micro: Squam Epith Cells 0-4 /hpf Ua Micro: Bacteria 1+ /hpf Ua Micro: Mucous TRACE /hpf Impression: 1. Multifocal left breast cancer, stage IIIA (T2, pN1a, M0), ER negative, MT negative, and HER-2 kika negative. 2. She underwent ultrasound directed core needle biopsy of the left breast on 04/02/2020 and she underwent left mastectomy with axillary sentinel lymph node biopsy on 05/20/2020. Plan: 1. Multifocal left breast cancer, stage IIIA (T2, pN1a, M0), ER negative, MT negative, and HER-[address] kika [address] scans showed small pulmonary nodules which were indeterminate, but early metastatic disease was not excluded. Bone scan was negative for metastatic disease. With those findings, she underwent left mastectomy with axillary sentinel lymph node biopsy on 05/20/2020. She was recommended to undergo adjuvant chemotherapy with dose dense Adriamycin/cyclophosphamide followed by weekly paclitaxel. She completed 4 cycles of Adriamycin/cyclophosphamide from 07/08/2020 through 08/20/2020. As of her follow-up visit on 09/02/2020 she had a significant decline in performance status and she had moderately severe anemia with hemoglobin decreased to 8.3 g. She was transfused PRBC and the taxane portion of her chemotherapy was delayed. There was no evidence of recurrent or metastatic disease on restaging with chest CT and bone scan. She then proceeded with cycle 1 of weekly paclitaxel on 09/23/2020. She tolerated it well, and completed her week 2 paclitaxel on 10/03/2020. She was unable to do week 3 due to inclement weather. She was delayed with cycle 3 for an additional two weeks due to significant fissures on her fingers and toes. That did resolve. She was able to resume cycle 3 on October 30, 2020 at reduced doses. A. Proceed with week 05/03 paclitaxel???steroid compliance confirmed. She will continue at the reduced dosing. B. She has resumed the Zofran for premed and has not had recurrent nausea. C. Today's labs were reviewed with Mrs. Gonzalez and a copy was given to her. 2. She has significant chronic musculoskeletal pain, management of which has been problematic. a. At the present time her pain is being well controlled with Nucynta 100 mg 4 times daily. She will continue this regimen as it is working well at this time. b. She received a new script today from Dr Montague for a refill at the above dose. 3. Skin fissures-chemo induced-currently resolved but advised to continue with supportive care. A. Continue with corn huskers lotion at least twice daily B. May try triple antiboitic ointment once or twice daily to affected areas if fissures attempt to recur. C. May try Vitamin E oil to fingers/hands and toes. D. Utilize gloves if doing cleaning or washing dishes. 4. Urinary frequency A. She did have a UA on 12/02/2020 which reported 3+ blood 1+ protein 2+ leukoesterase and 1+ bacteria. B. She was given a prescription prescription on 12/09/20 for Bactrim DS 1 twice daily as her UTI symptoms had not been treated. She states she has 1 more day to finish on her antibiotics but her symptoms have resolved. C. Plan for followup UA next week. 5. Followup Plan A. Plan to return in 1 week for week 10 Taxol with CBC CMP. She was reminded to take her premed steroids. B. Ms. Gonzalez was instructed to contact us in interim should questions or problems arise. Signed By: Emerson Harris-, [facility] Phillip Michelle MD <<Signature on File>>
== END 2020-12-19 23:59 | disposition home or self-care (01) ==
LOC: ONCMED 05:31
PROVIDERS: Visit Provider Nurse Practitioner
DX: Z51.11 Encounter for antineoplastic chemotherapy (principal); C50.812 Malignant neoplasm of overlapping sites of left female breast; Z17.1 Estrogen receptor negative status [ER-]; D70.1 Agranulocytosis secondary to cancer chemotherapy; T45.1X5A Adverse effect of antineoplastic and immunosuppressive drugs, initial encounter; Z79.899 Other long term (current) drug therapy
CPT/HCPCS: 36415; 80053; 81001; 84443; 85025; 96367; 96372; 96375; 96413; 99214; J1100; J1200; J1453; J1815; J2405; J3490; J7050; J9267

== ENCOUNTER 2021-01-13 05:39 | Outpatient (RCR) | payer MEDICAID, SELFPAY ==
[2020-12-23 09:19] LABS: Basophils % 0.2 %; Hematocrit 29.3 % (37.0-47.0); Hemoglobin 9.9 g/dL (11.5-15.3); Lymphocytes # 0.5 10^3/uL (0.8-4.8); Lymphocytes % 12.7 %; Mean Corpuscular HGB Conc 33.8 g/dL (30.0-36.0); Mean Corpuscular Hemoglobin 32.5 pg (28.0-34.0); Mean Corpuscular Volume 96.1 fL (81-99); Mean Platelet Volume 9.4 fL (7.4-10.4); Monocytes # 0.1 10^3/uL (0.2-0.9); Monocytes % 2.2 %; Neutrophils # 3.48 10^3/uL (1.8-7.7); Neutrophils % 83.7 %; Nucleated Red Blood Cells % 0 %; Platelet Count 222 10^3/cmm (130-400); Red Blood Count 3.05 10^6/uL (4.1-5.3); Red Cell Distribution Width 16.9 % (12.1-15.1); White Blood Count 4.2 10^3/uL (4.0-10.0)
[2020-12-23 09:26] LABS: Protein Urine Trace (Negative); Urine Appearance Cloudy (CLEAR); Urine Color Yellow (Yellow); pH Urine 5 (5-7)
[2020-12-23 09:27] LABS: Add Urine Microscopic? YES; Bilirubin Urine Neg (Negative); Blood Urine 2+ (Negative); Glucose Urine UA Norm (Normal); Ketones Urine Negative (Negative); Leukocyte Esterase Urine 2+ (Negative); Nitrate Urine Positive (Negative); Urobilinogen Urine Norm (Negative)
[2020-12-23 09:42] LABS: Add Urine Culture? Yes; Bacteria Urine 3+ /hpf; RBC Urine 15-25 /hpf (0-2); WBC Urine >100 /hpf (0-5)
[2020-12-23 09:46] LABS: Alanine Aminotransferase 17 U/L (0-33); Albumin Level 3.7 g/dL (3.5-5.2); Alkaline Phosphatase 161 IU/L (35-105); Anion Gap 14.6 (5-19); Aspartate Amino Transferase 14 U/L (0-32); Blood Urea Nitrogen 6 mg/dL (6-20); Carbon Dioxide 26 mmol/L (22-29); Chloride 98 mmol/L (98-107); Glomerular Filtration Rate 126.3 mL/min (90-130); Glucose 244 mg/dL (65-115); Osmolality Calculated 286 mOsm/kg (285-295); Potassium 3.6 mmol/L (3.5-5.1); Sodium 135 mmol/L (136-145); Total Bilirubin 0.4 mg/dL (0.15-1.2); Total Protein 5.7 g/dL (6.6-8.7)
--- NOTE | 2020-12-23 11:01 | ONC FU_ITS ---
[facility] Patient Note Patient: Tiara Gonzalez Unit #: [id number]: 1960 Dictated By: Emerson HarrisDate of Visit: December 23, 2020 Onc MED Follow-Up/Prog Note Chief Complaint: Breast cancer. History of Present Illness: Ms Gonzalez is a 60 year-old woman with multifocal left breast cancer, stage IIIA (T2, pN1a, M0), ER negative, SC negative, and HER-2 kika negative. She had presented to [facility] on 03/21/2020 with a lump in her left breast. Diagnostic mammogram on 03/25/2020 showed a dense well-circumscribed mass measuring 3.1 x 2.8 cm. Ultrasound showed a large cystic and solid complex lesion at the 11 to 2 o'clock position of the left breast measuring 3.1 x 2.3 x 2.7 cm. A hypoechoic lobulated lesion at 2:00 measured 7.6 x 4.5 x 7.0 mm. 2 additional hypoechoic lesions at the 1:00 and 2 o'clock position located 5 cm from the nipple appeared to represent intramammary lymph nodes. Several slightly prominent lymph nodes were noted in the left axilla measuring up to 1.4 cm in maximum diameter were noted to have preserved fatty hilum without significant cortical thickening, felt to most likely be reactive. She had underwent ultrasound directed core needle biopsy of the 11:00 mass and the 2:00 mass on 04/02/2020. 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 The breast prognostic profile on that lesion showed ER and SC both negative at <1%. The tumor was negative for overexpression of HER-2/kika, 1+ by IHC and amplification ratio by FISH at 1.0 with 1.9 HER-2 copies/cell. The Ki-67 was unfavorable at 18%. The lesion at 2:00 showed invasive ductal carcinoma, poorly differentiated, grade 3. 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 Dr Michelle had seen her initially on 04/11/2020. At that time she had multiple complains, significant enough that Dr Michelle was concerned about the possibility of metatstatic disease. Her baseline laboratory studies were unremarkable except for slightly elevated liver enzymes. Her brain MRI showed no evidence of metastatic disease. Staging CT scans of the chest, abdomen, and pelvis on 05/05/2020 showed hepatic steatosis but no metastatic disease in the abdomen or pelvis. The chest showed multilobar subcentimeter pulmonary nodules which were indeterminate but new compared to a prior study from 2018. Bone scan showed mild degenerative changes at the ankle joints and knee joints. There was no significant evidence for metastatic disease. In the setting of multifocal disease with no evidence of metastatic involvement, she was advised to proceed with mastectomy. On 05/20/2020 she underwent left total mastectomy and left axillary sentinel lymph node biopsy. Pathology confirmed multifocal metaplastic carcinoma, grade 3, with giant cells, spindle cells, chondroid and osteoid differentiation. The largest focus of involvement measured 3.8 cm. The margins were free, with the closest being the deep margin at 9 mm. There was a component of ductal carcinoma in situ, solid and cribriform type with comedonecrosis, grade 3. The closest margin to DCIS was 7 mm. 2 intramammary lymph nodes were positive for metastatic involvement, 1 of which showed extracapsular extension. There was no involvement in 4 axillary sentinel lymph nodes. Pathologic staging was pT2, pN1a. She had staging evaluation with CT chest, abdomen, and pelvis along with nuclear medicine bone scan on 05/05/2020. The bone scan was negative. The chest CT showed several new areas of groundglass attenuation and spiculated nodules involving both lung gallagher, early metastatic disease not excluded. There was evidence of hepatic steatosis, but there were no other findings which were suspicious for metastatic involvement. With those findings, she was recommended to undergo adjuvant chemotherapy with dose dense Adriamycin/cyclophosphamide followed by weekly paclitaxel. She began cycle 1 of Adriamycin/cyclophosphamide on 07/08/2020. She was able to tolerated with acceptable toxicity, and she continued with cycle 2 on 07/22/2020. With cycle 3 on 08/05/2020 she did receive a dose reduction due to neutropenia. She continued with cycle 4 on 08/20/2020. Dr Michelle had seen her for a follow-up visit on 09/02/2020. At that point she had experienced a significant decline in her performance status. She had moderately severe anemia with hemoglobin decreased to 8.3 g. She also is having significant bone pain. As she was symptomatic with the anemia, it was opted to transfuse PRBC and delay the taxane portion of her chemotherapy. She had restaging with chest CT and bone scan. Neither study showed any evidence of metastatic disease. She then proceeded to cycle 1 of weekly paclitaxel on 09/23/2020. She initially tolerated it well, but her treatment had to be put on hold after her 2nd weekly infusion due to development of significant skin changes in both hands. After a 4-week delay she was able to continue with her week 3 treatment. It was administered with a dose reduction. She tolerated it with acceptable toxicity and she continued with week four paclitaxel on 11/11/2020. Ms. Gonzalez is here today for follow-up. She is due for week 10/12 paclitaxel. She has no new concerns today. She states she feels good overall. She states she is eating well. She denies any fever or chills. She denies any hot flashes or night sweats. She has been active with her grandkids and tolerating this well. She denies any shortness of breath orthopnea. She is had no hemoptysis. She states she did have diarrhea for 3 days after the last treatment but was out of her Lomotil which generally takes care of the diarrhea. She did use [id number] Imodium which helped but did not relieve the diarrhea completely. The diarrhea has stopped completely now. She denies any constipation. She denies any urinary symptoms but her UA today still shows 3+ bacteria. She denies any pain. Denies any headaches or vision changes. She denies any peripheral neuropathy. Her ECOG is 2. Past Medical History: Ms. Gonzalez's medical history is unremarkable. Past Surgical History: Caesarean section Right ankle repair Right knee repair Right internal juglar PowerPort per Dr Tejada in 2019 Allergies: No Known Allergies. Medications: Gabapentin 1 Capsule (of 100 mg) Oral t.i.d. Nucynta 1 Tablet (of 100 mg) Oral four times a day PRN Prochlorperazine Maleate 1 - 2 Tablet (of 10 mg) Oral daily PRN traZODone HCl 1 Tablet (of 50 mg) Oral at bedtime Zofran 1 - 2 Tablet (of 4 mg) Oral four times a day PRN Family History: Ms. Gonzalez's mother is alive. Ms. Gonzalez's father at age 75: heart disease. Ms. Gonzalez has 1 sister who is alive: breast cancer. She has 1 maternal aunt who is : colon cancer. Father of heart disease at age 75. Mother is living at age 82. A 64-year-old sister has been treated for breast cancer. A maternal aunt of colon cancer. Social History: Ms. Gonzalez is and she is retired. Ms. Gonzalez no longer smokes but had smoked 2.0 packs/day. She has no history of drinking. She has indicated exposure to the following products: cigarettes and recreational drug use. Ms. Gonzalez reports the following support systems: lives alone, lives in own house, supportive family/friends willing to assist with needs, and adequate transportation available for expected visits. Her diet consists of regular meals. She indicates her activity level as: regular exercise. Review Of Symptoms: see above Vital Signs: Performed on December 23, 2020 10:28 Height - 62.00 in Weight - 109.4 lbs (LOW) BSA - 1.48 sq.m BMI - 20.01 Temperature - 96.6 F (LOW) Pulse - 96 /min Respiration - 17 /min BP - 121/72 mm(hg) O2 Sat - 97 % Pain - 0,2 - Ambulatory/capable of all self-care, unable to perform any work activities. Up and about more than 50% of waking hours. (ECOG) Physical Examination: Constitutional Alert, oriented, no acute distress. Skin pink, warm and dry. Alopecia. Head Normocephalic; atraumatic. Eyes Conjunctivae and sclerae are clear and without icterus. Pupils are reactive and equal. ENMT No oral exudates. Healed ulcers noted on lower lip area, but no masses, thrush or mucositis. Oropharynx clear. Tongue normal. Neck Supple without masses or thyromegaly. No jugular venous distension. Hematologic/Lymphatic No petechiae or purpura. No tender or palpable lymph nodes in the cervical or supraclavicular areas. Respiratory Lungs are clear to auscultation without rhonchi or wheezing. Cardiovascular Regular rate and rhythm of heart without murmurs,clicks, gallops or rubs. Chest Chest is symmetric without chest wall deformities. Right chest wall port insertion site is unremarkable. Abdomen Non-tender, non-distended, no masses or ascites. Back/Spine Non-tender to palpation. Extremities The skin fissures have healed well. Musculoskeletal No tenderness or swelling, normal range of motion without obvious weakness. Integumentary No rashes or lesions. Neurologic No sensory or motor deficits, normal cerebellar function, slow, normal for her gait. Psychiatric Alert and oriented times three. Coherent speech. Verbalizes understanding of our discussions today. Laboratory:Test performed on December 23, 2020 08:55 Ua Color Yellow Ua Appearance Cloudy Ua Glucose Norm Ua Bilirubin Neg Ua Ketones Negative Ua Specific [place] 1.020 Ua Blood 2+ Ua pH 5 Ua Protein Trace Ua Nitrites Positive Ua Leukocyte Esterase 2+ Ua Micro: WBC >100 /hpf Ua Micro: RBC 15-25 /hpf Ua Micro: Squam Epith Cells 5-10 /hpf Ua Micro: Bacteria 3+ /hpf Test performed on December 23, 2020 08:50 Sodium 135 mmol/L Potassium 3.6 mmol/L Chloride 98 mmol/L CO2 26 mmol/L Anion Gap 14.6 BUN 6 mg/dL Creatinine 0.5 mg/dL Cr Clearance (Est) 100.1100 mL/min eGFR 126.3 mL/min Glucose 244 mg/dL Osmolality - Calculated 286 mOsm/kg Calcium 9.0 mg/dL Protein, Total 5.7 g/dL Albumin 3.7 g/dL Globulin 2.0 g/dL Bilirubin, Total 0.4 mg/dL ALT (SGPT) 17 U/L AST (SGOT) 14 U/L Alkaline Phosphatase 161 IU/L WBC 4.2 10 3/uL RBC 3.05 10 6/uL HGB 9.9 g/dL HCT 29.3 % MCV 96.1 fL MCH 32.5 pg MCHC 33.8 g/dL RDW 16.9 % Platelet Count 222 10 3/cmm MPV 9.4 fL Neutrophils 3.48 10 3/uL Lymphocytes 0.5 10 3/uL Monocytes 0.1 10 3/uL Eosinophils 0.0 10 3/uL Basophils 0.0 10 3/uL Neutrophil % 83.7 % Lymphocyte % 12.7 % Monocyte % 2.2 % Eosinophil % 0.0 % Basophils % 0.2 % NRBC % 0 % Impression: 1. Multifocal left breast cancer, stage IIIA (T2, pN1a, M0), ER negative, SC negative, and HER-2 kika negative. 2. She underwent ultrasound directed core needle biopsy of the left breast on 04/02/2020 and she underwent left mastectomy with axillary sentinel lymph node biopsy on 05/20/2020. Plan: 1. Multifocal left breast cancer, stage IIIA (T2, pN1a, M0), ER negative, SC negative, and HER-[address] kika [address] scans showed small pulmonary nodules which were indeterminate, but early metastatic disease was not excluded. Bone scan was negative for metastatic disease. With those findings, she underwent left mastectomy with axillary sentinel lymph node biopsy on 05/20/2020. She was recommended to undergo adjuvant chemotherapy with dose dense Adriamycin/cyclophosphamide followed by weekly paclitaxel. She completed 4 cycles of Adriamycin/cyclophosphamide from 07/08/2020 through 08/20/2020. As of her follow-up visit on 09/02/2020 she had a significant decline in performance status and she had moderately severe anemia with hemoglobin decreased to 8.3 g. She was transfused PRBC and the taxane portion of her chemotherapy was delayed. There was no evidence of recurrent or metastatic disease on restaging with chest CT and bone scan. She then proceeded with cycle 1 of weekly paclitaxel on 09/23/2020. She tolerated it well, and completed her week 2 paclitaxel on 10/03/2020. She was unable to do week 3 due to inclement weather. She was delayed with cycle 3 for an additional two weeks due to significant fissures on her fingers and toes. That did resolve. She was able to resume cycle 3 on October 30, 2020 at reduced doses. A. Proceed with week 1012 paclitaxel???steroid compliance confirmed. She will continue at the reduced dosing. B. She has resumed the Zofran for premed and has not had recurrent nausea. C. Today's labs were reviewed with Mrs. Gonzalez and a copy was given to her. WBC 4.2, hemoglobin 9.9, platelets 222,000 ANC is 3500. Potassium 3.6 random glucose 244 steroid-induced, creatinine 0.5 LFTs are normal alk phos is improved at 161 compared to 190 last visit. Her UA shows 2+ leukocyte Estrace greater than 100 WBCs and 3+ bacteria. 2. She has significant chronic musculoskeletal pain, management of which has been problematic. a. At the present time her pain is being well controlled with Nucynta 100 mg 4 times daily. She will continue this regimen as it is working well at this time. 3. Recurrent urinary tract infection A. We will have her do Bactrim DS 1 twice daily for 10 days and plan to follow-up with UA at her visit in 2 weeks. 4. Followup Plan A. Plan to return in 1 week for week 11/12 Taxol with CBC CMP. She was reminded to take her premed steroids. B. Ms. Gonzalez was instructed to contact us in interim should questions or problems arise. C. Will refill Lomotil # [id number] to [facility] outpatient pharmacy. Signed By: Emerson Harris-, [facility] Phillip Michelle MD <<Signature on File>>
[2020-12-23] MEDS: famotidine 20 mg/2 mL INJ IVP (11:05)
[2020-12-23] MEDS: sodium chloride 0.9% 250 ML 75 ML IV (11:05)
[2020-12-23] MEDS: acetaminophen 325 mg Tablet 650 MG PO (11:05)
[2020-12-23] MEDS: ondansetron 2 mg/ML SDV 2 mL 8 MG IV (11:07)
[2020-12-23] MEDS: diphenhydrAMINE 50 mg/mL SDV 1mL 25 MG IV (11:09)
[2020-12-23] MEDS: fosaprepitant 150 MG in sodium chloride 0.9% 150 ML 300 MG IV (11:30)
[2020-12-30 09:22] LABS: Hematocrit 28.6 % (37.0-47.0); Hemoglobin 9.3 g/dL (11.5-15.3); Lymphocytes # 0.4 10^3/uL (0.8-4.8); Lymphocytes % 15.7 %; Mean Corpuscular HGB Conc 32.5 g/dL (30.0-36.0); Mean Corpuscular Hemoglobin 32.4 pg (28.0-34.0); Mean Corpuscular Volume 99.7 fL (81-99); Mean Platelet Volume 9.7 fL (7.4-10.4); Monocytes % 1.3 %; Neutrophils # 1.93 10^3/uL (1.8-7.7); Neutrophils % 82.1 %; Nucleated Red Blood Cells % 0 %; Platelet Count 232 10^3/cmm (130-400); Red Blood Count 2.87 10^6/uL (4.1-5.3); Red Cell Distribution Width 18.2 % (12.1-15.1); White Blood Count 2.4 10^3/uL (4.0-10.0)
[2020-12-30 09:30] LABS: Alanine Aminotransferase 15 U/L (0-33); Albumin Level 3.5 g/dL (3.5-5.2); Alkaline Phosphatase 157 IU/L (35-105); Anion Gap 15.2 (5-19); Aspartate Amino Transferase 14 U/L (0-32); Blood Urea Nitrogen 7 mg/dL (6-20); Calcium 9.1 mg/dL (8.5-10.5); Carbon Dioxide 24 mmol/L (22-29); Chloride 97 mmol/L (98-107); Globulin 2.3 g/dL (1.3-4.6); Glomerular Filtration Rate 163.4 mL/min (90-130); Glucose 292 mg/dL (65-115); Osmolality Calculated 283 mOsm/kg (285-295); Potassium 4.2 mmol/L (3.5-5.1); Sodium 132 mmol/L (136-145); Total Bilirubin 0.3 mg/dL (0.15-1.2); Total Protein 5.8 g/dL (6.6-8.7)
[2020-12-30] MEDS: sodium chloride 0.9% 250 ML 75 ML IV (10:30)
[2020-12-30] MEDS: famotidine 20 mg/2 mL INJ IVP (10:30)
[2020-12-30] MEDS: ondansetron 2 mg/ML SDV 2 mL 8 MG IV (10:32)
[2020-12-30] MEDS: diphenhydrAMINE 50 mg/mL SDV 1mL 25 MG IV (10:34)
[2020-12-30] MEDS: acetaminophen 325 mg Tablet 650 MG PO (10:40)
[2020-12-30] MEDS: fosaprepitant 150 MG in sodium chloride 0.9% 150 ML 300 MG IV (11:01)
--- NOTE | 2021-01-03 10:59 | ONC FU_ITS ---
Dr. Michelle Patient Follow-Up Note Patient: Tiara Gonzalez Unit #: [id number]: 1960 Dicatated By: Phillip Michelle M.D.Date of Visit:December 30, 2020 Onc Med Follow-up/Prog Note Chief Complaint: Breast cancer. History of Present Illness: This is a 59 year-old woman with multifocal left breast cancer, stage IIIA (T2, pN1a, M0), ER negative, WA negative, and HER-2 kika negative. She had presented to [facility] on 03/21/2020 with a lump in her left breast. Diagnostic mammogram on 03/25/2020 showed a dense well-circumscribed mass measuring 3.1 x 2.8 cm. Ultrasound showed a large cystic and solid complex lesion at the 11 to 2 o'clock position of the left breast measuring 3.1 x 2.3 x 2.7 cm. A hypoechoic lobulated lesion at 2:00 measured 7.6 x 4.5 x 7.0 mm. 2 additional hypoechoic lesions at the 1:00 and 2 o'clock position located 5 cm from the nipple appeared to represent intramammary lymph nodes. Several slightly prominent lymph nodes were noted in the left axilla measuring up to 1.4 cm in maximum diameter were noted to have preserved fatty hilum without significant cortical thickening, felt to most likely be reactive. She had underwent ultrasound directed core needle biopsy of the 11:00 mass and the 2:00 mass on 04/02/2020. 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 The breast prognostic profile on that lesion showed ER and WA both negative at <1%. The tumor was negative for overexpression of HER-2/kika, 1+ by IHC and amplification ratio by FISH at 1.0 with 1.9 HER-2 copies/cell. The Ki-67 was unfavorable at 18%. The lesion at 2:00 showed invasive ductal carcinoma, poorly differentiated, grade 3. 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 I had seen her initially on 04/11/2020. At that time she had multiple complains, significant enough that I was concerned about the possibility of metatstatic disease. Her baseline laboratory studies were unremarkable except for slightly elevated liver enzymes. Her brain MRI showed no evidence of metastatic disease. Staging CT scans of the chest, abdomen, and pelvis on 05/05/2020 showed hepatic steatosis but no metastatic disease in the abdomen or pelvis. The chest showed multilobar subcentimeter pulmonary nodules which were indeterminate but new compared to a prior study from 2018. Bone scan showed mild degenerative changes at the ankle joints and knee joints. There was no significant evidence for metastatic disease. In the setting of multifocal disease with no evidence of metastatic involvement, she was advised to proceed with mastectomy. On 05/20/2020 she underwent left total mastectomy and left axillary sentinel lymph node biopsy. Pathology confirmed multifocal metaplastic carcinoma, grade 3, with giant cells, spindle cells, chondroid and osteoid differentiation. The largest focus of involvement measured 3.8 cm. The margins were free, with the closest being the deep margin at 9 mm. There was a component of ductal carcinoma in situ, solid and cribriform type with comedonecrosis, grade 3. The closest margin to DCIS was 7 mm. 2 intramammary lymph nodes were positive for metastatic involvement, 1 of which showed extracapsular extension. There was no involvement in 4 axillary sentinel lymph nodes. Pathologic staging was pT2, pN1a. She had staging evaluation with CT chest, abdomen, and pelvis along with nuclear medicine bone scan on 05/05/2020. The bone scan was negative. The chest CT showed several new areas of groundglass attenuation and spiculated nodules involving both lung gallagher, early metastatic disease not excluded. There was evidence of hepatic steatosis, but there were no other findings which were suspicious for metastatic involvement. With those findings, she was recommended to undergo adjuvant chemotherapy with dose dense Adriamycin/cyclophosphamide followed by weekly paclitaxel. Her medical history includes several prior surgeries, limited to Caesarean section, right ankle repair, and right knee repair. She has had some chronic musculoskeletal pain, but she has had no other prior medical illnesses. She does have a history of smoking 2 packs of cigarettes daily. INTERIM HISTORY: She began cycle 1 of Adriamycin/cyclophosphamide on 07/08/2020. She was able to tolerated with acceptable toxicity, and she continued with cycle 2 on 07/22/2020. With cycle 3 on 08/05/2020 she did receive a dose reduction due to neutropenia. She continued with cycle 4 on 08/20/2020. I had seen her for a follow-up visit on 09/02/2020. At that point she had experienced a significant decline in her performance status. She had moderately severe anemia with hemoglobin decreased to 8.3 g. She also is having significant bone pain. As she was symptomatic with the anemia, I did opt to transfuse PRBC and I delayed the taxane portion of her chemotherapy. She had restaging with chest CT and bone scan. Neither study showed any evidence of metastatic disease. She then proceeded to cycle 1 of weekly paclitaxel on 09/23/2020. She initially tolerated it well, but her treatment had to be put on hold after her 2nd weekly infusion due to development of significant skin changes in both hands. After a 4-week delay she was able to continue with her week 3 treatment. It was administered with a dose reduction. She tolerated it with acceptable toxicity and she was then able to continue her paclitaxel infusions weekly. She completed week 10 treatment on 12/23/2020. She is seen for a scheduled visit. She has been feeling pretty good generally, though she says her energy is pretty low now. She is able to do housework. Her ECOG score is 1. She says she does not have much appetite. She has not had fever. She sometimes has sweating. She has had no mouth sores. She has shortness of breath, but her breathing lately has been better. She still sometimes has cough. She does not complain of chest pain. She has not been having any nausea, she does report having real bad heartburn. She also has had lots of diarrhea. She has no complaints. She has back pain, which comes and goes. She does not complain of headache. She occasionally has dizziness. She is not having numbness/paresthesia or other neuropathy symptoms. Medications: Gabapentin 1 Capsule (of 100 mg) Oral t.i.d., Nucynta 1 Tablet (of 100 mg) Oral four times a day PRN, Prochlorperazine Maleate 1 - 2 Tablet (of 10 mg) Oral daily PRN, traZODone HCl 1 Tablet (of 50 mg) Oral at bedtime, Zofran 1 - 2 Tablet (of 4 mg) Oral four times a day PRN Allergies: No Known Allergies. Vital Signs: Performed on December 30, 2020 10:44 Height - 62.00 in Weight - 109.4 lbs BSA - 1.48 sq.m BMI - 20.01 Temperature - 97.0 F (LOW) Pulse - 97 /min Respiration - 18 /min BP - 102/64 mm(hg) O2 Sat - 95 % (LOW) Pain - 0 Fatigue - 8 Physical Examination: Constitutional - She looks pretty good generally, Eyes - Sclerae nonicteric. Conjunctivae clear, ENMT - No lesions noted in the oral cavity, Hematologic/Lymphatic - No cervical, clavicular, or axillary adenopathy, Respiratory - Lungs sound clear with diminished air movement bilaterally, Cardiovascular - Heart rhythm is regular. There is no murmur, gallop, or rub noted, Abdomen - Soft. Liver and spleen are not enlarged. There is no abdominal mass or ascites noted and there is no inguinal adenopathy, Extremities - No edema, Neurologic - No focal neurologic deficits noted. Lab/Imaging: Test performed on December 30, 2020 08:50 Sodium 132 mmol/L Potassium 4.2 mmol/L Chloride 97 mmol/L CO2 24 mmol/L Anion Gap 15.2 BUN 7 mg/dL Creatinine 0.4 mg/dL Cr Clearance (Est) 125.1400 mL/min eGFR 163.4 mL/min Glucose 292 mg/dL Osmolality - Calculated 283 mOsm/kg Calcium 9.1 mg/dL Protein, Total 5.8 g/dL Albumin 3.5 g/dL Globulin 2.3 g/dL Bilirubin, Total 0.3 mg/dL ALT (SGPT) 15 U/L AST (SGOT) 14 U/L Alkaline Phosphatase 157 IU/L WBC 2.4 10 3/uL RBC 2.87 10 6/uL HGB 9.3 g/dL HCT 28.6 % MCV 99.7 fL MCH 32.4 pg MCHC 32.5 g/dL RDW 18.2 % Platelet Count 232 10 3/cmm MPV 9.7 fL Neutrophils 1.93 10 3/uL Lymphocytes 0.4 10 3/uL Monocytes 0.0 10 3/uL Eosinophils 0.0 10 3/uL Basophils 0.0 10 3/uL Neutrophil % 82.1 % Lymphocyte % 15.7 % Monocyte % 1.3 % Eosinophil % 0.0 % Basophils % 0.0 % NRBC % 0 % Problem List: 1. Multifocal left breast cancer, stage IIIA (T2, pN1a, M0), ER negative, WA negative, and HER-2 kika negative. She underwent ultrasound directed core needle biopsy of the left breast on 04/02/2020 and she underwent left mastectomy with axillary sentinel lymph node biopsy on 05/20/2020. 2. She has chronic musculoskeletal pain. Problems Addressed with this Encounter and Plan: 1. Multifocal left breast cancer, stage IIIA (T2, pN1a, M0), ER negative, WA negative, and HER-2 kika negative. [address]aging [address] scans showed small pulmonary nodules which were indeterminate, but early metastatic disease was not excluded. Bone scan was negative for metastatic disease. With those findings, she underwent left mastectomy with axillary sentinel lymph node biopsy on 05/20/2020. She was recommended to undergo adjuvant chemotherapy with dose dense Adriamycin/cyclophosphamide followed by weekly paclitaxel. She completed 4 cycles of Adriamycin/cyclophosphamide from 07/08/2020 through 08/20/2020. As of her follow-up visit on 09/02/2020 she had a significant decline in performance status and she had moderately severe anemia with hemoglobin decreased to 8.3 g. She was transfused PRBC and a taxane portion of her chemotherapy was delayed. There was no evidence of recurrent or metastatic disease on restaging with chest CT and bone scan. She then proceeded with cycle 1 of weekly paclitaxel on 09/23/2020. She tolerated it well, and she continued with week 2 paclitaxel on 10/03/2020. Her further treatment was put on hold due to significant skin toxicity, mainly fissuring in the fingers. She required a 4-week delay, but she was able to continue with her week 3 treatment on 10/30/2020. It was administered with a dose reduction, and she tolerated well. Her week 4 was delayed until 11/11/2020, but thereafter she was able to continue the paclitaxel infusions on a weekly schedule. She completed her week 10 treatment on 12/23/2020. She continues to tolerate it with acceptable toxicity. She will proceed now with her week 11 paclitaxel. The dosage remains the same. She returns in 1 week for her 12th and final paclitaxel infusion. In the meantime, I will confer with Dr. Paiz regarding recommendations for chest wall radiation. 2. She has significant chronic musculoskeletal pain, management of which has been problematic. It remains adequately controlled with Nucynta 100 mg 4 times daily. 3. She is having significant GERD symptoms despite taking Protonix. I will have her try Nexium 40 mg daily. Signed By: Phillip Michelle M.D. <<Signature on File>>
[2021-01-06 09:30] LABS: Basophils % 0.3 %; Hematocrit 27.6 % (37.0-47.0); Hemoglobin 9.1 g/dL (11.5-15.3); Lymphocytes # 0.5 10^3/uL (0.8-4.8); Lymphocytes % 12.8 %; Mean Corpuscular Hemoglobin 33.1 pg (28.0-34.0); Mean Corpuscular Volume 100.4 fL (81-99); Mean Platelet Volume 10.2 fL (7.4-10.4); Monocytes # 0.2 10^3/uL (0.2-0.9); Neutrophils # 3.23 10^3/uL (1.8-7.7); Neutrophils % 80.6 %; Nucleated Red Blood Cells % 0 %; Platelet Count 282 10^3/cmm (130-400); Red Blood Count 2.75 10^6/uL (4.1-5.3); Red Cell Distribution Width 19.6 % (12.1-15.1)
[2021-01-06 09:59] LABS: Alanine Aminotransferase 11 U/L (0-33); Albumin Level 3.5 g/dL (3.5-5.2); Alkaline Phosphatase 154 IU/L (35-105); Aspartate Amino Transferase 10 U/L (0-32); Blood Urea Nitrogen 5 mg/dL (6-20); Calcium 8.9 mg/dL (8.5-10.5); Carbon Dioxide 26 mmol/L (22-29); Chloride 96 mmol/L (98-107); Globulin 2.5 g/dL (1.3-4.6); Glomerular Filtration Rate 126.3 mL/min (90-130); Glucose 279 mg/dL (65-115); Osmolality Calculated 283 mOsm/kg (285-295); Sodium 133 mmol/L (136-145); Total Bilirubin 0.3 mg/dL (0.15-1.2)
[2021-01-06] MEDS: sodium chloride 0.9% 250 ML 75 ML IV (11:25)
[2021-01-06] MEDS: ondansetron 2 mg/ML SDV 2 mL 8 MG IVP (11:25)
[2021-01-06] MEDS: famotidine 20 mg/2 mL INJ IVP (11:27)
[2021-01-06] MEDS: diphenhydrAMINE 50 mg/mL SDV 1mL 25 MG IVP (11:29)
[2021-01-06] MEDS: acetaminophen 325 mg Tablet 650 MG PO (11:33)
[2021-01-13 13:55] LABS: Basophils % 0.1 %; Eosinophils # 0.1 10^3/uL (0.0-0.8); Eosinophils % 0.7 %; Hematocrit 25.4 % (37.0-47.0); Hemoglobin 8.4 g/dL (11.5-15.3); Lymphocytes # 1.3 10^3/uL (0.8-4.8); Lymphocytes % 17.9 %; Mean Corpuscular HGB Conc 33.1 g/dL (30.0-36.0); Mean Corpuscular Hemoglobin 33.7 pg (28.0-34.0); Mean Platelet Volume 9.4 fL (7.4-10.4); Monocytes # 0.8 10^3/uL (0.2-0.9); Monocytes % 10.7 %; Neutrophils # 5.02 10^3/uL (1.8-7.7); Neutrophils % 69.6 %; Nucleated Red Blood Cells % 0 %; Platelet Count 247 10^3/cmm (130-400); Red Blood Count 2.49 10^6/uL (4.1-5.3); Red Cell Distribution Width 19.9 % (12.1-15.1); White Blood Count 7.2 10^3/uL (4.0-10.0)
[2021-01-13 14:27] LABS: Alanine Aminotransferase 11 U/L (0-33); Albumin Level 3.4 g/dL (3.5-5.2); Alkaline Phosphatase 123 IU/L (35-105); Anion Gap 13.6 (5-19); Aspartate Amino Transferase 13 U/L (0-32); Blood Urea Nitrogen 4 mg/dL (6-20); Calcium 8.8 mg/dL (8.5-10.5); Carbon Dioxide 29 mmol/L (22-29); Chloride 94 mmol/L (98-107); Glomerular Filtration Rate 163.4 mL/min (90-130); Glucose 107 mg/dL (65-115); Osmolality Calculated 275 mOsm/kg (285-295); Sodium 134 mmol/L (136-145); Total Bilirubin 0.6 mg/dL (0.15-1.2); Total Protein 5.4 g/dL (6.6-8.7)
[2021-01-13 14:32] LABS: Potassium 2.6 mmol/L (3.5-5.1)
--- NOTE | 2021-01-14 15:42 | ONC FU_ITS ---
[facility] Patient Note Patient: Tiara Gonzalez Unit #: [id number]: 1960 Dictated By: Emerson HarrisDate of Visit: January 06, 2021 Onc MED Follow-Up/Prog Note Chief Complaint: Breast cancer. History of Present Illness: Ms Gonzalez is a 59 year-old woman with multifocal left breast cancer, stage IIIA (T2, pN1a, M0), ER negative, DE negative, and HER-2 kika negative. She had presented to [facility] on 03/21/2020 with a lump in her left breast. Diagnostic mammogram on 03/25/2020 showed a dense well-circumscribed mass measuring 3.1 x 2.8 cm. Ultrasound showed a large cystic and solid complex lesion at the 11 to 2 o'clock position of the left breast measuring 3.1 x 2.3 x 2.7 cm. A hypoechoic lobulated lesion at 2:00 measured 7.6 x 4.5 x 7.0 mm. 2 additional hypoechoic lesions at the 1:00 and 2 o'clock position located 5 cm from the nipple appeared to represent intramammary lymph nodes. Several slightly prominent lymph nodes were noted in the left axilla measuring up to 1.4 cm in maximum diameter were noted to have preserved fatty hilum without significant cortical thickening, felt to most likely be reactive. She had underwent ultrasound directed core needle biopsy of the 11:00 mass and the 2:00 mass on 04/02/2020. 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 The breast prognostic profile on that lesion showed ER and DE both negative at <1%. The tumor was negative for overexpression of HER-2/kika, 1+ by IHC and amplification ratio by FISH at 1.0 with 1.9 HER-2 copies/cell. The Ki-67 was unfavorable at 18%. The lesion at 2:00 showed invasive ductal carcinoma, poorly differentiated, grade 3. 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 Dr Michelle had seen her initially on 04/11/2020. At that time she had multiple complains, significant enough that there was concerned about the possibility of metatstatic disease. Her baseline laboratory studies were unremarkable except for slightly elevated liver enzymes. Her brain MRI showed no evidence of metastatic disease. Staging CT scans of the chest, abdomen, and pelvis on 05/05/2020 showed hepatic steatosis but no metastatic disease in the abdomen or pelvis. The chest showed multilobar subcentimeter pulmonary nodules which were indeterminate but new compared to a prior study from 2018. Bone scan showed mild degenerative changes at the ankle joints and knee joints. There was no significant evidence for metastatic disease. In the setting of multifocal disease with no evidence of metastatic involvement, she was advised to proceed with mastectomy. On 05/20/2020 she underwent left total mastectomy and left axillary sentinel lymph node biopsy. Pathology confirmed multifocal metaplastic carcinoma, grade 3, with giant cells, spindle cells, chondroid and osteoid differentiation. The largest focus of involvement measured 3.8 cm. The margins were free, with the closest being the deep margin at 9 mm. There was a component of ductal carcinoma in situ, solid and cribriform type with comedonecrosis, grade 3. The closest margin to DCIS was 7 mm. 2 intramammary lymph nodes were positive for metastatic involvement, 1 of which showed extracapsular extension. There was no involvement in 4 axillary sentinel lymph nodes. Pathologic staging was pT2, pN1a. She had staging evaluation with CT chest, abdomen, and pelvis along with nuclear medicine bone scan on 05/05/2020. The bone scan was negative. The chest CT showed several new areas of groundglass attenuation and spiculated nodules involving both lung gallagher, early metastatic disease not excluded. There was evidence of hepatic steatosis, but there were no other findings which were suspicious for metastatic involvement. With those findings, she was recommended to undergo adjuvant chemotherapy with dose dense Adriamycin/cyclophosphamide followed by weekly paclitaxel. Her medical history includes several prior surgeries, limited to Caesarean section, right ankle repair, and right knee repair. She has had some chronic musculoskeletal pain, but she has had no other prior medical illnesses. She does have a history of smoking 2 packs of cigarettes daily. INTERIM HISTORY: She began cycle 1 of Adriamycin/cyclophosphamide on 07/08/2020. She was able to tolerated with acceptable toxicity, and she continued with cycle 2 on 07/22/2020. With cycle 3 on 08/05/2020 she did receive a dose reduction due to neutropenia. She continued with cycle 4 on 08/20/2020. Dr Michelle had seen her for a follow-up visit on 09/02/2020. At that point she had experienced a significant decline in her performance status. She had moderately severe anemia with hemoglobin decreased to 8.3 g. She also is having significant bone pain. As she was symptomatic with the anemia, Dr Michelle did opt to transfuse PRBC and delayed the taxane portion of her chemotherapy. She had restaging with chest CT and bone scan. Neither study showed any evidence of metastatic disease. She then proceeded to cycle 1 of weekly paclitaxel on 09/23/2020. She initially tolerated it well, but her treatment had to be put on hold after her 2nd weekly infusion due to development of significant skin changes in both hands. After a 4-week delay she was able to continue with her week 3 treatment. It was administered with a dose reduction. She tolerated it with acceptable toxicity and she was then able to continue her paclitaxel infusions weekly. She completed week 11 treatment on 12/30/2020. Mrs. Gonzalez is here today for follow-up. This is week 12 of 12 of her docetaxel portion of her chemotherapy. She states that her pain is not responding to the 150 mcg of Nucynta as well as it has in the past and she is inquiring about increasing it to 200. She has spoke with the nurses prior to my visit and they are discussing this with Dr. Michelle for his input and possible written prescriptions. She states the pain is just chronic and just seems to not be responding as well to the current dose of Nucynta. She denies any side effects such as sedation, constipation mouth dryness or rash. She denies any skin changes. She denies any fever or chills. She denies nausea or vomiting. She states she remains very active around the house playing with her grandkids introduce little stuff that her family will let her do. She has no concerns today. Her ECOG is 1. Past Medical History: Ms. Cody medical history is unremarkable. Past Surgical History: Caesarean section Right ankle repair Right knee repair Right internal juglar [employer] per Dr Tejada in 2019 Allergies: No Known Allergies. Medications: Gabapentin 1 Capsule (of 100 mg) Oral t.i.d. Nucynta 1 Tablet (of 50 mg) Oral four times a day Nucynta 1 Tablet (of 100 mg) Oral four times a day PRN Prochlorperazine Maleate 1 - 2 Tablet (of 10 mg) Oral daily PRN traZODone HCl 1 Tablet (of 50 mg) Oral at bedtime Zofran 1 - 2 Tablet (of 4 mg) Oral four times a day PRN Family History: Ms. Gonzalez's mother is alive. Ms. Gonzalez's father at age 75: heart disease. Ms. Gonzalez has 1 sister who is alive: breast cancer. She has 1 maternal aunt who is : colon cancer. Father of heart disease at age 75. Mother is living at age 82. A 64-year-old sister has been treated for breast cancer. A maternal aunt of colon cancer. Social History: Ms. Gonzalez is and she is retired. Ms. Gonzalez no longer smokes but had smoked 2.0 packs/day. She has no history of drinking. She has indicated exposure to the following products: cigarettes and recreational drug use. Ms. Gonzalez reports the following support systems: lives alone, lives in own house, supportive family/friends willing to assist with needs, and adequate transportation available for expected visits. Her diet consists of regular meals. She indicates her activity level as: regular exercise. Review Of Symptoms: <See Above> Vital Signs: Performed on January 06, 2021 10:33 Height - 62.00 in Weight - 108.8 lbs (LOW) BSA - 1.48 sq.m BMI - 19.90 Temperature - 96.5 F (LOW) Pulse - 91 /min Respiration - 18 /min BP - 126/73 mm(hg) O2 Sat - 95 % (LOW) Pain - 0,1 - No physically strenuous activity, but ambulatory and able to carry out light or sedentary work (e.g. office work, light house work). (ECOG) Physical Examination: Constitutional Alert, oriented, no acute distress. Skin pink, warm and dry. Alopecia. Head Normocephalic; atraumatic. Eyes Conjunctivae and sclerae are clear and without icterus. Pupils are reactive and equal. ENMT No oral exudates. Healed ulcers noted on lower lip area, but no masses, thrush or mucositis. Oropharynx clear. Tongue normal. Neck Supple without masses or thyromegaly. No jugular venous distension. Hematologic/Lymphatic No petechiae or purpura. No tender or palpable lymph nodes in the cervical or supraclavicular areas. Respiratory Lungs are clear to auscultation without rhonchi or wheezing. Cardiovascular Regular rate and rhythm of heart without murmurs,clicks, gallops or rubs. Chest Chest is symmetric without chest wall deformities. Right chest wall port insertion site is unremarkable. Breasts Mastectomy site has healed well. Abdomen Non-tender, non-distended, no masses or ascites. Back/Spine Non-tender to palpation. Extremities The skin fissures have healed well. Musculoskeletal No tenderness or swelling, normal range of motion without obvious weakness. Integumentary No rashes or lesions. Neurologic No sensory or motor deficits, normal cerebellar function, slow, normal for her gait. Psychiatric Alert and oriented times three. Coherent speech. Verbalizes understanding of our discussions today. Laboratory:Test performed on January 06, 2021 09:10 Sodium 133 mmol/L Potassium 4.0 mmol/L Chloride 96 mmol/L CO2 26 mmol/L Anion Gap 15.0 BUN 5 mg/dL Creatinine 0.5 mg/dL Cr Clearance (Est) 100.1100 mL/min eGFR 126.3 mL/min Glucose 279 mg/dL Osmolality - Calculated 283 mOsm/kg Calcium 8.9 mg/dL Protein, Total 6.0 g/dL Albumin 3.5 g/dL Globulin 2.5 g/dL Bilirubin, Total 0.3 mg/dL ALT (SGPT) 11 U/L AST (SGOT) 10 U/L Alkaline Phosphatase 154 IU/L WBC 4.0 10 3/uL RBC 2.75 10 6/uL HGB 9.1 g/dL HCT 27.6 % MCV 100.4 fL MCH 33.1 pg MCHC 33.0 g/dL RDW 19.6 % Platelet Count 282 10 3/cmm MPV 10.2 fL Neutrophils 3.23 10 3/uL Lymphocytes 0.5 10 3/uL Monocytes 0.2 10 3/uL Eosinophils 0.0 10 3/uL Basophils 0.0 10 3/uL Neutrophil % 80.6 % Lymphocyte % 12.8 % Monocyte % 4.0 % Eosinophil % 0.0 % Basophils % 0.3 % NRBC % 0 % Test performed on December 23, 2020 08:55 Ua Color Yellow Ua Appearance Cloudy Ua Glucose Norm Ua Bilirubin Neg Ua Ketones Negative Ua Specific Terril 1.020 Ua Blood 2+ Ua pH 5 Ua Protein Trace Ua Nitrites Positive Ua Leukocyte Esterase 2+ Ua Micro: WBC >100 /hpf Ua Micro: RBC 15-25 /hpf Ua Micro: Squam Epith Cells 5-10 /hpf Ua Micro: Bacteria 3+ /hpf Test performed on December 22, 2020 00:00 Manual Diff Cancelled via OM: Cancelled in Connected System Test performed on Dec 02, 2020 10:00 Ua Micro: Mucous TRACE /hpf Test performed on Nov 25, 2020 09:50 TSH 0.28 uIU/mL Test performed on Sep 02, 2020 14:45 Anti-D Positive Blood Type AP Antibody Screen (Gel) NEGATIVE Test performed on Sep 02, 2020 14:35 ABO & Rh Type # 2 AP Test performed on Sep 02, 2020 13:50 Iron 84 mcg/dL Vitamin B12 > 2000 pg/mL Iron Binding Capacity (TIBC) 266 mcg/dl % Iron Saturation 31.5 % UIBC 182 mcg/dL Erythropoietin 88.7 mIU/mL Test performed on Aug 19, 2020 10:45 Manual Segs % 71 % Manual Bands % 5.0 % Manual Lymphs % 13 % Atypical Lymphs % 1.0 % Total Cells Counted 100 Manual Monos % 6.0 % Manual Eos % 0 % Manual Basos % 0.0 % Metamyelocytes % 4.0 % CBC Slide Review Slide Review Perform Anisocytosis 1+ Poikilocytosis 1+ Tear Drop Cells 1+ Platelet Estimate Normal Manual Segs Abs 6.2 10/cmm Manual Bands Abs 0.4 10 3/cmm Manual Neutrophils Abs 6.7 10 3/cmm Manual Monocytes Abs 0.5 10 3/cmm Manual Eosinophils Abs 0.0 10 3/cmm Manual Basophils Abs 0.0 10 3/cmm Test performed on Aug 04, 2020 13:55 Magnesium 2.1 mg/dL Polychromasia Trace Impression: 1. Multifocal left breast cancer, stage IIIA (T2, pN1a, M0), ER negative, DE negative, and HER-2 kika negative. 2. She underwent ultrasound directed core needle biopsy of the left breast on 04/02/2020 and she underwent left mastectomy with axillary sentinel lymph node biopsy on 05/20/2020. Plan/Problems Addressed at this Visit: 1. Multifocal left breast cancer, stage IIIA (T2, pN1a, M0), ER negative, DE negative, and HER-[address] kika negative[address] scans showed small pulmonary nodules which were indeterminate, but early metastatic disease was not excluded. Bone scan was negative for metastatic disease. With those findings, she underwent left mastectomy with axillary sentinel lymph node biopsy on 05/20/2020. She was recommended to undergo adjuvant chemotherapy with dose dense Adriamycin/cyclophosphamide followed by weekly paclitaxel. She completed 4 cycles of Adriamycin/cyclophosphamide from 07/08/2020 through 08/20/2020. As of her follow-up visit on 09/02/2020 she had a significant decline in performance status and she had moderately severe anemia with hemoglobin decreased to 8.3 g. She was transfused PRBC and the taxane portion of her chemotherapy was delayed. There was no evidence of recurrent or metastatic disease on restaging with chest CT and bone scan. She then proceeded with cycle 1 of weekly paclitaxel on 09/23/2020. She tolerated it well, and completed her week 2 paclitaxel on 10/03/2020. She was unable to do week 3 due to inclement weather. She was delayed with cycle 3 for an additional two weeks due to significant fissures on her fingers and toes. That did resolve. She was able to resume cycle 3 on October 30, 2020 at reduced doses. A. Proceed with week 1212 paclitaxel???steroid compliance confirmed. She will continue at the reduced dosing. B. She has resumed the Zofran for premed and has not had recurrent nausea. C. Today's labs were reviewed with Mrs. Gonzalez and a copy was given to her. WBC 4.0, hemoglobin 9.1, platelets 282,000, ANC is 30-30. Potassium 4.0 random glucose 279 creatinine 0.4 LFTs are normal alk phos is stable at 154. Follow-up UA post UTI treatment is pending at visit. 2. She has significant chronic musculoskeletal pain, management of which has been problematic. A. At the present time her pain is being well controlled with Nucynta 150 mg 4 times daily. She states she would like to increase the Nucynta to 200 mg from 150 mg 4 times daily as she does not feel her pain is responding as well as it has in the past. B. The nursing staff was going to talk with Dr. Michelle regarding her discomfort and let her know what his decision was. 3. Recurrent urinary tract infection A. We did have her do Bactrim DS 1 twice daily for 10 days starting on December 23, 2020. B. Followup UTI was requested today. 4. Followup Plan A. Plan to return in 4 weeks for followup after 12 weeks ofTaxol with CBC CMP. B. Ms. Gonzalez was instructed to contact us in interim should questions or problems arise. Signed By: Emerson Harris-, AOCNP Phillip Michelle MD <<Signature on File>>
== END 2021-01-19 23:59 | disposition home or self-care (01) ==
LOC: ONCMED 05:39
PROVIDERS: Nurse Practitioner; Visit Provider Internal Medicine Medical Oncology
DX: Z51.11 Encounter for antineoplastic chemotherapy (principal); C50.812 Malignant neoplasm of overlapping sites of left female breast; Z17.1 Estrogen receptor negative status [ER-]; Z90.12 Acquired absence of left breast and nipple; Z79.899 Other long term (current) drug therapy
CPT/HCPCS: 36415; 80053; 81001; 85025; 87077; 87086; 87186; 96367; 96375; 96413; 99214; J1100; J1200; J1453; J2405; J3490; J7050; J9267

== ENCOUNTER 2021-02-04 06:32 | Outpatient (RCR) | payer MEDICAID, SELFPAY ==
[2021-02-04 11:21] LABS: Basophils % 0.5 %; Eosinophils # 0.2 10^3/uL (0.0-0.8); Eosinophils % 1.9 %; Hematocrit 37.6 % (37.0-47.0); Hemoglobin 12.1 g/dL (11.5-15.3); Lymphocytes # 1.7 10^3/uL (0.8-4.8); Lymphocytes % 21.7 %; Mean Corpuscular HGB Conc 32.2 g/dL (30.0-36.0); Mean Corpuscular Hemoglobin 33.4 pg (28.0-34.0); Mean Corpuscular Volume 103.9 fL (81-99); Mean Platelet Volume 9.2 fL (7.4-10.4); Monocytes # 0.6 10^3/uL (0.2-0.9); Monocytes % 7.3 %; Neutrophils # 5.48 10^3/uL (1.8-7.7); Neutrophils % 68.2 %; Nucleated Red Blood Cells % 0 %; Platelet Count 214 10^3/cmm (130-400); Red Blood Count 3.62 10^6/uL (4.1-5.3); Red Cell Distribution Width 14.9 % (12.1-15.1)
[2021-02-04 11:56] LABS: Alanine Aminotransferase 8 U/L (0-33); Albumin Level 3.5 g/dL (3.5-5.2); Alkaline Phosphatase 184 IU/L (35-105); Anion Gap 11.3 (5-19); Aspartate Amino Transferase 16 U/L (0-32); Blood Urea Nitrogen 6 mg/dL (6-20); Calcium 8.8 mg/dL (8.5-10.5); Carbon Dioxide 27 mmol/L (22-29); Chloride 101 mmol/L (98-107); Globulin 2.6 g/dL (1.3-4.6); Glomerular Filtration Rate 126.3 mL/min (90-130); Glucose 87 mg/dL (65-115); Osmolality Calculated 277 mOsm/kg (285-295); Potassium 4.3 mmol/L (3.5-5.1); Sodium 135 mmol/L (136-145); Total Bilirubin 0.3 mg/dL (0.15-1.2); Total Protein 6.1 g/dL (6.6-8.7)
--- NOTE | 2021-02-07 16:37 | ONC FU_ITS ---
Dr. Micehlle Patient Follow-Up Note Patient: Tiara Gonzalez Unit #: [id number]: 1960 Dicatated By: Phillip Michelle M.D.Date of Visit:Feb 04, 2021 Onc Med Follow-up/Prog Note Chief Complaint: Breast cancer. History of Present Illness: This is a 59 year-old woman with multifocal left breast cancer, stage IIIA (T2, pN1a, M0), ER negative, FL negative, and HER-2 kika negative. She had presented to [facility] on 03/21/2020 with a lump in her left breast. Diagnostic mammogram on 03/25/2020 showed a dense well-circumscribed mass measuring 3.1 x 2.8 cm. Ultrasound showed a large cystic and solid complex lesion at the 11 to 2 o'clock position of the left breast measuring 3.1 x 2.3 x 2.7 cm. A hypoechoic lobulated lesion at 2:00 measured 7.6 x 4.5 x 7.0 mm. 2 additional hypoechoic lesions at the 1:00 and 2 o'clock position located 5 cm from the nipple appeared to represent intramammary lymph nodes. Several slightly prominent lymph nodes were noted in the left axilla measuring up to 1.4 cm in maximum diameter were noted to have preserved fatty hilum without significant cortical thickening, felt to most likely be reactive. She had underwent ultrasound directed core needle biopsy of the 11:00 mass and the 2:00 mass on 04/02/2020. 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 The breast prognostic profile on that lesion showed ER and FL both negative at <1%. The tumor was negative for overexpression of HER-2/kika, 1+ by IHC and amplification ratio by FISH at 1.0 with 1.9 HER-2 copies/cell. The Ki-67 was unfavorable at 18%. The lesion at 2:00 showed invasive ductal carcinoma, poorly differentiated, grade 3. 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 I had seen her initially on 04/11/2020. At that time she had multiple complains, significant enough that I was concerned about the possibility of metatstatic disease. Her baseline laboratory studies were unremarkable except for slightly elevated liver enzymes. Her brain MRI showed no evidence of metastatic disease. Staging CT scans of the chest, abdomen, and pelvis on 05/05/2020 showed hepatic steatosis but no metastatic disease in the abdomen or pelvis. The chest showed multilobar subcentimeter pulmonary nodules which were indeterminate but new compared to a prior study from 2018. Bone scan showed mild degenerative changes at the ankle joints and knee joints. There was no significant evidence for metastatic disease. In the setting of multifocal disease with no evidence of metastatic involvement, she was advised to proceed with mastectomy. On 05/20/2020 she underwent left total mastectomy and left axillary sentinel lymph node biopsy. Pathology confirmed multifocal metaplastic carcinoma, grade 3, with giant cells, spindle cells, chondroid and osteoid differentiation. The largest focus of involvement measured 3.8 cm. The margins were free, with the closest being the deep margin at 9 mm. There was a component of ductal carcinoma in situ, solid and cribriform type with comedonecrosis, grade 3. The closest margin to DCIS was 7 mm. 2 intramammary lymph nodes were positive for metastatic involvement, 1 of which showed extracapsular extension. There was no involvement in 4 axillary sentinel lymph nodes. Pathologic staging was pT2, pN1a. She had staging evaluation with CT chest, abdomen, and pelvis along with nuclear medicine bone scan on 05/05/2020. The bone scan was negative. The chest CT showed several new areas of groundglass attenuation and spiculated nodules involving both lung gallagher, early metastatic disease not excluded. There was evidence of hepatic steatosis, but there were no other findings which were suspicious for metastatic involvement. With those findings, she was recommended to undergo adjuvant chemotherapy with dose dense Adriamycin/cyclophosphamide followed by weekly paclitaxel. Her medical history includes several prior surgeries, limited to Caesarean section, right ankle repair, and right knee repair. She has had some chronic musculoskeletal pain, but she has had no other prior medical illnesses. She does have a history of smoking 2 packs of cigarettes daily. INTERIM HISTORY: She began cycle 1 of Adriamycin/cyclophosphamide on 07/08/2020. She was able to tolerated with acceptable toxicity, and she continued with cycle 2 on 07/22/2020. With cycle 3 on 08/05/2020 she did receive a dose reduction due to neutropenia. She continued with cycle 4 on 08/20/2020. I had seen her for a follow-up visit on 09/02/2020. At that point she had experienced a significant decline in her performance status. She had moderately severe anemia with hemoglobin decreased to 8.3 g. She also is having significant bone pain. As she was symptomatic with the anemia, I did opt to transfuse PRBC and I delayed the taxane portion of her chemotherapy. She had restaging with chest CT and bone scan. Neither study showed any evidence of metastatic disease. She then proceeded to cycle 1 of weekly paclitaxel on 09/23/2020. She initially tolerated it well, but her treatment had to be put on hold after her 2nd weekly infusion due to development of significant skin changes in both hands. After a 4-week delay she was able to continue with her week 3 treatment. It was administered with a dose reduction. She tolerated it with acceptable toxicity and she was then able to continue her treatment weekly. She completed her 12th and final infusion of palcitaxel on 01/06/2021. She is seen for a scheduled visit. She complains that she is tired a lot, but she is able to do housework. ECOG score is 1. Her appetite is not very good. She has lost weight. She has not had fever and she does not complain of hot flashes. She sometimes has sweating at night. She has not had mouth sores. She says her breathing is pretty good, but she is sometimes short of breath. She has only a little cough. Recently she has had some chest pain. She sometimes has nausea. Her acid reflux is adequately managed with medication. Bowel and bladder function have been okay. She has chronic pain, mainly in her back. She is also having pain in her knees and legs. She does not complain of headache. She is sometimes off balance, and she had recently fallen again. She has numbness in her hands and feet. She has depression, but she feels that it is managed adequately with medication. Medications: Gabapentin 1 Capsule (of 100 mg) Oral t.i.d., Nucynta 1 Tablet (of 200 mg) Oral four times a day PRN, Prochlorperazine Maleate 1 - 2 Tablet (of 10 mg) Oral daily PRN, traZODone HCl 1 Tablet (of 50 mg) Oral at bedtime, Zofran 1 - 2 Tablet (of 4 mg) Oral four times a day PRN Allergies: No Known Allergies. Vital Signs: Performed on Feb 04, 2021 10:17 Height - 62.00 in Weight - 103.6 lbs (LOW) BSA - 1.45 sq.m BMI - 18.95 Temperature - 97.4 F (LOW) Pulse - 83 /min Respiration - 18 /min BP - 110/71 mm(hg) O2 Sat - 98 % Pain - 8 Fatigue - 7 Physical Examination: Constitutional - She appears somewhat frail generally, Eyes - Sclerae nonicteric. Conjunctivae clear, ENMT - No lesions noted in the oral cavity, Hematologic/Lymphatic - No cervical or clavicular adenopathy, Respiratory - Lungs sound clear with diminished air movement bilaterally, Cardiovascular - Heart rhythm is regular. There is no murmur, gallop, or rub noted, Breasts - The left chest wall shows no lesions. There is no axillary adenopathy noted, Abdomen - Soft. Liver and spleen are not enlarged. There is no abdominal mass or ascites noted and there is no inguinal adenopathy, Extremities - No edema, Neurologic - No focal neurologic deficits noted. Lab/Imaging: Test performed on Feb 04, 2021 11:04 Sodium 135 mmol/L Potassium 4.3 mmol/L Chloride 101 mmol/L CO2 27 mmol/L Anion Gap 11.3 BUN 6 mg/dL Creatinine 0.5 mg/dL Cr Clearance (Est) 89.8700 mL/min eGFR 126.3 mL/min Glucose 87 mg/dL Osmolality - Calculated 277 mOsm/kg Calcium 8.8 mg/dL Protein, Total 6.1 g/dL Albumin 3.5 g/dL Globulin 2.6 g/dL Bilirubin, Total 0.3 mg/dL ALT (SGPT) 8 U/L AST (SGOT) 16 U/L Alkaline Phosphatase 184 IU/L WBC 8.0 10 3/uL RBC 3.62 10 6/uL HGB 12.1 g/dL HCT 37.6 % MCV 103.9 fL MCH 33.4 pg MCHC 32.2 g/dL RDW 14.9 % Platelet Count 214 10 3/cmm MPV 9.2 fL Neutrophils 5.48 10 3/uL Lymphocytes 1.7 10 3/uL Monocytes 0.6 10 3/uL Eosinophils 0.2 10 3/uL Basophils 0.0 10 3/uL Neutrophil % 68.2 % Lymphocyte % 21.7 % Monocyte % 7.3 % Eosinophil % 1.9 % Basophils % 0.5 % NRBC % 0 % Problem List: 1. Multifocal left breast cancer, stage IIIA (T2, pN1a, M0), ER negative, FL negative, and HER-2 kika negative. She underwent ultrasound directed core needle biopsy of the left breast on 04/02/2020 and she underwent left mastectomy with axillary sentinel lymph node biopsy on 05/20/2020. 2. She has chronic musculoskeletal pain. Problems Addressed with this Encounter and Plan: 1. Patient with multifocal left breast cancer, stage IIIA (T2, pN1a, M0), ER negative, FL negative, and HER-2 kika negative[address] scans showed small pulmonary nodules which were indeterminate, but early metastatic disease was not excluded. Bone scan was negative for metastatic disease. With those findings, she underwent left mastectomy with axillary sentinel lymph node biopsy on 05/20/2020. She was recommended to undergo adjuvant chemotherapy with dose dense Adriamycin/cyclophosphamide followed by weekly paclitaxel. She completed 4 cycles of Adriamycin/cyclophosphamide from 07/08/2020 through 08/20/2020. As of her follow-up visit on 09/02/2020 she had a significant decline in performance status and she had moderately severe anemia with hemoglobin decreased to 8.3 g. She was transfused PRBC and a taxane portion of her chemotherapy was delayed. There was no evidence of recurrent or metastatic disease on restaging with chest CT and bone scan. She then proceeded with cycle 1 of weekly paclitaxel on 09/23/2020. She tolerated it well, and she continued with week 2 paclitaxel on 10/03/2020. Her further treatment was put on hold due to significant skin toxicity, mainly fissuring in the fingers. She required a 4-week delay, but she was able to continue with her week 3 treatment on 10/30/2020. It was administered with a dose reduction, and she tolerated well. Her week 4 was delayed until 11/11/2020, but thereafter she was able to continue the paclitaxel infusions on a weekly schedule. She completed her week 12 and final treatment on 01/06/2021. She still has significant fatigue following completion of her adjuvant chemotherapy, and she has had a significant weight loss. She will now be followed on expectant management. I have reviewed her pathology findings with Dr. Paiz, and in the absence of any involvement in axillary lymph nodes, she does not require postoperative chest wall radiation. As such, she will now be followed on expectant management. She will be scheduled for a follow-up visit in 3 months. In the meantime, as she has had a mastectomy, she is in need of postmastectomy bras and prosthesis, and those will now be requested. 2. She has significant chronic musculoskeletal pain, management of which has been problematic. She initially had significant benefit with Nucynta 100 mg 4 times daily, but since then her pain had worsened somewhat. As I would prefer to avoid using higher dosages of the Nucynta, I will have her try increasing her gabapentin dosage to 300 mg 3 times daily. In addition, she continues to have problems with insomnia, her trazodone dosage will be increased to 150 mg. Signed By: Phillip Michelle M.D. <<Signature on File>>
== END 2021-02-18 23:59 | disposition home or self-care (01) ==
LOC: ONCMED 06:32
PROVIDERS: Visit Provider Internal Medicine Medical Oncology
DX: Z08 Encounter for follow-up examination after completed treatment for malignant neoplasm (principal); Z85.3 Personal history of malignant neoplasm of breast; Z90.12 Acquired absence of left breast and nipple; M79.18 Myalgia, other site; G89.29 Other chronic pain; Z79.899 Other long term (current) drug therapy; Z92.21 Personal history of antineoplastic chemotherapy
CPT/HCPCS: 80053; 85025; 99214

== ENCOUNTER → 2021-03-16 13:37 | Outpatient (BNVA) | payer MEDICAID, SELFPAY | PROVIDERS: Visit Provider Surgery | DX: Z01.812 Encounter for preprocedural laboratory examination (principal); Z20.822 Contact with and (suspected) exposure to COVID-19; Z45.2 Encounter for adjustment and management of vascular access device | CPT/HCPCS: 87635 ==

== ENCOUNTER → 2021-05-12 11:41 | Outpatient (BNVA) | payer MEDICAID, SELFPAY | PROVIDERS: Visit Provider Internal Medicine Medical Oncology | DX: C50.912 Malignant neoplasm of unspecified site of left female breast (principal) | CPT/HCPCS: 80053; 85025 ==

== ENCOUNTER 2021-05-21 08:57 | Outpatient (CLI) | payer MEDICAID, SELFPAY ==
[2021-05-21 10:23] LABS: Basophils % 0.7 %; Eosinophils # 0.1 10^3/uL (0.0-0.8); Eosinophils % 1.4 %; Hematocrit 37.2 % (37.0-47.0); Hemoglobin 12.2 g/dL (11.5-15.3); Lymphocytes # 1.5 10^3/uL (0.8-4.8); Lymphocytes % 24.9 %; Mean Corpuscular HGB Conc 32.8 g/dL (30.0-36.0); Mean Corpuscular Hemoglobin 30.3 pg (28.0-34.0); Mean Corpuscular Volume 92.3 fl (81-99); Mean Platelet Volume 9.5 fL (7.4-10.4); Monocytes # 0.6 10^3/uL (0.2-0.9); Monocytes % 9.4 %; Neutrophils # 3.71 10^3/uL (1.8-7.7); Neutrophils % 63.1 %; Nucleated Red Blood Cells % 0 %; Platelet Count 184 10^3/cmm (130-400); Red Blood Count 4.03 10^6/uL (4.1-5.3); Red Cell Distribution Width 13.7 % (12.1-15.1); White Blood Count 5.9 10^3/uL (4.0-10.0)
[2021-05-21 10:51] LABS: Alanine Aminotransferase 11 U/L (0-33); Albumin Level 3.5 g/dL (3.5-5.2); Alkaline Phosphatase 165 IU/L (35-105); Anion Gap 11.5 (5-19); Aspartate Amino Transferase 16 U/L (0-32); Blood Urea Nitrogen 9 mg/dL (6-20); Carbon Dioxide 29 mmol/L (22-29); Chloride 97 mmol/L (98-107); Globulin 2.8 g/dL (1.3-4.6); Glomerular Filtration Rate 126.3 mL/min (90-130); Glucose 90 mg/dL (65-115); Osmolality Calculated 276 mOsm/kg (285-295); Potassium 3.5 mmol/L (3.5-5.1); Sodium 134 mmol/L (136-145); Total Bilirubin 0.2 mg/dL (0.15-1.2); Total Protein 6.3 g/dL (6.6-8.7)
--- NOTE | 2021-05-21 19:35 | ONC FU_ITS ---
Dr. Michelle Patient Follow-Up Note Patient: Tiara Gonzalez Unit #: [id number]: 1960 Dicatated By: Phillip Michelle M.D.Date of Visit:May 21, 2021 Onc Med Follow-up/Prog Note Chief Complaint: Breast cancer. History of Present Illness: This is a 60 year-old woman with multifocal left breast cancer, stage IIIA (T2, pN1a, M0), ER negative, NM negative, and HER-2 kika negative. She had presented to [facility] on 03/21/2020 with a lump in her left breast. Diagnostic mammogram on 03/25/2020 showed a dense well-circumscribed mass measuring 3.1 x 2.8 cm. Ultrasound showed a large cystic and solid complex lesion at the 11 to 2 o'clock position of the left breast measuring 3.1 x 2.3 x 2.7 cm. A hypoechoic lobulated lesion at 2:00 measured 7.6 x 4.5 x 7.0 mm. 2 additional hypoechoic lesions at the 1:00 and 2 o'clock position located 5 cm from the nipple appeared to represent intramammary lymph nodes. Several slightly prominent lymph nodes were noted in the left axilla measuring up to 1.4 cm in maximum diameter were noted to have preserved fatty hilum without significant cortical thickening, felt to most likely be reactive. She had underwent ultrasound directed core needle biopsy of the 11:00 mass and the 2:00 mass on 04/02/2020. 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 The breast prognostic profile on that lesion showed ER and NM both negative at <1%. The tumor was negative for overexpression of HER-2/kika, 1+ by IHC and amplification ratio by FISH at 1.0 with 1.9 HER-2 copies/cell. The Ki-67 was unfavorable at 18%. The lesion at 2:00 showed invasive ductal carcinoma, poorly differentiated, grade 3. 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 I had seen her initially on 04/11/2020. At that time she had multiple complains, significant enough that I was concerned about the possibility of metatstatic disease. Her baseline laboratory studies were unremarkable except for slightly elevated liver enzymes. Her brain MRI showed no evidence of metastatic disease. Staging CT scans of the chest, abdomen, and pelvis on 05/05/2020 showed hepatic steatosis but no metastatic disease in the abdomen or pelvis. The chest showed multilobar subcentimeter pulmonary nodules which were indeterminate but new compared to a prior study from 2018. Bone scan showed mild degenerative changes at the ankle joints and knee joints. There was no significant evidence for metastatic disease. In the setting of multifocal disease with no evidence of metastatic involvement, she was advised to proceed with mastectomy. On 05/20/2020 she underwent left total mastectomy and left axillary sentinel lymph node biopsy. Pathology confirmed multifocal metaplastic carcinoma, grade 3, with giant cells, spindle cells, chondroid and osteoid differentiation. The largest focus of involvement measured 3.8 cm. The margins were free, with the closest being the deep margin at 9 mm. There was a component of ductal carcinoma in situ, solid and cribriform type with comedonecrosis, grade 3. The closest margin to DCIS was 7 mm. 2 intramammary lymph nodes were positive for metastatic involvement, 1 of which showed extracapsular extension. There was no involvement in 4 axillary sentinel lymph nodes. Pathologic staging was pT2, pN1a. She had staging evaluation with CT chest, abdomen, and pelvis along with nuclear medicine bone scan on 05/05/2020. The bone scan was negative. The chest CT showed several new areas of groundglass attenuation and spiculated nodules involving both lung gallagher, early metastatic disease not excluded. There was evidence of hepatic steatosis, but there were no other findings which were suspicious for metastatic involvement. With those findings, she was recommended to undergo adjuvant chemotherapy with dose dense Adriamycin/cyclophosphamide followed by weekly paclitaxel. She began cycle 1 of Adriamycin/cyclophosphamide on 07/08/2020. She was able to tolerated with acceptable toxicity, and she continued with cycle 2 on 07/22/2020. With cycle 3 on 08/05/2020 she did receive a dose reduction due to neutropenia. She continued with cycle 4 on 08/20/2020. I had seen her for a follow-up visit on 09/02/2020. At that point she had experienced a significant decline in her performance status. She had moderately severe anemia with hemoglobin decreased to 8.3 g. She also was having significant bone pain. As she was symptomatic with the anemia, I did opt to transfuse PRBC and I delayed the taxane portion of her chemotherapy. She had restaging with chest CT and bone scan. Neither study showed any evidence of metastatic disease. She then proceeded to cycle 1 of weekly paclitaxel on 09/23/2020. She initially tolerated it well, but her treatment had to be put on hold after her 2nd weekly infusion due to development of significant skin changes in both hands. After a 4-week delay she was able to continue with her week 3 treatment. It was administered with a dose reduction. She tolerated it with acceptable toxicity and she was then able to continue her treatment weekly. She completed her 12th and final infusion of palcitaxel on 01/06/2021. Her medical history includes several prior surgeries, limited to Caesarean section, right ankle repair, and right knee repair. She has had some chronic musculoskeletal pain, but she has had no other prior medical illnesses. She does have a history of smoking 2 packs of cigarettes daily. INTERIM HISTORY: She is seen for a followup visit. She has been feeling pretty good generally, though she is sometimes tired. She is able to do light work. ECOG score is 1. She says her appetite has not been too good lately, but she has been gaining weight. She does not have fever, night sweats, or hot flashes. She has not had sore mouth or throat. She does not complain of shortness of breath, but she does have cough productive of greenish sputum. She is still smoking about a pack of cigarettes daily. She does not have chest pain. She occasionally has nausea in the morning. Her bowels have tended to fluctuate between constipation and loose stools. Bladder function has been okay. She has chronic pain, most significantly in her knees, right lower back, and right ankle. She does not complain of headache. She sometimes has dizziness. She has numbness in her hands and feet. Medications: Gabapentin 1 Capsule (of 100 mg) Oral t.i.d., Nucynta 1 Tablet (of 200 mg) Oral four times a day PRN, Prochlorperazine Maleate 1 - 2 Tablet (of 10 mg) Oral daily PRN, traZODone HCl 1 Tablet (of 50 mg) Oral at bedtime, Zofran 1 - 2 Tablet (of 4 mg) Oral four times a day PRN Allergies: No Known Allergies. Vital Signs: Performed on May 21, 2021 09:08 Height - 62.00 in Weight - 116.4 lbs (HIGH) BSA - 1.52 sq.m BMI - 21.29 Temperature - 97.2 F (LOW) Pulse - 78 /min Respiration - 19 /min BP - 121/72 mm(hg) O2 Sat - 97 % Pain - 7 Physical Examination: Constitutional - She appears chronically ill, Eyes - Sclerae nonicteric. Conjunctivae clear, ENMT - No lesions noted in the oral cavity, Hematologic/Lymphatic - No cervical or clavicular adenopathy, Respiratory - Lungs show diminished air movement bilaterally. There are scattered rales present, Cardiovascular - Heart rhythm is regular. There is no murmur, gallop, or rub noted, Breasts - The left chest wall shows no lesions. There is no axillary adenopathy noted, Abdomen - Soft. Liver and spleen are not enlarged. There is no abdominal mass or ascites noted and there is no inguinal adenopathy, Extremities - No edema, Neurologic - No focal neurologic deficits noted. Lab/Imaging: Test performed on May 21, 2021 09:40 Sodium 134 mmol/L Potassium 3.5 mmol/L Chloride 97 mmol/L CO2 29 mmol/L Anion Gap 11.5 BUN 9 mg/dL Creatinine 0.5 mg/dL Cr Clearance (Est) 100.9800 mL/min eGFR 126.3 mL/min Glucose 90 mg/dL Osmolality - Calculated 276 mOsm/kg Calcium 9.0 mg/dL Protein, Total 6.3 g/dL Albumin 3.5 g/dL Globulin 2.8 g/dL Bilirubin, Total 0.2 mg/dL ALT (SGPT) 11 U/L AST (SGOT) 16 U/L Alkaline Phosphatase 165 IU/L WBC 5.9 10 3/uL RBC 4.03 10 6/uL HGB 12.2 g/dL HCT 37.2 % MCV 92.3 fl MCH 30.3 pg MCHC 32.8 g/dL RDW 13.7 % Platelet Count 184 10 3/cmm MPV 9.5 fL Neutrophils 3.71 10 3/uL Lymphocytes 1.5 10 3/uL Monocytes 0.6 10 3/uL Eosinophils 0.1 10 3/uL Basophils 0.0 10 3/uL Neutrophil % 63.1 % Lymphocyte % 24.9 % Monocyte % 9.4 % Eosinophil % 1.4 % Basophils % 0.7 % NRBC % 0 % Problem List: 1. Multifocal left breast cancer, stage IIIA (T2, pN1a, M0), ER negative, NM negative, and HER-2 kika negative. She underwent ultrasound directed core needle biopsy of the left breast on 04/02/2020 and she underwent left mastectomy with axillary sentinel lymph node biopsy on 05/20/2020. 2. She has chronic musculoskeletal pain. Problems Addressed with this Encounter and Plan: 1. Patient with multifocal left breast cancer, stage IIIA (T2, pN1a, M0), ER negative, NM negative, and HER-2 kika negative. [address] scans showed small pulmonary nodules which were indeterminate, but early metastatic disease was not excluded. Bone scan was negative for metastatic disease. With those findings, she underwent left mastectomy with axillary sentinel lymph node biopsy on 05/20/2020. She was recommended to undergo adjuvant chemotherapy with dose dense Adriamycin/cyclophosphamide followed by weekly paclitaxel. She completed 4 cycles of Adriamycin/cyclophosphamide from 07/08/2020 through 08/20/2020. As of her follow-up visit on 09/02/2020 she had a significant decline in performance status and she had moderately severe anemia with hemoglobin decreased to 8.3 g. She was transfused PRBC and a taxane portion of her chemotherapy was delayed. There was no evidence of recurrent or metastatic disease on restaging with chest CT and bone scan. She then proceeded with cycle 1 of weekly paclitaxel on 09/23/2020. She tolerated it well, and she continued with week 2 paclitaxel on 10/03/2020. Her further treatment was put on hold due to significant skin toxicity, mainly fissuring in the fingers. She required a 4-week delay, but she was able to continue with her week 3 treatment on 10/30/2020. It was administered with a dose reduction, and she tolerated well. Her week 4 was delayed until 11/11/2020, but thereafter she was able to continue the paclitaxel infusions on a weekly schedule. She completed her week 12 and final treatment on 01/06/2021. She was then followed on expectant management. During follow-up she has continued to have somewhat marginal performance status and she has continued to have multiple complaints. Thus far there has been no obvious recurrence of her breast cancer. She remains on observation/expectant management. I will see her again in 3 months. In the meantime, I will have her see Dr. Tejada for removal of her Port-A-Cath venous access device, as it is no longer being used and she has not been compliant with getting it flushed monthly. 2. She has significant chronic musculoskeletal pain, management of which has been problematic. It is being managed symptomatically with a combination of Nucynta and gabapentin. 3. She has a long history of smoking, currently had 1 pack of cigarettes daily. She is desiring to quit, and she will be given a prescription for nicotine patches. She is aware that she should not smoke while she is wearing the patch. Signed By: Phillip Michelle M.D. <<Signature on File>>
== END 2021-05-21 08:58 | disposition home or self-care (01) ==
LOC: ONCMED 08:59
PROVIDERS: Visit Provider Internal Medicine Medical Oncology
DX: C50.212 Malignant neoplasm of upper-inner quadrant of left female breast (principal); Z17.1 Estrogen receptor negative status [ER-]; F17.210 Nicotine dependence, cigarettes, uncomplicated; G89.29 Other chronic pain; M79.18 Myalgia, other site; Z79.899 Other long term (current) drug therapy; Z92.21 Personal history of antineoplastic chemotherapy
CPT/HCPCS: 36415; 80053; 85025; 96523; 99214

== ENCOUNTER → 2021-06-11 08:45 | Outpatient (BNVA) | payer MEDICAID, SELFPAY | PROVIDERS: Visit Provider Surgery | DX: Z01.812 Encounter for preprocedural laboratory examination (principal); Z11.52 Encounter for screening for COVID-19; Z20.822 Contact with and (suspected) exposure to COVID-19 | CPT/HCPCS: 87635 ==

== ENCOUNTER 2021-06-16 06:12 | Day surgery (SDC) | payer MEDICAID, SELFPAY ==
--- NOTE | 2021-06-16 05:55 | W.PM.OPSUD ---
Surgery/Procedure H&P Update DATE OF PROCEDURE: June 16, 2021 DATE H&P PERFORMED: 06/04/20 H&P UPDATE INFORMATION: I have reviewed H&P completed within last 30 days, I have examined patient prior to procedure and No changes to prior documentation PREOP DIAGNOSIS: undesired Port-A-Cath PRIMARY INDICATION FOR PROCEDURE: The same PLANNED PROCEDURE: Operation Date: 06/16/21 07:00 Proposed Procedures p Portacath Removal 66622 Z45.2(Not Applicable) - Colby Tejada MD
[2021-06-16 06:33] VITALS: BP 133/71; PULSE 77; RESP 18; TEMP 36.8; O2SAT 95
[2021-06-16] MEDS: sodium chloride 0.9% 1,000 ML 30 ML IV (06:53)
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
[2021-06-16] MEDS: lidocaine 2% INJ 20 mL INJECTION (07:25)
--- NOTE | 2021-06-16 07:42 | P.OP_ITS ---
Operative Report Date of procedure: June 16, 2021 Pre-op Diagnosis: undesired Port-A-Cath Post-op diagnosis: same Procedure Done: Explantation of right upper chest Port-A-Cath Surgeon: Colby Tejada [employer] Photo Operator: computer systems technician Abigail and surgical corsetier student Ida Mccarthy Circulating nurse Talita Smith Anesthesia: MAC (Iam Case) Estimated blood loss (mL): 5 Condition: stable Disposition: same day Brief History: Undesired Port-A-Cath Procedure: Patient was identified in the holding area and was brought back to the OR.Right upper chest was marked by myselff prior to bringing back the patient to the OR.Time out was done for the planned procedure and destination after the procedure, all were in agreement. SCDs confirmed to be functioning, preoperative antibiotics administered per protocol, and beta katrina protocol was confirmed, appropriate positioning of the patient was done by me. Prep and drape of the upper chest was done under the usual technology director nique,injection of lidocaine 2% at the site of the planned incision started by an transverse incision including the previous scar of the Port-A-Cath placement, located at the right upper chest wall, the port was then explanted after appropriate dissection and freed from the surrounding adhesions. At this point the catheter was removed at the same time direct pressure was applied at the site of the right internal jugular vein stick site to prevent bleeding. Thorough irrigation of the Port-A-Cath cavity was done followed by hemostasis, pressure was sustained for at least 5 minutes to prevent bleeding from the stick site Closure using deep subdermal 3-0 Vicryl and 4-0 Monocryl followed by dry dressing Count was completed for instruments, needles and sponges, patient was then taken to the recovery area in stable condition I was present for the whole entire procedure
[2021-06-16 07:52] VITALS: BP 123/73; PULSE 77; RESP 18; TEMP 36.3; O2SAT 100
[2021-06-16 07:55] VITALS: BP 120/85; PULSE 71; RESP 18; O2SAT 98
[2021-06-16 08:02] VITALS: BP 127/76; PULSE 71; RESP 18; TEMP 36.3; O2SAT 98
[2021-06-16 08:12] VITALS: BP 129/83; PULSE 75; RESP 18; TEMP 36.3; O2SAT 95
[2021-06-16] MEDS: HYDROcodone-acetaminophen 5-325 mg Tablet 1 TAB PO (08:17)
--- NOTE | 2021-06-16 11:37 | ANE.PACU2 ---
Inpatient post-anesthesia follow up: Airway intact: Yes Vital signs: Temperature 97.3 F Pulse Rate 75 Respiratory Rate 18 Blood Pressure 129/83 Pulse Oximetry 95 Oxygen Delivery Me thod Room Air Oxygen Flow Rate 8 Fraction of Inspir ed Oxygen Hydration adequate: Yes Nausea and vomiting: No Pain level: 1 Mental status: Baseline
== END 2021-06-16 08:27 | disposition home or self-care (01) ==
PROVIDERS: Visit Provider Surgery
PROC: (CPT 36589; principal; 2021-06-16 07:00)
DX: Z45.2 Encounter for adjustment and management of vascular access device (principal); Z92.21 Personal history of antineoplastic chemotherapy; Z85.3 Personal history of malignant neoplasm of breast; Z80.0 Family history of malignant neoplasm of digestive organs; Z82.49 Family history of ischemic heart disease and other diseases of the circulatory system; F17.210 Nicotine dependence, cigarettes, uncomplicated
CPT/HCPCS: 36590; J0690; J2704; J3010; J7030

== ENCOUNTER → 2021-08-31 10:41 | Outpatient (BNVA) | payer MEDICAID, SELFPAY | PROVIDERS: Visit Provider Surgery | DX: Z11.52 Encounter for screening for COVID-19 (principal) | CPT/HCPCS: 87635 ==

== ENCOUNTER → 2021-10-07 10:44 | Outpatient (BNVA) | payer MEDICAID, SELFPAY | PROVIDERS: Visit Provider Surgery | DX: Z20.822 Contact with and (suspected) exposure to COVID-19 (principal) | CPT/HCPCS: 87635 ==

== ENCOUNTER 2021-10-08 08:50 | Day surgery (SDC) | payer MEDICAID, SELFPAY ==
[2021-08-31 12:51] VITALS: BMI 21.7
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
[2021-10-08 10:10] VITALS: BP 112/63; PULSE 61; RESP 18; TEMP 36.1; O2SAT 96
[2021-10-08] MEDS: sodium chloride 0.9% 1,000 ML 30 ML IV (10:15)
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
[2021-10-08 11:41] VITALS: BP 105/67; PULSE 71; RESP 18; TEMP 36.4; O2SAT 93
[2021-10-08 11:57] VITALS: BP 113/59; PULSE 67; RESP 16; O2SAT 100
--- NOTE | 2021-10-08 12:12 | PC.NURSE ---
Barium enema ordered by Dr. Tejada. Patient took to radiology waiting room for procedure. Radiology confirmed they were able to do the procedure and is aware of patient setting in the waiting room.
--- NOTE | 2021-10-08 13:04 | PC.NURSE ---
Radiology called to inform GI staff the patient left prior to having her procedure done. Dr Tejada nurse notified.
--- NOTE | 2021-10-08 14:18 | ANE.PACU2 ---
Inpatient post-anesthesia follow up: Airway intact: Yes Vital signs: Temperature 97.5 F Pulse Rate 67 Respiratory Rate 16 Blood Pressure 113/59 Pulse Oximetry 100 Oxygen Delivery Me thod Room Air Oxygen Flow Rate 4 Fraction of Inspir ed Oxygen Hydration adequate: Yes Nausea and vomiting: No Pain level: 1 Mental status: Baseline
== END 2021-10-08 13:00 | disposition home or self-care (01) ==
PROVIDERS: Visit Provider Surgery
PROC: 0DJD8ZZ Inspection of Lower Intestinal Tract, Via Natural or Artificial Opening Endoscopic (ICD-10-PCS; CPT 45330; 2021-10-08 10:30)
DX: Z12.11 Encounter for screening for malignant neoplasm of colon (principal); K57.30 Diverticulosis of large intestine without perforation or abscess without bleeding; F17.210 Nicotine dependence, cigarettes, uncomplicated; J44.9 Chronic obstructive pulmonary disease, unspecified; K21.9 Gastro-esophageal reflux disease without esophagitis; Z85.3 Personal history of malignant neoplasm of breast; Z82.49 Family history of ischemic heart disease and other diseases of the circulatory system; Z80.0 Family history of malignant neoplasm of digestive organs
CPT/HCPCS: 45330; J2704; J7030

== ENCOUNTER 2022-01-25 12:37 | Oncology outpatient (recurring) (ONCR) | payer MEDICAID, SELFPAY | END 2022-02-18 23:59 | disposition home or self-care (01) | PROVIDERS: Visit Provider Nurse Practitioner Family | DX: C50.912 Malignant neoplasm of unspecified site of left female breast (principal); Z17.1 Estrogen receptor negative status [ER-]; G89.3 Neoplasm related pain (acute) (chronic); M79.10 Myalgia, unspecified site; C50.919 Malignant neoplasm of unspecified site of unspecified female breast; Z79.899 Other long term (current) drug therapy | CPT/HCPCS: 99214 ==

== ENCOUNTER 2022-09-29 14:03 | Oncology outpatient (recurring) (ONCR) | payer MEDICAID, SELFPAY | END 2022-10-19 23:59 | disposition home or self-care (01) | LOC: ONCMED 14:03 | PROVIDERS: Visit Provider Nurse Practitioner | DX: C50.812 Malignant neoplasm of overlapping sites of left female breast (principal); Z17.1 Estrogen receptor negative status [ER-]; Z90.12 Acquired absence of left breast and nipple; Z79.891 Long term (current) use of opiate analgesic; F32.A Depression, unspecified; R29.6 Repeated falls; R51.9 Headache, unspecified; M25.562 Pain in left knee; M54.50 Low back pain, unspecified | CPT/HCPCS: 36415; 80053; 85025; 99215 ==

== ENCOUNTER 2023-01-07 14:50 | Outpatient (CLI) | payer MEDICAID, SELFPAY ==
--- NOTE | 2023-01-07 | MR_ITS ---
WS: [id number] MRI HEAD WITH CONTRAST TECHNIQUE: Sagittal T1, T2 axial, T2 axial FLAIR, axial susceptibility weighted imaging, axial diffus ion weighted images, and coronal T2 images were obtained. Pre and post-T1 axial and post T1 coronal i mages. ADC and FSPGR images. CLINICAL INFORMATION: persistent LEONE, frequent falls, nausea, memory loss COMPARISON: MRI April 23, 2020 FINDINGS: No evidence of restricted diffusion to suggest acute ischemia. Ventricular system and basal cisterns are patent. Moderate small vessel changes slightly progressed compared to previous. Moderate parenchy mal volume loss. Normal posterior fossa. Normal vascular flow voids at the skull base. No extra-axial fluid collections. No mass or mass effect. Paranasal sinuses are well aerated. Mastoid air cells wel l aerated. No hemosiderin on susceptibly weighted images. Temporal lobes and hippocampal formations are normal i n appearance. No abnormal intracranial enhancement. No evidence of enhancing cranial metastatic disease. Normal vis ualized dural venous sinuses. MR/MR head wo/w con [id number] IMPRESSION: 1. No evidence of intracranial enhancing metastatic disease. 2. Moderate small vessel changes moderate parenchymal volume loss slightly pro gressed compared to previous. 3. No restricted diffusion to suggest acute ischemia. 4. No other suspicious findings.
[2023-01-07] MEDS: gadobenate dimeglumine 20 mL vial IV (16:17)
== END 2023-01-07 14:51 | disposition home or self-care (01) ==
PROVIDERS: Visit Provider Nurse Practitioner
DX: R51.9 Headache, unspecified (principal); R29.6 Repeated falls; R11.0 Nausea; R41.3 Other amnesia
CPT/HCPCS: 70553; A9577

== ENCOUNTER 2023-03-01 10:58 | Oncology outpatient (recurring) (ONCR) | payer MEDICAID, SELFPAY ==
[2023-03-01 11:25] VITALS: BP 161/80; PULSE 81; RESP 16; TEMP 36.6; O2SAT 98
[2023-03-01 11:39] LABS: Basophils % 0.4 %; Eosinophils # 0.1 10^3/uL (0.0-0.8); Eosinophils % 1.2 %; Hematocrit 42.6 % (37.0-47.0); Hemoglobin 14.2 g/dL (11.5-15.3); Lymphocytes # 1.9 10^3/uL (0.8-4.8); Lymphocytes % 24.7 %; Mean Corpuscular HGB Conc 33.3 g/dL (30.0-36.0); Mean Corpuscular Hemoglobin 29.6 pg (28.0-34.0); Mean Corpuscular Volume 88.8 fl (81-99); Mean Platelet Volume 9.2 fL (7.4-10.4); Monocytes # 0.5 10^3/uL (0.2-0.9); Monocytes % 5.9 %; Neutrophils # 5.16 10^3/uL (1.8-7.7); Neutrophils % 67.5 %; Nucleated Red Blood Cells % 0 %; Platelet Count 218 10^3/cmm (130-400); Red Cell Distribution Width 14.2 % (12.1-15.1); White Blood Count 7.6 10^3/uL (4.0-10.0)
[2023-03-01 11:55] LABS: Alanine Aminotransferase 16 U/L (0-33); Albumin Level 4.1 g/dL (3.5-5.2); Alkaline Phosphatase 122 U/L (35-105); Anion Gap 12.7 (5-19); Aspartate Amino Transferase 25 U/L (0-32); Blood Urea Nitrogen 4 mg/dL (8-23); Calcium 9.3 mg/dL (8.5-10.5); Carbon Dioxide 30 mmol/L (22-29); Chloride 98 mmol/L (98-107); Creatinine Clr Calc Pharmacy 61.0608; Globulin 3.1 g/dL (1.3-4.6); Glomerular Filtration Rate 72.9 mL/min (90-130); Glucose 161 mg/dL (65-115); Osmolality Calculated 284 mOsm/kg (285-295); Potassium 3.7 mmol/L (3.5-5.1); Sodium 137 mmol/L (136-145); Total Bilirubin 0.3 mg/dL (0.15-1.2); Total Protein 7.2 g/dL (6.6-8.7)
== END 2023-03-21 23:59 | disposition home or self-care (01) ==
PROVIDERS: Visit Provider Internal Medicine Medical Oncology
DX: Z90.12 Acquired absence of left breast and nipple; Z79.891 Long term (current) use of opiate analgesic; M25.59 Pain in other specified joint; G89.29 Other chronic pain; Z79.899 Other long term (current) drug therapy; Z08 Encounter for follow-up examination after completed treatment for malignant neoplasm; Z85.3 Personal history of malignant neoplasm of breast; Z92.21 Personal history of antineoplastic chemotherapy; Z92.25 Personal history of immunosuppression therapy
CPT/HCPCS: 36415; 80053; 85025; 99214

== ENCOUNTER 2023-09-06 12:24 | Oncology outpatient (recurring) (ONCR) | payer MEDICAID, SELFPAY ==
[2023-09-06 12:50] VITALS: BP 115/57; PULSE 85; RESP 16; TEMP 36.4; O2SAT 97
[2023-09-06 12:56] LABS: Basophils % 0.5 %; Eosinophils # 0.1 10^3/uL (0.0-0.8); Eosinophils % 1.2 %; Hematocrit 40.8 % (36-47); Lymphocytes # 1.8 10^3/uL (0.8-4.8); Lymphocytes % 21.9 %; Mean Corpuscular HGB Conc 33.1 g/dL (30-55); Mean Corpuscular Hemoglobin 29.2 pg (27-33); Mean Corpuscular Volume 88.3 fl (85-98); Mean Platelet Volume 9.4 fL (7.4-10.4); Monocytes # 0.4 10^3/uL (0.2-0.9); Monocytes % 5.2 %; Neutrophils # 5.97 10^3/uL (1.8-7.7); Nucleated Red Blood Cells % 0 %; Platelet Count 208 10^3/cmm (157-399); Red Blood Count 4.62 10^6/uL (3.85-5.65); Red Cell Distribution Width 14.6 % (12.1-15.1); White Blood Count 8.41 10^3/uL (3.29-11.43)
[2023-09-06 13:14] LABS: Alanine Aminotransferase 14 U/L (0-33); Albumin Level 4.2 g/dL (3.5-5.2); Alkaline Phosphatase 116 U/L (35-105); Anion Gap 11.7 (5-19); Aspartate Amino Transferase 24 U/L (0-32); Blood Urea Nitrogen 8 mg/dL (8-23); Calcium 9.6 mg/dL (8.5-10.5); Carbon Dioxide 31 mmol/L (22-29); Chloride 100 mmol/L (98-107); Globulin 3.4 g/dL (1.3-4.6); Glomerular Filtration Rate 72.9 mL/min (90-130); Glucose 127 mg/dL (65-115); Osmolality Calculated 288 mOsm/kg (285-295); Potassium 3.7 mmol/L (3.5-5.1); Sodium 139 mmol/L (136-145); Total Bilirubin 0.4 mg/dL (0.15-1.2); Total Protein 7.6 g/dL (6.6-8.7)
== END 2023-09-21 23:59 | disposition home or self-care (01) ==
PROVIDERS: Internal Medicine Medical Oncology; Visit Provider Nurse Practitioner Family
DX: C50.812 Malignant neoplasm of overlapping sites of left female breast (principal); Z17.1 Estrogen receptor negative status [ER-]; Z90.12 Acquired absence of left breast and nipple; Z79.891 Long term (current) use of opiate analgesic; F32.A Depression, unspecified; R29.6 Repeated falls; R51.9 Headache, unspecified; M25.562 Pain in left knee; M54.50 Low back pain, unspecified; C50.912 Malignant neoplasm of unspecified site of left female breast; G89.3 Neoplasm related pain (acute) (chronic); M79.10 Myalgia, unspecified site
CPT/HCPCS: 36415; 80053; 85025; 99214

== ENCOUNTER → 2023-11-10 11:21 | Outpatient (BNVA) | payer MEDICAID, SELFPAY | PROVIDERS: Visit Provider Anesthesiology Pain Medicine | DX: M54.50 Low back pain, unspecified (principal); G89.29 Other chronic pain; M54.16 Radiculopathy, lumbar region; M79.18 Myalgia, other site; M47.816 Spondylosis without myelopathy or radiculopathy, lumbar region | CPT/HCPCS: 72110; 99204 ==

== ENCOUNTER 2024-03-08 12:21 | Oncology outpatient (recurring) (ONCR) | payer MEDICAID, SELFPAY ==
[2024-03-08 12:57] LABS: Basophils % 0.4 %; Eosinophils # 0.1 10^3/uL (0.0-0.8); Eosinophils % 1.1 %; Hematocrit 34.9 % (36-47); Lymphocytes # 1.8 10^3/uL (0.8-4.8); Lymphocytes % 17.1 %; Mean Corpuscular Volume 87.9 fl (85-98); Mean Platelet Volume 9.6 fL (7.4-10.4); Monocytes # 0.7 10^3/uL (0.2-0.9); Neutrophils # 7.64 10^3/uL (1.8-7.7); Neutrophils % 74.1 %; Nucleated Red Blood Cells % 0 %; Platelet Count 227 10^3/cmm (157-399); Red Blood Count 3.97 10^6/uL (3.85-5.65); Red Cell Distribution Width 14.9 % (12.1-15.1)
[2024-03-08 13:17] LABS: Alanine Aminotransferase 15 U/L (0-33); Albumin Level 4.1 g/dL (3.5-5.2); Alkaline Phosphatase 104 U/L (35-105); Anion Gap 13.3 (5-19); Aspartate Amino Transferase 21 U/L (0-32); Blood Urea Nitrogen 17 mg/dL (8-23); Calcium 9.5 mg/dL (8.5-10.5); Carbon Dioxide 27 mmol/L (22-29); Chloride 98 mmol/L (98-107); Globulin 3.1 g/dL (1.3-4.6); Glomerular Filtration Rate 72.7 mL/min (90-130); Glucose 100 mg/dL (65-115); Osmolality Calculated 282 mOsm/kg (285-295); Potassium 3.3 mmol/L (3.5-5.1); Sodium 135 mmol/L (136-145); Total Bilirubin 0.2 mg/dL (0.15-1.2); Total Protein 7.2 g/dL (6.6-8.7)
== END 2024-03-21 23:59 | disposition home or self-care (01) ==
PROVIDERS: Visit Provider Nurse Practitioner Family
DX: C50.812 Malignant neoplasm of overlapping sites of left female breast (principal); Z17.1 Estrogen receptor negative status [ER-]; Z90.12 Acquired absence of left breast and nipple; M79.18 Myalgia, other site; G89.29 Other chronic pain
CPT/HCPCS: 36415; 80053; 85025; 99214

== ENCOUNTER 2024-10-19 07:55 | Oncology outpatient (recurring) (ONCR) | payer BC, MEDICAID, SELFPAY ==
[2024-10-19 09:03] LABS: Basophils # 0.1 10^3/uL (0.0-0.1); Basophils % 0.8 %; Eosinophils # 0.2 10^3/uL (0.0-0.8); Hematocrit 39.7 % (36-47); Lymphocytes # 1.9 10^3/uL (0.8-4.8); Lymphocytes % 31.1 %; Mean Corpuscular HGB Conc 32.2 g/dL (30-55); Mean Corpuscular Hemoglobin 28.1 pg (27-33); Mean Corpuscular Volume 87.1 fl (85-98); Mean Platelet Volume 9.1 fL (7.4-10.4); Monocytes # 0.5 10^3/uL (0.2-0.9); Monocytes % 8.1 %; Neutrophils # 3.45 10^3/uL (1.8-7.7); Neutrophils % 56.8 %; Nucleated Red Blood Cells % 0 %; Platelet Count 227 10^3/cmm (157-399); Red Blood Count 4.56 10^6/uL (3.85-5.65); Red Cell Distribution Width 14.4 % (12.1-15.1); White Blood Count 6.07 10^3/uL (3.29-11.43)
[2024-10-19 09:20] LABS: Alanine Aminotransferase 17 U/L (0-33); Albumin Level 3.9 g/dL (3.5-5.2); Alkaline Phosphatase 117 U/L (35-105); Anion Gap 13.7 (5-19); Aspartate Amino Transferase 27 U/L (0-32); Blood Urea Nitrogen 9 mg/dL (8-23); Calcium 9.5 mg/dL (8.5-10.5); Carbon Dioxide 26 mmol/L (22-29); Chloride 96 mmol/L (98-107); Creatinine Clr Calc Pharmacy 68.6615; Globulin 3.6 g/dL (1.3-4.6); Glomerular Filtration Rate 84.8 mL/min (90-130); Glucose 85 mg/dL (65-115); Osmolality Calculated 272 mOsm/kg (285-295); Potassium 3.7 mmol/L (3.5-5.1); Sodium 132 mmol/L (136-145); Total Bilirubin 0.2 mg/dL (0.15-1.2); Total Protein 7.5 g/dL (6.6-8.7)
== END 2024-10-19 23:59 | disposition home or self-care (01) ==
PROVIDERS: Nurse Practitioner Family; Visit Provider Nurse Practitioner Family
DX: C50.812 Malignant neoplasm of overlapping sites of left female breast (principal)
CPT/HCPCS: 36415; 80053; 85025